=== PATIENT | female | born 1990 | race Caucasian/White ===

== ENCOUNTER 2018-01-27 11:14 | Outpatient (REF) | payer MEDICAID, SELFPAY ==
--- NOTE | 2018-01-27 09:00 | PAPFT_PTH ---
PATIENT: Shannan Castillo LOC: [facility] U#:[id number] AGE/SX: 27/F ROOM: RE01/27/[address]: JUDITH Loera : 1990 BED: DIS: 01/27/2018 SPEC #: [id number] RECD: 01/27/18 12:50 STATUS: TERENCE REQ #: [id number] MYNOR: 01/27/18 09:[address]: Suad Horvath DEPT: [facility] Cytology RECD BY: Aide Ellison ENTERED: 01/27/18 12:51 SP TYPE: PAPFT OTHR DR: Roxanne Childs Tissues: 1 - CX/ENDOCX FOR PAP SMEARS Procedures: PAP THIN PREP/UVM Screening Comments:
[2018-01-28 13:51] LABS: Chlamydia Result Negative; GC Result Negative; Specimen Description CERVIX
== END 2018-01-27 11:34 ==
LOC: LBN 11:14
PROVIDERS: PCP Nurse Practitioner Family; Visit Provider Nurse Practitioner Family
DX: Z12.4 Encounter for screening for malignant neoplasm of cervix (principal); Z11.3 Encounter for screening for infections with a predominantly sexual mode of transmission
CPT/HCPCS: 87491; 87591; 88142

== ENCOUNTER 2018-06-21 01:47 | Emergency (ER) | payer MEDICAID, SELFPAY ==
[2018-06-21 01:51] VITALS: BP 126/84; PULSE 96; RESP 16; TEMP 36.4; O2SAT 100
--- NOTE | 2018-06-21 02:09 | W.ED.GENAD ---
Discharge Plan Disposition Patient Disposition: HOME Condition: Good Discharge Details Chief Complaint: Abd Prob Clinical Impression: Abdominal pain Primary Care Provider: Roxanne Childs ED Provider: Chemo Roldan Meds and New Rx's Prescriptions: New famotidine [Heartburn Relief (famotidine)] 20 mg tablet 20 mg PO BID 0 Days Qty: 30 RF: 0 Continued medroxyprogesterone [Depo-Provera] 150 MG/1 ML suspension 150 mg IM Q 12 WEEKS Qty: 1 RF: 3 Discharge Instructions Instructions: Abdominal Pain (ED) Additional Instructions: Pain may be related to acid type disease. Will try you on famotidine for the next couple weeks. Follow-up with primary care for reevaluation. Return to ED for persistent/worsening abdominal pain, fever, vomiting. Referrals: Roxanne Childs [Primary Care Provider] - Medical Decision Making Patient presenting with intermittent sharp upper abdominal pain that comes and goes. She has no associated symptoms or radiation of pain. She is not febrile. She looks well and is texting on her phone when I come into the room. Her abdomen is completely benign to palpation. She does complain of some discomfort currently. Will try GI cocktail. Discussed possibility of gallstones but at this point has no significant tenderness or associated symptoms and would not pursue imaging or workup currently. Patient feels that the GI cocktail helped. We will start her on Zantac and have her follow-up with primary care in 1-2 weeks. Return to ED for persistent/worsening abdominal pain, fever, vomiting. HPI General Mode of arrival: ambulatory. Date/Time Provider Initiated Documentation: 06/21/18 02:07. Limitations to Documentation: no limitations. Information obtained by: patient. HPI Narrative: Patient here with intermittent upper abdominal sharp pain that comes and goes. She has some discomfort currently. There is no radiation of the pain. It is not localized to one particular area but the general upper abdomen. There is no associated fever, chills, nausea, vomiting, diarrhea. There are no urinary symptoms. She is able to eat and drink normally without difficulty. She notes that bending over seems to make it worse. She decided to come here after work to be evaluated. Related Data Home Medications Medication Instructions Recorded Confirmed medroxyprogesterone [Depo-Provera] 150 mg IM Q 12 WEEKS #1 vial 08/03/18 01/22/19 famotidine [Heartburn Relief 20 mg PO BID 0 Days #30 tab 06/21/18 (famotidine)] Previous Rx's Medication Instructions Recorded medroxyprogesterone [Depo-Provera] 150 mg IM Q 12 WEEKS #1 vial 10/17/17 famotidine [Heartburn Relief 20 mg PO BID 0 Days #30 tab 06/21/18 (famotidine)] Allergies Allergy/AdvReac Type Severity Reaction Status Date / Time latex Allergy Intermediate Skin Rash Verified 06/21/18 01:55 vitamin E Allergy Mild Itching Verified 06/21/18 01:55 [From Enviro Stress] coconut oil Allergy Anaphylaxsi Verified 06/21/18 01:55 s General Stated Complaint: Abd Prob DRISS: 3 Review of Systems Review of Systems As documented in HPI otherwise negative as below. Const: no fever, chills, weakness Resp: no cough, SOB, pleuritic pain CV: no CP, diaphoresis, edema, syncope GI: positive abdominal pain: no nausea, vomiting, diarrhea Neuro: no headache, numbness, focal weakness, confusion : no pelvic cramping, dysuria, discharge PFSH Medical History Bipolar disorder (Chronic) Hidradenitis suppurativa (Chronic) Surgical History Biopsy, Soft Tissue (Inactive 01/15/17) Incision & Drainage, Abscess or Hematoma (Inactive) wisdome teeth extraction (Inactive) Social History Smoking/Tobacco Use Status: Never Alcohol Intake: current Alcohol Intake frequency: holidays/special occasions only Drug use: Never Substance use type: does not use Seatbelt use: always Do you feel safe in your relationship?: Yes Female Reproductive History Menstrual control method: progesterone injection History History 0 Para Hx # Term Pregnancies Multiple births Hx # Pregnancies Ectopic pregnancies AB induced Hx Number of Living Children AB spontaneous Exam Narrative Exam Narrative: 1. Const: Obese female in NAD. 2. Eyes: No conjunctival injection or scleral icterus. 3. ENT: NC/AT. No facial swelling or tenderness. Mucous membranes moist. 4. Neck: Supple. Trachea midline. 5. CVS: RRR without murmurs or gallops. 6. RESP: Unlabored respiratory effort. Clear to auscultation bilaterally. No wheezes, rales or rhonchi. 7. GI: Soft, NT/ND, no hepatosplenomegaly. No guarding or rebound. 8. Neuro: A&O x3. 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 Sensation grossly intact, no focal neurologic deficits. Course Vital Signs Temperature 97.5 F L 06/21/18 01:51 Pulse 96 H 06/21/18 01:51 Respiratory Rate 16 06/21/18 01:51 Blood Pressure 126/84 06/21/18 01:51 Pulse Oximetry 100 06/21/18 01:51 Temperature 97.5 F L 06/21/18 01:51 Temperature Source Skin 06/21/18 01:51 Pulse 96 H 06/21/18 01:51 Respiratory Rate 16 06/21/18 01:51 Respiratory Effort Non-Labored 06/21/18 01:54 Blood Pressure 126/84 06/21/18 01:51 Pulse Oximetry 100 06/21/18 01:51 Oxygen Delivery Method Room Air 06/21/18 01:51 Oxygen Flow Rate 0 06/21/18 01:51 Pain Level 9 06/21/18 01:56
== END 2018-06-21 02:38 | disposition home or self-care (01) ==
PROVIDERS: Emergency Provider Emergency Medicine; PCP Nurse Practitioner Family
DX: R10.9 Unspecified abdominal pain (principal)
CPT/HCPCS: 99283

== ENCOUNTER 2018-09-25 13:00 | Outpatient (REF) | payer MEDICAID, SELFPAY | END 2018-09-25 13:20 | LOC: LBN 13:00 | PROVIDERS: Visit Provider Nurse Practitioner Family | DX: R30.0 Dysuria (principal) | CPT/HCPCS: 87086 ==

== ENCOUNTER 2018-12-18 20:09 | Emergency (ER) | payer SELFPAY ==
[2018-12-18 20:12] VITALS: BP 130/75; PULSE 88; RESP 18; TEMP 36.4; O2SAT 100
--- NOTE | 2018-12-18 20:50 | W.ED.GENAD ---
Discharge Plan Disposition Patient Disposition: HOME Condition: Good Discharge Details Chief Complaint: RespSymp Clinical Impression: Pharyngitis Primary Care Provider: Eligio Leon ED Provider: Ana Hughes Home Meds and New Rx's Prescriptions: No Action medroxyprogesterone [Depo-Provera] 150 mg/mL suspension 150 mg IM Q 12 WEEKS Qty: 1 RF: 3 ibuprofen 200 mg Tablet 400 mg PO DIRECTED RF: 0 Discharge Instructions Instructions: Pharyngitis (ED) Additional Instructions: Drink plenty of fluids. Use Motrin or Tylenol for soreness if needed. Rest activities as tolerated. Your strep testing is negative today. Warm salt water gargles. Consider Cepacol lozenge [id number] for comfort. Follow-up with primary care doctor if not improving the next 3 to 5 days. Return for any difficulty with no shortness of breath or wheezing. Return for any increase in fevers or ill feeling, difficulty swallowing or alarming symptoms if needed. Stand Alone Forms: Work Release Medical Decision Making 28-year-old patient presents for complaints of headache and sore throat. Patient reports onset of symptoms 3 days ago, persistent since. No associated voice change, trismus. No fevers or chills however general malaise is present. Denies significant fatigue. Patient concerned with complaints of sore throat primarily. Strep testing is negative. Patient likely experiencing viral pharyngitis. Discussed precautions. The patient was stable and requested discharge. Prior to discharge, my usual and customary return precautions were reviewed with the patient - this included follow-up instructions and reasons to return to the Emergency Department if conditions worsens, does not improve as expected, or other new concerns arise. HPI General Date/Time Provider Initiated Documentation: 12/18/18 20:10. HPI Narrative: 28-year-old patient presents for complaints of headache and sore throat. Patient denies nasal congestion or ear pain. Patient reports throat discomfort for the last 3 days. No complaints of foreign body sensation, trismus or voice change. Patient reports generalized malaise. No associated fever, chills, nausea, vomiting. Eating and drinking without difficulty. Patient reports cough which is chronic and unchanged. History of reflux. No difficulty breathing shortness of breath or wheezing. Tried ibuprofen prior to arrival without relief. Related Data Home Medications Medication Instructions Recorded Confirmed medroxyprogesterone 150 mg/mL 150 mg IM Q 12 WEEKS #1 vial 09/25/18 12/18/18 intramuscular suspension ibuprofen 400 mg PO DIRECTED 12/18/18 12/18/18 Previous Rx's Medication Instructions Recorded medroxyprogesterone 150 mg/mL 150 mg IM Q 12 WEEKS #1 vial 09/25/18 intramuscular suspension Allergies Allergy/AdvReac Type Severity Reaction Status Date / Time latex Allergy Intermediate Skin Rash Verified 12/18/18 20:15 vitamin E Allergy Mild Itching Verified 12/18/18 20:15 [From Enviro Stress] coconut oil Allergy Anaphylaxsi Verified 12/18/18 20:15 s General Stated Complaint: RespSymp DRISS: 4 Review of Systems Review of Systems ROS Unobtainable: All systems reviewed & are unremarkable except as noted in HPI and below Constitutional Constitutional: Denies chills, Denies excessive sweating, Denies fatigue, Denies fever(s), Reports headache(s), Denies lethargy and Reports malaise ENT Ears, Nose, Mouth, and Throat: Denies ear discharge, Denies otalgia, Reports headache(s), Denies mouth pain, Denies nasal congestion, Denies sinus pain, Denies sinus pressure, Reports sore throat, Denies throat swelling and Denies tongue swelling Cardiovascular Cardiovascular: Denies dyspnea Respiratory Respiratory: Denies cough, Denies pain with cough and Denies dyspnea Gastrointestinal Gastrointestinal: Denies nausea and Denies vomiting Neurologic Neurologic: Reports headache(s) Endocrine Endocrine: Denies excessive sweating and Denies fatigue Allergic/Immunologic Allergic/Immunologic: Denies throat swelling and Denies tongue swelling [facility] Medical History Bipolar disorder (Chronic) Contraception (Acute 03/24/15) Hidradenitis suppurativa (Chronic) Moderate episode of recurrent major depressive disorder (Acute 04/03/17) Surgical History Biopsy, Soft Tissue (Inactive 01/15/17) left and right axillae Incision & Drainage, Abscess or Hematoma (Inactive) 07/14/16-ED [facility] wisdome teeth extraction (Inactive) Social History Smoking/Tobacco Use Status: Never Alcohol Intake: current Alcohol Intake frequency: holidays/special occasions only Drug use: Never Substance use type: does not use Seatbelt use: always Do you feel safe at home: Yes Do you feel safe in your relationship?: Yes Female Reproductive History Menstrual control method: progesterone injection History History 0 Para Hx # Term Pregnancies Multiple births Hx # Pregnancies Ectopic pregnancies AB induced Hx Number of Living Children AB spontaneous Exam Narrative Exam Narrative: CONST: Healthy appearing patient, in no acute distress. Well hydrated. Alert and alert. HENMT: Head nomocephalic, normal to inspection. Atraumatic. Hearing grossly normal. Pharyngeal erythema without exudate. No uvula involvement. Peritonsillar abscess or soft palate swelling EYES: General normal appearance. Alignment normal. Eyelids normal. Conjunctiva normal. NECK: Normal visual inspection. FROM. Trachea midline. No Midline tenderness. CHEST: Normal insepection of the chest. RESP: Normal respiratory effort. Speaking full sentences. No cough. No audible wheezing. No retractions. CARDIO: No JVD. No murmurs rubs. Regular rate MUSCULOSKELETAL: Normal Gait. FROM of all extremities. SKIN: Normal. Dry. No rashes. NEURO: Alert and awake. Speech clear. PSYCH: Normal affect. Cooperative. Course Vital Signs Vital signs: Vital Signs Temperature 36.4 C L 12/18/18 20:12 Pulse 88 12/18/18 20:12 Respiratory Rate 18 12/18/18 20:12 Blood Pressure 130/75 12/18/18 20:12 Pulse Oximetry 100 12/18/18 20:12 Temperature 36.4 C L 12/18/18 20:12 Temperature Source Skin 12/18/18 20:12 Pulse 88 12/18/18 20:12 Respiratory Rate 18 12/18/18 20:12 Respiratory Effort 12/18/18 20:19 Respiratory Depth Normal 12/18/18 20:19 Blood Pressure 130/75 12/18/18 20:12 Pulse Oximetry 100 12/18/18 20:12 Oxygen Delivery Method Room Air 12/18/18 20:12 Oxygen Flow Rate 0 12/18/18 20:12 Pain Level 7 12/18/18 20:12 Comment 12/18/18 20:12
== END 2018-12-18 21:30 | disposition home or self-care (01) ==
PROVIDERS: Emergency Provider Physician Assistant; PCP Family Medicine
DX: J02.9 Acute pharyngitis, unspecified (principal)
CPT/HCPCS: 87880; 99282

== ENCOUNTER 2019-01-11 08:01 | Emergency (ER) | payer SELFPAY ==
[2019-01-11 08:08] VITALS: BP 122/75; PULSE 86; RESP 16; TEMP 36.6; O2SAT 100
--- NOTE | 2019-01-11 08:26 | DI.RAD_ITS ---
EXAM: XR CHEST 2V PA LATERAL INDICATION: cough, congestion, fever, chills. COMPARISON: CHEST 2 VIEWS PA,LAT from 06/19/2017 TECHNIQUE: 2D digital imaging was performed. FINDINGS: Heart size and pulmonary vasculature are within normal limits. The lungs are clear. No effusion or pneumothorax is identified. The bones are unremarkable. IMPRESSION: No acute pulmonary process.
--- NOTE | 2019-01-11 08:34 | ED.GENADUL_ITS ---
Discharge Plan Disposition Patient Disposition: HOME Discharge Details Chief Complaint: RespSymp Clinical Impression: Bronchitis Primary Care Provider: Eligio Leon ED Provider: Brian Escobar Home Meds and New Rx's Prescriptions: New azithromycin 250 mg tablet See Rx Instructions .ROUTE .COMPLEX Qty: 6 RF: 0 No Action ibuprofen 200 mg Tablet 400 mg PO DIRECTED RF: 0 Discharge Instructions Instructions: Acute Bronchitis (ED) Additional Instructions: Your flu's test was negative and your chest x-ray does not show any obvious evidence of pneumonia. Based on duration of your symptoms it was decided to trial a 5-day course of antibiotics. Continue with supportive care at home which would include frequent hydration, Tylenol and ibuprofen as needed for pain and/or fevers. Contact your primary care provider should your symptoms persist. Referrals: Eligio Leon [Primary Care Provider] - 1 week Medical Decision Making This is a nontoxic-appearing 28-year-old female with URI and cough symptoms for the last 3 weeks. Her vitals are stable here. Physical exam is remarkable for posterior pharyngeal erythema. Visit several days ago was negative for strep. Her influenza is negative and I do not see any obvious pneumonia on chest x-ray. Based on the duration of her symptoms we decided to pursue her course of antibiotics. Doc-Chepe written. Discussed return precautions. Along with follow- up with her PCP. HPI General Date/Time Provider Initiated Documentation: 01/11/19 08:13 . HPI Narrative: Patient is a 28-year-old female with a significant past medical history for major depressive disorder and bipolar disorder who presents to the emergency department with 2 to 3 weeks of URI symptoms. She reports nasal congestion and sore throat. She has developed a worsening cough over the last week. She reports posttussive vomiting. No fevers recorded however she admits to chills and muscle aches. She has not taken her temperature. She has been taking the occasional DayQuil/NyQuil. She is a non-smoker. Related Data Home Medications Medication Instructions Recorded Confirmed ibuprofen 400 mg PO DIRECTED 12/18/18 01/11/19 azithromycin See Rx Instructions .ROUTE 01/11/19 .COMPLEX #6 tab Previous Rx's Medication Instructions Recorded azithromycin See Rx Instructions .ROUTE 01/11/19 .COMPLEX #6 tab Allergies Allergy/AdvReac Type Severity Reaction Status Date / Time latex Allergy Intermediate Skin Rash Verified 01/11/19 08:13 vitamin E Allergy Mild Itching Verified 01/11/19 08:13 [From Enviro Stress] coconut oil Allergy Anaphylaxsi Verified 01/11/19 08:13 s General Stated Complaint: RespSymp DRISS: 3 Review of Systems Constitutional Constitutional: Reports body ache(s), Reports chills, Reports fatigue, Reports fever(s), Denies headache(s), Reports lethargy and Reports malaise Eyes Eyes: Denies eye discharge and Denies eye pain ENT Ears, Nose, Mouth, and Throat: Denies headache(s), Denies neck pain, Reports sinus pressure and Reports sore throat Cardiovascular Cardiovascular: Denies dyspnea Respiratory Respiratory: Reports cough, Reports pain with cough, Denies dyspnea, Denies stridor and Denies wheezing Gastrointestinal Gastrointestinal: Denies nausea, Reports vomiting and Denies hematemesis Genitourinary Genitourinary: Denies flank pain Musculoskeletal Musculoskeletal: Reports myalgias, Denies muscle cramps and Denies neck pain Integumentary/Breasts Skin/Breast: Denies rash Neurologic Neurologic: Denies headache(s) Endocrine Endocrine: Reports fatigue Allergic/Immunologic Allergic/Immunologic: Denies wheezing [facility] Medical History Bipolar disorder (Chronic) Contraception (Acute 03/24/15) Hidradenitis suppurativa (Chronic) Moderate episode of recurrent major depressive disorder (Acute 04/03/17) Surgical History Biopsy, Soft Tissue (Inactive 01/15/17) left and right axillae Incision & Drainage, Abscess or Hematoma (Inactive) 07/14/16-ED [facility] wisdome teeth extraction (Inactive) Social History Smoking/Tobacco Use Status: Never Alcohol Intake: current Alcohol Intake frequency: holidays/special occasions only Drug use: Never Substance use type: does not use Seatbelt use: always Do you feel safe at home: Yes Do you feel safe in your relationship?: Yes Female Reproductive History Menstrual control method: progesterone injection History History 0 Para Hx # Term Pregnancies Multiple births Hx # Pregnancies Ectopic pregnancies AB induced Hx Number of Living Children AB spontaneous Exam Const General: cooperative, healthy appearing and comfortable Orientation: alert, awake and oriented x3 HENMT Head: normal to inspection Ears: TM's normal bilaterally General nose exam: external nose normal Face and sinus: normal facial exam Mouth: oral mucosae normal Teeth and gingiva: dentition normal Throat: posterior oropharynx abnormal erythema Eyes General: appearance normal, both eyes and all related structures Neck Neck: normal visual inspection Lymphatic: lymphadenopathy Chest Chest: normal inspection of the chest Resp Effort & Inspection: normal respiratory effort and able to speak in complete sentences Auscultation: clear to auscultation bilaterally Cardio Heart Sounds: S1 normal and S2 normal Pulses: normal peripheral pulses Skin General skin exam: no rashes or lesions noted Course Vital Signs Vital signs: Vital Signs Temperature 36.6 C 01/11/19 08:08 Pulse 86 01/11/19 08:08 Respiratory Rate 16 01/11/19 08:08 Blood Pressure 122/75 01/11/19 08:08 Pulse Oximetry 100 01/11/19 08:08 Temperature 36.6 C 01/11/19 08:08 Temperature Source Skin 01/11/19 08:08 Pulse 86 01/11/19 08:08 Respiratory Rate 16 01/11/19 08:08 Respiratory Effort Non-Labored 01/11/19 08:08 Blood Pressure 122/75 01/11/19 08:08 Blood Pressure Position Sitting 01/11/19 08:08 Pulse Oximetry 100 01/11/19 08:08 Oxygen Delivery Method Room Air 01/11/19 08:08 Oxygen Flow Rate 0 01/11/19 08:08 Pain Level 8 01/11/19 08:08 Lab/Test Results Lab/Test Results: 01/11/19 08:32 Nasopharynx Influenza Types A,B Antigen - Pending
== END 2019-01-11 09:58 | disposition home or self-care (01) ==
PROVIDERS: Emergency Provider Physician Assistant; PCP Family Medicine
DX: J20.9 Acute bronchitis, unspecified (principal)
CPT/HCPCS: 87449; 99283; 71046

== ENCOUNTER 2020-03-06 20:30 | Emergency (ER) | payer MEDICAID, SELFPAY ==
[2020-03-06 20:40] VITALS: BP 124/75; PULSE 92; RESP 18; TEMP 36.7; O2SAT 100
[2020-03-06 20:47] LABS: Bilirubin Negative (Negative); Blood Moderate (Negative); Clarity Sl Cloudy (Clear); Glucose Negative (Negative); Ketones Negative (Negative); Leukocyte Esterase Trace (Negative); Nitrite Negative (Negative); Specific Gravity >= 1.030 (1.005-1.025); Urobilinogen 0.2 EU/dL (Up TO 0.2); pH 5.5 (5-8)
[2020-03-06] MEDS: Phenazopyridine 100 MG TAB PO (20:56)
--- NOTE | 2020-03-06 20:58 | ED.GENADUL_ITS ---
Discharge Plan Disposition Patient Disposition: HOME Condition: Stable Discharge Details Clinical Impression: UTI (urinary tract infection) Primary Care Provider: Eligio Leon ED Provider: Renuka Pearson Home Meds and New Rx's Prescriptions: New cephalexin [Keflex] 500 mg capsule 500 mg PO BID Qty: 8 RF: 0 No Action ibuprofen 200 mg Tablet 400 mg PO DIRECTED PRNRF: 0 acetaminophen 500 mg Tablet 500 mg PO PRN PRNRF: 0 Discharge Instructions Instructions: Urinary Tract Infection in Women (ED) Additional Instructions: Take antibiotics as directed even if you feel better Can use the Pyridium 100 mg every 8 hours as needed for painful urination Drink at least 6 to 8 glasses of water daily to stay well-hydrated Return or see your primary care provider if you start running fevers back pain nausea vomiting or any concerns new or worsening symptoms Referrals: Eligio Leon [Primary Care Provider] - Medical Decision Making Presents with symptoms consistent with urinary tract infection for which she has a history of no suspicion for pyelonephritis. Urine has been sent and is positive for blood and leukocyte Estrace. Given Pyridium 100 mg for her symptoms. Will treat with Keflex 500 mg twice daily for 5 days and administer 2 additional Pyridium to use for home use if needed she was advised to return for new or worsening symptoms Medical Records Medical records reviewed: Yes I reviewed the patient's medical records. Lab Data Lab results reviewed: Yes I reviewed the patient's lab results. Lab results narrative: Laboratory Results - last 24 hr 03/06/20 20:35 Urine Color Yellow Urine Clarity Sl cloudy Urine pH 5.5 Ur Specific [place] >= 1.030 H Urine Protein Negative Urine Ketones Negative Urine Blood Moderate H Urine Nitrite Negative Urine Bilirubin Negative Urine Urobilinogen 0.2 Ur Leukocyte Esterase Trace H Urine RBC 10-20 H Urine WBC 20-50 H Ur Epithelial Cells Moderate Urine Crystals Negative Urine Bacteria Moderate Urine Casts Negative Urine Mucus Negative Ur Culture Indicated? No/sq. contamination Urine Glucose Negative HPI General Date/Time Provider Initiated Documentation: 03/06/20 20:30 . Limitations to Documentation: no limitations . Information obtained by: patient . HPI Narrative: Since after Thanksgiving reports dysuria frequency urgency. Denies flank pain hematuria fevers nausea or vomiting. Has a history of UTIs and states this is similar to her history. No other complaints Related Data Home Medications Medication Instructions Recorded Confirmed ibuprofen 400 mg PO DIRECTED PRN 12/18/18 03/06/20 acetaminophen 500 mg PO PRN PRN 03/06/20 03/06/20 cephalexin [Keflex] 500 mg PO BID #8 cap 03/06/20 Previous Rx's Medication Instructions Recorded cephalexin [Keflex] 500 mg PO BID #8 cap 03/06/20 Allergies Allergy/AdvReac Type Severity Reaction Status Date / Time latex Allergy Intermediate Skin Rash Verified 03/06/20 20:42 vitamin E Allergy Mild Itching Verified 03/06/20 20:42 [From Enviro Stress] coconut oil Allergy Anaphylaxsi Verified 03/06/20 20:42 s General Stated Complaint: Urinary DRISS: 4 Review of Systems All systems reviewed & are unremarkable except as noted in HPI and below Constitutional Constitutional: Denies fever(s) Genitourinary Genitourinary: Denies genital lesions, Reports dysuria, Denies flank pain, Reports urinary urgency, Denies vaginal discharge and Denies vaginal odor PFSH Medical History (Updated 03/06/20 @ 21:02 by Renuka Pearson NP) Bipolar disorder Contraception (03/24/15) Hidradenitis suppurativa Moderate episode of recurrent major depressive disorder (04/03/17) Surgical History Biopsy, Soft Tissue (01/15/17) left and right axillae Incision & Drainage, Abscess or Hematoma 07/14/16-ED [facility] teeth extraction Social History Smoking/Tobacco Use Status: Former Tobacco Use Smoking risk assessment performed?: Yes Alcohol Intake: current Alcohol Intake frequency: holidays/special occasions only Drug use: Occasionally Substance use type: marijuana Seatbelt use: always Do you feel safe at home: Yes Do you feel safe in your relationship?: Yes Female Reproductive History Menstrual control method: progesterone injection History History 0 Para Hx # Term Pregnancies Multiple births Hx # Pregnancies Ectopic pregnancies AB induced Hx Number of Living Children AB spontaneous Exam Const General: cooperative, healthy appearing, comfortable and no acute distress Nutritional Appearance: overweight HENMT Head: normal to inspection, normocephalic and atraumatic Mouth: oral mucosae normal Chest Chest: normal inspection of the chest Resp Effort & Inspection: normal respiratory effort and able to speak in complete sentences Cardio Rate: regular rate Rhythm: regular rhythm GI Inspection: normal to inspection Palpation: soft Back/Spine/Pelvis Back: no CVA tenderness Neuro General: patient alert, patient awake, patient oriented x3 and no focal motor deficits Extrem General: normal to inspection and full ROM Course Vital Signs Vital signs: Vital Signs Temperature 36.7 C 03/06/20 20:40 Pulse 92 H 03/06/20 20:40 Respiratory Rate 18 03/06/20 20:40 Blood Pressure 124/75 03/06/20 20:40 Pulse Oximetry 100 03/06/20 20:40 Temperature 36.7 C 03/06/20 20:40 Temperature Source Skin 03/06/20 20:40 Pulse 92 H 03/06/20 20:40 Respiratory Rate 18 03/06/20 20:40 Respiratory Effort Non-Labored 03/06/20 20:46 Blood Pressure 124/75 03/06/20 20:40 Blood Pressure Position Sitting 03/06/20 20:40 Pulse Oximetry 100 03/06/20 20:40 Oxygen Delivery Method Room Air 03/06/20 20:40 Oxygen Flow Rate 0 03/06/20 20:40 Pain Level 10 03/06/20 20:46 Lab/Test Results Lab/Test Results: Laboratory Tests Range/Units 03/06/20 20:35 Urine Color (Yellow) Yellow Urine Clarity (Clear) Sl cloudy Urine pH (5-8) 5.5 Ur Specific [place] (1.005-1.025) >= 1.030 H Urine Protein (Negative) mg/dL Negative Urine Ketones (Negative) mg/dL Negative Urine Blood (Negative) Moderate H Urine Nitrite (Negative) Negative Urine Bilirubin (Negative) Negative Urine Urobilinogen (Up TO 0.2) EU/dL 0.2 Ur Leukocyte Esterase (Negative) Trace H Urine Glucose (Negative) mg/dL Negative POC- Test(urine) Negative
[2020-03-06 21:01] LABS: Bacteria Moderate HPF (Negative); C & S Indicated? No/Sq. Contamination; Casts Negative LPF (Negative); Crystals Negative HPF (Negative); Epithelial Cells Moderate HPF (Negative); Mucus Negative (Negative); WBC 20-50 HPF (0-5)
[2020-03-06] MEDS: Phenazopyridine 100 MG TAB, 2 TABS/BTL PO (21:09)
[2020-03-06] MEDS: Cephalexin 500 MG CAP, 2 CAPS/BTL PO (21:10)
== END 2020-03-06 21:09 | disposition home or self-care (01) ==
PROVIDERS: Emergency Provider Nurse Practitioner Acute Care; PCP Family Medicine
DX: R39.0 Extravasation of urine (principal); Z87.440 Personal history of urinary (tract) infections
CPT/HCPCS: 81025; 99283; 81003; 81015

== ENCOUNTER 2020-04-30 23:12 | Emergency (ER) | payer MEDICAID, SELFPAY ==
[2020-04-30 23:20] VITALS: BP 124/73; PULSE 96; RESP 18; TEMP 36.7; O2SAT 99
--- NOTE | 2020-04-30 23:34 | W.ED.GENAD ---
Discharge Plan Disposition Patient Disposition: HOME Condition: Stable Discharge Details Clinical Impression: Abdominal pain, Colitis Primary Care Provider: Eligio Leon ED Provider: Gurwinder Mcintosh Home Meds and New Rx's Prescriptions: New ciprofloxacin HCl 500 mg tablet 500 mg PO BID Qty: 14 RF: 0 metronidazole [Flagyl] 500 mg tablet 500 mg PO Q8H Qty: 21 RF: 0 prednisone 20 mg tablet 60 mg PO DAILY 4 Days Qty: 12 RF: 0 Discharge Instructions Instructions: Colitis (ED) Additional Instructions: your cat scan showed inflammation of the bowel which can be due to infections but also due to inflammatory bowel disease follow up with your primary care provider within a week if you have severe worsening pain, persistent vomit or feel more ill return to the emergency department Medical Decision Making 29 yo female who denies chronic medical problems comes in with 2-3 days of loose stools and mid sharp abdominal pain. She states she has never had this pain in the past and denies prior surgeries. She denies vaginal discharge or bleeding. She arrives speaking in full sentences in no distress. She localizes the pain 1-2 inches superior to the umbilicus and is tender in this area even with light touch, no upper abdominal tenderness, and with deep palpation very mild pain in the lower quadrants. I do not feel a hernia on exam. Given location of pain and worsening over several days feel ct to evaluate for possible incarcerated hernia indicated, less likely to be appendicitis, sbo, cholecystitis or ovarian torsion/cyst given location of the pain. lab work unremarkable other than mild leukocytosis of 13, ua does show some bacteria and leukocytes but has no urinary symptoms. CT shows pancolitis and ileitis. She remains stable and is going to attempt to provide stool sample. Discussed findings with her and could be infectious vs inflammatory bowel disease such as crohn's vs ulcerative colitis. She has no significant tenderness on exam and feels well enough for outpatient management. Will start prednisone, cipro and flagyl and have her f/u with pcp within a week. Return precautions given Differential Diagnosis Differential Diagnosis: hernia, gastritis, colitis Imaging Data Radiologic Study: Attestation: I personally reviewed and interpreted this imaging study as follows: Imaging: CT Scan Radiologist's impression: IMPRESSION: 1. Findings of mild pancolitis and distal ileitis, as described above. 2. Mildly enlarged right lower quadrant small bowel mesenteric lymph nodes, likely reactive. 3. Mild splenomegaly. 4. Findings suggest mild circumferential wall thickening of the lower esophagus, could reflect reflux esophagitis. Recommend clinical correlation. Lab Data Lab results reviewed: Yes I reviewed the patient's lab results. HPI General Mode of arrival: ambulatory. Date/Time Provider Initiated Documentation: 04/30/20 23:12. Limitations to Documentation: no limitations. Information obtained by: patient. History of Present Illness 29 year old F presents to the emergency department with the chief complaint of abdominal pain, described as moderate, Patient reports no radiation. Patient started experiencing this day(s) (3) and it has been constant. No relieving factors improve symptom(s), No exacerbating factors reported . Patient did receive the following treatments prior to arrival, none Related Data Home Medications Medication Instructions Recorded Confirmed ciprofloxacin HCl 500 mg PO BID #14 tab 05/01/20 metronidazole [Flagyl] 500 mg PO Q8H #21 tab 05/01/20 prednisone 60 mg PO DAILY 4 Days #12 tab 05/01/20 Previous Rx's Medication Instructions Recorded ciprofloxacin HCl 500 mg PO BID #14 tab 05/01/20 metronidazole [Flagyl] 500 mg PO Q8H #21 tab 05/01/20 prednisone 60 mg PO DAILY 4 Days #12 tab 05/01/20 Allergies Allergy/AdvReac Type Severity Reaction Status Date / Time latex Allergy Intermediate Skin Rash Verified 04/30/20 23:31 vitamin E Allergy Mild Itching Verified 04/30/20 23:31 [From Enviro Stress] coconut oil Allergy Anaphylaxsi Verified 04/30/20 23:31 s General Stated Complaint: Abd Prob DRISS: 3 Review of Systems All systems reviewed & are unremarkable except as noted in HPI and below Constitutional Constitutional: Denies chills, Denies fever(s) and Denies weakness Cardiovascular Cardiovascular: Denies chest pain and Denies dyspnea Respiratory Respiratory: Denies cough and Denies dyspnea Gastrointestinal Gastrointestinal: Denies nausea and Denies vomiting Neurologic Neurologic: Denies weakness Endocrine Endocrine: Denies heat intolerance [facility] Medical History (Updated 05/01/20 @ 00:39 by Gurwinder Mcintosh MD) Bipolar disorder Contraception (03/24/15) Hidradenitis suppurativa Moderate episode of recurrent major depressive disorder (04/03/17) Surgical History Biopsy, Soft Tissue (01/15/17) left and right axillae Incision & Drainage, Abscess or Hematoma 07/14/16-ED [facility] teeth extraction Social History Smoking/Tobacco Use Status: Current every day Tobacco Type: cigarettes Smoking risk assessment performed?: Yes Alcohol Intake: current Alcohol Intake frequency: a few times a month Drug use: Never Substance use type: does not use Seatbelt use: always Do you feel safe at home: Yes Do you feel safe in your relationship?: Yes Female Reproductive History Menstrual control method: progesterone injection History History 0 Para Hx # Term Pregnancies Multiple births Hx # Pregnancies Ectopic pregnancies AB induced Hx Number of Living Children AB spontaneous Exam Const General: no acute distress Orientation: alert HENMT Head: normal to inspection Ears: external ears normal General nose exam: external nose normal Mouth: moist mucous membranes Eyes General: appearance normal, both eyes and all related structures Neck Neck: normal visual inspection Resp Effort & Inspection: normal respiratory effort and able to speak in complete sentences Cardio Rate: regular rate GI Palpation: soft, not firm and no guarding Skin General skin exam: no rashes or lesions noted Neuro General: patient alert and patient oriented x3 Extrem General: normal to inspection Psych Mental Status: mental status grossly normal Course Vital Signs Vital signs: Vital Signs Temperature 36.7 C 04/30/20 23:20 Pulse 96 H 04/30/20 23:20 Respiratory Rate 18 04/30/20 23:20 Blood Pressure 124/73 04/30/20 23:20 Pulse Oximetry 99 04/30/20 23:20 Temperature 36.7 C 04/30/20 23:20 Temperature Source Skin 04/30/20 23:20 Pulse 96 H 04/30/20 23:20 Respiratory Rate 18 04/30/20 23:20 Respiratory Effort Non-Labored 04/30/20 23:29 Blood Pressure 124/73 04/30/20 23:20 Blood Pressure Position Supine 04/30/20 23:20 Pulse Oximetry 99 04/30/20 23:20 Oxygen Delivery Method Room Air 04/30/20 23:20 Oxygen Flow Rate 0 04/30/20 23:20 Pain Level 9 04/30/20 23:20 Lab/Test Results Lab/Test Results: POC Urine Test Start: 04/30/20 23:33 Freq: Status: Complete Protocol: Document 04/30/20 23:33 CP (Rec: 04/30/20 23:34 CP [id number]) Test(Urine)-POC POC- Test(urine) Negative POC- Test(urine) Negative
[2020-04-30 23:44] LABS: Lactate 1.2 mmol/L (0.6-1.4)
[2020-04-30 23:45] LABS: Abs Immature Grans 0.08 10^3/uL (0.0-0.06); Absolute Lymphocyte Count 2.14 10^3/uL (1.2-3.4); Basophils % 0.4; Eosinophils % 5.1; HCT 38.4 % (36.0-46.0); HGB 12.3 g/dL (11.2-15.7); Immature Grans % 0.6; Lymphocytes % 15.5; MCH 26.5 pg (27.0-33.0); MCV 82.6 fL (80-95); MPV 9.6 fL (8.0-11.0); Neutrophils % 72.4; Nucleated RBC 0 %; Platelet Count 342 10^3/uL (130-400); RBC 4.65 10^6/uL (3.93-5.22); RDW 13.7 % (11.7-14.6); RDW-SD 40.8 fL; WBC 13.78 10^3/uL (4.4-10.8)
[2020-04-30 23:47] LABS: Absolute Basophil Count 0.06 10^3/uL (0.0-0.2); Absolute Monocyte Count 0.83 10^3/uL (0.1-0.8); Absolute Neutrophil Count 9.98 10^3/uL (1.2-6.7)
[2020-04-30 23:48] LABS: Bilirubin Negative (Negative); Blood Small (Negative); Clarity Clear (Clear); Glucose Negative (Negative); Ketones Negative (Negative); Leukocyte Esterase Small (Negative); Nitrite Negative (Negative); Specific Gravity >= 1.030 (1.005-1.025); Urobilinogen 0.2 EU/dL (Up TO 0.2); pH 5.5 (5-8)
[2020-04-30 23:51] LABS: Bacteria Few HPF (Negative); C & S Indicated? Yes; Casts Negative LPF (Negative); Crystals Negative HPF (Negative); Epithelial Cells Few HPF (Negative); Mucus Trace (Negative)
--- NOTE | 2020-04-30 23:55 | DI.CT_ITS ---
EXAM: CT ABDOMEN PELVIS W CLINICAL HISTORY: sharp mid abdominal pain. TECHNIQUE: Imaging Protocol: Axial computed tomography images with coronal and sagittal reformatted images were created and reviewed CONTRAST MATERIAL: Intravenous: Omnipaque 100cc Oral: None COMPARISON: No exams were available for comparison FINDINGS: VISUALIZED LUNG BASES: No nodules nor pleural effusions evident. ABDOMEN: There is no ascites. LIVER: There are no obvious focal hepatic lesions evident . GALLBLADDER/BILIARY: Is collapsed making evaluation of luminal contents difficult CBD is not dilated. PANCREAS: No evidence of pancreatic mass nor dilatation of the pancreatic duct. SPLEEN: Spleen size upper normal. Splenic and portal veins are patent. ADRENALS: There are no significant adrenal masses. KIDNEYS:Tiny cyst in the inferior pole the right kidney. No solid renal masses. No calculi nor hydr onephrosis. No perinephric fluid.. ABDOMINAL AORTA: Abdominal aorta is not enlarged and there is no [id number] adenopat hy. ABDOMINAL WALL/GI: No evidence of significant anterior abdominal wall hernia. There is a curiel colitis pattern evident. No perforation. No significant dilatation. Also some abnormal appearance of dist al small bowel loops. No bowel obstruction. No free air. No abscess. PELVIS: GI: No evidence of appendicitis.No evidence of sigmoid diverticulitis. LYMPH NODES: There are few sub slightly prominent lymph nodes right lower quadrant mesentery. The la rgest of these measures 8 millimeters. REPRODUCTIVE: Uterus size is age-appropriate. There is a cyst in the right adnexa measuring 2.1 by 2 .0 cm, most probably follicular. URINARY BLADDER: Urinary bladder is collapsed. OSSEOUS: No significant osseous lesions. Sacroiliac joints appear unremarkable IMPRESSION: 1. Curiel colitis and distal ileitis. There also appears to be slight thickening of the wall of the dis anisha esophagus. No evidence of bowel obstruction, perforation, free air, nor abscess. There is no as cites. 2. There are few slightly prominent right lower quadrant mesenteric lymph nodes, most probably reacti ve. 3. Spleen size is upper normal. 4. Gallbladder is collapsed making evaluation of intraluminal contents difficult. RADIATION DOSE DELIVERED: 1,363.63mGy.cm Total DLP DATA REPOSITORY: All CT scans at this facility are submitted to the National Radiology Data Registry (NRDR) Dose Index Registry (DIR) with the [employer] (A[employer]). RADIATION OPTIMIZATION: All CT scans at this facility use at least one of these dose optimization te chniques: automated exposure control; mA and/or kV adjustment per patient size (includes targeted exa ms where dose is matched to clinical indication); or iterative reconstruction.
[2020-05-01] LABS: Lipase 102 U/L (73-393)
[2020-05-01] MEDS: Normal Saline - Diluent 50 ML VIAL IV (00:02)
[2020-05-01] MEDS: Omnipaque 350 MG/ML 100 ML BTL IJ (00:02)
[2020-05-01] MEDS: Normal Saline Flush 10 ML SYR IVP (00:03)
[2020-05-01 00:05] LABS: ALT 17 U/L (14-59); AST 9 U/L (15-37); Albumin 3.2 g/dL (3.4-5.0); Alkaline Phosphatase 78 U/L (46-116); Anion Gap 10.2 mmol/L (3-11); BUN 10 mg/dL (7-18); Bilirubin, Direct 0.08 mg/dL (0.00-0.20); Bilirubin, Total 0.2 mg/dL (0.2-1.0); CO2 25.8 mmol/L (21.0-32.0); CREATININE 0.7 mg/dL (0.55-1.02); Calcium 8.8 mg/dL (8.5-10.1); Chloride 102 mmol/L (98-107); Glucose 104 mg/dL (74-106); Potassium 3.3 mmol/L (3.5-5.1); Sodium 138 mmol/L (136-145); Total Protein 7.7 g/dL (6.4-8.2)
[2020-05-01] MEDS: Normal Saline 500 ML IV (00:06)
[2020-05-01] MEDS: Ketorolac 15 MG/ML VIAL IVP (00:07)
--- NOTE | 2020-05-01 00:32 | DI.VRAD_ITS ---
PROCEDURE INFORMATION: Exam: CT Abdomen And Pelvis With Contrast Exam date and time: 04/30/2020 11:34 PM Age: 29 years old Clinical indication: Other: Diarhhea; Localized; Patient HX: Sharp mid abdominal pain , diarrhea TECHNIQUE: Imaging protocol: Computed tomography of the abdomen and pelvis with contrast. Radiation optimization: All CT scans at this facility use at least one of these dose optimization techniques: automated exposure control; mA and/or kV adjustment per patient size (includes targeted exams where dose is matched to clinical indication); or iterative reconstruction. Contrast material: OMNIPAQUE 350; Contrast volume: 100 ml; Contrast route: INTRAVENOUS (IV); COMPARISON: No relevant prior studies available. FINDINGS: Mediastinal space: Findings suggest mild circumferential wall thickening of the lower esophagus above the GE junction, which could reflect reflux esophagitis. No hiatal hernia is identified. Liver: Normal. No mass. Gallbladder and bile ducts: The gallbladder is contracted and is not well evaluated, but there is no evidence for acute gallbladder inflammation. No gallstones are identified. There is no biliary ductal dilatation. Pancreas: Normal. No ductal dilation. Spleen: The spleen has a length of 13.6 cm consistent with mild splenomegaly. Adrenal glands: Normal. No mass. Kidneys and ureters: There is a tiny sub cm low-dense right renal lesion which is too small to characterize but likely represents a benign cyst. No renal or ureteral stones are identified. There is no hydronephrosis or hydroureter. Stomach and bowel: The colon is mostly collapsed, limiting evaluation. Findings suggest diffuse mild inflammatory wall thickening of the colon. There is mild inflammatory fat stranding as well around the transverse colon. Findings are consistent with mild pancolitis. There is fluid within the rectum and distal sigmoid colon suggesting diarrheal illness. The colon is otherwise completely collapsed. There is mild wall thickening of the terminal ileum as well as multiple loops of more proximal ileum consistent with mild ileitis. Appendix: The appendix is well visualized and appears normal. Intraperitoneal space: Unremarkable. No free air. No significant fluid collection. Vasculature: Unremarkable. No abdominal aortic aneurysm. Lymph nodes: There are multiple prominent subcentimeter right lower quadrant small bowel mesenteric lymph nodes measuring up to 7 mm, as seen around image 51, series 4. Urinary bladder: Unremarkable as visualized. Reproductive: There is a 1.0 x 1.6 cm rim enhancing low-dense right adnexal lesion, as seen on image 70, series 4, consistent with a corpus luteal cyst. There is also a 2.2 x 1.8 cm fluid attenuation right adnexal lesion on image 72, series 4, likely a follicle. Bones/joints: There is a transitional vertebra at the lumbosacral junction with partial sacralization of L5. Soft tissues: Unremarkable. IMPRESSION: 1. Findings of mild pancolitis and distal ileitis, as described above. 2. Mildly enlarged right lower quadrant small bowel mesenteric lymph nodes, likely reactive. 3. Mild splenomegaly. 4. Findings suggest mild circumferential wall thickening of the lower esophagus, could reflect reflux esophagitis. Recommend clinical correlation. Findings were discussed with Gurwinder Mcintosh at 05/01/2020 12:31 AM EST. Dictated and Authenticated by: Eligio Dupree MD. Ordering:EMILY Purdy MD
--- NOTE | 2020-05-01 00:37 | NUR.NOTE ---
Nursing Note: REFERAL FAXED TO PRIMARY TO FOLLOW UP WITHIN A WEEK FOR CHOLITIS 05/01/20
[2020-05-01 00:41] VITALS: BP 102/86; PULSE 71; RESP 16; O2SAT 100
[2020-05-01] MEDS: predniSONE 20 MG TAB 60 MG PO (00:48)
[2020-05-01] MEDS: Ciprofloxacin 500 MG TAB PO (00:48)
[2020-05-01] MEDS: metroNIDAZOLE 500 MG TAB PO (00:48)
[2020-05-01 01:33] LABS: C Diff PCR Negative (Negative)
[2020-05-02 11:02] LABS: Campylobacter PCR Positive (Negative); Salmonella PCR Negative (Negative); Shiga Toxin PCR Negative (Negative); Shigella/Enteroinvasive Ecoli Negative (Negative)
--- NOTE | 2020-05-02 11:04 | NUR.NOTE ---
Nursing Note: Lab ([facility]) called stating that the patient's Fecal PCR was positive for camplyobacter. Dr. Mclean is notified of this. Aicha Cheng
--- NOTE | 2020-05-02 19:58 | W.ED.FU ---
Lab called to state that her stool culture was positive for Campylobacter. Patient was treated with Cipro, Flagyl and prednisone. Patient was called at home and initially she was unavailable. She returned a call to the ED and she was informed of her results. She states she has a follow-up appointment with her primary care doctor. She had no acute complaints at this time and was advised to return with any concerns.
== END 2020-05-01 00:55 | disposition home or self-care (01) ==
LOC: ER 05-01 00:55
PROVIDERS: Emergency Provider Emergency Medicine; PCP Family Medicine
DX: K52.9 Noninfective gastroenteritis and colitis, unspecified (principal); R10.30 Lower abdominal pain, unspecified
CPT/HCPCS: 80053; 81025; 83690; 87493; 87505; 96361; 96374; 99285; 74177; 81003; 81015; 82248; 83605; 85025; 87086; 99284; J1885; J3490; J7512

== ENCOUNTER 2020-08-13 21:37 | Emergency (ER) | payer MEDICAID, SELFPAY ==
[2020-08-13 21:41] VITALS: BP 139/87; PULSE 99; RESP 18; TEMP 36.5
[2020-08-13 22:31] LABS: Bilirubin Negative (Negative); Blood Trace-intact (Negative); Clarity Sl Cloudy (Clear); Glucose Negative (Negative); Ketones Negative (Negative); Leukocyte Esterase Small (Negative); Nitrite Negative (Negative); Specific Gravity >= 1.030 (1.005-1.025); Urobilinogen 0.2 EU/dL (Up TO 0.2); pH 5.5 (5-8)
[2020-08-13 22:40] LABS: Bacteria Moderate HPF (Negative); C & S Indicated? No/Sq. Contamination; Casts Negative LPF (Negative); Crystals Negative HPF (Negative); Epithelial Cells Moderate HPF (Negative); Mucus Trace (Negative); WBC >50 HPF (0-5)
--- NOTE | 2020-08-13 22:47 | ED.GENADUL_ITS ---
Discharge Plan Disposition Patient Disposition: HOME Condition: Good Discharge Details Clinical Impression: UTI (urinary tract infection) Primary Care Provider: Eligio Leon ED Provider: Aide Elizabeth Home Meds and New Rx's Prescriptions: New cephalexin 500 mg tablet 500 mg PO BID Qty: 10 RF: 0 Discharge Instructions Instructions: Sexually Transmitted Diseases (ED), Trichomoniasis (ED), Urinary Tract Infection in Women (ED) Additional Instructions: Yogurt daily while on antibiotic Practice safe sexual practices You have STD cultures pending, they will likely be back within 72 hours Please return earlier should you have fever, chills, or with any new or worsening complaints test of cure in 2 weeks Discharge Data Discharge Date/Time-TO BE ENTERED AT DEPARTURE: 08/13/20 23:55 Medical Decision Making Patient appears well, she has STD testing that is pending Initial microanalysis is contaminated, second pending No cervical motion tenderness or evidence of PID on exam Patient positive for trichomonas, treated empirically for gonorrhea and chlamydia, and given 2 g of Flagyl, 1 g of azithromycin, 500 mg of ceftriaxone IM Will need test of cure in 2 weeks Negative test Patient will contact partners Patient otherwise appears well given the threshold to return for new or worseni ng complaints We will follow up with [facility] next week Differential Diagnosis Differential Diagnosis: Urinary tract infection, STD, interstitial cystitis, pyelonephritis Medical Records Medical records reviewed: Yes I reviewed the patient's medical records. HPI General Mode of arrival: ambulatory . Date/Time Provider Initiated Documentation: 08/13/20 21:52 . Limitations to Documentation: no limitations . Information obtained by: patient . HPI Narrative: This 29-year-old female presents with report of dysuria for the past 3 days. She states that she has a new sexual partner. She denies any new vaginal discharge. She denies any flank pain, fever, chills, or known chance of although she has not used any sort of contraception and has had 3 partners within the past week. She denies any history of sexually transmitted disease. Her pain is increased with urination. She denies any blood in her urine. Last menstrual period was 3 weeks ago. Denies any rashes or lesions. Related Data Home Medications Medication Instructions Recorded Confirmed cephalexin 500 mg PO BID #10 tab 08/13/20 Previous Rx's Medication Instructions Recorded cephalexin 500 mg PO BID #10 tab 08/13/20 Allergies Allergy/AdvReac Type Severity Reaction Status Date / Time latex Allergy Intermediate Skin Rash Verified 08/13/20 21:48 vitamin E Allergy Mild Itching Verified 08/13/20 21:48 [From Enviro Stress] coconut oil Allergy Anaphylaxsi Verified 08/13/20 21:48 s General Stated Complaint: Urinary DRISS: 4 Review of Systems Narrative: Review of systems obtained x7 aside from where indicated in the HPI [facility] Medical History (Updated 08/13/20 @ 23:33 by JOSE Edwards) Bipolar disorder Contraception (03/24/15) Hidradenitis suppurativa Moderate episode of recurrent major depressive disorder (04/03/17) Surgical History Biopsy, Soft Tissue (01/15/17) left and right axillae Incision & Drainage, Abscess or Hematoma 07/14/16-ED [facility] wisdome teeth extraction Social History Smoking/Tobacco Use Status: Current every day Tobacco Type: cigarettes Smoking risk assessment performed?: Yes Alcohol Intake: current Alcohol Intake frequency: a few times a month Drug use: Never Substance use type: does not use Seatbelt use: always Do you feel safe at home: Yes Do you feel safe in your relationship?: Yes Female Reproductive History Menstrual control method: progesterone injection History History 0 Para Hx # Term Pregnancies Multiple births Hx # Pregnancies Ectopic pregnancies AB induced Hx Number of Living Children AB spontaneous Exam Const General: cooperative, comfortable and no acute distress GI Inspection: normal to inspection Other: No CVA tenderness, no abdominal tenderness Other: mild white discharge noted, no cervical motion tenderness, no adnexal tenderness, no additional rashes or lesions, cervix is notably friable, there is scant bleeding with pelvic exam: Course Vital Signs Vital signs: Vital Signs Temperature 36.5 C 08/13/20 21:41 Pulse 99 H 08/13/20 21:41 Respiratory Rate 18 08/13/20 21:41 Blood Pressure 139/87 08/13/20 21:41 Temperature 36.5 C 08/13/20 21:41 Pulse 99 H 08/13/20 21:41 Respiratory Rate 18 08/13/20 21:41 Respiratory Effort Non-Labored 08/13/20 21:49 Blood Pressure 139/87 08/13/20 21:41 Oxygen Delivery Method Room Air 08/13/20 21:41 Oxygen Flow Rate 0 08/13/20 21:41 Pain Level 0 08/13/20 22:20 Lab/Test Results Lab/Test Results: 08/13/20 22:20 Vaginal Vaginitis Screen - Pending Laboratory Tests Range/Units 08/13/20 21:44 Urine Color (Yellow) Yellow Urine Clarity (Clear) Sl cloudy Urine pH (5-8) 5.5 Ur Specific [place] (1.005-1.025) >= 1.030 H Urine Protein (Negative) mg/dL Negative Urine Ketones (Negative) mg/dL Negative Urine Blood (Negative) Trace-intact H Urine Nitrite (Negative) Negative Urine Bilirubin (Negative) Negative Urine Urobilinogen (Up TO 0.2) EU/dL 0.2 Ur Leukocyte Esterase (Negative) Small H Urine RBC (0-2) HPF 5-10 H Urine WBC (0-5) HPF >50 H Ur Epithelial Cells (Negative) HPF Moderate Urine Crystals (Negative) HPF Negative Urine Bacteria (Negative) HPF Moderate Urine Casts (Negative) LPF Negative Urine Mucus (Negative) Trace Ur Culture Indicated? No/sq. contamination Urine Glucose (Negative) mg/dL Negative POC Urine Test Start: 08/13/20 21:44 Freq: Status: Complete Protocol: Document 08/13/20 22:05 CP (Rec: 08/13/20 22:05 CP [id number]) Test(Urine)-POC POC- Test(urine) Negative POC- Test(urine) Negative
[2020-08-13 23:22] LABS: Bacteria Few HPF (Negative); C & S Indicated? Yes; Crystals Negative HPF (Negative); Epithelial Cells Moderate HPF (Negative); Mucus Negative (Negative); RBC 20-50 HPF (0-2)
[2020-08-13] MEDS: Cephalexin 500 MG CAP PO (23:38)
[2020-08-13] MEDS: cefTRIAXone 500 MG VIAL IM (23:58)
[2020-08-13] MEDS: metroNIDAZOLE 500 MG TAB 2000 MG PO (23:58)
[2020-08-13] MEDS: Azithromycin 250 MG TAB 1000 MG PO (23:58)
[2020-08-16 15:15] LABS: Chlamydia Result Negative (Negative)
[2020-08-16 16:17] LABS: GC Result Positive (Negative)
== END 2020-08-13 23:55 | disposition home or self-care (01) ==
PROVIDERS: Emergency Provider Physician Assistant; PCP Family Medicine
DX: A54.02 Gonococcal vulvovaginitis, unspecified (principal); A59.01 Trichomonal vulvovaginitis; N39.0 Urinary tract infection, site not specified
CPT/HCPCS: 81025; 87491; 87591; 96372; 99284; 81003; 81015; 87086; 87480; 87510; 87660; 99283; J0696

== ENCOUNTER 2020-08-28 15:00 | Outpatient (CLI) | payer MEDICAID, SELFPAY ==
[2020-08-29 09:28] LABS: Hepatitis B Surface Ag Negative (Negative)
[2020-08-29 10:04] LABS: HIV-1/2 Ag & Ab Screen Negative (Negative)
[2020-08-29 10:23] LABS: Hepatitis C Ab w Rflx HCV PCR Negative (Negative)
[2020-08-30 11:09] LABS: Syphilis Total Ab w/Reflex Nonreactive (Nonreactive)
== END 2020-08-28 15:01 | disposition home or self-care (01) ==
LOC: LBO 15:01
PROVIDERS: PCP Family Medicine; Visit Provider Nurse Practitioner Family
DX: Z11.4 Encounter for screening for human immunodeficiency virus [HIV] (principal); Z11.59 Encounter for screening for other viral diseases; Z11.3 Encounter for screening for infections with a predominantly sexual mode of transmission
CPT/HCPCS: 36415; 86803; 87340; 87389; 86780

== ENCOUNTER 2020-08-28 15:38 | Outpatient (REF) | payer MEDICAID, SELFPAY ==
--- NOTE | 2020-08-28 15:00 | PAPFT_PTH ---
PATIENT: Shannan Castillo LOC: [facility] U#:[id number] AGE/SX: 30/F ROOM: RE08/28/[address]: JUDITH Loera : 1990 BED: DIS: 08/28/2020 SPEC #: [id number] RECD: 08/28/20 17:55 STATUS: TERENCE REQ #: [id number] MYNOR: 08/28/20 15:[address]: Suad Horvath DEPT: [facility] Cytology RECD BY: Aide Ellison ENTERED: 08/28/20 17:56 SP TYPE: PAPFT OTHR DR: Eligio Leon Tissues: 1 - CX/ENDOCX FOR PAP SMEARS Procedures: PAP THIN PREP/UVM Screening HPV DNA PROBE Comments: [id number]
[2020-08-30 14:10] LABS: Chlamydia Result Negative (Negative); GC Result Negative (Negative)
== END 2020-08-28 15:39 | disposition home or self-care (01) ==
LOC: LBN 15:38
PROVIDERS: PCP Family Medicine; Visit Provider Nurse Practitioner Family
DX: Z11.3 Encounter for screening for infections with a predominantly sexual mode of transmission (principal); Z12.4 Encounter for screening for malignant neoplasm of cervix; Z11.51 Encounter for screening for human papillomavirus (HPV)
CPT/HCPCS: 87491; 87591; 88142; 87624

== ENCOUNTER 2020-11-02 02:48 | Outpatient (CLI) | payer MEDICAID, SELFPAY ==
[2020-11-02 10:50] LABS: Kit/Specimen SENT
[2020-11-02 11:00] LABS: Abs Immature Grans 0.04 10^3/uL (0.0-0.06); Absolute Basophil Count 0.04 10^3/uL (0.0-0.2); Absolute Lymphocyte Count 1.69 10^3/uL (1.2-3.4); Absolute Monocyte Count 0.51 10^3/uL (0.1-0.8); Absolute Neutrophil Count 6.49 10^3/uL (1.2-6.7); Basophils % 0.5; Eosinophils % 1.1; HCT 34.5 % (36.0-46.0); HGB 11.1 g/dL (11.2-15.7); Immature Grans % 0.5; Lymphocytes % 19.1; MCH 27.1 pg (27.0-33.0); MCHC 32.2 % (32.0-36.0); MCV 84.4 fL (80-95); MPV 9.9 fL (8.0-11.0); Monocytes % 5.7; Neutrophils % 73.1; Nucleated RBC 0 %; Platelet Count 313 10^3/uL (130-400); RBC 4.09 10^6/uL (3.93-5.22); RDW 13.2 % (11.7-14.6); RDW-SD 40.6 fL; WBC 8.87 10^3/uL (4.4-10.8)
[2020-11-02 11:53] LABS: TSH (W/Ref FT4) 1.04 uIU/mL (0.36-3.74)
[2020-11-02 13:38] LABS: Glucose,1 Hr (Glucola) 79 mg/dL (80-140)
[2020-11-02 14:59] LABS: *AMPHETAMINES SCREEN URINE Negative (Negative); *BARBITURATES SCREEN URINE Negative (Negative); *BENZODIAZEPINES SCREEN URINE Negative (Negative); Cannabinoids THC Negative (Negative); Cocaine Screen,Urine Negative (Negative); METHADONE URINE SCREEN Negative (Negative); OPIATES URINE SCREEN Negative (Negative); Tricyclic Antidepressants Negative (Negative)
[2020-11-03 09:47] LABS: Hepatitis B Surface Ag Negative (Negative)
[2020-11-03 10:06] LABS: HIV-1/2 Ag & Ab Screen Negative (Negative)
[2020-11-03 10:20] LABS: Hepatitis C Ab w Rflx HCV PCR Negative (Negative)
[2020-11-03 10:54] LABS: Varicella IgG Antibody Positive (See Note)
[2020-11-03 11:02] LABS: Rubella IgG Ab (UVM) Positive (See Note)
[2020-11-03 15:20] LABS: Chlamydia Result Negative (Negative); GC Result Negative (Negative)
[2020-11-04 14:38] LABS: Syphilis Total Ab w/Reflex Nonreactive (Nonreactive)
[2020-11-09 09:55] LABS: Buprenorphine Negative ng/mL (Cutoff: 5.0)
[2020-11-13 12:23] LABS: Result Summary NEGATIVE; Specimen WB Whole Blood
== END 2020-11-02 02:49 | disposition home or self-care (01) ==
LOC: LBO 02:48
PROVIDERS: PCP Family Medicine; Visit Provider Advanced Practice Midwife
DX: Z34.91 Encounter for supervision of normal pregnancy, unspecified, first trimester (principal); Z11.4 Encounter for screening for human immunodeficiency virus [HIV]; Z11.59 Encounter for screening for other viral diseases; Z11.3 Encounter for screening for infections with a predominantly sexual mode of transmission; Z36.89 Encounter for other specified antenatal screening; Z3A.11 11 weeks gestation of pregnancy
CPT/HCPCS: 36415; 80307; 82950; 86787; 86803; 86850; 86900; 86901; 87340; 87389; 87491; 87591; 81220; 84443; 85025; 86762; 86780; 87086; 87480; 87510; 87660

== ENCOUNTER 2021-02-14 00:36 | Outpatient (CLI) | payer MEDICAID, SELFPAY ==
--- NOTE | 2021-02-14 08:00 | DI.US_ITS ---
Exam(s) US OB INGE WEIGHT EXAM: US OB INGE WEIGHT CLINICAL HISTORY: Limited views of spine and genitalia at [facility],growth,inge. TECHNIQUE: Transabdominal obstetrical ultrasound performed. COMPARISON: US US OB DETAILED MORPHOLOGY from 01/02/2021 FINDINGS: Transabdominal obstetrical ultrasound performed. FINDINGS: Number of fetuses: One. position: Cephalic. Placental location: Grade 1 anterior placenta. No evidence of previa. BIOMETRIC DATA: BPD: 65 mm = 26 weeks 3 days HC: 246 mm = 26 weeks 5 days AC: 220 mm = 26 weeks 3 days FL: 40 mm = 26 weeks 2 days EFW: 928 grms 42% Composite Age: 26 weeks 3 days EDC: 05/20/2021 Heart Rate: 155BPM Amniotic fluid index: 15.7 cm. Visually, amount of fluid is within normal limits. anatomy: No gross abnormality is seen in the visualized spine. IMPRESSION: 1. Single live intrauterine gestation as above. 2. Estimated weight is 928gms. 3. Amniotic fluid index is 15.7 cm. Visually within normal limits. DATA REPOSITORY:
== END 2021-02-14 00:56 ==
PROVIDERS: PCP Family Medicine; Visit Provider Advanced Practice Midwife
DX: Z34.92 Encounter for supervision of normal pregnancy, unspecified, second trimester (principal)
CPT/HCPCS: 76816

== ENCOUNTER 2021-02-27 02:54 | Outpatient (CLI) | payer MEDICAID, SELFPAY ==
[2021-02-27 11:16] LABS: HCT 32.9 % (36.0-46.0); HGB 10.8 g/dL (11.2-15.7); MCH 27.1 pg (27.0-33.0); MCHC 32.8 % (32.0-36.0); MCV 82.5 fL (80-95); Platelet Count 287 10^3/uL (130-400); RBC 3.99 10^6/uL (3.93-5.22); RDW 13.1 % (11.7-14.6); RDW-SD 39.6 fL; WBC 11.34 10^3/uL (4.4-10.8)
[2021-02-27 11:22] LABS: Glucose,1 Hr (Glucola) 86 mg/dL (80-140)
== END 2021-02-27 02:55 | disposition home or self-care (01) ==
LOC: LBO 02:54
PROVIDERS: PCP Family Medicine; Visit Provider Advanced Practice Midwife
DX: Z34.93 Encounter for supervision of normal pregnancy, unspecified, third trimester (principal); Z3A.28 28 weeks gestation of pregnancy
CPT/HCPCS: 36415; 82950; 85027

== ENCOUNTER 2021-08-06 17:54 | Emergency (ER) | payer MEDICAID, SELFPAY ==
[2021-08-06 18:08] VITALS: BP 133/81; PULSE 99; RESP 16; TEMP 36.2; O2SAT 98
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
[2021-08-06] MEDS: Bacitracin 30 GM TUBE TP (18:30)
== END 2021-08-06 18:34 | disposition home or self-care (01) ==
PROVIDERS: Emergency Provider Registered Nurse Emergency; PCP Family Medicine
DX: T22.111A Burn of first degree of right forearm, initial encounter (principal); T31.0 Burns involving less than 10% of body surface; Y99.0 Civilian activity done for income or pay
CPT/HCPCS: 99282

== ENCOUNTER 2022-08-09 20:50 | Emergency (ER) | payer MEDICAID, SELFPAY ==
[2022-08-09 20:58] VITALS: BP 127/81; PULSE 119; RESP 20; TEMP 36.7; O2SAT 98
--- NOTE | 2022-08-09 22:37 | W.ED.GENAD ---
Discharge Plan Disposition Patient Disposition: Home Condition: Stable Discharge Details Clinical Impression: Urinary tract infection Primary Care Provider: Eligio Leon ED Provider: Renuka Pearson Home Meds and New Rx's Prescriptions: No Action Plus (calcium carb) 27 mg iron- 1 mg tablet 1 tab PO DAILY Qty: 90 4RF aspirin 81 mg tablet,delayed release (DR/EC) 81 mg PO DAILY Qty: 60 5RF Rx Instructions: 1 tab daily alternating 2 tabs every other day ferrous sulfate 325 mg (65 mg iron) tablet 325 mg PO DAILY Qty: 90 2RF Discharge Instructions Instructions: Urinary Tract Infection in Women (ED) Additional Instructions: Take antibiotics as prescribed even if you feel better. You have also been given Pyridium for symptoms if needed please note that this will make your urine bright orange. Referrals: Eligio Leon [Primary Care Provider] - Discharge Data Discharge Date/Time-TO BE ENTERED AT DEPARTURE: 08/09/22 23:24 HPI <Renuka Pearson NP - Last Filed: 08/09/22 22:47> General Mode of arrival: ambulatory. Date/Time Provider Initiated Documentation: 08/09/22 21:20. Limitations to Documentation: no limitations. Information obtained by: patient. HPI Narrative: 3 days of dysuria frequency urgency consistent with UTI she has had a history of this. She denies any vaginal discharge fever flank pain nausea vomiting or diarrhea. Related Data Home Medications Medication Instructions Recorded Confirmed vitamin with calcium 1 tab PO DAILY #90 tabs 01/08/23 06/11/23 no.72-iron 27 mg-folic acid 1 mg tablet ( Plus (calcium carbonate)) aspirin 81 mg tablet,delayed 81 mg PO DAILY #60 tabs 02/14/23 06/11/23 release ferrous sulfate 325 mg (65 mg 325 mg PO DAILY #90 tabs 06/09/23 iron) tablet Previous Rx's Medication Instructions Recorded vitamin with calcium 1 tab PO DAILY #90 tabs 01/08/23 no.72-iron 27 mg-folic acid 1 mg tablet ( Plus (calcium carbonate)) aspirin 81 mg tablet,delayed 81 mg PO DAILY #60 tabs 02/14/23 release ferrous sulfate 325 mg (65 mg 325 mg PO DAILY #90 tabs 06/09/23 iron) tablet Allergies Allergy/AdvReac Type Severity Reaction Status Date / Time coconut Allergy Severe Anaphylaxis Verified 06/09/23 09:12 latex Allergy Intermediate Skin Rash Verified 06/09/23 09:12 vitamin E Allergy Mild Itching Verified 06/09/23 09:12 [From Enviro Stress] coconut oil Allergy Anaphylaxsi Verified 06/09/23 09:12 s General Stated Complaint: Urinary DRISS: 3 Review of Systems <MANUELA Peng Last Filed: 08/09/22 22:47> All systems reviewed & are unremarkable except as noted in HPI and below Exam <MANUELA Peng Last Filed: 08/09/22 22:47> Const General: cooperative, comfortable and no acute distress Orientation: alert, awake and oriented x3 Resp Effort & Inspection: normal respiratory effort Cardio Rate: regular rate Rhythm: regular rhythm GI Inspection: normal to inspection Palpation: soft Auscultation: normal bowel sounds Back/Spine/Pelvis Back: no CVA tenderness Skin General skin exam: no rashes or lesions noted Neuro General: patient alert, patient awake and patient oriented x3 Cognition: normal cognition Speech: speech normal Extrem General: normal to inspection and full ROM Course <MANUELA Peng Last Filed: 08/09/22 22:47> Vital Signs Vital signs: Vital Signs Temperature 36.7 C 08/09/22 20:58 Pulse 119 H 08/09/22 20:58 Respiratory Rate 20 08/09/22 20:58 Blood Pressure 127/81 08/09/22 20:58 Pulse Oximetry 98 08/09/22 20:58 Temperature 36.7 C 08/09/22 20:58 Temperature Source Oral 08/09/22 20:58 Pulse 119 H 08/09/22 20:58 Respiratory Rate 20 08/09/22 20:58 Blood Pressure 127/81 08/09/22 20:58 Pulse Oximetry 98 08/09/22 20:58 Oxygen Delivery Method Room Air 08/09/22 20:58 Oxygen Flow Rate 0 08/09/22 20:58 Pain Level 9 08/09/22 20:58 Comment when urinates 08/09/22 20:58 Medical Decision Making <MANUELA Peng Last Filed: 08/09/22 22:47> Patient with symptoms consistent with urinary tract infection for which she has a history. No sign of systemic infection no nausea vomiting flank pain she is able to take good p.o. vital signs are stable think it is reasonable to treat her with Keflex and Pyridium while culture is pending she will return sooner for new or worsening symptoms <Eligio Corbin MD - Last Filed: 06/17/23 01:26> Medical Records Medical records narrative: I did not see this patient nor participate in her care. Eligio Corbin MD [facility] <Renuka Pearson NP - Last Filed: 08/09/22 22:47> All Active Problems (Updated 05/27/23 @ 15:54 by Lisy Castillo) GERD (gastroesophageal reflux disease) (Chronic) Anxiety (Chronic) Bipolar disorder (Chronic) Elderly multigravida, currently (Acute) Adult BMI 39.0-39.9 kg/sq m (Acute) Anemia (Chronic) History of delivery, currently (Acute) (Acute) Family history of transposition of great arteries (Acute) Maternal cousin's child Hidradenitis suppurativa (Chronic) Moderate episode of recurrent major depressive disorder (Acute 04/03/17) Medical History (Updated 05/27/23 @ 15:54 by Lisy Castillo) History of obstructive sleep apnea Exposure to hepatitis C Missed menses Encounter for immunization History of trichomonal vaginitis Positive test UTI (urinary tract infection) Contraception (03/24/15) Surgical History (Updated 01/29/23 @ 15:27 by Lisy Castillo) wisdome teeth extraction Incision & Drainage, Abscess or Hematoma 07/14/16-ED [facility] Biopsy, Soft Tissue (01/15/17) left and right axillae Social History Smoking/Tobacco Use Status: Former Tobacco Use Smoking risk assessment performed?: Yes Alcohol Intake: current Alcohol Intake frequency: a few times a month Drug use: Never Substance use type: does not use Seatbelt use: always Do you feel safe at home: Yes Do you feel safe in your relationship?: Yes Female Reproductive History Menstrual control method: progesterone injection History History 2 Para 1 Hx # Term Pregnancies 1 Multiple births 0 Hx # Pregnancies 0 Ectopic pregnancies 0 AB induced 0 Hx Number of Living Children 1 AB spontaneous 0 Past Pregnancies Del. Date GA/Weeks # Preg Succ Route Wgt Sex Labor Lgth Anesthesia Location Prov [facility] 05/17/21 39 No Yes 3316.894 g Female [facility] Delivery Date: 05/17/21 Last Updated by: Marie Siddiqui CNM Arrived with bleeding at 5 cms. AROM and meconium noted. Epidural placed and heart rate decelerations occurred after epidural. Had an emergency C/S at 7 cms under general anesthesia. Philippe
[2022-08-09 22:39] LABS: Bilirubin Negative (Negative); Blood Negative (Negative); Clarity Clear (Clear); Glucose Negative (Negative); Ketones Negative (Negative); Leukocyte Esterase Trace (Negative); Nitrite Negative (Negative); Specific Gravity >= 1.030 (1.005-1.025); Urobilinogen 0.2 mg/dL (Up to 0.2); pH 5.5 (5-8)
[2022-08-09 22:46] LABS: Bacteria Rare HPF (Negative); C & S Indicated? Yes; Casts Negative LPF (Negative); Crystals Negative HPF (Negative); Epithelial Cells Few HPF (Negative); Mucus Negative (Negative); RBC Negative HPF (0-2)
[2022-08-09] MEDS: Phenazopyridine 100 MG TAB, 2 TABS/BTL PO (23:19)
[2022-08-09] MEDS: Cephalexin 500 MG CAP, 2 CAPS/BTL PO (23:19)
== END 2022-08-09 23:24 | disposition home or self-care (01) ==
PROVIDERS: Emergency Provider Nurse Practitioner Acute Care; PCP Family Medicine
DX: N39.0 Urinary tract infection, site not specified (principal)
CPT/HCPCS: 87077; 99283; 81003; 81015; 87086; 99284

== ENCOUNTER 2023-02-14 01:57 | Outpatient (CLI) | payer MEDICAID, SELFPAY ==
[2023-02-14 15:30] LABS: Panorama Kit Sent via Fed Ex
[2023-02-14 15:48] LABS: Abs Immature Grans 0.06 10^3/uL (0.0-0.06); Absolute Basophil Count 0.05 10^3/uL (0.0-0.2); Absolute Eosinophil Count 0.27 10^3/uL (0.0-0.7); Absolute Lymphocyte Count 2.29 10^3/uL (1.2-3.4); Absolute Neutrophil Count 8.87 10^3/uL (1.2-6.7); Basophils % 0.4; Eosinophils % 2.2; HCT 32.6 % (36.0-46.0); HGB 10.5 g/dL (11.2-15.7); Immature Grans % 0.5; Lymphocytes % 18.9; MCH 25.5 pg (27.0-33.0); MCHC 32.2 % (32.0-36.0); MCV 79 fL (80-95); MPV 9.7 fL (8.0-11.0); Monocytes % 4.9; Neutrophils % 73.1; Platelet Count 360 10^3/uL (130-400); RBC 4.11 10^6/uL (3.93-5.22); RDW 14.7 % (11.7-14.6); RDW-SD 42.7 fL; WBC 12.14 10^3/uL (4.4-10.8)
[2023-02-14 15:51] LABS: Absolute Monocyte Count 0.59 10^3/uL (0.1-0.8)
[2023-02-14 16:03] LABS: Glucose,1 Hr (Glucola) 111 mg/dL (80-140)
[2023-02-14 16:17] LABS: TSH (W/Ref FT4) 1.05 uIU/mL (0.36-3.74)
[2023-02-16 12:15] LABS: HIV-1/2 Ag & Ab Screen Negative (Negative)
[2023-02-17 09:12] LABS: Varicella IgG Antibody Positive (See Note)
[2023-02-17 09:17] LABS: Rubella IgG Ab (UVM) Positive (See Note)
[2023-02-17 17:03] LABS: Hepatitis B Surface Ag Negative (Negative)
[2023-02-18 14:31] LABS: Hepatitis C Ab w Rflx HCV PCR Negative (Negative)
[2023-02-19 15:24] LABS: Syphilis IgG w/Reflex Nonreactive (Nonreactive)
== END 2023-02-14 01:58 | disposition home or self-care (01) ==
LOC: LBO 01:57
PROVIDERS: PCP Family Medicine; Visit Provider Advanced Practice Midwife
DX: Z34.91 Encounter for supervision of normal pregnancy, unspecified, first trimester
CPT/HCPCS: 36415; 82950; 86787; 86803; 86850; 86900; 86901; 87340; 87389; 84443; 85025; 86762; 86780

== ENCOUNTER 2023-02-14 15:05 | Outpatient (REF) | payer MEDICAID, SELFPAY ==
[2023-02-14 16:56] LABS: *AMPHETAMINES SCREEN URINE Negative (Negative); *BARBITURATES SCREEN URINE Negative (Negative); *BENZODIAZEPINES SCREEN URINE Negative (Negative); Cannabinoids THC Negative (Negative); Cocaine Screen,Urine Negative (Negative); METHADONE URINE SCREEN Negative (Negative); OPIATES URINE SCREEN Negative (Negative)
[2023-02-14 16:58] LABS: Tricyclic Antidepressants Negative (Negative)
[2023-02-17 15:01] LABS: Chlamydia Result Negative (Negative); GC Result Negative (Negative)
[2023-02-20 07:38] LABS: Buprenorphine Negative ng/mL (Cutoff: 5.0); Norbuprenorphine Negative ng/mL (Cutoff: 2.5)
== END 2023-02-14 15:06 | disposition home or self-care (01) ==
LOC: LBN 15:05
PROVIDERS: Advanced Practice Midwife; PCP Family Medicine; Visit Provider Advanced Practice Midwife
DX: Z34.91 Encounter for supervision of normal pregnancy, unspecified, first trimester
CPT/HCPCS: 80307; 80348; 87491; 87591; 87086

== ENCOUNTER 2023-02-24 17:08 | Emergency (ER) | payer MEDICAID, SELFPAY ==
[2023-02-24 17:12] VITALS: BP 122/61; PULSE 83; RESP 16; TEMP 36.6; O2SAT 98
[2023-02-24 18:20] VITALS: BP 123/78; PULSE 78; RESP 15; O2SAT 100
[2023-02-24 18:57] VITALS: BP 104/38; PULSE 73; RESP 18; O2SAT 100
[2023-02-24] MEDS: Clindamycin 150 MG CAP 450 MG PO (18:59)
[2023-02-24] MEDS: Clindamycin 150 MG CAP, 12 CAPS/BTL 450 MG PO (18:59)
[2023-02-24] MEDS: Ondansetron O.D.T. 4 MG TABEF, 3 TABS/BTL PO (19:06)
[2023-02-24 19:14] VITALS: BP 109/72; PULSE 69; O2SAT 100
--- NOTE | 2023-02-24 22:17 | ED.GENADUL_ITS ---
Discharge Plan Disposition Patient Disposition: Home Discharge Details Clinical Impression: , Bartholin cyst Primary Care Provider: Eligio Leon ED Provider: Aide Elizabeth Home Meds and New Rx's Prescriptions: New clindamycin HCl 150 mg capsule 450 mg PO TID Qty: 63 0RF ondansetron HCl 4 mg tablet 4 mg PO Q8H PRN5 Days Qty: 15 0RF Continued Plus (calcium carb) 27 mg iron- 1 mg tablet 1 tab PO DAILY Qty: 90 4RF aspirin 81 mg tablet,delayed release (DR/EC) 81 mg PO DAILY Qty: 60 5RF Rx Instructions: 1 tab daily alternating 2 tabs every other day Discharge Instructions Instructions: (ED) Additional Instructions: Warm compresses, warm baths is much as tolerated, this will help the abscess drain Wear. Pad to allow to drain I placed a referral to be seen by OB within the next 24 to 48 hours, take Tylenol for his for pain as needed Take the antibiotic as prescribed Yogurt daily while on antibiotic Write for Zofran as needed for nausea and vomiting please return with spreading redness, fever, worsening pain Referrals: Eligio Leon [Primary Care Provider] - Medical Decision Making Patient 32-year-old female presenting 12 weeks with abscess on her labia heart rate 145 Incision and drainage performed Bartholin cyst without incident, approximately 30 cc of purulent drainage suctioned from Bartholin cyst, attempt made to place Sanchez catheter, but unsuccessful, placed iodoform gauze Referred back to DIRECTOR OF ACCOUNTS RECEIVABLE, placed on clindamycin, warm compresses recommended Recheck in 48 hours recommended Afebrile without evidence of systemic illness HPI General Date/Time Provider Initiated Documentation: 02/24/23 17:25 . HPI Narrative: This 32-year-old female presents 12 weeks with report of abscess on her labia for the past several days. Denies history of similar symptoms in the past. Was tested for STDs approximately a week ago and negative per patient. Denies any drainage. Denies any vaginal bleeding. Related Data Home Medications Medication Instructions Recorded Confirmed vitamin with calcium 1 tab PO DAILY #90 tabs 01/08/23 02/24/23 no.72-iron 27 mg-folic acid 1 mg tablet ( Plus (calcium carbonate)) aspirin 81 mg tablet,delayed 81 mg PO DAILY #60 tabs 02/14/23 02/24/23 release clindamycin HCl 150 mg capsule 450 mg (3 x 150 mg) PO TID #63 caps 02/24/23 ondansetron HCl 4 mg tablet 4 mg PO Q8H PRN 5 days #15 tabs 02/24/23 Previous Rx's Medication Instructions Recorded vitamin with calcium 1 tab PO DAILY #90 tabs 01/08/23 no.72-iron 27 mg-folic acid 1 mg tablet ( Plus (calcium carbonate)) aspirin 81 mg tablet,delayed 81 mg PO DAILY #60 tabs 02/14/23 release clindamycin HCl 150 mg capsule 450 mg (3 x 150 mg) PO TID #63 caps 02/24/23 ondansetron HCl 4 mg tablet 4 mg PO Q8H PRN 5 days #15 tabs 02/24/23 Allergies Allergy/AdvReac Type Severity Reaction Status Date / Time coconut Allergy Severe Anaphylaxis Verified 02/24/23 17:17 latex Allergy Intermediate Skin Rash Verified 02/24/23 17:17 vitamin E Allergy Mild Itching Verified 02/24/23 17:17 [From Enviro Stress] coconut oil Allergy Anaphylaxsi Verified 02/24/23 17:17 s General Stated Complaint: DIRECTOR OF ACCOUNTS RECEIVABLE DRISS: 4 PFSH All Active Problems (Updated 02/24/23 @ 18:56 by JOSE Edwards) Bartholin cyst (Acute) (Acute) Elderly multigravida, currently (Acute) Adult BMI 39.0-39.9 kg/sq m (Acute) Anemia (Chronic) History of delivery, currently (Acute) (Acute) Family history of transposition of great arteries (Acute) Hidradenitis suppurativa (Chronic) Moderate episode of recurrent major depressive disorder (Acute 04/03/17) Medical History (Updated 02/24/23 @ 18:56 by JOSE Edwards) Exposure to hepatitis C Bipolar disorder Missed menses Encounter for immunization History of trichomonal vaginitis Positive test UTI (urinary tract infection) Contraception (03/24/15) Surgical History (Updated 01/29/23 @ 15:27 by Lisy Castillo) wisdome teeth extraction Incision & Drainage, Abscess or Hematoma 07/14/16-ED [facility] Biopsy, Soft Tissue (01/15/17) left and right axillae Social History Smoking/Tobacco Use Status: Former Tobacco Use Smoking risk assessment performed?: Yes Alcohol Intake: current Alcohol Intake frequency: a few times a month Drug use: Never Substance use type: does not use Seatbelt use: always Do you feel safe at home: Yes Do you feel safe in your relationship?: Yes Female Reproductive History Menstrual control method: progesterone injection History History 2 Para 1 Hx # Term Pregnancies 1 Multiple births 0 Hx # Pregnancies 0 Ectopic pregnancies 0 AB induced 0 Hx Number of Living Children 1 AB spontaneous 0 Past Pregnancies Del. Date GA/Weeks # Preg Succ Route Wgt Sex Labor Lgth Anesth esia Location Prov Complic 03/30/21 32 No Yes Female [facility] Delivery Date: 03/30/21 Last Updated by: Lisy Castillo moved to [place] @ 28 wks, emergency C/S, general anesthesia. Unsure of delivery date Course Vital Signs Vital signs: Vital Signs Temperature 36.6 C 02/24/23 17:12 Pulse 83 02/24/23 17:12 Respiratory Rate 16 02/24/23 17:12 Blood Pressure 122/61 02/24/23 17:12 Pulse Oximetry 98 02/24/23 17:12 Temperature 36.6 C 02/24/23 17:12 Temperature Source Oral 02/24/23 17:12 Pulse 69 02/24/23 19:14 Respiratory Rate 18 02/24/23 18:57 Respiratory Effort Normal, Non-Labored 02/24/23 17:27 Blood Pressure 109/72 02/24/23 19:14 Blood Pressure Position Sitting 02/24/23 17:12 Pulse Oximetry 100 02/24/23 19:14 Oxygen Delivery Method Room Air 02/24/23 18:20 Oxygen Flow Rate 0 02/24/23 18:20 Pain Level 8 02/24/23 17:28
--- NOTE | 2023-02-24 22:51 | NUR.NOTE ---
Referral to ENVIRONMENTAL DIRECTOR in 24-48 hrs per Aide Elizabeth as patient is with a Bartholims Cyst.Nursing Note:
--- NOTE | 2023-02-24 22:52 | NUR.NOTE ---
Put the referral in the primary care provider's box for follow up assistance.Nursing Note:
== END 2023-02-24 19:16 | disposition home or self-care (01) ==
PROVIDERS: Emergency Provider Physician Assistant; PCP Family Medicine
DX: N75.0 Cyst of Bartholin's gland (principal); O99.711 Diseases of the skin and subcutaneous tissue complicating pregnancy, first trimester
CPT/HCPCS: 10060

== ENCOUNTER → 2023-04-23 02:07 | Outpatient (CLI) | payer MEDICAID, SELFPAY ==
--- NOTE | 2023-04-23 06:45 | DI.US_ITS ---
Exam(s) US OB 2-3 TRIMESTER EXAM: US OB 2-3 TRIMESTER CLINICAL HISTORY: morphology,fam h/o rc malformation,elderly,O09.529. TECHNIQUE: Transabdominal obstetrical ultrasound was performed. COMPARISON: US POCUS EXAM from 02/14/2023 FINDINGS: There is a single viable intrauterine gestation with cardiac activity identified-135 bpm. Amniotic fluid: There is a normal amount of amniotic fluid. Placental location: The placenta is anterior grade 0,with no evidence of placenta previa.Distant from tip of placenta to the internal cervical os is 5 cm on today's study. Distance from the placental m argin to the cord insertion is 2.5 cm. ANATOMY: A 3 vessel umbilical cord is seen. A four-chamber cardiac view was obtained. Right and left ventricular outflow tracts were imaged. There are no obvious abnormalities of the spinal column evident. There is no obvious abnormal ity of the anterior abdominal wall. stomach and urinary bladder are identified and there is no evidence of hydronephrosis. No abnormalities of the upper lip region are identified. No evidence of choroid plexus cysts i n the brain. Dating parameters place this at approximately 21 weeks and 1 day gestational age. BPD measures 20 weeks and 6 days HC measures 21 weeks and 1 day AC measures 21 weeks and 5 days FL measures 20 weeks and 5 days Estimated weight is 409 gm-0 pounds 14 ounces Fetus is at the 81st percentile on the Hadlock scale. IMPRESSION:: Single viable intrauterine gestation which is approximately 21 weeks and 1 day gestatio nal age, implying an JOSE of 09/02/2023. There are no obvious anomalies evident on today's study. The placenta is anterior with no evidence of placenta previa. There is a normal amount of amniotic fluid. DATA REPOSITORY:
== END ==
PROVIDERS: PCP Family Medicine; Visit Provider Advanced Practice Midwife
DX: O09.522 Supervision of elderly multigravida, second trimester (principal); Z82.79 Family history of other congenital malformations, deformations and chromosomal abnormalities
CPT/HCPCS: 76805

== ENCOUNTER 2023-06-09 05:11 | Outpatient (CLI) | payer MEDICAID, SELFPAY ==
[2023-06-09 10:54] LABS: HCT 32.2 % (36.0-46.0); HGB 10.4 g/dL (11.2-15.7); MCHC 32.3 % (32.0-36.0); MCV 81 fL (80-95); MPV 9.7 fL (8.0-11.0); Platelet Count 294 10^3/uL (130-400); RDW 14.5 % (11.7-14.6); RDW-SD 42.4 fL; WBC 13.93 10^3/uL (4.4-10.8)
[2023-06-09 11:25] LABS: Glucose,1 Hr (Glucola) 95 mg/dL (80-140)
== END 2023-06-09 05:12 | disposition home or self-care (01) ==
LOC: LBO 05:11
PROVIDERS: PCP Family Medicine; Visit Provider Advanced Practice Midwife
DX: Z34.93 Encounter for supervision of normal pregnancy, unspecified, third trimester (principal)
CPT/HCPCS: 36415; 82950; 85027

== ENCOUNTER 2023-07-08 11:01 | Outpatient (CLI) | payer MEDICAID, SELFPAY ==
[2023-07-08 11:06] VITALS: BP 120/76; PULSE 85; TEMP 36.6
[2023-07-08 11:36] VITALS: BP 120/76; PULSE 85
--- NOTE | 2023-07-08 12:23 | PDOC.NST_ITS ---
Date of service: 07/08/23 Time of Service: 12:24 NST Evaluation Reason for NST Reasons for Nonstress Test: DECREASED MOVEMENT Gestational Age Gestational Age in Weeks and Days: 31 Weeks and 3Days Test and Monitor Explained Test/Monitor Explained: Test Explained, Monitor Explained and Patient Verbalized Understanding Vital Signs Blood Pressure: 120/76 Pulse: 85 Temperature: 97.9 F NST Information Time on Monitor: 10:58 Date off Monitor: 07/08/23 Time off Monitor: 11:38 NST Interventions: PO Hydration NST Evaluation Patient States Movement: Present FHR Baseline: 130 Variability: Moderate 6-25 bpm Accelerations: 15x15 Decelerations: None NST Results: Reactive Note Ultrasound Done: N/A. NST Note Note: Aaliyah reports decreased movement. She felt the baby move at her visit today and once during NST. movement audile on the monitor and reac tive NST. movement discussed and Karin will continue to monitor and report concerns. RTO 2 weeks. NST Reviewed and Verified by: Marie Siddiqui
[2023-07-08 12:26] VITALS: BP 120/76; PULSE 85; TEMP 36.6
== END 2023-07-08 11:40 | disposition home or self-care (01) ==
LOC: BCD 11:02 → OBS 11:05
PROVIDERS: PCP Family Medicine; Visit Provider Advanced Practice Midwife
DX: O36.8130 Decreased fetal movements, third trimester, not applicable or unspecified (principal); Z3A.31 31 weeks gestation of pregnancy
CPT/HCPCS: 59025

== ENCOUNTER 2023-07-28 15:23 | Outpatient (CLI) | payer MEDICAID, SELFPAY ==
[2023-07-28 15:53] VITALS: BP 107/61; PULSE 82; TEMP 36.5
[2023-07-28 16:03] VITALS: BP 107/61; PULSE 82
[2023-07-28 16:42] LABS: Abs Immature Grans 0.28 10^3/uL (0.0-0.06); Absolute Basophil Count 0.08 10^3/uL (0.0-0.2); Absolute Eosinophil Count 1.05 10^3/uL (0.0-0.7); Absolute Lymphocyte Count 2.39 10^3/uL (1.2-3.4); Absolute Monocyte Count 0.69 10^3/uL (0.1-0.8); Absolute Neutrophil Count 11.88 10^3/uL (1.2-6.7); Basophils % 0.5 %; Eosinophils % 6.4 %; HCT 31.4 % (36.0-46.0); HGB 10.1 g/dL (11.2-15.7); Immature Grans % 1.7 %; Lymphocytes % 14.6 %; MCH 25.1 pg (27.0-33.0); MCHC 32.2 % (32.0-36.0); MCV 78 fL (80-95); MPV 9.4 fL (8.0-11.0); Monocytes % 4.2 %; Neutrophils % 72.6 %; Platelet Count 292 10^3/uL (130-400); RBC 4.02 10^6/uL (3.93-5.22); RDW 14.1 % (11.7-14.6); RDW-SD 40.2 fL; WBC 16.36 10^3/uL (4.4-10.8)
--- NOTE | 2023-07-28 17:06 | PDOC.NST_ITS ---
Date of service: 07/28/23 Time of Service: 17:06 NST Evaluation Reason for NST Reasons for Nonstress Test: OTHER, SEE COMMENT Reason for NST Other: pt feeling dizzy and seeing spots Gestational Age Gestational Age in Weeks and Days: 34 Weeks and 2Days Test and Monitor Explained Test/Monitor Explained: Test Explained and Monitor Explained Vital Signs Blood Pressure: 107/61 Pulse: 82 Temperature: 97.7 F NST Information Time on Monitor: 15:54 Date off Monitor: 07/28/23 Time off Monitor: 16:43 NST Interventions: PO Hydration NST Evaluation Patient States Movement: Present FHR Baseline: 125 Variability: Moderate 6-25 bpm Accelerations: 15x15 Decelerations: None NST Results: Reactive Note Ultrasound Done: N/A. NST Note Note: Shannan sent a portal message that she has been feeling dizzy lately. Most recent hgb 10.5. She xperienced dizziness at work today and then noticed spots in front of her eyes. The spots subsided. Hgb is 10.1 today despite taking iron daily in the form of Flintstones with iron. I recommended an iron infusion and Karin would like to proceed with that today. Will plan to continue weekly until hgb is 10.1. venofer unavailable at [facility]. Will reschedule at infusion center. NST Reviewed and Verified by: Marie Siddiqui
[2023-07-28 17:09] VITALS: BP 107/61; PULSE 82; TEMP 36.5
== END 2023-07-28 17:45 | disposition home or self-care (01) ==
LOC: BCD 15:23 → OBS 15:27
PROVIDERS: PCP Nurse Practitioner Family; Visit Provider Advanced Practice Midwife
DX: O99.013 Anemia complicating pregnancy, third trimester (principal); Z3A.34 34 weeks gestation of pregnancy
CPT/HCPCS: 59025; 85025

== ENCOUNTER 2023-08-04 15:22 | Outpatient (CLI) | payer MEDICAID, SELFPAY ==
[2023-08-04] MEDS: IRON SUCROSE COMPLEX 300 MG in Normal Saline 250 ML 167 MG IVPB (15:51)
[2023-08-04 17:43] VITALS: BP 101/55; PULSE 90
[2023-08-04 18:02] VITALS: BP 101/55; PULSE 90
--- NOTE | 2023-08-04 18:07 | W.OBNST ---
Date of service: 08/04/23 Time of Service: 18:07 NST Evaluation Reason for NST Reasons for Nonstress Test: OTHER, SEE COMMENT Reason for NST Other: Anemia Gestational Age Gestational Age in Weeks and Days: 35 Weeks and 2Days Test and Monitor Explained Test/Monitor Explained: Test Explained and Monitor Explained Vital Signs Blood Pressure: 101/55 Pulse: 90 NST Information Date on Monitor: 08/04/23 Time on Monitor: 17:10 Date off Monitor: 08/04/23 Time off Monitor: 17:46 Total Time on Monitor: 36 NST Interventions: PO Hydration NST Evaluation Patient States Movement: Present FHR Baseline: 135 Variability: Moderate 6-25 bpm Accelerations: 15x15 Decelerations: None NST Results: Reactive Note Ultrasound Done: N/A. NST Note Note: Shannan was sent over from the office today for NST and iron infusion due to anemia. She received infusion and tolerated well. NST reactive. NST Reviewed and Verified by: Marie Siddiqui
[2023-08-04 18:08] VITALS: BP 101/55; PULSE 90
== END 2023-08-04 17:59 | disposition home or self-care (01) ==
LOC: BCD 15:23 → OBS 15:37
PROVIDERS: PCP Nurse Practitioner Family; Visit Provider Advanced Practice Midwife
DX: O99.013 Anemia complicating pregnancy, third trimester (principal); O34.219 Maternal care for unspecified type scar from previous cesarean delivery; Z3A.35 35 weeks gestation of pregnancy
CPT/HCPCS: 96365; 96366; 59025; J1756

== ENCOUNTER → 2023-08-12 00:17 | Outpatient (CLI) | payer MEDICAID, SELFPAY ==
--- NOTE | 2023-08-12 07:00 | DI.US_ITS ---
Exam(s) US OB INGE WEIGHT EXAM: US OB INGE WEIGHT CLINICAL HISTORY: S>D,uterine size discrepancy,h/o c section,mO26.849. TECHNIQUE: Transabdominal obstetrical ultrasound performed. COMPARISON: US US OB 2-3 TRIMESTER from 04/23/2023 FINDINGS: Number of fetuses: 1 position: Cephalic. Placental location: There is a grade 2 anterior placenta. No evidence of previa. BIOMETRIC DATA: BPD: 8.75cm, 35weeks 2days HC: 32.34cm, 36weeks 4days AC: 31.27cm, 35weeks 1day FL: 6.99cm, 35weeks 6days EFW: 2,703.21g, 6lb, 29.1% Composite Age: 35weeks 5days JOSE: 09/11/2023 Heart Rate: 136bpm Amniotic fluid index: 14.51cm. The largest pocket is 5.8 cm. IMPRESSION: 1. Single live intrauterine gestation as above. 2. Estimated weight is 2703gms. This is the 29th percentile. 3. Amniotic fluid index is 14.5 cm. The deepest pocket is 5.8 cm. DATA REPOSITORY:
== END ==
PROVIDERS: PCP Nurse Practitioner Family; Visit Provider Advanced Practice Midwife
DX: O26.843 Uterine size-date discrepancy, third trimester (principal); Z34.93 Encounter for supervision of normal pregnancy, unspecified, third trimester; Z3A.35 35 weeks gestation of pregnancy
CPT/HCPCS: 76816

== ENCOUNTER 2023-08-12 09:58 | Outpatient (REF) | payer MEDICAID, SELFPAY | END 2023-08-12 09:59 | disposition home or self-care (01) | LOC: LBN 09:58 | PROVIDERS: PCP Nurse Practitioner Family; Visit Provider Advanced Practice Midwife | DX: Z34.93 Encounter for supervision of normal pregnancy, unspecified, third trimester (principal); Z3A.36 36 weeks gestation of pregnancy; Z36.85 Encounter for antenatal screening for Streptococcus B | CPT/HCPCS: 87081 ==

== ENCOUNTER 2023-08-16 08:43 | Outpatient (CLI) | payer MEDICAID, SELFPAY ==
[2023-08-16 13:13] VITALS: BP 119/75; PULSE 106; TEMP 36.5
[2023-08-16 13:46] VITALS: BP 119/75; PULSE 106
[2023-08-16] MEDS: IRON SUCROSE COMPLEX 200 MG in Normal Saline 100 ML 400 MG IVPB (13:55)
--- NOTE | 2023-08-16 16:37 | W.OBNST ---
Date of service: 08/16/23 Time of Service: 16:38 NST Evaluation Reason for NST Reasons for Nonstress Test: OTHER, SEE COMMENT (anemia) Gestational Age Gestational Age in Weeks and Days: 37 Weeks and 0Days Test and Monitor Explained Test/Monitor Explained: Test Explained and Monitor Explained Vital Signs Blood Pressure: 119/75 Pulse: 106 Temperature: 97.7 F Urine Results Urine Protein: Negative Urine Ketones: Negative Urine Glucose: Negative Urine Blood: Negative NST Information Date on Monitor: 08/16/23 Time on Monitor: 13:16 Date off Monitor: 08/16/23 Time off Monitor: 14:15 Total Time on Monitor: 59 NST Interventions: PO Hydration NST Evaluation Patient States Movement: Present FHR Baseline: 155 Variability: Moderate 6-25 bpm Accelerations: 15x15 Note Ultrasound Done: N/A. NST Note Note: Karin is here for NST and iron infusion. Venofer 200 mg IV infused. Return for visit at [facility]. Reactive NST NST Reviewed and Verified by: Marie Siddiqui
[2023-08-16 16:39] VITALS: BP 119/75; PULSE 106; TEMP 36.5
--- NOTE | 2023-08-19 13:32 | W.OBNST ---
Date of service: 08/16/23 Time of Service: 13:32 NST Evaluation Reason for NST Reasons for Nonstress Test: OTHER, SEE COMMENT (anemia) Gestational Age Gestational Age in Weeks and Days: 37 Weeks and 0Days Test and Monitor Explained Test/Monitor Explained: Test Explained and Monitor Explained Vital Signs Blood Pressure: 119/75 Pulse: 106 Temperature: 97.7 F Urine Results Urine Protein: Negative Urine Ketones: Negative Urine Glucose: Negative Urine Blood: Negative NST Information Date on Monitor: 08/16/23 Time on Monitor: 13:16 Date off Monitor: 08/16/23 Time off Monitor: 14:15 Total Time on Monitor: 59 NST Interventions: PO Hydration NST Evaluation Patient States Movement: Present FHR Baseline: 155 Variability: Moderate 6-25 bpm Accelerations: 15x15 Note Ultrasound Done: N/A. NST Note NST Reviewed and Verified by: Lisy Castillo
[2023-08-19 13:34] VITALS: BP 119/75; PULSE 106; TEMP 36.5
== END 2023-08-16 14:30 | disposition home or self-care (01) ==
LOC: BCD 08:44 → OBS 13:12
PROVIDERS: PCP Nurse Practitioner Family; Visit Provider Advanced Practice Midwife
DX: O99.013 Anemia complicating pregnancy, third trimester (principal); Z3A.37 37 weeks gestation of pregnancy
CPT/HCPCS: 59025; J1756

== ENCOUNTER 2023-08-30 17:07 | Outpatient (CLI) | payer MEDICAID, SELFPAY ==
[2023-08-30 17:48] VITALS: BP 114/63; PULSE 88; TEMP 36.4
--- NOTE | 2023-08-31 08:28 | PDOC.NST_ITS ---
Date of service: 08/30/23 Time of Service: 18:00 NST Evaluation Reason for NST Reasons for Nonstress Test: DECREASED MOVEMENT Gestational Age Gestational Age in Weeks and Days: 39 Weeks and 0Days Test and Monitor Explained Test/Monitor Explained: Test Explained, Monitor Explained and Patient Verbalized Understanding Vital Signs Blood Pressure: 114/63 Pulse: 88 Temperature: 97.5 F NST Information Date on Monitor: 08/30/23 Time on Monitor: 17:24 Date off Monitor: 08/30/23 Time off Monitor: 18:24 Total Time on Monitor: 60 NST Interventions: PO Hydration Contraction Frequency: Occasional NST Evaluation Patient States Movement: Present FHR Baseline: 130 Variability: Moderate 6-25 bpm Accelerations: 15x15 Decelerations: Variable NST Results: Reactive Note Ultrasound Done: N/A. NST Note Note: Subjectively nml level amniotic fluid on cursory scan Unable to complete formal ultrasound due to pt's child throwing a temper tantrum movement observed by RN and CNM, pt able to report appreciation of movement Pt discharged to home, f/up this week as scheduled, pt requests rC/S sooner than already scheduled (will send message with request to visual merchandising coordinator) NST Reviewed and Verified by: Lisy Castillo
[2023-08-31 08:32] VITALS: BP 114/63; PULSE 88; TEMP 36.4
== END 2023-08-30 18:41 ==
LOC: BCD 17:09 → OBS 18:22
PROVIDERS: PCP Nurse Practitioner Family; Visit Provider Advanced Practice Midwife
DX: O36.8130 Decreased fetal movements, third trimester, not applicable or unspecified (principal); Z3A.39 39 weeks gestation of pregnancy
CPT/HCPCS: 59025

== ENCOUNTER 2023-09-01 09:12 | Outpatient (CLI) | payer MEDICAID, SELFPAY ==
[2023-09-01 09:27] VITALS: BP 121/69; PULSE 89; TEMP 36.4
[2023-09-01 09:28] VITALS: BP 121/69; PULSE 89
--- NOTE | 2023-09-01 10:28 | W.PM.OBHPL1 ---
Date of service: 09/01/23 Time of Service: 10:28 Assessment and Plan Assessment and plan (1) : Status: Acute Assessment and plan: at 39 weeks and 2 days. Previous section. Patient is a candidate for trial of labor, however wishes to proceed with repeat section and bilateral salpingectomy if no labor by scheduled date which is now 09/03/2023. The risk, benefits, and alternatives including risk of infection, bleeding, injury or starting organs, risk of anesthesia, risk of DVT and other complications were all explained in full informed consent was obtained. If she does not have spontaneous labor in the next 48 hours, she will undergo her repeat section as scheduled. All questions were answered. (2) History of delivery, currently : Status: Acute (3) Elderly multigravida, currently : Status: Acute OB-HPI Labor/Delivery History of Present Illness Reason for Visit: NST Chief Complaint: Scheduled Section (If no labor before 09/03/2023) , Inidcation for Scheduled : Previous .. JOSE Calculator Estimated Delivery Date Method Current WG Current Estimate 09/06/23 LMP (Certain) 39w 2d Other Estimates 09/06/23 Ultrasound #1 39w 2d Comments: Patient seen on the center today with bloody show, loss of mucous plug and labor evaluation. If she does not proceed into normal spontaneous labor and have a vaginal , she is desirous of a repeat . This was previously scheduled next week, however she wishes to have this moved to 09/03/2023. Risk benefits and alternatives were discussed. Full informed consent was obtained. Surgical consent for repeat section, bilateral salpingectomy, possible hysterectomy all discussed today. History of Present Expected Delivery Route/Plan prev C/S, ?TOLAC - CNM FOB - not involved, uncertain paternity BG-Nayana Plans to formula feed Labor support - Sister Elodia and godson/nephew Chris GBS positive, prophylaxis in labor Specific Issues/Plan 1. Hx primary C/S @ [facility]. double layer closure confirmed. 1a. 06/24/23: NAIDA consent signed. If not spontaneous labor then scheduled rTLCS with [facility], federal consent is signed. 1b. repeat c/s booked for 09/03/23 2. BMI 40, early [id number], 28 weeks- 95 3. cfDNA screen - WNL, declines AFP 4. AMA - Low dose ASA indicated due to AMA and BMI, did not take until 15 weeks 5. Family hx transposition, accepts level 2 scan and MFM consult @ [facility] 04/15 NS 5a. Pt changed her mind, declines [facility] MFM referral/consult, wants basic scan @ [facility] 6. Known hx bipolar and depression, pt denies any sx or concerns, PHQ9 score is 0 7. Anemia Hgb 10.5 and HCT 32.6 - taking gummies, flinstones with iron adult dose recommended. 7a. symptomatic, Hgb 10.1 - iron infusions weekly until 11.0 8. Bartholin's cyst, seen 02/24- treatment with antibiotics. Review of Systems All systems reviewed & are unremarkable except as noted in HPI and below Eyes Eyes: Reports as per HPI and Reports system reviewed and no additional complaints, except as documented ENT Ears, Nose, Mouth, and Throat: Reports system reviewed and no additional complaints, except as documented and Reports as per HPI Cardiovascular Cardiovascular: Reports system reviewed and no additional complaints, except as documented, Denies chest pain and Denies irregular heart rhythm Respiratory Respiratory: Reports system reviewed and no additional complaints, except as documented, Denies chest congestion and Denies cough Gastrointestinal Gastrointestinal: Reports system reviewed and no additional complaints, except as documented Genitourinary Genitourinary: Reports system reviewed and no additional complaints, except as documented Neurologic Neurologic: Reports system reviewed and no additional complaints, except as documented PFSH All Active Problems (Updated 08/04/23 @ 15:23 by Lisy Castillo) Uterine size date discrepancy (Acute) GERD (gastroesophageal reflux disease) (Chronic) Anxiety (Chronic) Bipolar disorder (Chronic) Elderly multigravida, currently (Acute) Adult BMI 39.0-39.9 kg/sq m (Acute) Anemia (Chronic) History of delivery, currently (Acute) (Acute) Family history of transposition of great arteries (Acute) Maternal cousin's child Hidradenitis suppurativa (Chronic) Moderate episode of recurrent major depressive disorder (Acute 04/03/17) Medical History (Updated 08/04/23 @ 15:23 by Lisy Castillo) History of obstructive sleep apnea Exposure to hepatitis C Missed menses Encounter for immunization History of trichomonal vaginitis Positive test UTI (urinary tract infection) Contraception (03/24/15) Surgical History (Updated 01/29/23 @ 15:27 by Lisy Castillo) wisdome teeth extraction Incision & Drainage, Abscess or Hematoma 07/14/16-ED [facility] Biopsy, Soft Tissue (01/15/17) left and right axillae Social History Smoking/Tobacco Use Status: Former Tobacco Use Smoking risk assessment performed?: Yes Alcohol Intake: current Alcohol Intake frequency: a few times a month Drug use: Never Substance use type: does not use Seatbelt use: always Do you feel safe at home: Yes Do you feel safe in your relationship?: Yes Female Reproductive History Menstrual control method: progesterone injection History History 2 Para 1 Hx # Term Pregnancies 1 Multiple births 0 Hx # Pregnancies 0 Ectopic pregnancies 0 AB induced 0 Hx Number of Living Children 1 AB spontaneous 0 Past Pregnancies Del. Date GA/Weeks # Preg Succ Route Wgt Sex Labor Lgth Anesthesia Location Prov Complic 05/17/21 39 No Yes 7 lb 5 oz Female [facility] Delivery Date: 05/17/21 Last Updated by: Marie Siddiqui CNM Arrived with bleeding at 5 cms. AROM and meconium noted. Epidural placed and heart rate decelerations occurred after epidural. Had an emergency C/S at 7 cms under general anesthesia. [employer] Allergies and Home Medications Allergies Allergy/AdvReac Type Severity Reaction Status Date / Time coconut Allergy Severe Anaphylaxis Verified 08/26/23 13:34 latex Allergy Intermediate Skin Rash Verified 08/26/23 13:34 vitamin E Allergy Mild Itching Verified 08/26/23 13:34 [From Enviro Stress] coconut oil Allergy Anaphylaxsi Verified 08/26/23 13:34 s Home Medications Medication Instructions Recorded Confirmed Type vitamin with calcium 1 tab PO DAILY #90 tabs 01/08/23 08/26/23 Rx no.72-iron 27 mg-folic acid 1 mg tablet ( Plus (calcium carbonate)) aspirin 81 mg tablet,delayed 81 mg PO DAILY #60 tabs 02/14/23 08/26/23 Rx release ferrous sulfate 325 mg (65 mg 325 mg PO DAILY #90 tabs 06/09/23 08/26/23 Rx iron) tablet Exam Physical Exam Vital signs: Pulse BP 89 121/69 09/01/23 09:28 09/01/23 09:28 Vital Signs Reviewed: Yes Constitutional Comments: Alert oriented, no acute distress Detailed Labor and Delivery Exam Escoto Score: Cervical Points Exam 0 1 2 3 Dilation Closed 1-2cm 3-4 cm 5-6cm Effacement 0-30% 40-50% 60-70% 80% Consistency Firm Medium Soft Station -3 -2 -1,0 +1,+2 Position Posterior Mid Anterior HEENT Exam HEENT Exam: Normal Neck Exam Neck Exam: Normal Chest/Brest/Axilla Exam Chest Exam: Normal Detailed Respiratory Exam Respiratory: Present CTA bilaterally; Absent rales, rhonchi or wheezes Detail Cardiovascular Exam Cardiovascular: Present RRR, S1 and S2; Absent murmur Abdominal Exam Abdominal Exam: Normal (Gravid, term, nontender) Extremities Exam Extremities Exam: Normal Neurological Exam Neurological Exam: Normal Psychiatric Exam Psychiatric Exam: Normal Risk Assessment Risk for Shoulder Dystocia Historical/Initial OB: POSITIVE FOR: Pre- BMI>30; NEGATIVE FOR: Pelvic Abnormality, Previous Shoulder Dystocia or Previous Macrosomia 36 Weeks: NEGATIVE FOR: Current Gestational DM, EFW>4500gms or Maternal Weight Gain>40lbs Delivery Plan @ 36wks: TOLAC is planned, rC/S @ 40 wks Risk for Pre-Eclampsia Date Initiated/Initials: to start @ 12 wks JK Yes, if one or more: NEGATIVE FOR: Hx Pre-E/Gest HTN, Chronic HTN, Multiple Gestation, Pre-gestational DM, Renal Disease, Systemic Lupus or APA Syndrome Yes, if 2 or more: POSITIVE FOR: Age>= 35 yrs and BMI>30; NEGATIVE FOR: Nulliparity, >10yr btwn pregnancies, ethinicty, Mother/Sister w/ Pre-E or Previous IUGR Risk for Post- Hemorrhage Initial: NEGATIVE FOR: Multiple Gestation, Previous PPH, Known Clotting Deficiency, Grand Multiparity or Anticoagulation 36 Weeks: NEGATIVE FOR: Anemia, hgb<10, Low platelets(thrombocytopenia), Gestational HTN or Pre-E, Polyhydraminios or EFW>4500gms Risks Reviewed Risks Reviewed Upon Admission: Yes
[2023-09-01] MEDS: Fluconazole 150 MG TAB PO (13:24)
[2023-09-01] MEDS: metroNIDAZOLE 500 MG TAB PO (13:25)
--- NOTE | 2023-09-01 15:57 | PDOC.NST_ITS ---
Date of service: 09/01/23 Time of Service: 13:00 NST Evaluation Reason for NST Reasons for Nonstress Test: OTHER, SEE COMMENT Reason for NST Other: spotting and contractions Gestational Age Gestational Age in Weeks and Days: 39 Weeks and 2Days Test and Monitor Explained Test/Monitor Explained: Test Explained, Monitor Explained and Patient Verbalized Understanding Vital Signs Blood Pressure: 121/69 Pulse: 89 Temperature: 97.5 F Urine Results Urine Protein: Negative Urine Ketones: Positive Urine Glucose: Negative Urine Blood: Negative NST Information Date on Monitor: 09/01/23 Time on Monitor: 09:21 Date off Monitor: 09/01/23 Time off Monitor: 10:07 Total Time on Monitor: 46 NST Interventions: PO Hydration Contraction Frequency: 4-6 NST Evaluation Patient States Movement: Present FHR Baseline: 135 Variability: Moderate 6-25 bpm Accelerations: 15x15 Decelerations: None NST Results: Reactive Note Ultrasound Done: N/A. NST Note Note: Shannan is here for rule out labor. She experienced a small amount of blood tinged mucus at home. irregular mild strength contractions. Attempted cervical exam and I was unable to reach the cervix because Shannan did not tolerate exam. Thick white curdlike discharge and vaginal swelling noted. vaginal path ogen screen taken and shannan was encouraged to walk around. She was reassessed after two hours. I informed Karin of pos vaginal pathogen screen for BV and yeast. Diflucan and metronidazole tablet administered. Cervix soft /long/ and closed. Signs of labor reviewed. section is scheduled for 09/03/23 NST Reviewed and Verified by: Marie Siddiqui
[2023-09-01 16:02] VITALS: BP 121/69; PULSE 89; TEMP 36.4
== END 2023-09-01 13:27 ==
LOC: BCD 09:13 → OBS 09:17
PROVIDERS: PCP Nurse Practitioner Family; Visit Provider Advanced Practice Midwife
DX: O47.1 False labor at or after 37 completed weeks of gestation; O09.523 Supervision of elderly multigravida, third trimester; Z3A.39 39 weeks gestation of pregnancy
CPT/HCPCS: 59025; 87480; 87510; 87660

== ENCOUNTER 2023-09-03 05:47 | Inpatient (IN) | payer MEDICAID, SELFPAY ==
[2023-09-03] VITALS (71 sets, daily range): BP systolic 103–127; BP diastolic 55–78; PULSE 68–106; RESP 15–18; TEMP 35.8–36.7; O2SAT 97–100; BMI 42.5
[2023-09-03] MEDS: Normal Saline Flush 10 ML SYR IVP ×3 (06:05→22:14)
[2023-09-03] MEDS: Lactated Ringers 1,000 ML 200 ML IV (06:42)
[2023-09-03] MEDS: AZITHROMYCIN 500 MG in Normal Saline 250 ML 250 MG IVPB (06:51)
[2023-09-03 06:54] LABS: Abs Immature Grans 0.14 10^3/uL (0.0-0.06); Absolute Basophil Count 0.06 10^3/uL (0.0-0.2); Absolute Eosinophil Count 0.24 10^3/uL (0.0-0.7); Absolute Lymphocyte Count 2.56 10^3/uL (1.2-3.4); Basophils % 0.5 %; Eosinophils % 1.9 %; HCT 34.1 % (36.0-46.0); HGB 10.9 g/dL (11.2-15.7); Immature Grans % 1.1 %; Lymphocytes % 20.4 %; MCH 25.7 pg (27.0-33.0); MCV 80 fL (80-95); MPV 10.5 fL (8.0-11.0); Monocytes % 4.9 %; Neutrophils % 71.2 %; Platelet Count 285 10^3/uL (130-400); RBC 4.24 10^6/uL (3.93-5.22); RDW 17.6 % (11.7-14.6); RDW-SD 50.8 fL; WBC 12.57 10^3/uL (4.4-10.8)
[2023-09-03 06:56] LABS: Absolute Monocyte Count 0.62 10^3/uL (0.1-0.8); Absolute Neutrophil Count 8.95 10^3/uL (1.2-6.7)
--- NOTE | 2023-09-03 07:11 | W.ANESPRE ---
General Info Date of Service Date Performed: 09/03/23 Height: 5 ft 5 in Weight: 116.12 kg Body Mass Index (BMI): 42.5 Surgical Procedure: Operation Date: 09/03/23 07:40 Proposed Procedure Side Surgeon p Section, B/L Salpingectomy, possible hysterectomy Maddison Joseph DO Actual Procedure Side Surgeon p Section, B/L Salpingectomy, possible hysterectomy Not Applicable Maddison Joseph DO Pre-Op Diagnosis Post-Op Diagnosis History of delivery, currently History of delivery, currently Meds Allergies and Home Medications Allergies Allergy/AdvReac Type Severity Reaction Status Date / Time coconut Allergy Severe Anaphylaxis Verified 09/01/23 14:02 latex Allergy Intermediate Skin Rash Verified 09/01/23 14:02 vitamin E Allergy Mild Itching Verified 09/01/23 14:02 [From Enviro Stress] coconut oil Allergy Anaphylaxsi Verified 09/01/23 14:02 s Home Medication Medication Instructions Recorded vitamin with calcium 1 tab PO DAILY #90 tabs 01/08/23 no.72-iron 27 mg-folic acid 1 mg tablet ( Plus (calcium carbonate)) aspirin 81 mg tablet,delayed 81 mg PO DAILY #60 tabs 02/14/23 release ferrous sulfate 325 mg (65 mg 325 mg PO DAILY #90 tabs 06/09/23 iron) tablet metronidazole 500 mg tablet 500 mg PO BID #14 tabs 09/01/23 Current Visit Medications: Current Medications Generic Name Dose Route Start Last Admin Trade Name Freq PRN Reason Stop Dose Admin Citric Acid/Sodium Citrate 30 ml 09/03/23 06:00 Sodium Citrate 30 Ml Cup PO PREOP RUBA Cefazolin Sodium/Dextrose 2 gm in 50 mls @ 100 mls/hr 09/03/23 06:00 Ancef Duplex IVPB PREOP RUBA Azithromycin 500 mg/ Sodium 250 mls @ 250 mls/hr 09/03/23 06:00 09/03/23 06:51 Chloride IVPB 250 mls/hr PREOP RUBA Administration Ringer's Solution 1,000 mls @ 200 mls/hr 09/03/23 06:00 09/03/23 06:42 IV 200 mls/hr INFUSION RUBA Administration IV Miscellaneous Supplies 1 each 09/03/23 06:00 Iv Access IV DIRECTED RUBA Sodium Chloride 0 ml 09/03/23 08:30 Normal Saline Flush 10 Ml Syr IVP BID RUBA Sodium Chloride 0 ml 09/03/23 05:47 Normal Saline 10 Ml Vial IJ DIRECTED PRN [facility] Active Problems Active Problems: Problem Status Onset Code Uterine size date discrepancy O26.849 GERD (gastroesophageal reflux disease) K21.9 Anxiety F41.9 Bipolar disorder Elderly multigravida, currently O09.529 Adult BMI 39.0-39.9 kg/sq m Z68.39 Anemia D64.9 History of delivery, currently O34.219 Z34.90 Family history of transposition of great arteries Z82.79 Hidradenitis suppurativa L73.2 Moderate episode of recurrent major depressive disorder 04/03/17 F33.1 Medical History Medical History (Updated 08/04/23 @ 15:23 by Lisy Castillo) History of obstructive sleep apnea Exposure to hepatitis C Missed menses Encounter for immunization History of trichomonal vaginitis Positive test UTI (urinary tract infection) Contraception (03/24/15) Surgical History Surgical History (Updated 01/29/23 @ 15:27 by Lisy Castillo) wisdome teeth extraction Incision & Drainage, Abscess or Hematoma 07/14/16-ED [facility] Biopsy, Soft Tissue (01/15/17) left and right axillae Tobacco Smoking/Tobacco Use Status: Former Tobacco Use Alcohol Alcohol Intake: former Substance Use Substance use: Never Substance use type: does not use Prental History History 2 Para 1 Hx # Term Pregnancies 1 Multiple births 0 Hx # Pregnancies 0 Ectopic pregnancies 0 AB induced 0 Hx Number of Living Children 1 AB spontaneous 0 Past Pregnancies Del. Date GA/Weeks # Preg Succ Route Wgt Sex Labor Lgth Anesthesia Location Prov Complic 05/17/21 39 No Yes 3316.894 g Female [facility] Delivery Date: 05/17/21 Last Updated by: Marie Siddiqui CNM Arrived with bleeding at 5 cms. AROM and meconium noted. Epidural placed and heart rate decelerations occurred after epidural. Had an emergency C/S at 7 cms under general anesthesia. Philippe Vital Signs and Lab Results Vital Signs Most Recent Vital Signs in EMR: Most Recent Vital Signs Temp Pulse Resp BP Pulse Ox 35.8 C L 90 15 116/55 L 98 09/03/23 07:08 09/03/23 07:08 09/03/23 07:08 09/03/23 07:08 09/03/23 07:08 Lab Results 09/03/23 05:32 Blood Type / Crossmatch: No Data to Display Complete Blood Count: White Blood Count 12.57 10^3/uL (4.4-10.8) H 09/03/23 05:32 Red Blood Count 4.24 10^6/uL (3.93-5.22) 09/03/23 05:32 Hemoglobin 10.9 g/dL (11.2-15.7) L 09/03/23 05:32 Hematocrit 34.1 % (36.0-46.0) L 09/03/23 05:32 Platelet Count 285 10^3/uL (130-400) 09/03/23 05:32 Complete Metabolic Panel: No Data to Display Liver Function Panel: No Data to Display Coagulation Panel: No Data to Display Cardiac Panel: No Data to Display Arterial Blood Gas: No Data to Display Venous Blood Gas: No Data to Display Pancreas Panel: No Data to Display Thyroid Panel: No Data to Display Infectious Disease: No Data to Display Blood Cultures: No Data to Display Toxicology Panel: No Data to Display Panel: No Data to Display Anesthesia Assessment and Plan Anesthesia History Personal History: No History of Anesthesia Complications Family History: No Family History of Anesthesia Complications Exercise Tolerance Exercise Tolerance: Metabolic Equivalents>4 Pertinent Negatives Pertinent Negatives: No Symptoms of GERD, No Major Cardiovascular Symptoms or Complaints, No Major Pulmonary Symptoms or Complaints and No History of CVA/TIA Cardiac & Pulmonary Exam Cardiac Exam: Normal S1/S2 Heart Sounds Pulmonary Exam: Clear Bilateral Breath Sounds Implantable Cardiac Device Does patient have a Pacemaker or an ICD?: No Airway Exam Known Difficult Airway: No Mallampati Class: 1 Mouth Opening: Normal (> 3cm) Thyromental Distance: Greater than 3 cm Neck Range of Motion: Full ROM Neck Circumference: Normal Teeth Condition: Normal Dentition ASA Classification ASA Score: ASA 3 Emergency Case?: No NPO Status NPO Status: NPO Clears >2 hours, Solids >8 hours Status Status: Confirmed Anesthesia Plan Resuscitation Status: Full Code Anesthesia Technique: Spinal Anesthesia Airway Planned: Natural Airway Pain Management: Intrathecal Analgesia Monitors Used: Standard Monitors
[2023-09-03] MEDS: ceFAZolin 2 GM/50 ML BAG IVPB (07:51)
[2023-09-03] MEDS: Bupivacaine 0.25% Pres-Free 30 ML VIAL (08:11)
[2023-09-03] MEDS: Oxytocin/Normal Saline 30 UNIT/500 ML BAG 95 UNITS IV (08:27)
--- NOTE | 2023-09-03 08:36 | FALL_PTH ---
PATIENT: Shannan Castillo LOC: OBS U#:[id number] AGE/SX: 33/F ROOM: OBS.301 RE09/03/[address]: Maddison Joseph DO : 1990 BED: A DIS: 09/05/2023 SPEC #: [id number] RECD: 09/03/23 12:59 STATUS: TERENCE REQ #: [id number] MYNOR: 09/03/23 08:[address]: Maddison Joseph DEPT: Surgical Specimen RECD BY: Aide Ellison ENTERED: 09/03/23 12:59 SP TYPE: Fall OTHR DR: JAMAR SANCHEZ, MANUELA Tissues: 1 - FALLOPIAN TUBE (STERILIZATION) 2 - FALLOPIAN TUBE (STERILIZATION) Procedures: GROSS AND MICRO LEVEL 2 Comments: [id number]
--- NOTE | 2023-09-03 09:17 | PDOC.OPNB_ITS ---
Date of service: 09/03/23 Time of Service: 09:17 Operative Note Operative Note Delivery Method: Scheduled and Repeat Previous LT Incision: Yes DATE OF PROCEDURE: 09/03/23 PRE-OP DIAGNOSES: Term intrauterine gestation. Prior C/S. Undesired fertility POST-OP DIAGNOSES: same Declines trial of labor PROCEDURE: Repeat low-transverse section with bilateral salpingectomy SURGEON: Maddison Joseph Assisting Surgeon: Merissa Nowak Anesthesia: local and spinal Estimated blood loss (mL): 500 Pathology: other (1. Left fallopian tube 2. Right fallopian tube) Complications: None Patient was transported to: floor Indications: Term intrauterine gestation. Prior section. Declines trial of labor. Undesired fertility. Findings: Normal-appearing uterus, fallopian tubes, ovaries. Small adhesion of the omentum to the anterior abdominal wall. 2 cm right paratubal cyst Procedure Description: After full informed consent was obtained, patient was taken the operating suite with an IV running. She was placed in the seated position and spinal anesthesia administered. She was then placed in the dorsal supine position with leftward tilt. She received preoperative antibiotics including ampicillin and Zithromax for surgical site infection prophylaxis. She had DVT prophylaxis with pneumatic compression stockings. She was then prepped and draped in the usual sterile fashion including a vaginal preparation and Ackerman catheter inserted for continuous bladder drainage. At this point, anesthesia was tested and found to be adequate. Quarter percent Marcaine was used to infiltrate the surgical site and a Pfannenstiel skin incision was made. This was carried down to the underlying fascia which was incised in the midline and extended laterally. The rectus muscles were identified in the midline and . The peritoneum was identified tented up and entered sharply. Upon entry into the abdominal cavity there is noted to be a small adhesion of the omentum to the anterior abdominal wall which was cautery transected. There was no other adhesive disease noted. At this point a bladder blade was inserted and the vesicouterine peritoneum identified tented up and entered sharply. The bladder flap was created and the bladder blade was reinserted. A low transverse uterine incision was made with a scalpel and extended bluntly laterally. There was artificial rupture of membranes for moderately meconium stained fluid for which the sheet metal assembler was notified. The vertex over through the incision. There was no evidence of nuchal cord. Shoulders followed with ease. Three-vessel cord was noted, clamped x 2 and cut after the appropriate delayed cord clamping. Baby was handed off to the sheet metal assembler. At this point cord blood sample was obtained. The placenta was manually expressed from the uterus and the uterus exteriorized and cleared of all clot and debris. The uterine incision was closed in a single layer of running locked stitch with 0 Monocryl suture. Uterine incision was hemostatic. At this point attention was turned to the left fallopian tube which was elevated and cautery transected and labeled for pathologic examination. Similar procedure was carried out on the right fallopian tube. As of note, there was a 2 cm right paratubal cyst which was removed with the fallopian tube. The pedicles from the fallopian tube were inspected and noted to be hemostatic and the uterus was returned to the abdomen. The abdomen was irrigated with copious amounts of normal saline and the uterine incision reinspected and noted to be hemostatic. At this point the fascial incision was closed using 0 Vicryl suture in a running fashion. Subcutaneous tissue irrigated with copious amounts of normal saline. Subcu space reapproximated with simple interrupted suture of 3-0 Vicryl and the skin edge was reapproximated with 4-0 undyed Monocryl. Steri-Strips and sterile dressing with Mepilex were placed. Uterus was firm and 1 cm below the umbilicus post delivery. She was returned to the center in stable condition with a Ackerman catheter draining clear yellow urine. Complications: None apparent Findings: Normal fallopian tubes, ovaries, uterus. 2 cm right paratubal cyst. Adhesions of the omentum to the anterior abdominal wall. Delivery of a viable female infant, weight will be determined when she returns to the floor Fluids: Crystalloid per anesthesia Pathology: 1. Left fallopian tube 2. Right fallopian tube.
[2023-09-03] MEDS: Ketorolac 30 MG/ML VIAL 15 MG IVP ×2 (14:26→22:14)
[2023-09-03] MEDS: Acetaminophen 325 MG TAB 650 MG PO (14:27)
[2023-09-03] MEDS: Docusate Sodium 100 MG CAP PO (14:28)
[2023-09-04] MEDS: Normal Saline Flush 10 ML SYR IVP (03:17)
[2023-09-04] MEDS: Ketorolac 30 MG/ML VIAL 15 MG IVP (03:17)
[2023-09-04 03:30] VITALS: BP 118/78; PULSE 92; RESP 17; TEMP 36.8; O2SAT 99
[2023-09-04 06:56] LABS: Absolute Basophil Count 0.04 10^3/uL (0.0-0.2); Absolute Eosinophil Count 0.45 10^3/uL (0.0-0.7); Absolute Monocyte Count 0.57 10^3/uL (0.1-0.8); Basophils % 0.3 %; Eosinophils % 3.5 %; HCT 29.5 % (36.0-46.0); HGB 9.4 g/dL (11.2-15.7); Immature Grans % 1.5 %; Lymphocytes % 14.9 %; MCH 25.7 pg (27.0-33.0); MCHC 31.9 % (32.0-36.0); MCV 81 fL (80-95); MPV 9.7 fL (8.0-11.0); Monocytes % 4.4 %; Neutrophils % 75.4 %; Platelet Count 231 10^3/uL (130-400); RBC 3.66 10^6/uL (3.93-5.22); RDW 17.5 % (11.7-14.6); RDW-SD 50.9 fL; WBC 12.98 10^3/uL (4.4-10.8)
[2023-09-04 06:57] LABS: Absolute Lymphocyte Count 1.93 10^3/uL (1.2-3.4); Absolute Neutrophil Count 9.79 10^3/uL (1.2-6.7)
[2023-09-04 07:15] VITALS: BP 116/83; PULSE 90; RESP 16; TEMP 36.6; O2SAT 99
[2023-09-04] MEDS: oxyCODONE 5 mg/Acetaminophen 325 mg TAB PO ×3 (07:20→17:34)
--- NOTE | 2023-09-04 09:23 | W.PM.OBPNV1 ---
Date of service: 09/04/23 Time of Service: 09:23 Assessment and Plan Assessment and plan (1) Status post repeat low transverse section: Status: Acute Assessment and plan: Postop day 1 status post repeat low-transverse section with bilateral salpingectomy. Doing well. Bottlefeeding without difficulty. Would anticipate discharge home tomorrow if she remains stable. Continue regular diet, oral pain medication. Ambulation as patient able. All questions answered. (2) Sterilization: Status: Acute Subjective Subjective Interval history: Patient seen and examined postoperative day #1 status post repeat low-transverse section with bilateral salpingectomy. Her vital signs are stable. Emotionally she is doing well. She did have an increase in pain yesterday which is better today. She is ambulating, tolerating a regular diet and oral pain medication with stable vital signs. Her morning hemoglobin is normal at 9.4. We would anticipate discharge for her home tomorrow if she remains stable. She is currently bottlefeeding. All questions were answered [place] baby status: Doing well and Bottle feeding well Exam Physical Exam Vital signs: Temp Pulse Resp BP Pulse Ox 97.9 F 90 16 116/83 99 09/04/23 07:15 09/04/23 07:15 09/04/23 07:15 09/04/23 07:15 09/04/23 07:15 Vital Signs Reviewed: Yes Constitutional Constitutional: no acute distress HEENT Exam HEENT Exam: Normal Respiratory Exam Respiratory Exam: Normal Cardiovascular Exam Cardiovascular Exam: Normal Abdominal Exam Abdomen: Tender Comments: Dressing in place Fundal Exam Fundus: Below Umbilicus and Firm Extremities Exam Extremity Exam: Normal; negative Calf Tenderness Neurological Exam Neurological Exam: Normal Psychiatric Exam Psychiatric Exam: Normal Results Hemoglobin/Hematocrit: Hgb 9.4 g/dL (11.2-15.7) L 09/04/23 06:45 Hct 29.5 % (36.0-46.0) L 09/04/23 06:45 Abnormal Lab Findings: Abnormal Labs 09/03/23 09/04/23 05:32 06:45 WBC 12.57 H 12.98 H RBC 3.66 L Hgb 10.9 L 9.4 L Hct 34.1 L 29.5 L MCH 25.7 L 25.7 L MCHC 31.9 L RDW 17.6 H 17.5 H Absolute Neutrophils 8.95 H 9.79 H
[2023-09-04 12:30] VITALS: BP 116/69; PULSE 86; RESP 16; TEMP 36.8; O2SAT 99
[2023-09-04] MEDS: Docusate Sodium 100 MG CAP PO (12:35)
[2023-09-04] MEDS: Ibuprofen 600 MG TAB PO ×2 (12:35→18:37)
--- NOTE | 2023-09-04 13:48 | W.ANESPOSTOP ---
Postoperative Evaluation Date, Time and Location Date Performed: 09/04/23 Time Performed: 13:48 Patient Location: Obstetrics Vital Signs Most Recent Imported Vital Signs: Most Recent Vital Signs Temp Pulse Resp BP Pulse Ox 36.6 C 90 16 116/83 99 09/04/23 07:15 09/04/23 07:15 09/04/23 07:15 09/04/23 07:15 09/04/23 07:15 Pain Score Most Recent Pain Score: Most Recent Pain Score Pain Level [Abdomen] 8 09/04/23 07:15 Pain Level 1 09/04/23 1355 Assessment Mental Status: Awake (Alert & Oriented to Patient Baseline) Airway and Respiratory Function: Patent airway with normal (patient baseline) respiratory exam Cardiovascular Function: Hemodynamically Stable Hydration Status: Adequately Hydrated Nausea & Vomiting: No Nausea or Vomiting Pain: Pain is tolerable per patient Peripheral Nerve Block: Patient did not receive a nerve block
[2023-09-04 16:15] VITALS: BP 122/74; PULSE 78; RESP 16; TEMP 36.9; O2SAT 100
[2023-09-04] MEDS: Polyethylene Glycol 3350 17 GM PACKET PO (20:22)
[2023-09-04 21:30] VITALS: BP 122/69; PULSE 89; RESP 17; TEMP 36.8; O2SAT 99
[2023-09-05] MEDS: Acetaminophen 325 MG TAB 650 MG PO ×2 (03:00→08:32)
[2023-09-05] MEDS: Ibuprofen 600 MG TAB PO ×2 (03:00→08:32)
[2023-09-05 03:20] VITALS: BP 126/78; PULSE 91; RESP 17; TEMP 36.8; O2SAT 99
[2023-09-05 07:50] VITALS: BP 128/75; PULSE 84; RESP 20; TEMP 36.4; O2SAT 100
--- NOTE | 2023-09-05 08:26 | OBPPV_ITS ---
Date of service: 09/05/23 Time of Service: 08:26 Assessment and Plan Assessment and plan (1) Status post repeat low transverse section: Assessment and plan: POD#2 s/p RCS and sterilization. Pt doing well and will be discharged home t rojelio. Discharge instructions reviewed as well as reasons to call. She will return for a 1wk f/u visit next week. Exam Physical Exam Vital signs: Temp Pulse Resp BP Pulse Ox 97.5 F L 84 20 128/75 100 09/05/23 07:50 09/05/23 07:50 09/05/23 07:50 09/05/23 07:50 09/05/23 07:50 Vital Signs Reviewed: Yes Constitutional Constitutional: no acute distress and cooperative Detailed HEENT Exam Head: Present normocephalic and atraumatic Respiratory Exam Respiratory Exam: Normal Abdominal Exam Abdomen: Tender (mildly) Comments: Dressing with one small area of blood in the center that did not spread past the line drawn yesterday. Fundal Exam Fundus: Below Umbilicus and Firm Extremities Exam Extremity Exam: Edema (trace) Detailed Neurological Exam Neurological: Present alert, oriented X3 and CN II-XII intact Results Hemoglobin/Hematocrit: Hgb 9.4 g/dL (11.2-15.7) L 09/04/23 06:45 Hct 29.5 % (36.0-46.0) L 09/04/23 06:45 Abnormal Lab Findings: Abnormal Labs 09/03/23 09/04/23 05:32 06:45 WBC 12.57 H 12.98 H RBC 3.66 L Hgb 10.9 L 9.4 L Hct 34.1 L 29.5 L MCH 25.7 L 25.7 L MCHC 31.9 L RDW 17.6 H 17.5 H Absolute Neutrophils 8.95 H 9.79 H
[2023-09-05] MEDS: Docusate Sodium 100 MG CAP PO (08:32)
== END 2023-09-05 10:50 | disposition home or self-care (01) | DRG 785 ==
PROVIDERS: Admitting Provider Obstetrics & Gynecology; PCP Nurse Practitioner Family; Visit Provider Obstetrics & Gynecology
PROC: 10D00Z1 Extraction of Products of Conception, Low, Open Approach (ICD-10-PCS; CPT 59514; principal; 2023-09-03 07:30)
DX: O34.211 Maternal care for low transverse scar from previous cesarean delivery (principal); Z37.0 Single live birth; Z3A.39 39 weeks gestation of pregnancy; Z30.2 Encounter for sterilization; N85.8 Other specified noninflammatory disorders of uterus; O99.344 Other mental disorders complicating childbirth; O99.02 Anemia complicating childbirth; D64.9 Anemia, unspecified; O99.62 Diseases of the digestive system complicating childbirth; F41.8 Other specified anxiety disorders; K21.9 Gastro-esophageal reflux disease without esophagitis; L73.2 Hidradenitis suppurativa; O99.72 Diseases of the skin and subcutaneous tissue complicating childbirth; Z82.79 Family history of other congenital malformations, deformations and chromosomal abnormalities; O77.0 Labor and delivery complicated by meconium in amniotic fluid; N83.8 Other noninflammatory disorders of ovary, fallopian tube and broad ligament; O75.89 Other specified complications of labor and delivery
CPT/HCPCS: 59514; 58700; 36415; 86850; 86900; 86901; 85025; 88302; J0456; J0665; J0690; J1885; J2274; J2371; J2405; J3010

== ENCOUNTER → 2023-09-27 16:58 | Emergency (ER) | payer MEDICAID, SELFPAY ==
--- OUTSIDE RECORDS SUMMARY | 2023-09-27 17:07 | XMS_ITS | Encounter Summary ---
Author Organization [facility] Address [address] [place] [address] Care Team Providers Care Insurance Sales Representative Name Role Phone Lydia Cuellar MEASURING CLERK Primary Care Provider [phone] Encounter Details Date Type Department Care Team ([facility] st Contact Info) Description 02/15/2023 Lab Requisition [facility] Pathology & Laboratory Medicine - [facility] [address], [place] [id number] Outr Resulting Lab, Provider Social History Tobacco Use Types Packs/Day Years Used Date Smoking Tobacco: Never Assessed Interpersonal Safety Answer Date Record ed Physically Hurt Never 10/17/2019 Verbally Threaten Not on file 10/17/2019 Sex and Gender Information Value Date Recorded Sex Assigned at Not on file Gender Identity Not on file Sexual Orientation Not on file documented as of this encounter Plan of Treatment Not on file documented as of this encounter Procedures Procedure Name Priority Date/Time Associated Diagnosis Comments HIV 1/2 ANTIGEN AND ANTIBODY, 4TH GENERATION Routine 02/14/2023 15:20 EST documented in this encounter Results * HIV 1/2 ANTIGEN AND ANTIBODY, 4TH GENERATION (02/14/2023 15:20 EST) HIV 1 and 2 Antibody/p24 Antigen, 4th Generation Negative Negative 02/16/2023 12:11 EST [facility] Comment:If acute HIV-1 infec tion is suspected in a high risk patient, submit plasma specimen for HIV-1 RNA quantitation test. Blood VENOUS BLOOD / Unknown 02/14/2023 15:20 EST 02/15/2023 21:18 EST Narrative [facility] - 02/16/2023 12:11 EST Fourth Generation assay performed on the Siemens Centaur XPT. Provider Outr Resulting Lab IMMUNOLOGY A ND SEROLOGY ORDERABLES [facility] [address] [place] [address] documented in this encounter Visit Diagnoses Not on filedocumented in this encounter Care Teams Insurance Sales Representative Relationship Specialty Start Date End Date Lydia Cuellar NP [address] [place] [phone] PCP - General 01/29/13 documented as of this encounter
--- OUTSIDE RECORDS SUMMARY | 2023-09-27 17:07 | XMS_ITS | Encounter Summary ---
Author Organization [facility] Address [address] [place] [address] Care Team Providers Care Scroll Machine Operator Name Role Phone Lydia Cuellar FRONT MAN Primary Care Provider [phone] Encounter Details Date Type Department Care Team ([facility] Contact Info) Description 08/29/2020 Lab Requisition [facility] Pathology & Laboratory Medicine - [address] [id number] Outr Resulting Lab, Provider Social History Tobacco [...] Procedure Name Priority Date/Time Associated Diagnosis Comments CHLAMYDIA/N. GONORRHOEAE AMPLIFIED NUCLEIC ACID Routine 08/28/2020 15:00 EDT documented in this encounter Results * CHLAMYDIA/N. GONORRHOEAE AMPLIFIED RNA (08/28/2020 15:00 EDT) Neisseria gonorrhoeae Result Negative Negative 08/30/2020 14:06 EDT [facility] Chlamydia trachomatis Result Negative Negative 08/30/2020 14:06 EDT [facility] Swab ENTIRE ENDOCERVIX / Unknown 08/28/2020 15:00 EDT 08/29/2020 17:00 EDT Provider Outr Resulting Lab MICROBIOLOGY - GENERAL ORDERABLES [facility] [address] [place] [address] documented in this encounter Visit Diagnoses Not on filedocumented in this encounter Care Teams Scroll Machine Operator Relationship Specialty Start Date End Date Lydia Cuellar, MANUELA [address] [place] [phone] PCP - General 01/29/13 documented as of this encounter
--- OUTSIDE RECORDS SUMMARY | 2023-09-27 17:07 | XMS_ITS | Encounter Summary ---
Author Organization [facility] Address [address] [place] [address] Care Team Providers Care Changeover Operator Name Role Phone Lydia Cuellar LEAD INSTALLER Primary Care Provider [phone] Encounter Details Date Type Department Care Team (Late st Contact Info) Description 09/04/2023 Lab Requisition [facility] Pathology & Laboratory Medicine - [facility] [address] [place] [address] Maddison Joseph [address] [place] [phone] Encounter for other general examination Social History Tobacco Use Types Packs/Day Years [...] Procedure Name Priority Date/Time Associated Diagnosis Comments SURGICAL PATHOLOGY Today 09/03/2023 8: 36 EDT Encounter for other general examination documented in this encounter Results * SURGICAL PATHOLOGY (09/03/2023 8:36 EDT) Note to Patient The following pathology results have been interpreted by your pathologist and may be available to you before your health provider has had the opportunity to review them. Please allow time for your provider to receive these results and explore management options, if applicable. 09/08/2023 10:18 EDT [facility] Final Diagnosis A. FALLOPIAN TUBE, RIGHT, PARTIAL SALPINGECTOMY: - Benign fallopian tube including fimbriated end and complete cross section. B. FALLOPIAN TUBE, LEFT, PARTIAL SALPINGECTOMY: - Benign fallopian tube including fimbriated end and complete cross sections. 09/08/2023 10:18 [facility] Attestation There was significant resident/fellow involvement in the diagnostic evaluation of this case. By the signature below, the attending physician certifies that they have personally conducted a gross and/or microscopic examination of the described specimens and rendered or confirmed the above diagnosis. 09/08/2023 10:18 [facility] at 1018 Clinical History Desired sterilization 09/08/2023 10:18 [facility] Gross Description A. Received in formalin labelled with proper patient identification (initials S, C) and 1. Right fallopian tube is a fimbriated fallopian tube (9.5 cm in length, 0.8 cm to 1.5 cm in diameter). The serosal surface is purple-brown. There is a smooth walled clear fluid-filled paratubal cyst (2.0 cm in greatest dimension). The tube is serially sectioned to reveal coppola-brown cut surfaces with a central pinpoint to stellate lumen. No lesions are identified. The entire fimbria and 2 cross-sections including the paratubal cyst are submitted in A1-A5. B. Received in formalin labelled with proper patient identification (initials S, C) and 2. Left fallopian tube is a fimbriated fallopian tube (8.4 cm in length, 0.7 cm to 1.4 cm in diameter). The serosal surface is purple-brown. The tube is serially sectioned to reveal coppola-brown cut surfaces with a central pinpoint to stellate lumen. The entire fimbria and a digital sales representative cross-section are submitted in B1-B4. JOSE NYE(ASCP) 09/04/2023 9:56 09/08/2023 10:18 [facility] Resident/Kranthi w: Rich Hayes MD Wysong, Kenrick, MD 09/08/2023 10:18 [facility] Performing Lab [facility] 09/08/2023 10:18 EDT [facility] Scanned Images 09/08/2023 10:18 EDT [facility] Tissue FALLOPIAN TUBE STRUCTURE / Unknown 09/03/2023 8:36 EDT 09/04/2023 6:46 EDT Tissue specimen (specimen) FALLOPIAN TUBE STRUCTURE / Unknown 09/03/2023 8:36 EDT 09/04/2023 6:46 EDT Maddison Joseph PATHOLOGY ORDERABLES [facility] [address] [place], [place] [id number] documented in this encounter Visit Diagnoses Diagnosis Encounter for other general examination documented in this encounter Care Teams Changeover Operator Relationship Specialty Start Date End Date Lydia Cuellar NP [address] [phone] PCP - General 01/29/13 documented as of this encounter
--- OUTSIDE RECORDS SUMMARY | 2023-09-27 17:07 | XMS_ITS | Clinical Summary ---
Author Organization [facility] Address [address] [place] [address] Care Team Providers Care Insurance Claims Clerk Name Role Phone Lydia Cuellar PEST CONTROL WORKER Primary Care Provider Encounters Date Type Department Care Team Description 09/04/2023 Lab Requisition [facility] Pathology & Laboratory Medicine - [facility] [address] [place] [address] Maddison Joseph Encounter for other general examination from Last 3 Months Social History Tobacco Use Types Packs/Day Years Used Date Smoking Tobacco: Never Assessed Interpersonal Safety Answer Date Record ed Physically Hurt Never 10/17/2019 Verbally Threaten Not on file 10/17/2019 Sex and Gender Information Value Date Recorded Sex Assigned at Not on file Gender Identity Not on file Sexual Orientation Not on file Plan of Treatment Health Maintenance Due Date Last Done Comments Hepatitis B Vaccine (1 of 3 - 19+ 3-dose series) 08/26/2007 COVID-19 Vaccine (2022-2 4 season) 2022 Hepatitis C Screen Completed 02/14/2023, 0 11/02/2020, 08/28/2020 Procedures Procedure Name Priority Date/Time Associated Diagnosis Comments SURGICAL PATHOLOGY Today 09/03/2023 8: 36 EDT Encounter for other general examination HEPATITIS C AB W REFLEX TO HCV RNA BY PCR Routine 02/14/2023 15:20 EST from Last 3 Months or Most Recently Relevant to Health Maintenance Results * SURGICAL PATHOLOGY (09/03/2023 8:36 EDT) Note to Patient The following pathology results have been interpreted by your pathologist and may be available to you before your health provider has had the opportunity to review them. Please allow time for your provider to receive these results and explore management options, if applicable. 09/08/2023 10:18 [facility] Final Diagnosis A. FALLOPIAN TUBE, RIGHT, PARTIAL SALPINGECTOMY: - Benign fallopian tube including fimbriated end and complete cross section. B. FALLOPIAN TUBE, LEFT, PARTIAL SALPINGECTOMY: - Benign fallopian tube including fimbriated end and complete cross sections. 09/08/2023 10:18 [facility] Attestation There was significant resident/fellow involvement in the diagnostic evaluation of this case. By the signature below, the attending physician certifies that they have personally conducted a gross and/or microscopic examination of the described specimens and rendered or confirmed the above diagnosis. 09/08/2023 10:18 [facility] at 1018 Clinical History Desired sterilization 09/08/2023 10:18 [facility] Gross Description A. [...] stellate lumen. The entire fimbria and a benefits representative cross-section are submitted in B1-B4. JOSE NYE(ASCP) 09/04/2023 9:56 09/08/2023 10:18 EDT [facility] Resident/Kranthi w: Rich Hayes MD Wysong, Kenrick, MD 09/08/2023 10:18 EDT [facility] Performing Lab [facility] 09/08/2023 10:18 EDT [facility] Scanned Images 09/08/2023 10:18 EDT [facility] Tissue FALLOPIAN TUBE STRUCTURE / Unknown 09/03/2023 8:36 EDT 09/04/2023 6:46 EDT Tissue specimen (specimen) FALLOPIAN TUBE STRUCTURE / Unknown 09/03/2023 8:36 EDT 09/04/2023 6:46 EDT Maddison Joseph PATHOLOGY ORDERABLES [facility] [address] [place] [address] * HEPATITIS C AB W REFLEX TO HCV RNA BY PCR (02/14/2023 15:20 EST) Hep C Antibody Negative Negative 02/18/2023 14:26 EST [facility] Blood VENOUS BLOOD / Unknown 02/14/2023 15:20 EST 02/15/2023 21:18 EST Provider Outr Resulting Lab CHEMISTRY & BLOOD GAS ORDERABLES [facility] [address] [place] [address] from Last 3 Months or Most Recently Relevant to Health Maintenance Care Teams Insurance Claims Clerk Relationship Specialty Start Date End Date Lydia Cuellar NP [address] [place] [phone] PCP - General 01/29/13
--- OUTSIDE RECORDS SUMMARY | 2023-09-27 17:07 | XMS_ITS | Encounter Summary ---
Author Organization [facility] Address [address] [place] [address] Care Team Providers Care Head Correction Officer Name Role Phone Lydia Cuellar WILDLIFE CONSERVATION PROFESSOR Primary Care Provider [phone] Encounter Details Date Type Department Care Team ([facility] Contact Info) Description 08/28/2020 Lab Requisition [facility] Pathology & Laboratory Medicine - [address] [address] Outr Resulting Lab, Provider Social History Tobacco [...] Procedure Name Priority Date/Time Associated Diagnosis Comments HEPATITIS C AB W REFLEX TO HCV RNA BY PCR Routine 08/28/2020 15:14 EDT HEPATITIS B SURFACE ANTIGEN Routine 08/28/2020 15:14 EDT documented in this encounter Results * HEPATITIS B SURFACE ANTIGEN (08/28/2020 15:14 EDT) Hep B Surface Ag Negative Negative 08/29/2020 9:23 EDT [facility] Blood VENOUS BLOOD / Unknown 08/28/2020 15:14 EDT 08/28/2020 20:43 EDT Provider Outr Resulting Lab CHEMISTRY & BLOOD GAS ORDERABLES Performing Organization Address City/[facility]/ZIP Co de Phone Number [facility] [address] [place] [address] * HEPATITIS C AB W REFLEX TO HCV RNA BY PCR (08/28/2020 15:14 EDT) Hep C Antibody Negative Negative 08/29/2020 10:19 EDT [facility] Blood VENOUS BLOOD / Unknown 08/28/2020 15:14 EDT 08/28/2020 20:43 EDT Provider Outr Resulting Lab CHEMISTRY & BLOOD GAS ORDERABLES Performing Organization Address [facility] Co de Phone Number [facility] [address] [place] [address] documented in this encounter Visit Diagnoses Not on filedocumented in this encounter Care Teams Head Correction Officer Relationship Specialty Start Date End Date Lydia Cuellar, WILDLIFE CONSERVATION PROFESSOR [address] [place] [phone] PCP - General 01/29/13 documented as of this encounter
--- OUTSIDE RECORDS SUMMARY | 2023-09-27 17:07 | XMS_ITS | Encounter Summary ---
Author Organization [facility] Address [address] [place] [address] Care Team Providers Care Assistant Spa Manager Name Role Phone Lydia Cuellar DIRECTOR ADVERTISING Primary Care Provider [phone] Encounter Details Date Type Department Care Team (Late st Contact Info) Description 08/29/2020 Lab Requisition [facility] Pathology & Laboratory Medicine - [facility] [address] [place] [address] Suad Horvath, [facility] [address] [place] [phone] Encounter for other general examination Social [...] Procedure Name Priority Date/Time Associated Diagnosis Comments PAP TEST Today 08/28/2020 15:00 EDT Encounter for other general examination HPV DNA DETECTION WITH GENOTYPING, PCR Today 08/28/2020 15:00 EDT Encounter for other general examination documented in this encounter Results * HUMAN PAPILLOMAVIRUS (HPV) DETECTION-HIGH RISK TYPES (08/28/2020 15:00 EDT) HPV other High Risk types, PCR Negative Negative 09/07/2020 15:16 EDT [facility] Comment:No E6 or E7 mRNA is detected from HPV types 16,18,31,33,35,39,45,51,52,56,58,59,66, and 68 by casing inspector mediated amplification. Papanicolaou smear specimen (specimen) CERVIX UTERI STRUCTURE / Unknown 08/28/2020 15:00 EDT 09/06/2020 10:43 EDT Suad Martina Yuliet SLUMBER ROOM ATTENDANT MICROBIOLOGY - GENER AL ORDERABLES [facility] [address] [place] [address] * PAP TEST (08/28/2020 15:00 EDT) Specimens A. Cervix and/or Endocervix , ThinPrep Imaging System with Manual Evaluation 09/07/2020 15:16 [facility] Specimen Adequacy Satisfactory for Evaluation - transformation zone component present 09/07/2020 15:16 [facility] General Categorization Negative for intraepithelial lesion or malignancy 09/07/2020 15:16 [facility] Attestation . 09/07/2020 15:16 [facility] at 1516 Clinical History See below 09/08/19 15:16 [facility] HPV The result for the Human Papillomavirus (HPV) Detection-High Risk Types is Negative. No E6 or E7 mRNA is detected from HPV types 16,18,31,33,35,39 ,45,51,52,56,58,5 9,66, and 68 by casing inspector mediated amplification.Sandie ting was performed on specimen [id number] and was resulted on 09/07/2020 1454 EDT by YONAS, LAB INSTRUMENT RESULTS IN 09/07/2020 15:16 T [facility] Performing Lab [facility] 09/07/2020 15:16 T [facility] Scanned Images 09/07/2020 15:16 T [facility] Papanicolaou smear specimen (specimen) CERVIX UTERI STRUCTURE / Unknown 08/28/2020 15:00 EDT 08/29/2020 14:47 EDT Suad Horvath SLUMBER ROOM ATTENDANT PATHOLOGY ORDERABLES [facility] [address] [place] [address] documented in this encounter Visit Diagnoses Diagnosis Encounter for other general examination documented in this encounter Care Teams Assistant Spa Manager Relationship Specialty Start Date End Date Lydia Cuellar NP [address] [place] [phone] PCP - General 01/29/13 documented as of this encounter
--- OUTSIDE RECORDS SUMMARY | 2023-09-27 17:07 | XMS_ITS | Encounter Summary ---
Author Organization [facility] Address [address] [place] [address] Care Team Providers Care Landscape Architect Name Role Phone Lydia Cuellar PEDIATRIC RN Primary Care Provider [phone] Encounter Details Date Type Department Care Team ([facility] Contact Info) Description 11/02/2020 Lab Requisition [facility] Pathology & Laboratory Medicine - [address] [id number] Outr Resulting Lab, Provider Social History Tobacco [...] Comments CHLAMYDIA/N. GONORRHOEAE AMPLIFIED NUCLEIC ACID Routine 11/02/2020 10:00 EDT documented in this encounter Results * CHLAMYDIA/N. GONORRHOEAE AMPLIFIED RNA (11/02/2020 10:00 EDT) Neisseria gonorrhoeae Result Negative Negative 11/03/2020 15:15 EDT [facility] Chlamydia trachomatis Result Negative Negative 11/03/2020 15:15 EDT [facility] Swab ENTIRE ENDOCERVIX / Unknown 11/02/2020 10:00 EDT 11/02/2020 22:47 EDT Provider Outr Resulting Lab MICROBIOLOGY - GENERAL ORDERABLES [facility] [address] [place] [address] documented in this encounter Visit Diagnoses Not on filedocumented in this encounter Care Teams Landscape Architect Relationship Specialty Start Date End Date Lydia Cuellar, MNAUELA [address] [place] [phone] PCP - General 01/29/13 documented as of this encounter
--- OUTSIDE RECORDS SUMMARY | 2023-09-27 17:07 | XMS_ITS | Encounter Summary ---
Author Organization [facility] Address [address] [place] [address] Care Team Providers Care National Account Executive Name Role Phone Lydia Cuellar MISDRAW HAND Primary Care Provider [phone] Encounter Details Date Type Department Care Team ([facility] st Contact Info) Description 08/28/2020 Lab Requisition [facility] Pathology & Laboratory Medicine - [facility] [address] [place], [place] [address] Outr Resulting Lab, Provider Social History Tobacco [...] 1/2 ANTIGEN AND ANTIBODY, 4TH GENERATION Routine 08/28/2020 15:14 EDT documented in this encounter Results * HIV 1/2 ANTIGEN AND ANTIBODY, 4TH GENERATION (08/28/2020 15:14 EDT) HIV 1 and 2 Antibody/p24 Antigen, 4th Generation Negative Negative 08/29/2020 9:59 EDT [facility] Comment: If acute HIV-1 infection is suspected in a high risk ??patient, submit plasma specimen for HIV-1 RNA quantitation test. Fourth Generation assay performed on the Siemens needmadeaur. Blood VENOUS BLOOD / Unknown 08/28/2020 15:14 EDT 08/28/2020 20:43 EDT Provider Outr Resulting Lab IMMUNOLOGY A ND SEROLOGY ORDERABLES [facility] [address] [place] [address] documented in this encounter Visit Diagnoses Not on filedocumented in this encounter Care Teams National Account Executive Relationship Specialty Start Date End Date Lydia Cuellar, MANUELA [address] [place] [phone] PCP - General 01/29/13 documented as of this encounter
--- OUTSIDE RECORDS SUMMARY | 2023-09-27 17:07 | XMS_ITS | Encounter Summary ---
Author Organization [facility] Address [address] [place] [address] Care Team Providers Care Software Support Technician Name Role Phone Lydia Cuellar REINSURANCE CLAIMS ANALYST Primary Care Provider [phone] Encounter Details Date Type Department Care Team ([facility] st Contact Info) Description 11/02/2020 Lab Requisition [facility] Pathology & Laboratory Medicine - [facility] [address] [place], [place] [address] Outr Resulting Lab, Provider Social History Tobacco [...] Procedure Name Priority Date/Time Associated Diagnosis Comments HOLD SST Today 11/02/2020 10:31 EDT HEPATITIS C AB W REFLEX TO HCV RNA BY PCR Today 11/02/2020 10:31 EDT HEPATITIS B SURFACE ANTIGEN Today 11/02/2020 10:31 EDT documented in this encounter Results * HOLD SST (11/02/2020 10:31 EDT) Hold Hold 11/02/2020 17:30 EDT [facility] Blood VENOUS BLOOD / Unknown 11/02/2020 10:31 EDT 11/02/2020 16:20 EDT Provider Outr Resulting Lab LAB INFO SER VICE AND SUPPORT & PHONE RESULT Performing Organization Address City/[facility]/ZIP Co de Phone Number [facility] [address] [place] [address] * HEPATITIS B SURFACE ANTIGEN (11/02/2020 10:31 EDT) Hep B Surface Ag Negative Negative 11/03/2020 9:42 EDT [facility] Blood VENOUS BLOOD / Unknown 11/02/2020 10:31 EDT 11/02/2020 16:08 EDT Provider Outr Resulting Lab CHEMISTRY & BLOOD GAS ORDERABLES Performing Organization Address [facility] Co de Phone Number [facility] [address] [place] [address] * HEPATITIS C AB W REFLEX TO HCV RNA BY PCR (11/02/2020 10:31 EDT) Hep C Antibody Negative Negative 11/03/2020 10:15 EDT [facility] Blood VENOUS BLOOD / Unknown 11/02/2020 10:31 EDT 11/02/2020 16:20 EDT Provider Outr Resulting Lab CHEMISTRY & BLOOD GAS ORDERABLES Performing Organization Address City/[facility] Co de Phone Number [facility] [address] [place] [address] documented in this encounter Visit Diagnoses Not on filedocumented in this encounter Care Teams Software Support Technician Relationship Specialty Start Date End Date Lydia Cuellar, MANUELA [address] [place] [phone] PCP - General 01/29/13 documented as of this encounter
--- OUTSIDE RECORDS SUMMARY | 2023-09-27 17:07 | XMS_ITS | Encounter Summary ---
Author Organization [facility] Address [address] [place] [address] Care Team Providers Care Armature Bander Name Role Phone Lydia Cuellar GRAPPLE OPERATOR Primary Care Provider [phone] Encounter Details Date Type Department Care Team ([facility] st Contact Info) Description 11/02/2020 Lab Requisition [facility] Pathology & Laboratory Medicine - [facility] [address] [place], [place] [address] Outr Resulting Lab, Provider Social History Tobacco [...] 1/2 ANTIGEN AND ANTIBODY, 4TH GENERATION Routine 11/02/2020 10:31 EDT documented in this encounter Results * HIV 1/2 ANTIGEN AND ANTIBODY, 4TH GENERATION (11/02/2020 10:31 EDT) HIV 1 and 2 Antibody/p24 Antigen, 4th Generation Negative Negative 11/03/2020 10:01 EDT [facility] Comment: If acute HIV-1 infection is suspected in a high risk ??patient, submit plasma specimen for HIV-1 RNA quantitation test. Fourth Generation assay performed on the Siemens Greenscreen Animalsaur. Blood VENOUS BLOOD / Unknown 11/02/2020 10:31 EDT 11/02/2020 16:20 EDT Provider Outr Resulting Lab IMMUNOLOGY A ND SEROLOGY ORDERABLES [facility] [address] [place] [address] documented in this encounter Visit Diagnoses Not on filedocumented in this encounter Care Teams Armature Bander Relationship Specialty Start Date End Date Lydia Cuellar, MANUELA [address] [place] [phone] PCP - General 01/29/13 documented as of this encounter
--- OUTSIDE RECORDS SUMMARY | 2023-09-27 17:07 | XMS_ITS | Encounter Summary ---
Author Organization [facility] Address [address] [place] [address] Care Team Providers Care Locomotive Lubricating Systems Clerk Name Role Phone Lydia Cuellar DYE JIG OPERATOR Primary Care Provider [phone] Encounter Details Date Type Department Care Team ([facility] Contact Info) Description 02/15/2023 Lab Requisition [facility] Pathology & Laboratory Medicine - [facility] [address] [place], [place] [address] Outr Resulting Lab, Provider Social History Tobacco [...] Procedure Name Priority Date/Time Associated Diagnosis Comments RUBELLA IGG ANTIBODY Routine 02/14/2023 15:20 EST VARICELLA IGG ANTIBODY Routine 02/14/2023 15:20 EST documented in this encounter Results * VARICELLA IGG ANTIBODY (02/14/2023 15:20 EST) Varicella IgG Ab Positive See Note 02/17/2023 9:07 EST [facility] Comment:Presence of detectab le Varicella Zoster virus IgG antibodies. Blood VENOUS BLOOD / Unknown 02/14/2023 15:20 EST 02/15/2023 21:18 EST Provider Outr Resulting Lab IMMUNOLOGY A ND SEROLOGY ORDERABLES Performing Organization Address [facility] Co de Phone Number [facility] [address] [place] [address] * RUBELLA IGG ANTIBODY (02/14/2023 15:20 EST) Rubella IgG Ab Positive See Note 02/17/2023 9:13 EST [facility] Comment:Positive for IgG ant ibodies to Rubella virus. Blood VENOUS BLOOD / Unknown 02/14/2023 15:20 EST 02/15/2023 21:18 EST Provider Outr Resulting Lab CHEMISTRY & BLOOD GAS ORDERABLES Performing Organization Address [facility] Co de Phone Number [facility] [address] [place] [address] documented in this encounter Visit Diagnoses Not on filedocumented in this encounter Care Teams Locomotive Lubricating Systems Clerk Relationship Specialty Start Date End Date Lydia Cuellar, DYE JIG OPERATOR [address] [place] [phone] PCP - General 01/29/13 documented as of this encounter
--- OUTSIDE RECORDS SUMMARY | 2023-09-27 17:07 | XMS_ITS | Encounter Summary ---
Author Organization [facility] Address [address] [place] [address] Care Team Providers Care Planning Feeder Name Role Phone Lydia Cuellar CIGAR ROLLER Primary Care Provider [phone] Encounter Details Date Type Department Care Team ([facility] Contact Info) Description 02/15/2023 Lab Requisition [facility] Pathology & Laboratory Medicine - [address] [address] Outr Resulting Lab, Provider Social History Tobacco [...] RNA BY PCR Routine 02/14/2023 15:20 EST HEPATITIS B SURFACE ANTIGEN Routine 02/14/2023 15:20 EST documented in this encounter Results * HEPATITIS B SURFACE ANTIGEN (02/14/2023 15:20 EST) Hep B Surface Ag Negative Negative 02/17/2023 16:57 EST [facility] Blood VENOUS BLOOD / Unknown 02/14/2023 15:20 EST 02/15/2023 21:18 EST Provider Outr Resulting Lab CHEMISTRY & BLOOD GAS ORDERABLES Performing Organization Address City/[facility]/ZIP Co de Phone Number [facility] [address] [place] [address] * HEPATITIS C AB W REFLEX TO HCV RNA BY PCR (02/14/2023 15:20 EST) Hep C Antibody Negative Negative 02/18/2023 14:26 EST [facility] Blood VENOUS BLOOD / Unknown 02/14/2023 15:20 EST 02/15/2023 21:18 EST Provider Outr Resulting Lab CHEMISTRY & BLOOD GAS ORDERABLES Performing Organization Address [facility] Co de Phone Number [facility] [address] [place] [address] documented in this encounter Visit Diagnoses Not on filedocumented in this encounter Care Teams Planning Feeder Relationship Specialty Start Date End Date Lydia Cuellar, CIGAR ROLLER [address] [place] [phone] PCP - General 01/29/13 documented as of this encounter
--- OUTSIDE RECORDS SUMMARY | 2023-09-27 17:07 | XMS_ITS | Encounter Summary ---
Author Organization [facility] Address [address] [place] [address] Care Team Providers Care Respiratory Clinician Name Role Phone Lydia Cuellar CORRECTIONAL CORPORAL Primary Care Provider [phone] Encounter Details Date Type Department Care Team ([facility] Contact Info) Description 11/02/2020 Lab Requisition [facility] Pathology & Laboratory Medicine - [facility] [address] [place], [place] [address] Outr Resulting Lab, Provider Social History Tobacco [...] Associated Diagnosis Comments RUBELLA IGG ANTIBODY Routine 11/02/2020 10:31 EDT VARICELLA IGG ANTIBODY Routine 11/02/2020 10:31 EDT documented in this encounter Results * VARICELLA IGG ANTIBODY (11/02/2020 10:31 EDT) Varicella IgG Ab Positive See Note 11/03/2020 10:50 EDT [facility] Comment:Presence of detectab le Varicella Zoster virus IgG antibodies. Blood VENOUS BLOOD / Unknown 11/02/2020 10:31 EDT 11/02/2020 16:20 EDT Provider Outr Resulting Lab IMMUNOLOGY A ND SEROLOGY ORDERABLES Performing Organization Address [facility] Co de Phone Number [facility] [address] [place] [address] * RUBELLA IGG ANTIBODY (11/02/2020 10:31 EDT) Rubella IgG Ab Positive See Note 11/03/2020 10:58 EDT [facility] Comment:Positive for IgG ant ibodies to Rubella virus. Blood VENOUS BLOOD / Unknown 11/02/2020 10:31 EDT 11/02/2020 16:20 EDT Provider Outr Resulting Lab CHEMISTRY & BLOOD GAS ORDERABLES Performing Organization Address [facility] Co de Phone Number [facility] [address] [place] [address] documented in this encounter Visit Diagnoses Not on filedocumented in this encounter Care Teams Respiratory Clinician Relationship Specialty Start Date End Date Lydia Cuellar NP [address] [place] [phone] PCP - General 01/29/13 documented as of this encounter
--- OUTSIDE RECORDS SUMMARY | 2023-09-27 17:07 | XMS_ITS | Referral Summary ---
Author Organization [facility] Address [address] [place] [address] Care Team Providers Care Ground Equipment Mechanic Name Role Phone Lydia Cuellar SALES OPERATIONS LEAD Primary Care Provider Encounters Date Type Department Care Team Description 09/04/2023 Lab Requisition [facility] Pathology & Laboratory Medicine - [facility] [address] [place] [address] Maddison Joseph Encounter for other general examination [...] Orientation Not on file Plan of Treatment Not on file Procedures Procedure Name Priority Date/Time Associated Diagnosis [...] management options, if applicable. 09/08/2023 10:18 EDT [facility] Final Diagnosis A. FALLOPIAN TUBE, RIGHT, PARTIAL SALPINGECTOMY: - Benign fallopian tube including fimbriated end and complete cross section. B. FALLOPIAN TUBE, LEFT, PARTIAL SALPINGECTOMY: - Benign fallopian tube including fimbriated end and complete cross sections. 09/08/2023 10:18 [facility] Attestation There was significant resident/fellow involvement in the diagnostic evaluation of this case. By the signature below, the attending physician certifies that they have personally conducted a gross and/or microscopic examination of the described specimens and rendered or confirmed the above diagnosis. 09/08/2023 10:18 [facility] at 1018 Clinical History Desired sterilization 09/08/2023 10:18 [facility] Gross Description A. Received in [...] stellate lumen. The entire fimbria and a sales representative electric service cross-section are submitted in B1-B4. JOSE NYE(ASCP) 09/04/2023 9:56 09/08/2023 10:18 [facility] Resident/Kranthi w: Rich Hayes MD Wysong, Kenrick, MD 09/08/2023 10:18 [facility] Performing Lab [facility] 09/08/2023 10:18 [facility] Scanned Images 09/08/2023 10:18 EDT [facility] Tissue FALLOPIAN TUBE STRUCTURE / Unknown 09/03/2023 8:36 EDT 09/04/2023 6:46 EDT Tissue specimen (specimen) FALLOPIAN TUBE STRUCTURE / Unknown 09/03/2023 8:36 EDT 09/04/2023 6:46 EDT Maddison Joseph PATHOLOGY ORDERABLES [facility] [address] [place] [address] * HEPATITIS C AB W REFLEX TO HCV RNA BY PCR (02/14/2023 15:20 EST) Hep C Antibody Negative Negative 02/18/2023 14:26 EST [facility] Blood VENOUS BLOOD / Unknown 02/14/2023 15:20 EST 02/15/2023 21:18 EST Provider Outr Resulting Lab CHEMISTRY & BLOOD GAS ORDERABLES [facility] [address] [place] [address] from Last 3 Months or Most Recently Relevant to Health Maintenance Care Teams Ground Equipment Mechanic Relationship Specialty Start Date End Date Lydia Cuellar NP [address] [place] [phone] PCP - General 01/29/13
--- OUTSIDE RECORDS SUMMARY | 2023-09-27 17:07 | XMS_ITS | Encounter Summary ---
Author Organization [facility] Address [address] [place] [address] Care Team Providers Care Reading Intervention Teacher Name Role Phone Lydia Cuellar FASHION CONSULTANT SALES Primary Care Provider [phone] Encounter Details Date Type Department Care Team ([facility] Contact Info) Description 02/15/2023 Lab Requisition [facility] Pathology & Laboratory Medicine - [address] [id number] Outr Resulting Lab, Provider Social History Tobacco [...] Comments CHLAMYDIA/N. GONORRHOEAE AMPLIFIED NUCLEIC ACID Routine 02/14/2023 14:20 EST documented in this encounter Results * CHLAMYDIA/N. GONORRHOEAE AMPLIFIED RNA (02/14/2023 14:20 EST) Neisseria gonorrhoeae Result Negative Negative 02/17/2023 14:56 EST [facility] Chlamydia trachomatis Result Negative Negative 02/17/2023 14:56 EST [facility] Swab VAGINAL STRUCTURE / Unknown 02/14/2023 14:20 EST 02/15/2023 23:12 EST Provider Outr Resulting Lab MICROBIOLOGY - GENERAL ORDERABLES [facility] [address] [place] [address] documented in this encounter Visit Diagnoses Not on filedocumented in this encounter Care Teams Reading Intervention Teacher Relationship Specialty Start Date End Date Lydia Cuellar, MANUELA [address] [place] [phone] PCP - General 01/29/13 documented as of this encounter
--- OUTSIDE RECORDS SUMMARY | 2023-09-27 17:08 | XMS_ITS | Encounter Summary ---
Author Organization [facility] Address [address] [place] [address] Care Team Providers Care Bonded Strand Operator Name Role Phone Lydia Cuellar BROADCAST SUPERVISOR Primary Care Provider [phone] Encounter Details Date Type Department Care Team (Late st Contact Info) Description 01/15/2017 Results Only [facility] [phone] Diaz Susi Liam, DO [address] [place] [address] Social History Tobacco Use Types Packs/Day Years Used Date Smoking Tobacco: Never Assessed Sex and Gender Information Value Date Recorded Sex Assigned at Not on file Gender Identity Not on file Sexual Orientation Not on file documented as of this encounter Plan of Treatment Not on file documented as of this encounter Procedures Procedure Name Priority Date/Time Associated Diagnosis Comments SURGICAL PATHOLOGY Routine 01/15/2017 10 :26 EDT documented in this encounter Results * SURGICAL PATHOLOGY (01/15/2017 10:26 EDT) Pathology Report: SURGICAL PATHOLOGY REPORT Reports generated via electronic interface contain original data; however they are lacking the format of the original report. Caution should be taken when reading/interpret ing unformatted reports. Name: ? SHELBY CHILD ? Accession #: ? [id number] ? : ? 1990 (Age: 26) ??F ? Collect Date: ? 01/15/2017 ? Location: ? [facility] ? Receive Date: ? 01/16/2017 ? Provider: SUSI DIAZ DO Copy to: ? Final Pathologic Diagnosis: A. ??SKIN OF LEFT AXILLA, EXCISION: - ??Dermal sinus tract with associated granulation tissue and multinucleated giant cell reaction, consistent with clinical impression of hidradenitis suppurativa. B. SKIN OF RIGHT AXILLA, EXCISION: - Dermal sinus tract with associated granulation tissue and multinucleated giant cell reaction, consistent with clinical impression of hidradenitis suppurativa. Document reviewed and electronically signed by: SYED KINNEY MD Report ??Date: 01/17/2017 12:21 By the signature above, the attending physician certifies that he/she has personally conducted a gross and/or microscopic examination of the described specimens and rendered or confirmed the above diagnosis. Specimen(s) Received: A. ??Hidradenitis, left axilla (#1) B. ??Hidradenitis, right axilla (#2) Clinical History: Hidradenitis suppurativa Gross Description: A. ?Received in formalin labelled with proper patient identification (initials S, C) and left axilla hidradenitis is an elliptical skin, 7.0 x 2.6 cm and excised to a depth of 2.0 cm. The hairbearing skin surface shows focal areas of retraction with opacification. Sections through the areas of retraction show dusky coppola-white cut surfaces and areas of hemorrhage. Received in the same container is an additional irregular portion of non-indurated lobular adipose tissue, 2.5 x 1.8 x 1.0 cm. Pipeline Integrity Engineer sections from the skin and subjacent tissues are submitted in A1 and A2. B. ?Received in formalin labelled with proper patient identification (initials S, C) and right axilla hidradenitis is an elliptical skin, 5.8 x 2.5 cm and excised to a depth of 1.9 cm. The hairbearing skin surface shows focal areas of retraction with opacification. Sections through the areas of retraction show dusky coppola-white cut surfaces with focal areas of hemorrhage. Received in the same container are additional fragmented portions of non-indurated lobulated adipose tissue aggregating 1.5 x 1.2 x 0.9 cm. Pipeline Integrity Engineer sections from the skin and subjacent tissues are submitted in B1 and B2. JOSE Pedro (ASCP) 01/16/2017 12:03 PM End of Report [facility] 01/15/2017 10:2 6 EDT 01/16/2017 10:26 EDT Susi Diaz DO PATHOLOGY ORDERABLES [facility] [address] [place] [address] documented in this encounter Visit Diagnoses Not on filedocumented in this encounter Care Teams Bonded Strand Operator Relationship Specialty Start Date End Date Lydia Cuellar NP [address] [place] [phone] PCP - General 01/29/13 documented as of this encounter
--- OUTSIDE RECORDS SUMMARY | 2023-09-27 17:08 | XMS_ITS | Encounter Summary ---
Author Organization [facility] Address [address] [place] [address] Care Team Providers Care Surgeon'S Assistant Name Role Phone Lydia Cuellar GLOBAL MARKETING SPECIALIST Primary Care Provider Encounter Details Date Type Department Care Team (Latest Contact Info) Description 01/15/2017 13:15 EDT - 01/15/2017 23:59 EDT Hospital Encounter [address] [address] Unknown, Provider, Discharge Disposition: Home or Self Care Social History Tobacco Use Types Packs/Day Years Used Date Smoking Tobacco: Never Assessed Sex and Gender Information Value Date Recorded Sex Assigned at Not on file Gender Identity Not on file Sexual Orientation Not on file documented as of this encounter Discharge Disposition Disposition Code Departure Means Destination Home or Self [facility] documented in this encounter Plan of Treatment Not on file documented as of this encounter Visit Diagnoses Not on filedocumented in this encounter Care Teams Surgeon'S Assistant Relationship Specialty Start Date End Date Lydia Cuellar NP [address] [place] [phone] PCP - General 01/29/13 documented as of this encounter
--- OUTSIDE RECORDS SUMMARY | 2023-09-27 17:08 | XMS_ITS | Encounter Summary ---
Author Organization [facility] [place] [address] Care Team Providers Care Warehouse Team Member Name Role Phone None Primary Care Provider Unavailabl e Reason for Visit * Consultation (Routine) - Closed Specialty Diagnoses / Procedures Referred By Diamante t Referred To Contact Obstetrics and Gynecology Diagnoses Encounter for supervision of normal , unspecified, unspecified trimester Family history of other congenital malformations, deformations and chromosomal abnormalities FHX TRANSPOSITION OF GREAT VESSELS Lisy Castillo, [facility] [address] [place] [address] [place] [address] [facility] [address] [place] [address] Referral ID Status Reason Start Date Expiration Date V isits Requested Visits Authorized [id number] Closed Consult, Test & Treat Connection [facility] PCP Updated and/or Approved 11/03/2020 11/03/2021 1 1 Encounter Details Date Type Department Care Team ([facility] Contact Info) Description 01/02/2021 12:00 PM EDT Office Visit Obstetrics [place] [phone] [facility] [place] [address] Family history of complex congenital heart disease; 20 weeks gestation of Social History Tobacco Use Types Packs/Day Years Used Date Smoking Tobacco: Never Assessed Sex and Gender Information Value Date Recorded Sex Assigned at Not on file Gender Identity Not on file Sexual Orientation Not on file documented as of this encounter Progress Notes * Chemo Hahn MD - 01/02/2021 12:00 PM EDT Asked by Smiley castillo CNM to see this 30 yo at 20w0d with a distant cousin who has hx/o transposition of the great vessels for detailed morphology US and MFM consultation. US today is reassuring: Normal appearing, normally grown hardin with normal amniotic fluid and anormal appearing anterior placenta. Some of the spine and the genitalia were not well seen due to position. cardiac views were technically satisfactory and were reassuring. A/P: Shannan appears to have a normal fetus, although the views of the spine and genitalia were technically not adequate. The chances of an anomaly are quite small. If you and she desire, A follow up US could be arrange in 2-3 weeks to attempt to complete the anatomic survey. MD Yoli 15 minutes was spent directly counseling the patient. documented in this encounter Plan of Treatment Not on file documented as of this encounter Visit Diagnoses Diagnosis Family history of complex congenital heart disease 20 weeks gestation of state, incidental documented in this encounter Care Teams Warehouse Team Member Relationship Specialty Start Date End Date None None PCP - General 11/14/20 02/19/23 documented as of this encounter
--- OUTSIDE RECORDS SUMMARY | 2023-09-27 17:08 | XMS_ITS | Encounter Summary ---
Author Organization [facility] Address [address] [place] [address] Care Team Providers Care Senior Information Developer Name Role Phone Unknown, Provider Primary Care Provider [phone] Encounter Details Date Type Department Care Team (Late st Contact Info) Description 11/21/2011 Results Only [facility] Laboratory Services - [facility] ([facility] [address] [place], [place] [address] Suad Horvath, [facility] [address] [place] [phone] Social History Tobacco Use Types Packs/Day Years Used Date Smoking Tobacco: Never Assessed Sex and Gender Information Value Date Recorded Sex Assigned at Not on file Gender Identity Not on file Sexual Orientation Not on file documented as of this encounter Plan of Treatment Not on file documented as of this encounter Procedures Procedure Name Priority Date/Time Associated Diagnosis Comments PAP TEST- RESULT ONLY Routine 11/21/2011 0:00 EDT documented in this encounter Results * PAP TEST- RESULT ONLY (11/21/2011 0:00 EDT) Pathology Report: CYTOPATHOLOGY REPORT Reports generated via electronic interface contain original data; however they are lacking the format of the original report. Caution should be taken when reading/interpreti ng unformatted reports. Name: ? SHELBY CHILD ? Accession #: ? [id number] : ? 1990 (Age: 21) ??F ?Collect Date: ? 11/21/2011 Location: ? [facility] ? Receive Date: ? 11/25/2011 Provider: ?SUAD HORVATH MARKET EDITOR Copy to: ? Specimen/Source: ?Pap Test, Cervix/Endocervix, ThinPrep Imaging System with manual evaluation Last Menstrual Period: ? 11/13/11 Hormonal/Contracep tive Status: ? Depo-Provera ? SPECIMEN ADEQUACY ? Satisfactory for Evaluation - transformation zone component present GENERAL CATEGORIZATION ? Negative for Intraepithelial Lesion or Malignancy INTERPRETATION ? Reactive cellular changes associated with inflammation present (includes repair). ? Document reviewed and electronically signed by: ? JANAY RAMSEY MD ? Report Date: ??12/03/2011 17:00 End of Report JOHNNY JULIAN 11/21/2011 11/25/2011 Suad Horvath MARKET EDITOR PATHOLOGY ORDERABLES Performing Organization Address City/State/[place] Co de Phone Number JOHNNY JULIAN [address] [place] [address] documented in this encounter Visit Diagnoses Not on filedocumented in this encounter Care Teams Senior Information Developer Relationship Specialty Start Date End Date Unknown, Provider, PCP - General 08/29/10 01/28/13 documented as of this encounter
--- OUTSIDE RECORDS SUMMARY | 2023-09-27 17:08 | XMS_ITS | Clinical Summary ---
Author Organization [facility] [place] [address] Care Team Providers Care Electrolysist Name Role Phone Eligio Leon MD Primary Care Provider [phone] Active Problems Problem Noted Date Diagnosed Date Family history of complex congenital heart disea se 01/08/2021 Social History Tobacco Use Types Packs/Day Years Used Date Smoking Tobacco: Never Assessed Sex and Gender Information Value Date Recorded Sex Assigned at Not on file Gender Identity Not on file Sexual Orientation Not on file Plan of Treatment Health Maintenance Due Date Last Done Comments HIV screen 2006 Hepatitis C Screening 2006 Hepatitis B vaccine (0-59 yrs) (1) 08/26/2007 Tdap adult 08/26/2007 Tetanus vaccine 08/26/2007 HPV test 2018 PAP Smear 2018 Covid-19 Vaccine ( - season) 2022 Influenza (Flu) vaccine (1 o f 1 - Influenza standard series) 11/16/2023 Care Teams Electrolysist Relationship Specialty Start Date End Date Eligio Leon MD [address] [place] [address] [place] [phone] PCP - General Family Medicine 02/20/23
--- OUTSIDE RECORDS SUMMARY | 2023-09-27 17:08 | XMS_ITS | Encounter Summary ---
Author Organization [facility] Address [address] [place] [address] Care Team Providers Care Photographic Restorer Name Role Phone Unknown, Provider Primary Care Provider [phone] Encounter Details Date Type Department Care Team (Late st Contact Info) Description 01/14/2013 Results Only [facility] - [facility] [address] [place], [place] [address] Suad Horvath, [facility] [address] [place] [phone] Social History Tobacco Use Types Packs/Day [...] Diagnosis Comments PAP TEST- RESULT ONLY Routine 01/14/2013 0:00 EDT documented in this encounter Results * PAP TEST- RESULT ONLY (01/14/2013 0:00 EDT) Pathology Report: CYTOPATHOLOGY REPORT Reports generated via electronic interface contain original data; however they are lacking the format of the original report. Caution should be taken when reading/interpreti ng unformatted reports. Name: ? SHELBY CHILD ? Accession #: ? [id number] : ? 1990 (Age: 22) ??F ?Collect Date: ? 01/14/2013 Location: ? [facility] ? Receive Date: ? 01/15/2013 Provider: ?SUAD HORVATH MANAGER OF [facility] Copy to: ?NORMA HYDE MASONRY INSTRUCTOR ? Specimen/Source: ?Pap Test, Cervix/Endocervix, ThinPrep Imaging System with manual evaluation Last Menstrual Period: ? Hormonal/Contracep tive Status: ? Depo-Provera ? SPECIMEN ADEQUACY ? Satisfactory for Evaluation - transformation zone component present GENERAL CATEGORIZATION ? Epithelial Cell Abnormality INTERPRETATION ? Squamous Cell Abnormality - Low grade squamous intraepithelial lesion (LSIL). EDUCATIONAL NOTES/RECOMMENDATI ONS ? [facility] recommends following ASCCP's 2012 Updated Consensus Guidelines for the Management of Abnormal Cervical Cancer Screening Tests and Cancer Precursors (JLGTD, 2013; 17(5):S1-S27). ??Consensus guidelines are available online at www.asccp.org. ? Document reviewed and electronically signed by: ? DIMITRY CHIN MD ? Report Date: ??01/22/2013 16:35 End of Report JOHNNY JULIAN 01/14/2013 01/15/2013 Suad Horvath MANAGER OF [facility] PATHOLOGY ORDERABLES JOHNNY JULIAN [address] [place] [address] documented in this encounter Visit Diagnoses Not on filedocumented in this encounter Care Teams Photographic Restorer Relationship Specialty Start Date End Date Unknown, Provider, PCP - General 08/29/10 01/28/13 documented as of this encounter
--- OUTSIDE RECORDS SUMMARY | 2023-09-27 17:08 | XMS_ITS | Encounter Summary ---
Author Organization [facility] Address [address] [place] [address] Care Team Providers Care Hockey Scout Name Role Phone Lydia Cuellar EQUITY SALES ASSISTANT Primary Care Provider [phone] Encounter Details Date Type Department Care Team (Late st Contact Info) Description 01/17/2014 Results Only [facility] Laboratory Services - [facility] ([facility]) [address], [place] [id number] Suad Horvath, [facility] [address] [place] [address] Social History Tobacco Use Types Packs/Day [...] Diagnosis Comments PAP TEST- RESULT ONLY Routine 01/17/2014 0:00 EST documented in this encounter Results * PAP TEST- RESULT ONLY (01/17/2014 0:00 EST) Pathology Report: CYTOPATHOLOGY REPORT Reports generated via electronic interface contain original data; however they are lacking the format of the original report. Caution should be taken when reading/interpreti ng unformatted reports. Name: ? SHELBY CHILD ? Accession #: ? [id number] : ? 1990 (Age: 23) ??F ?Collect Date: ? 01/17/2014 Location: ? [facility] ? Receive Date: ? 01/18/2014 Provider: ?SUAD HORVATH PARTS CATALOGUER Copy to: ?LYDIA CUELLAR EQUITY SALES ASSISTANT ? Specimen/Source: ?Pap Test, Cervix/Endocervix, ThinPrep Imaging System with manual evaluation Last Menstrual Period: ? 12/17/13 Previous Gynecologic Pathology: ? LSIL: 12/2012 pap ? SPECIMEN ADEQUACY ? Satisfactory for Evaluation - transformation zone component present - scant squamous epithelial component secondary to excessive blood GENERAL CATEGORIZATION ? Negative for Intraepithelial Lesion or Malignancy ? Document reviewed and electronically signed by: ? eLsa Torres, SCT(ASCP) ? Report Date: ??01/24/2014 17:00 End of Report [facility] 01/17/2014 01/18/2014 Suad Horvath PARTS CATALOGUER PATHOLOGY ORDERABLES Performing Organization Address City/State/[facility] Co de Phone Number [facility] [address] [place] [address] documented in this encounter Visit Diagnoses Not on filedocumented in this encounter Care Teams Hockey Scout Relationship Specialty Start Date End Date Lydia Cuellar EQUITY SALES ASSISTANT [address] [place] [phone] PCP - General 01/29/13 documented as of this encounter
--- OUTSIDE RECORDS SUMMARY | 2023-09-27 17:08 | XMS_ITS | Encounter Summary ---
Author Organization [facility] Address [address] [place] [address] Care Team Providers Care Bellperson Name Role Phone Unknown, Provider Primary Care Provider [phone] Encounter Details Date Type Department Care Team (Latest Contact Info) Description 01/14/2013 13:42 EDT - 01/14/2013 23:59 EDT Hospital Encounter [address] [address] Unknown, Provider, Discharge Disposition: Home or Self Care Social History Tobacco Use Types Packs/Day Years Used Date Smoking Tobacco: Never Assessed Sex and Gender Information Value Date Recorded Sex Assigned at Not on file Gender Identity Not on file Sexual Orientation Not on file documented as of this encounter Discharge Disposition Disposition Code Departure Means Destination Home or Self Senior Living documented in this encounter Plan of Treatment Not on file documented as of this encounter Visit Diagnoses Not on filedocumented in this encounter Care Teams Bellperson Relationship Specialty Start Date End Date Unknown, Provider, PCP - General 08/29/10 01/28/13 documented as of this encounter
--- OUTSIDE RECORDS SUMMARY | 2023-09-27 17:08 | XMS_ITS | Encounter Summary ---
Author Organization [facility] Address [address] [place] [address] Care Team Providers Care Management Department Chair Name Role Phone Lydia Cuellar ENGINE LATHE SET UP OPERATOR Primary Care Provider [phone] Encounter Details Date Type Department Care Team (Late st Contact Info) Description 03/24/2015 Results Only [facility]- [facility] [phone] Suad Horvath, [facility] [address] [place] [address] Social History Tobacco Use Types [...] Diagnosis Comments PAP TEST- RESULT ONLY Routine 03/24/2015 0:00 EST documented in this encounter Results * PAP TEST- RESULT ONLY (03/24/2015 0:00 EST) Pathology Report: CYTOPATHOLOGY REPORT Reports generated via electronic interface contain original data; however they are lacking the format of the original report. Caution should be taken when reading/interpreti ng unformatted reports. Name: ? SHELBY CHILD ? Accession #: ? [id number] : ? 1990 (Age: 24) ??F ?Collect Date: ? 03/24/2015 Location: ? [facility] ? Receive Date: ? 03/28/2015 Provider: ?SUAD HORVATH ELECTROLYSIS OPERATOR Copy to: ? Specimen/Source: ?Pap Test, Cervix/Endocervix, ThinPrep Imaging System with manual evaluation Last Menstrual Period: ? 02/27/15 Previous Gynecologic Pathology: ? LSIL: 2013 Other: ? Additional clinical information: Normal Pap 2014 ? SPECIMEN ADEQUACY ? Satisfactory for Evaluation - transformation zone component present - scant squamous epithelial component secondary to excessive inflammation GENERAL CATEGORIZATION ? Negative for Intraepithelial Lesion or Malignancy ? Document reviewed and electronically signed by: ? ELENA Jessica(ASCP) ? Report Date: ??03/29/2015 12:02 End of Report [facility] 03/24/2015 03/28/2015 Suad Horvath ELECTROLYSIS OPERATOR PATHOLOGY ORDERABLES Performing Organization Address City/State/[facility] Co de Phone Number [facility] [address] [place] [address] documented in this encounter Visit Diagnoses Not on filedocumented in this encounter Care Teams Management Department Chair Relationship Specialty Start Date End Date Lydia Cuellar NP [address] [place] [phone] PCP - General 01/29/13 documented as of this encounter
--- OUTSIDE RECORDS SUMMARY | 2023-09-27 17:08 | XMS_ITS | Encounter Summary ---
Author Organization [facility] Address [address] [place] [address] Care Team Providers Care Spaghetti Machine Operator Name Role Phone Unknown, Provider Primary Care Provider Encounter Details Date Type Department Care Team (Late st Contact Info) Description 08/29/2010 Results Only [facility] Laboratory Services - [facility] ([facility]) [address] [place], [place] [phone] Lydia Cuellar, POWER AND RECOVERY SUPERINTENDENT [address] [facility],[address] [phone] Social History Tobacco Use Types Packs/Day Years [...] Diagnosis Comments PAP TEST- RESULT ONLY Routine 08/29/2010 0:00 EDT documented in this encounter Results * PAP TEST- RESULT ONLY (08/29/2010 0:00 EDT) Pathology Report: CYTOPATHOLOGY REPORT ? Reports generated via electronic interface contain original data; ? however they are lacking the format of the original report. ? Caution should be taken when reading/interpreti ng unformatted reports. ? Name: ? SHELBY CHILD ? Accession #: ? [id number] ? : ? 1990 (Age: 20) ??F ?Collect Date: ? 08/29/2010 ? Location: ? [facility] ? Receive Date: ? 08/30/2010 ? Provider: ?LYDIA CUELLAR POWER AND RECOVERY SUPERINTENDENT ? Copy to: ? Specimen/Source: ?Pap Test, Cervix/Endocervix, ThinPrep Imaging System ? with manual evaluation ? Last Menstrual Period: ? 06/01/11 ? Hormonal/Contracep tive Status: ? Yes: Marlena. ? SPECIMEN ADEQUACY ? Satisfactory for Evaluation ? - transformation zone component present ? GENERAL CATEGORIZATION ? Negative for Intraepithelial Lesion or Malignancy ? Document reviewed and electronically signed by: ? Chemo Barrios, [place](ASCP) ? Report Date: ??09/05/2010 16:23 ? End of Report ? JOHNNY JULIAN 08/29/2010 08/30/2010 Lydia Cuellar NP PATHOLOGY ORDERABLES Performing Organization Address City/State/[facility] Co de Phone Number JOHNNY JULIAN [address] [place] [address] documented in this encounter Visit Diagnoses Not on filedocumented in this encounter Care Teams Spaghetti Machine Operator Relationship Specialty Start Date End Date Unknown, Provider, PCP - General 08/29/10 01/28/13 documented as of this encounter
--- OUTSIDE RECORDS SUMMARY | 2023-09-27 17:08 | XMS_ITS | Encounter Summary ---
Author Organization [facility] Address [address] [place] [address] Care Team Providers Care Production Controller Name Role Phone Lydia Cuellar SACK CLEANING HAND Primary Care Provider [phone] Encounter Details Date Type Department Care Team (Late st Contact Info) Description 01/27/2018 Results Only [facility]- [facility] [phone] Suad Horvath, [facility] [address] [place] [address] Social History Tobacco Use Types [...] Diagnosis Comments PAP TEST- RESULT ONLY Routine 01/27/2018 0:00 EST documented in this encounter Results * PAP TEST- RESULT ONLY (01/27/2018 0:00 EST) Pathology Report: CYTOPATHOLOGY REPORT Reports generated via electronic interface contain original data; however they are lacking the format of the original report. Caution should be taken when reading/interpreti ng unformatted reports. Name: ? SHELBY CHILD ? Accession #: ? [id number] : ? 1990 (Age: 27) ??F ?Collect Date: ? 01/27/2018 Location: ? [facility] ? Receive Date: ? 01/29/2018 Provider: ?SUAD HORVATH FISHING FLOATS ASSEMBLER Copy to: ?OSCAR ORTEGA SACK CLEANING HAND ? Specimen/Source: ?Pap Test, Cervix, ThinPrep Imaging System with manual evaluation Last Menstrual Period: ? Hormonal/Contracep tive Status: ? Depo-Provera Other: ? Friable Cervix ? SPECIMEN ADEQUACY ? Satisfactory for Evaluation - transformation zone component present - scant squamous epithelial component secondary to excessive blood GENERAL CATEGORIZATION ? Negative for Intraepithelial Lesion or Malignancy ? Document reviewed and electronically signed by: ? ELENA Jessica(ASCP) ? Report Date: ??02/10/2018 15:14 End of Report [facility] 01/27/2018 01/29/2018 Suad Horvath FISHING FLOATS ASSEMBLER PATHOLOGY ORDERABLES Performing Organization Address City/State/[facility] Co de Phone Number [facility] [address] [place] [address] documented in this encounter Visit Diagnoses Not on filedocumented in this encounter Care Teams Production Controller Relationship Specialty Start Date End Date Lydia Cuellar NP [address] [place] [phone] PCP - General 01/29/13 documented as of this encounter
--- OUTSIDE RECORDS SUMMARY | 2023-09-27 17:08 | XMS_ITS | Encounter Summary ---
Author Organization [facility] [place] [address] Care Team Providers Care Eap Clinician Name Role Phone Eligio Leon MD Primary Care Provider [phone] Reason for Referral * Consultation (Routine) - Closed Specialty Diagnoses / Procedures Referred By Diamante forbes Referred To Contact Obstetrics and Gynecology Diagnoses Encounter for supervision of normal , antepartum, unspecified Maternal care for scar from previous delivery, unspecified scar type Family history of other congenital malformations, deformations and chromosomal abnormalities Lisy Castillo CNM [address] [place] [address] [address] [place] [address] [facility] [employer] Eng[employer] Installer [address] [place] [phone] Referral ID Status Reason Start Date Expiration Date V isits Requested Visits Authorized [id number] Closed Consult, Test & Treat PCP Updated and/or Approved 02/20/2023 02/20/2024 6 6 Encounter Details Date Type Department Care Team (Latest Contact Info) Description 02/20/2023 Transcribe Orders eDH Incoming Referrals [phone] Lisy Castillo CNM [address] [place] [address] [address] [place], [place] [phone] Encounter for supervision of normal , antepartum, unspecified ; Maternal care for scar from previous delivery, unspecified scar type; Family history of other congenital malformations, deformations and chromosomal abnormalities Social History Tobacco Use Types Packs/Day Years Used Date Smoking Tobacco: Never Assessed Sex and Gender Information Value Date Recorded Sex Assigned at Not on file Gender Identity Not on file Sexual Orientation Not on file documented as of this encounter Plan of Treatment Scheduled Referrals Name Type Priority Associated Diagnoses Orde r Schedule Referral to Maternal Medicine Outpatient Referral Routine Encounter for supervision of normal , antepartum, unspecified Maternal care for scar from previous delivery, unspecified scar type Family history of other congenital malformations, deformations and chromosomal abnormalities Ordered: 02/20/2023 documented as of this encounter Visit Diagnoses Diagnosis Encounter for supervision of normal , antepartum, unspecified Maternal care for scar from previous delivery, unspecified scar type Family history of other congenital malformations, deformations and chromosomal abnormalities documented in this encounter Care Teams Eap Clinician Relationship Specialty Start Date End Date Eligio Leon MD [address] [place] [address] PCP - General Family Medicine 02/20/23 documented as of this encounter
--- OUTSIDE RECORDS SUMMARY | 2023-09-27 17:08 | XMS_ITS | Encounter Summary ---
Author Organization [facility] [place] [place] [address] Care Team Providers Care Client Project Coordinator Name Role Phone None Primary Care Provider Unavailabl e Reason for Referral * Diagnostic Test (Routine) - Closed Specialty Diagnoses / Procedures Referred By Contac t Referred To Contact Radiology Diagnoses Family history of congenital anomalies Procedures US OB Detailed Morphology Lisy Castillo CNM [address] [place] [address] [address] [place] [address] [place] [phone] Referral ID Status Reason Start Date Expiration Date V isits Requested Visits Authorized [id number] Closed Specialty Service Requested 11/14/2020 05/14/2022 1 1 Reason for Visit * Diagnostic Test (Routine) - Closed Specialty Diagnoses / Procedures Referred By Diamante forbes Referred To Contact Radiology Diagnoses Family history of congenital anomalies Procedures US OB Detailed Morphology Lisy Castillo CNM [address] [place] [address] [address] [place] [address] [place] [address] Referral ID Status Reason Start Date Expiration Date V isits Requested Visits Authorized [id number] Closed Specialty Service Requested 11/14/2020 05/14/2022 1 1 Encounter Details Date Type Department Care Team (Latest Contact Info) Description 01/02/2021 11:14 AM EDT - 01/02/2021 11:59 PM EDT Hospital [place] [phone] Lisy Castillo, [facility] [address] [facility] [address] [place] [address] Family history of congenital anomalies Discharge Disposition: Home Social History Tobacco Use Types Packs/Day Years Used Date Smoking Tobacco: Never Assessed Sex and Gender Information Value Date Recorded Sex Assigned at Not on file Gender Identity Not on file Sexual Orientation Not on file documented as of this encounter Plan of Treatment Not on file documented as of this encounter Procedures Procedure Name Priority Date/Time Associated Diagnosis Comments US OB DETAILED MORPHOLOGY Routine 01/02/2021 12:23 PM EDT Family history of congenital anomalies documented in this encounter Results * US OB Detailed Morphology (01/02/2021 12:23 PM EDT) Anatomical Region Laterality Modality Pelvis, Abdomen Ultrasound 01/02/2021 12:0 8 PM EDT Impressions 01/02/2021 7:18 PM EDT 2nd Trimester - Detailed Morphology - Summary Single intrauterine with a gestational age of 20w 0d based on Early Ultrasound ??(10/12/20) Composite age based on the current ultrasound alone is 19w 5d. Current growth parameters are consistent with prior dating indicating normal growth. Amniotic fluid volume is Normal Detailed anatomic evaluation was performed and no structural abnormalities are noted. The spine and genitalia was not well seen, although there was no suspicion of abnormal anatomy. Thank you for letting us participate in the care of this patient. If you are a health care provider and have any questions regarding this report, please contact the number above. For patients who have questions, please contact the health care transition mgr that requested your imaging first. ?Chemo Hahn, Staff Physician Electronically Signed Final Report ?? 01/02/2021 07:18 pm Narrative 01/02/2021 7:18 PM EDT OBSTETRICS REPORT ? (Signed Final 01/02/2021 07:18 pm) PATIENT INFO: ID #: ? [id number] ?: ??[birth year] (30 yrs)(F) Name: ? SHELBY Liam ?Visit Date: 01/02/2021 12:08 pm ? SULIVERJORGE PERFORMED BY: Performed By: ? Anne Meraz RDMS Attending: ?Jovani STUBBS, Chemo Gonzalez Referred By: ?LISY CASTILLO Location: ? [place] SERVICE(S) PROVIDED: [facility] - Detailed Morphology - [id number] ? [id number] INDICATIONS: 20 weeks gestation of ? Z3A.20 Transposition of Great vessels VITAL SIGNS: Weight (lb): 227.0 Height: ?5'5 ?BMI: ?37.77 EVALUATION: Num Of Fetuses: ?1 Cardiac Activity: ?Observed, normal rhythm Presentation: ?Variable Placenta: ?Anterior P. Cord Insertion: ? Within Normal Limits Amniotic Fluid INGE FV: ?Normal --------- BIOMETRY: --------- BPD: ?43.9 ??mm ? G.Age: ?? 19w 2d OFD: ?60.2 ??mm HC: ?166.9 ??mm ? G.Age: ?? 19w 3d AC: ?155.4 ??mm ? G.Age: ?? 20w 5d FL: ? 30.4 ??mm ? G.Age: ?? 19w 3d HUM: ?32.0 ??mm ? G.Age: ?? 20w 5d CER: ?19.5 ??mm ? G.Age: ?? 18w 5d NFT: ?4.86 ??mm NB: ?5.0 ??mm LV: ?4.1 ??mm CM: ?4.1 ??mm CI: ?72.9 ??% ? 70 - 86 FL/HC: ? 18.2 ??% ? 16.8 - 19.8 HC/AC: ? 1.07 ?1.09 - 1.39 FL/BPD: ?69.2 ??% FL/AC: ? 19.6 ??% ? 20 - 24 Est. FW: ? 326 ?? gm ?0 lb 11 oz OB HISTORY: : ?1 ? Term: ?? 0 GESTATIONAL AGE: U/S Today: ? 19w 5d ?JOSE: ?05/24/21 Best: ?20w 0d ?? Det. By: ??Early ?JOSE: ?05/22/21 ? Ultrasound ? (10/12/20) TARGETED ANATOMY: Central Nervous System Calvarium/Cranial V.: ??Within Normal Limits Intracranial Koki: ? Within Normal Limits Cavum: ? Within Normal Limits Parenchyma: ?Within Normal Limits Lateral Ventricles: ?Within Normal Limits Choroid Plexus: ?Within Normal Limits Cereb./Vermis: ? Within Normal Limits Cisterna Magna: ?Within Normal Limits Midline Falx: ?Within Normal Limits Spine Cervical: ?Limited Views Thoracic: ?Limited Views Lumbar: ?Limited Views Sacral: ?Limited Views Shape/Curvature: ? Limited Views Head/Neck Face: ?Within Normal Limits Lips: ?Within Normal Limits Neck: ?Within Normal Limits Nuchal Fold: ? Within Normal Limits Nasal Bone: ?Present Profile: ? Visualized Orbits/Eyes: ? Visualized Mandible: ?Visualized Maxilla: ? Visualized Thorax Thoracic Contour: ?Within Normal Limits Lungs: ? Visualized 4 Chamber View: ?Within Normal Limits Cardiac Activity: ?Normal Rhythm Rt Outflow Tract: ?Visualized Lt Outflow Tract: ?Visualized Aortic Arch: ? Visualized Ductal Arch: ? Visualized SVC: ? Visualized Cardiac Rich[place]: ?Visualized Diaphragm: ? Visualized 3 Vessel View: ? Visualized IVC: ? Visualized Abdomen Ventral Wall: ?Visualized Cord Insertion: ?Visualized Situs: ? Normal Stomach: ? Visualized Liver: ? Visualized Lt Kidney: ? Visualized Rt Kidney: ? Visualized Bladder: ? Visualized Bowel: ? Visualized Extremities Lt Humerus: ?Within Nomal Limits Rt Humerus: ?Within Normal Limits Lt Forearm: ?Within Normal Limits Rt Forearm: ?Within Normal Limits Lt Hand: ? Within Normal Limits Rt Hand: ? Within Normal Limits Lt Femur: ?Within Normal Limits Rt Femur: ?Within Normal Limits Lt Lower Leg: ?Within Normal Limits Rt Lower Leg: ?Within Normal Limits Lt Foot: ? Visualized Rt Foot: ? Visualized Other Umbilical Cord: ?3 vessel cord Genitalia: ? not visualized CERVIX UTERUS ADNEXA: Right Ovary Size(cm) ? 2.8 ??x ?? 1.6 ?x ??1.9 ? Vol(ml): ??4.5 Visualized Left Ovary Size(cm) ? 4.1 ??x ?? 2.7 ?x ??2.7 ? Vol(ml): ??15.6 Visualized Procedure Note Chemo Hahn MD - 01/02/2021 OBSTETRICS REPORT (Signed Final 01/02/2021 07:18 pm) PATIENT INFO: ID #: [id number] : [birth year] (30 yrs)(F) Name: SHELBY Wheeler Visit Date: 01/02/2021 12:08 pm SULIVERES PERFORMED BY: Performed By: Anne Meraz RDMS Attending: Chemo Hahn MD Referred By: LISY CASTILLO Location: [place] SERVICE(S) PROVIDED: [facility] - Detailed Morphology - [id number] INDICATIONS: 20 weeks gestation of Z3A.20 Transposition of Great vessels VITAL SIGNS: Weight (lb): 227.0 Height: 5'5 BMI: 37.77 EVALUATION: Num Of Fetuses: 1 Cardiac Activity: Observed, normal rhythm Presentation: Variable Placenta: Anterior P. Cord Insertion: Within Normal Limits Amniotic Fluid INGE FV: Normal --------- BIOMETRY: --------- BPD: 43.9 mm G.Age: 19w 2d OFD: 60.2 mm HC: 166.9 mm G.Age: 19w 3d AC: 155.4 mm G.Age: 20w 5d FL: 30.4 mm G.Age: 19w 3d HUM: 32.0 mm G.Age: 20w 5d CER: 19.5 mm G.Age: 18w 5d NFT: 4.86 mm NB: 5.0 mm LV: 4.1 mm CM: 4.1 mm CI: 72.9 % 70 - 86 FL/HC: 18.2 % 16.8 - 19.8 HC/AC: 1.07 1.09 - 1.39 FL/BPD: 69.2 % FL/AC: 19.6 % 20 - 24 Est. FW: 326 gm 0 lb 11 oz OB HISTORY: : 1 Term: 0 GESTATIONAL AGE: U/S Today: 19w 5d JOSE: 05/24/21 Best: 20w 0d Det. By: Early JOSE: 05/22/21 Ultrasound (10/12/20) TARGETED ANATOMY: Central Nervous System Calvarium/Cranial V.: Within Normal Limits Intracranial Koki: Within Normal Limits Cavum: Within Normal Limits Parenchyma: Within Normal Limits Lateral Ventricles: Within Normal Limits Choroid Plexus: Within Normal Limits Cereb./Vermis: Within Normal Limits Cisterna Magna: Within Normal Limits Midline Falx: Within Normal Limits Spine Cervical: Limited Views Thoracic: Limited Views Lumbar: Limited Views Sacral: Limited Views Shape/Curvature: Limited Views Head/Neck Face: Within Normal Limits Lips: Within Normal Limits Neck: Within Normal Limits Nuchal Fold: Within Normal Limits Nasal Bone: Present Profile: Visualized Orbits/Eyes: Visualized Mandible: Visualized Maxilla: Visualized Thorax Thoracic Contour: Within Normal Limits Lungs: Visualized 4 Chamber View: Within Normal Limits Cardiac Activity: Normal Rhythm Rt Outflow Tract: Visualized Lt Outflow Tract: Visualized Aortic Arch: Visualized Ductal Arch: Visualized SVC: Visualized Cardiac [place]: Visualized Diaphragm: Visualized 3 Vessel View: Visualized IVC: Visualized Abdomen Ventral Wall: Visualized Cord Insertion: Visualized Situs: Normal Stomach: Visualized Liver: Visualized Lt Kidney: Visualized Rt Kidney: Visualized Bladder: Visualized Bowel: Visualized Extremities Lt Humerus: Within Nomal Limits Rt Humerus: Within Normal Limits Lt Forearm: Within Normal Limits Rt Forearm: Within Normal Limits Lt Hand: Within Normal Limits Rt Hand: Within Normal Limits Lt Femur: Within Normal Limits Rt Femur: Within Normal Limits Lt Lower Leg: Within Normal Limits Rt Lower Leg: Within Normal Limits Lt Foot: Visualized Rt Foot: Visualized Other Umbilical Cord: 3 vessel cord Genitalia: not visualized CERVIX UTERUS ADNEXA: Right Ovary Size(cm) 2.8 x 1.6 x 1.9 Vol(ml): 4.5 Visualized Left Ovary Size(cm) 4.1 x 2.7 x 2.7 Vol(ml): 15.6 Visualized IMPRESSION 2nd Trimester - Detailed Morphology - Summary Single intrauterine with a gestational age of 20w 0d based on Early Ultrasound (10/12/20) Composite age based on the current ultrasound alone is 19w 5d. Current growth parameters are consistent with prior dating indicating normal growth. Amniotic fluid volume is Normal Detailed anatomic evaluation was performed and no structural abnormalities are noted. The spine and genitalia was not well seen, although there was no suspicion of abnormal anatomy. Thank you for letting us participate in the care of this patient. If you are a health care provider and have any questions regarding this report, please contact the number above. For patients who have questions, please contact the health care transition mgr that requested your imaging first. Chemo Hahn, Staff Physician Electronically Signed Final Report 01/02/2021 07:18 pm Lisy ANGEL IM US OB ORDERABLES documented in this encounter Visit Diagnoses Diagnosis Family history of congenital anomalies documented in this encounter Care Teams Client Project Coordinator Relationship Specialty Start Date End Date None None PCP - General 11/14/20 02/19/23 documented as of this encounter
--- OUTSIDE RECORDS SUMMARY | 2023-09-27 17:08 | XMS_ITS | Encounter Summary ---
Author Organization [facility] Address [address] [place] [address] Care Team Providers Care Tool Builder Name Role Phone Lydia Cuellar TOOL OR DIE DRAWING CHECKER Primary Care Provider [phone] Encounter Details Date Type Department Care Team (Late st Contact Info) Description 05/24/2016 Results Only [facility] [phone] Suad Horvath, [facility] [address] [place] [address] Social History Tobacco Use Types [...] Diagnosis Comments PAP TEST- RESULT ONLY Routine 05/24/2016 0:00 EST documented in this encounter Results * PAP TEST- RESULT ONLY (05/24/2016 0:00 EST) Pathology Report: CYTOPATHOLOGY REPORT Reports generated via electronic interface contain original data; however they are lacking the format of the original report. Caution should be taken when reading/interpreti ng unformatted reports. Name: ? SHELBY CHILD ? Accession #: ? [id number] : ? 1990 (Age: 25) ??F ?Collect Date: ? 05/24/2016 Location: ? [facility] ? Receive Date: ? 05/27/2016 Provider: ?SUAD HORVATH BUSINESS RESILIENCY MANAGER Copy to: ?GLEN GARCIA MD ? Specimen/Source: ?Pap Test, Cervix, ThinPrep Imaging System with manual evaluation Last Menstrual Period: ? Hormonal/Contracep tive Status: ? Depo-Provera Previous Gynecologic Pathology: ? LSIL: 2012 ? SPECIMEN ADEQUACY ? Satisfactory for Evaluation - transformation zone component absent GENERAL CATEGORIZATION ? Negative for Intraepithelial Lesion or Malignancy INTERPRETATION ? Shift in omi present suggestive of bacterial vaginosis. ? Document reviewed and electronically signed by: ? Shanti Mckeon, ELENA(ASCP) ? Report Date: ??05/29/2016 14:30 End of Report [facility] 05/24/2016 05/27/2016 Suad Horvath BUSINESS RESILIENCY MANAGER PATHOLOGY ORDERABLES Performing Organization Address City/State/[facility] Co de Phone Number [facility] [address] [place] [address] documented in this encounter Visit Diagnoses Not on filedocumented in this encounter Care Teams Tool Builder Relationship Specialty Start Date End Date Lydia Cuellar NP [address] [phone] PCP - General 01/29/13 documented as of this encounter
--- OUTSIDE RECORDS SUMMARY | 2023-09-27 17:08 | XMS_ITS | Encounter Summary ---
Author Organization [facility] Address [address] [place] [address] Care Team Providers Care Smooth And Burr Worker Composites Name Role Phone Lydia Cuellar PRE FABRICATOR Primary Care Provider [phone] Encounter Details Date Type Department Care Team ([facility] Contact Info) Description 08/15/2020 Lab Requisition [facility] Pathology & Laboratory Medicine - [place] [address] [place], [place] [id number] Outr Resulting Lab, Provider Social History Tobacco [...] Comments CHLAMYDIA/N. GONORRHOEAE AMPLIFIED NUCLEIC ACID Routine 08/13/2020 22:20 EDT documented in this encounter Results * (ABNORMAL) CHLAMYDIA/N. GONORRHOEAE AMPLIFIED RNA (08/13/2020 22:20 EDT) Neisseria gonorrhoeae Result Positive(A) Negative 08/16/2020 15:10 EDT [facility] Chlamydia trachomatis Result Negative Negative 08/16/2020 15:10 EDT [facility] Swab ENTIRE ENDOCERVIX / Unknown 08/13/2020 22:20 EDT 08/15/2020 17:22 EDT Provider Outr Resulting Lab MICROBIOLOGY - GENERAL ORDERABLES [facility] [address] [place] [address] documented in this encounter Visit Diagnoses Not on filedocumented in this encounter Care Teams Smooth And Burr Worker Composites Relationship Specialty Start Date End Date Lydia Cuellar, MANUELA [address] [place] [phone] PCP - General 01/29/13 documented as of this encounter
--- OUTSIDE RECORDS SUMMARY | 2023-09-27 17:08 | XMS_ITS | Encounter Summary ---
Author Organization [facility] Address [address] [place] [address] Care Team Providers Care School Office Assistant Name Role Phone Lydia Cuellar SAFETY CLOTHING AND EQUIPMENT DEVELOPER Primary Care Provider [phone] Encounter Details Date Type Department Care Team ([facility] st Contact Info) Description 05/01/2020 Lab Requisition [facility] Pathology & Laboratory Medicine - [address] [id number] Outr Resulting Lab, Provider Social History Tobacco [...] Procedure Name Priority Date/Time Associated Diagnosis Comments FECAL BACTERIAL PATHOGENS BY PCR Routine 05/01/2020 0:40 EST documented in this encounter Results * (ABNORMAL) FECAL BACTERIAL PATHOGENS BY PCR (05/01/2020 0:40 EST) Salmonella PCR Negative Negative 05/02/2020 10:54 EST [facility] Shigella/Enteroin vasive E. coli Negative Negative 05/02/2020 10:54 EST [facility] HN LAB CAMPYLOBACTER PCR Positive(A) Negative 05/02/2020 10:54 EST [facility] Shiga Toxin PCR Negative Negative 10:54 EST [facility] Feces SPECIMEN FROM RECTUM / Unknown 05/01/2020 0:40 EST 05/01/2020 16:26 EST Provider Outr Resulting Lab MICROBIOLOGY - GENERAL ORDERABLES Performing Organization Address City/State/[facility] Co de Phone Number [facility] [address] [place] [address] documented in this encounter Visit Diagnoses Not on filedocumented in this encounter Care Teams School Office Assistant Relationship Specialty Start Date End Date Lydia Cuellar NP [address] [place] [phone] PCP - General 01/29/13 documented as of this encounter
[2023-09-27 17:28] VITALS: BP 108/71; PULSE 83; RESP 16; TEMP 36.1
[2023-09-27 19:08] VITALS: BP 125/68; PULSE 68; RESP 16; TEMP 36.9; O2SAT 98
[2023-09-27] MEDS: Normal Saline 1,000 ML 1000 ML IV (20:08)
[2023-09-27] MEDS: Prochlorperazine 10 MG/2 ML VIAL 5 MG IVP ×2 (20:08→22:06)
[2023-09-27] MEDS: Omnipaque 350 MG/ML 100 ML BTL IJ (20:15)
[2023-09-27] MEDS: Normal Saline - Diluent 50 ML VIAL IJ (20:15)
--- NOTE | 2023-09-27 20:37 | DI.CT_ITS ---
Exam(s) CT HEAD WO/W EXAM: CT HEAD WO/W CLINICAL HISTORY: headache, . TECHNIQUE: Imaging Protocol: Axial computed tomography images of the with coronal and sagittal refo rmatted images were created and reviewed. CONTRAST MATERIAL: Intravenous: Omnipaque 350 Contrast volume:100 ml Contrast route:IV - COMPARISON: None FINDINGS: Noncontrast images are extremely limited due to technique. Images very grainy Ventricles and Extra axial spaces: Normal in size and morphology for the patient's age. Hemorrhage: None. Cerebral parenchyma: Normal. Enhancement: No suspicious enhancement. Venous sinuses appear patent. Ukrjmf-gn-[id number] vasculature a ppears normal. Midline shift: None. Brainstem/Cerebellum: Normal. Calvarium: Normal. Visualized Paranasal sinuses/Mastoids: Patchy ethmoid sinus opacification. Soft tissues: Unremarkable. IMPRESSION: Pre contrast images extremely limited. Postcontrast images appear normal. No evidence of venous sinus thrombosis or large aneurysm. RADIATION DOSE DELIVERED: Total DLP Total DLP DATA REPOSITORY: All CT scans at this facility are submitted to the National Radiology Data Registry (NRDR) Dose Index Registry (DIR) with the [employer] (ACR). RADIATION OPTIMIZATION: All CT scans at this facility use at least one of these dose optimization te chniques: automated exposure control; mA and/or kV adjustment per patient size (includes targeted exa ms where dose is matched to clinical indication); or iterative reconstruction.
[2023-09-27 20:43] LABS: Abs Immature Grans 0.05 10^3/uL (0.0-0.06); Absolute Basophil Count 0.08 10^3/uL (0.0-0.2); Absolute Eosinophil Count 0.66 10^3/uL (0.0-0.7); Absolute Lymphocyte Count 2.83 10^3/uL (1.2-3.4); Absolute Monocyte Count 0.46 10^3/uL (0.1-0.8); Absolute Neutrophil Count 6.22 10^3/uL (1.2-6.7); Basophils % 0.8 %; Eosinophils % 6.4 %; HCT 35.4 % (36.0-46.0); Immature Grans % 0.5 %; Lymphocytes % 27.5 %; MCH 25.1 pg (27.0-33.0); MCHC 31.1 % (32.0-36.0); MCV 81 fL (80-95); MPV 10.1 fL (8.0-11.0); Monocytes % 4.5 %; Neutrophils % 60.3 %; Platelet Count 444 10^3/uL (130-400); RBC 4.38 10^6/uL (3.93-5.22); RDW 15.9 % (11.7-14.6)
[2023-09-27 20:57] LABS: ALT 27 U/L (14-59); AST 15 U/L (15-37); Albumin 3.4 g/dL (3.4-5.0); Alkaline Phosphatase 103 U/L (46-116); Anion Gap 8.6 mmol/L (3-11); BUN 10 mg/dL (7-18); Bilirubin, Total 0.29 mg/dL (0.2-1.0); CO2 25.4 mmol/L (21.0-32.0); CREATININE 0.6 mg/dL (0.55-1.02); Calcium 8.8 mg/dL (8.5-10.1); Chloride 107 mmol/L (98-107); Estimated GFR 119.97 (mL/min/1.73m2); Glucose 96 mg/dL (74-106); Magnesium 1.6 mg/dL (1.8-2.4); Potassium 3.8 mmol/L (3.5-5.1); Sodium 141 mmol/L (136-145); Total Protein 7.6 g/dL (6.4-8.2)
--- NOTE | 2023-09-27 21:28 | W.ED.GENAD ---
Discharge Plan Disposition Patient Disposition: Home Condition: Stable Discharge Details Clinical Impression: Headache Primary Care Provider: JAMAR SANCHEZ ED Provider: Aide Elizabeth Home Meds and New Rx's Prescriptions: New prochlorperazine maleate [Compazine] 10 mg tablet 10 mg PO Q6H PRNQty: 10 0RF Continued acetaminophen 325 mg Tablet 650 mg PO Q4H PRN PRNQty: 0 0RF docusate sodium [Colace] 100 mg Capsule 100 mg PO BID PRN PRNQty: 60 0RF ibuprofen 600 mg Tablet 600 mg PO Q6H PRN PRNQty: 60 0RF Discharge Instructions Instructions: Headache, Adult ED Additional Instructions: Regular food and fluids May take Tylenol and ibuprofen as needed for pain You may take Compazine for headache and nausea Please return should you develop worsening headache, fever, chills, or should any new concerns arise Referrals: JAMAR SANCHEZ, DETAIL ASSEMBLER [Primary Care Provider] - HPI General Date/Time Provider Initiated Documentation: 09/27/23 18:29. HPI Narrative: This 33-year-old female with history of bipolar, anxiety, heartburn presents with report of headache which started 4 days ago and has been constant. Came on gradually per patient. No prior history of headaches and 3 weeks. Not currently breast-feeding. Denies any stiff neck or fever. Denies any head trauma. Denies vision change. Denies risk of carbon monoxide exposure. Nauseous, photophobic without vomiting per patient. Denies any illicit drug use or alcohol consumption. Related Data Home Medications ?Medication ?Instructions ?Recorded ?Confirmed acetaminophen 325 mg tablet 650 mg (2 x 325 mg) PO Q4H PRN PRN 09/05/23 09/27/23 #0 tabs docusate sodium 100 mg capsule 100 mg PO BID PRN PRN #60 caps 09/05/23 09/27/23 (Colace) ibuprofen 600 mg tablet 600 mg PO Q6H PRN PRN #60 tabs 09/05/23 09/27/23 prochlorperazine maleate 10 mg 10 mg PO Q6H PRN #10 tabs 09/27/23 tablet (Compazine) Previous Rx's ?Medication ?Instructions ?Recorded acetaminophen 325 mg tablet 650 mg (2 x 325 mg) PO Q4H PRN PRN 09/05/23 #0 tabs docusate sodium 100 mg capsule 100 mg PO BID PRN PRN #60 caps 09/05/23 (Colace) ibuprofen 600 mg tablet 600 mg PO Q6H PRN PRN #60 tabs 09/05/23 prochlorperazine maleate 10 mg 10 mg PO Q6H PRN #10 tabs 09/27/23 tablet (Compazine) Allergies Allergy/AdvReac Type Severity Reaction Status Date / Time coconut Allergy Severe Anaphylaxis Verified 09/10/23 14:28 latex Allergy Intermediate Skin Rash Verified 09/10/23 14:28 vitamin E (From Enviro Allergy Mild Itching Verified 09/10/23 14:28 Stress) coconut oil Allergy Anaphylaxsi Verified 09/10/23 14:28 s General Stated Complaint: Headache DRISS: 4 Exam Narrative Exam Narrative: Alert and oriented 33-year-old female, pupils equal round reactive to light and accommodation, no visible signs of head trauma, lungs clear to auscultation, cardiac rate rhythm regular, no pallor, GCS 15, strength and sensation intact distally, distal ambulatory steady gait no rashes or lesions no meningismus Course Vital Signs Vital signs: Vital Signs Temperature 36.1 C L 09/27/23 17:28 Pulse 83 09/27/23 17:28 Respiratory Rate 16 09/27/23 17:28 Blood Pressure 108/71 09/27/23 17:28 Temperature 36.9 C 09/27/23 19:08 Temperature Source Temporal Artery Scan 09/27/23 19:08 Pulse 68 09/27/23 19:08 Respiratory Rate 16 09/27/23 19:08 Respiratory Effort Normal 09/27/23 19:08 Blood Pressure 125/68 09/27/23 19:08 Pulse Oximetry 98 09/27/23 19:08 Pain Level 6 09/27/23 19:08 Lab/Test Results Lab/Test Results: Laboratory Tests Range/Units 09/27/23 19:40 WBC (4.4-10.8) 10^3/uL 10.30 RBC (3.93-5.22) 10^6/uL 4.38 Hgb (11.2-15.7) g/dL 11.0 L Hct (36.0-46.0) % 35.4 L MCV (80-95) fL 81 MCH (27.0-33.0) pg 25.1 L MCHC (32.0-36.0) % 31.1 L RDW (11.7-14.6) % 15.9 H Plt Count (130-400) 10^3/uL 444 H MPV (8.0-11.0) fL 10.1 Immature Gran % % 0.5 Neutrophils % % 60.3 Lymphocytes % % 27.5 Monocytes % % 4.5 Eosinophils % % 6.4 Basophils % % 0.8 Nucleated RBC % (0.0-0.3) % 0.0 Absolute Neutrophils (1.2-6.7) 10^3/uL 6.22 Absolute Lymphocytes (1.2-3.4) 10^3/uL 2.83 Absolute Monocytes (0.1-0.8) 10^3/uL 0.46 Absolute Eosinophils (0.0-0.7) 10^3/uL 0.66 Absolute Basophils (0.0-0.2) 10^3/uL 0.08 Sodium (136-145) mmol/L 141 Potassium (3.5-5.1) mmol/L 3.8 Chloride (98-107) mmol/L 107 Carbon Dioxide (21.0-32.0) mmol/L 25.4 Anion Gap (3-11) mmol/L 8.6 BUN (7-18) mg/dL 10 Creatinine (0.55-1.02) mg/dL 0.6 Est GFR (CKD-EPI 2020) (mL/min/1.73m2) 119.97 Glucose (74-106) mg/dL 96 Calcium (8.5-10.1) mg/dL 8.8 Magnesium (1.8-2.4) mg/dL 1.6 L Total Bilirubin (0.2-1.0) mg/dL 0.29 AST (15-37) U/L 15 ALT (14-59) U/L 27 Alkaline Phosphatase (46-116) U/L 103 Total Protein (6.4-8.2) g/dL 7.6 Albumin (3.4-5.0) g/dL 3.4 Medical Decision Making 33-year-old female in no acute distress, however secondary to her period and atypical headache I did order a CTV to exclude venous sinus thrombosis. Diagnostic labs are within normal limits including blood pressure, no clinical signs or symptoms consistent with preeclampsia blood pressure 108/71. Patient was given Compazine, fluids, Tylenol. Diagnostic labs are reassuring and do not show evidence of acute abnormality. Neurological exam is benign. Quality:[facility] Health Related Social Needs: No Data to Display PFSH All Active Problems (Updated 09/27/23 @ 22:27 by JOSE Edwards) Headache (Acute) GERD (gastroesophageal reflux disease) (Chronic) Anxiety (Chronic) Bipolar disorder (Chronic) Adult BMI 39.0-39.9 kg/sq m (Acute) Anemia (Chronic) Family history of transposition of great arteries (Acute) Maternal cousin's child Hidradenitis suppurativa (Chronic) Moderate episode of recurrent major depressive disorder (Acute 04/03/17) Medical History (Updated 09/27/23 @ 22:27 by JOSE Edwards) Sterilization Bilateral salpingectomy at time of section performed 09/03/2023. History of obstructive sleep apnea History of trichomonal vaginitis Surgical History (Updated 09/06/23 @ 00:01 by MEENU JAIN) Status post repeat low transverse section Repeat low-transverse section 09/03/2023. Female .Nayana Intraoperative bilateral salpingectomy wisdome teeth extraction Incision & Drainage, Abscess or Hematoma 07/14/16-ED [facility] Biopsy, Soft Tissue (01/15/17) left and right axillae Social History (Updated 09/10/23 @ 14:48 by Merissa Nowak MD) Smoking/Tobacco Use Status: Former Tobacco Use Smoking risk assessment performed?: Yes Alcohol Intake: former Drug use: Never Substance use type: does not use Household members: children and other Details: Nayana Joseph Housing: apartment Number of Children: 2 Seatbelt use: always Do you feel safe at home: Yes Do you feel safe in your relationship?: Yes Female Reproductive History Menstrual control method: progesterone injection History History 2 Para 2 Hx # Term Pregnancies 2 Multiple births 0 Hx # Pregnancies 0 Ectopic pregnancies 0 AB induced 0 Hx Number of Living Children 2 AB spontaneous 0 Past Pregnancies Del. Date GA/Weeks # Preg Succ Route Wgt Sex Labor Lgth Anesthesia Location Prov Complic 05/17/21 39 No Yes 3316.894 g Female [facility] 09/03/23 39 No Yes 3316.894 g Female Maddison Joseph. aoc. Bilateral tubal sterilization. Delivery Date: 05/17/21 Last Updated by: Marie Siddiqui CNM Arrived with bleeding at 5 cms. AROM and meconium noted. Epidural placed and heart rate decelerations occurred after epidural. Had an emergency C/S at 7 cms under general anesthesia. Philippe Delivery Date: 09/03/23 Last Updated by: MD Nayana Caba
[2023-09-27 21:39] VITALS: BP 116/85; PULSE 70; RESP 16
--- NOTE | 2023-09-27 22:05 | DI.VRAD_ITS ---
PROCEDURE INFORMATION: Exam: CT Head Without And With Contrast Exam date and time: 09/27/2023 8:16 PM Age: 33 years old Clinical indication: Pain; Headache; Additional info: 1month TECHNIQUE: Imaging protocol: Computed tomography of the head without and with contrast. 3D rendering (Not supervised by radiologist): MIP and/or 3D reconstructed images were created by the technologist. Contrast material: OMNIPAQUE 350; Contrast volume: 100 ml; Contrast route: INTRAVENOUS (IV); COMPARISON: No relevant prior studies available. FINDINGS: Brain: No intracranial hemorrhage. No cerebral edema. No mass or mass effect. Postcontrast images without pathologic cerebral, brainstem, or cerebellar enhancement. Arterial structures are grossly normal. No occlusion. No vascular malformation or anomaly evident. No venous sinus thrombosis evident. Sagittal sinus, transverse sinuses, and sigmoid sinuses opacify normally. Cerebral ventricles: No ventriculomegaly. Incidental note of a partially empty sella turcica variant. Paranasal sinuses: Paranasal sinuses are clear. No air-fluid levels. Mastoid air cells: Visualized mastoid air cells are well aerated. Bones: Mastoid bones are well aerated. Soft tissues: Unremarkable. IMPRESSION: 1. No acute intracranial findings. 2. No intracranial hemorrhage, mass, edema, or hydrocephaly. 3. Postcontrast images show unremarkable arterial and venous structures. Dictated and Authenticated by: Will Dobbins MD. Ordering:ROSA MARIA Noble MD
[2023-09-27] MEDS: Acetaminophen 500 MG TAB 1000 MG PO (22:08)
== END | disposition home or self-care (01) ==
LOC: ER 22:29 → RED 22:40
PROVIDERS: Emergency Provider Physician Assistant; PCP Nurse Practitioner Family
DX: R51.9 Headache, unspecified (principal)
CPT/HCPCS: 36415; 80053; 96361; 96374; 96375; 99285; 70470; 83735; 85025; 99283; J0780; J3490

== ENCOUNTER 2023-11-12 19:08 | Emergency (ER) | payer MEDICAID, SELFPAY ==
[2023-11-12 19:11] VITALS: BP 107/58; PULSE 81; RESP 16; TEMP 37.2; O2SAT 98
--- NOTE | 2023-11-12 19:37 | ED.GENADUL_ITS ---
Discharge Plan Disposition Patient Disposition: Home Condition: Stable Discharge Details Clinical Impression: Acute paronychia of left thumb Primary Care Provider: JAMAR SANCHEZ ED Provider: Gissel Bhatti Home Meds and New Rx's Prescriptions: New cephalexin 500 mg capsule 500 mg PO BID 5 Days Qty: 10 0RF Rx Instructions: Take one tablet twice daily x 5 days No Action acetaminophen 325 mg Tablet 650 mg PO Q4H PRN PRNQty: 0 0RF ibuprofen 600 mg Tablet 600 mg PO Q6H PRN PRNQty: 60 0RF Discharge Instructions Instructions: Paronychia ED Additional Instructions: Soak in warm soapy water 3 times a day. Allow to air dry. Place bacitracin onto the area daily. Take the medication with yogurt or probiotic as directed. Please take Tylenol or Ibuprofen with food every 4-6 hours as needed for pain and swelling. Follow up with primary care provider in 3-5 days. Return to ED sooner if any worsening or concerns. Referrals: JAMAR SANCHEZ, CLEANING LABORER [Primary Care Provider] - 3 days Discharge Data Discharge Date/Time-TO BE ENTERED AT DEPARTURE: 11/12/23 20:07 HPI General Mode of arrival: ambulatory . Date/Time Provider Initiated Documentation: 11/12/23 19:16 . Limitations to Documentation: no limitations . Information obtained by: patient, RN notes reviewed and old records reviewed . HPI Narrative: 33-year-old female presents to the ER with a chief complaint of left thumb nail infection which began 2 days ago. Denies any fever chills, myalgias or any other associated symptoms. Related Data Home Medications ?Medication ?Instructions ?Recorded ?Confirmed acetaminophen 325 mg tablet 650 mg (2 x 325 mg) PO Q4H PRN PRN 09/05/23 09/28/23 #0 tabs ibuprofen 600 mg tablet 600 mg PO Q6H PRN PRN #60 tabs 09/05/23 09/28/23 cephalexin 500 mg capsule 500 mg PO BID Paronychia 5 days 11/12/23 #10 caps Previous Rx's ?Medication ?Instructions ?Recorded acetaminophen 325 mg tablet 650 mg (2 x 325 mg) PO Q4H PRN PRN 09/05/23 #0 tabs ibuprofen 600 mg tablet 600 mg PO Q6H PRN PRN #60 tabs 06/21/24 cephalexin 500 mg capsule 500 mg PO BID Paronychia 5 days 11/12/23 #10 caps Allergies Allergy/AdvReac Type Severity Reaction Status Date / Time coconut Allergy Severe Anaphylaxis Verified 10/15/23 12:44 latex Allergy Intermediate Skin Rash Verified 10/15/23 12:44 vitamin E (From Enviro Allergy Mild Itching Verified 10/15/23 12:44 Stress) coconut oil Allergy Anaphylaxsi Verified 10/15/23 12:44 s General Stated Complaint: Orthopedic DRISS: 5 Review of Systems All systems reviewed & are unremarkable except as noted in HPI and below Integumentary/Breasts Skin/Breast: Reports as per HPI, Reports erythema, Reports skin pain and Reports skin swelling Exam Extrem Left upper extremity: hand Details: swelling Location: of the thumb Location: at the nailbed Hand/finger images: 2 1. Area of purulence and surrounding induration and erythema. Course Vital Signs Vital signs: Vital Signs Temperature 37.2 C 11/12/23 19:11 Pulse 81 11/12/23 19:11 Respiratory Rate 16 11/12/23 19:11 Blood Pressure 107/58 L 11/12/23 19:11 Pulse Oximetry 98 11/12/23 19:11 Temperature 37.2 C 11/12/23 19:11 Temperature Source Temporal Artery Scan 11/12/23 19:11 Pulse 81 11/12/23 19:11 Respiratory Rate 16 11/12/23 19:11 Respiratory Effort Normal 11/12/23 19:16 Blood Pressure 107/58 L 11/12/23 19:11 Blood Pressure Position Sitting 11/12/23 19:11 Pulse Oximetry 98 11/12/23 19:11 Oxygen Delivery Method Room Air 11/12/23 19:11 Oxygen Flow Rate 0 11/12/23 19:11 Pain Level 8 11/12/23 19:11 Medical Decision Making 33-year-old female presents to the ER with a chief complaint of left thumb nail infection which began 2 days ago. She does have little purulent area to the corner of her nail bed. She has some surrounding erythema. She does have intact range of motion but reports that it hurts when she moves it. No other concerns or at this time. She is breast-feeding. Area I&D'd with 18 ga needle, small amount of purulent discharge expressed. Patient tolerated well. Discussed home care. Applied Bacitracin and instructed on soaks. Given discharge instructions follow-up care and strict return instructions. Placed on cephalexin. This text was generated using [employer] system, please disregard any oddities of phrase or misspellings. Quality:SD[facility] Health Related Social Needs: 2 No Data to Display PFSH All Active Problems (Updated 11/14/23 @ 16:40 by Gissel Bhatti NP) Acute paronychia of left thumb (Acute) GERD (gastroesophageal reflux disease) (Chronic) Anxiety (Chronic) Bipolar disorder (Chronic) Adult BMI 39.0-39.9 kg/sq m (Acute) Anemia (Chronic) Family history of transposition of great arteries (Acute) Maternal cousin's child Hidradenitis suppurativa (Chronic) Moderate episode of recurrent major depressive disorder (Acute 04/03/17) Medical History Sterilization Bilateral salpingectomy at time of section performed 09/03/2023. History of obstructive sleep apnea History of trichomonal vaginitis Surgical History Status post repeat low transverse section Repeat low-transverse section 09/03/2023. Female .Nayana Intraoperative bilateral salpingectomy wisdome teeth extraction Incision & Drainage, Abscess or Hematoma 07/14/16-ED [facility] Biopsy, Soft Tissue (01/15/17) left and right axillae Social History Smoking/Tobacco Use Status: Former Tobacco Use Tobacco: How many years used: 15 Smoking risk assessment performed?: Yes Alcohol Intake: former Drug use: Never Substance use type: does not use Household members: children and other Details: Nayana Joseph Housing: apartment Number of Children: 2 Seatbelt use: always Do you feel safe at home: Yes Do you feel safe in your relationship?: Yes Female Reproductive History Menstrual control method: progesterone injection History History 2 2 Para 2 Hx # Term Pregnancies 2 Multiple births 0 Hx # Pregnancies 0 Ectopic pregnancies 0 AB induced 0 Hx Number of Living Children 2 AB spontaneous 0 Past Pregnancies Del. Date GA/Weeks # Preg Succ Route Wgt Sex Labor Lgth Anesth esia Location Prov Complic 05/17/21 39 No Yes 3316.894 g Female [facility] 09/03/23 39 No Yes 3316.894 g Female K jocelin Joseph. aoc. Bilateral tubal sterilization. Delivery Date: 05/17/21 Last Updated by: Marie Siddiqui CNM Arrived with bleeding at 5 cms. AROM and meconium noted. Epidural placed and heart rate decelerations occurred after epidural. Had an emergency C/S at 7 cms under general anesthesia. Philippe Delivery Date: 09/03/23 Last Updated by: MD Nayana Caba
[2023-11-12] MEDS: Cephalexin 500 MG CAP PO (20:03)
[2023-11-12] MEDS: Bacitracin 1 PACKET TP (20:03)
[2023-11-12 20:04] VITALS: BP 107/58; PULSE 81; RESP 16; TEMP 37.2; O2SAT 98
== END 2023-11-12 20:07 | disposition home or self-care (01) ==
PROVIDERS: Emergency Provider Registered Nurse Emergency; PCP Nurse Practitioner Family
DX: L03.012 Cellulitis of left finger (principal)
CPT/HCPCS: 10060

== ENCOUNTER 2024-08-07 11:46 | Emergency (ER) | payer MEDICAID, SELFPAY ==
[2024-08-07 11:49] VITALS: BP 131/74; PULSE 89; RESP 16; TEMP 36.4; O2SAT 98
[2024-08-07 11:58] VITALS: BP 131/74; PULSE 89; RESP 16; TEMP 36.4; O2SAT 98
--- NOTE | 2024-08-07 12:11 | W.ED.GENAD ---
Discharge Plan Disposition Patient Disposition: Home Condition: Stable Discharge Details Clinical Impression: Dental infection Primary Care Provider: JAMAR SANCHEZ ED Provider: Tata Baltazar Home Meds and New Rx's Prescriptions: New penicillin V potassium 500 mg tablet 500 mg PO Q6H 7 Days Qty: 28 0RF Discharge Instructions Instructions: Tooth Abscess (DC) Additional Instructions: Symptoms seem consistent with an infection Around your tooth though there is no drainable abscess today. Please take antibiotics as directed. Motrin and Tylenol as needed for pain and like to stop follow up with your dentist. HPI General Date/Time Provider Initiated Documentation: 08/07/24 12:01. Limitations to Documentation: no limitations. Information obtained by: patient. HPI Narrative: 33-year-old female with past medical history of bipolar disorder, hidradenitis COPD presents for evaluation of tooth pain and facial swelling. She reports that yesterday she started having pain in her upper left teeth. This morning she woke up and her face was swollen. She states that she does have pain in her teeth, no drainage. Denies fever. Reports that she is being followed by dentist for multiple dental infections. Related Data Home Medications ?Medication ?Instructions ?Recorded ?Confirmed penicillin V potassium 500 mg 500 mg PO Q6H 7 days #28 tabs 08/07/24 tablet Previous Rx's ?Medication ?Instructions ?Recorded penicillin V potassium 500 mg 500 mg PO Q6H 7 days #28 tabs 08/07/24 tablet Allergies Allergy/AdvReac Type Severity Reaction Status Date / Time coconut Allergy Severe Anaphylaxis Verified 08/07/24 11:53 latex Allergy Intermediate Skin Rash Verified 08/07/24 11:53 vitamin E (From Enviro Allergy Mild Itching Verified 08/07/24 11:53 Stress) coconut oil Allergy Anaphylaxsi Verified 08/07/24 11:53 s General Stated Complaint: DentalOral DRISS: 5 Exam Narrative Exam Narrative: Review of Systems: All systems reviewed & are unremarkable except as noted in HPI and below Well-developed, no acute distress NCAT mild swelling of the left Zygoma area, slightly tender to palpation, multiple dental caries noted with tenderness along the upper left lateral mandibular teeth. No fluctuance or apparent abscess noted Course Vital Signs Vital signs: Vital Signs Temperature 36.4 C L 08/07/24 11:49 Pulse 89 08/07/24 11:49 Respiratory Rate 16 08/07/24 11:49 Blood Pressure 131/74 08/07/24 11:49 Pulse Oximetry 98 08/07/24 11:49 Temperature 36.4 C L 08/07/24 11:58 Pulse 89 08/07/24 11:58 Respiratory Rate 16 08/07/24 11:58 Blood Pressure 131/74 08/07/24 11:58 Pulse Oximetry 98 08/07/24 11:58 Pain Level 6 08/07/24 11:58 Medical Decision Making Emergent patient of dental pain and facial swelling. Initial differential includes odontogenic abscess, dental caries, no evidence or signs or symptoms concerning for trauma. Examination is localized to the upper mandibular teeth. Floor mouth is soft and there is no signs of deep space infection or airway compromise. Will be treated with antibiotics and recommend close follow-up with dentist. Patient understand ER return precautions. Quality:SDOH Health Related Social Needs: No Data to Display PFSH All Active Problems (Updated 08/07/24 @ 12:01 by Tata Baltazar MD) Dental infection (Acute) GERD (gastroesophageal reflux disease) (Chronic) Anxiety (Chronic) Bipolar disorder (Chronic) Adult BMI 39.0-39.9 kg/sq m (Acute) Anemia (Chronic) Family history of transposition of great arteries (Acute) Maternal cousin's child Hidradenitis suppurativa (Chronic) Moderate episode of recurrent major depressive disorder (Acute 04/03/17) Medical History Sterilization Bilateral salpingectomy at time of section performed 09/03/2023. History of obstructive sleep apnea History of trichomonal vaginitis Surgical History Status post repeat low transverse section Repeat low-transverse section 09/03/2023. Female infant.Nayana Intraoperative bilateral salpingectomy wisdome teeth extraction Incision & Drainage, Abscess or Hematoma 07/14/16-ED [facility] Biopsy, Soft Tissue (01/15/17) left and right axillae Social History Smoking/Tobacco Use Status: Former Tobacco Use Tobacco: How many years used: 15 Smoking risk assessment performed?: Yes Alcohol Intake: former Drug use: Never Substance use type: does not use Counseling given: No Household members: children and other Details: Nayana Joseph Housing: apartment Number of Children: 2 Seatbelt use: always Do you feel safe at home: Yes Do you feel safe in your relationship?: Yes Female Reproductive History Menstrual control method: progesterone injection History History 2 Para 2 Hx # Term Pregnancies 2 Multiple births 0 Hx # Pregnancies 0 Ectopic pregnancies 0 AB induced 0 Hx Number of Living Children 2 AB spontaneous 0 Past Pregnancies Del. Date GA/Weeks # Preg Succ Route Wgt Sex Labor Lgth Anesthesia Location Prov Compl 05/17/21 39 No Yes 3316.894 g Female [facility] 09/03/23 39 No Yes 3316.894 g Female Maddison Joseph. aoc. Bilateral tubal sterilization. Delivery Date: 05/17/21 Last Updated by: Marie Siddiqui CNM Arrived with bleeding at 5 cms. AROM and meconium noted. Epidural placed and heart rate decelerations occurred after epidural. Had an emergency C/S at 7 cms under general anesthesia. Philippe Delivery Date: 09/03/23 Last Updated by: MD Nayana Caba
== END 2024-08-07 12:14 | disposition home or self-care (01) ==
LOC: ER 12:08
PROVIDERS: Emergency Provider Emergency Medicine; PCP Nurse Practitioner Family
DX: R68.84 Jaw pain (principal); K04.7 Periapical abscess without sinus
CPT/HCPCS: 99283 ×2

== ENCOUNTER 2024-08-24 17:07 | Emergency (ER) | payer MEDICAID, SELFPAY ==
[2024-08-24 17:09] VITALS: BP 109/72; PULSE 96; RESP 18; TEMP 37.3; O2SAT 95
[2024-08-24 17:13] VITALS: BP 109/72; PULSE 96; RESP 18; TEMP 37.3; O2SAT 95
--- NOTE | 2024-08-24 17:15 | DI.CT_ITS ---
Exam(s) CT ABDOMEN PELVIS W EXAM: CT ABDOMEN PELVIS W CLINICAL HISTORY: RLQ pain radiating to L TECHNIQUE: Imaging Protocol: Axial computed tomography images with coronal and sagittal reformatted images were created and reviewed. CONTRAST MATERIAL: Intravenous: Omnipaque 350 Contrast volume:100 mL Oral: No COMPARISON: CT CT ABDOMEN PELVIS W from 04/30/2020 FINDINGS: ABDOMEN: Lung Bases: No acute abnormality. Liver: Normal density. No measurable mass. The liver is enlarged. It measures 22 cm long. Portal, Superior Mesenteric, and Splenic Veins: Unremarkable. Gallbladder and Biliary Tract: No radiodense calculus or dilation. Pancreas: Normal density, no abnormal calcifications or inflammatory process. Spleen: Normal. Adrenals: No masses seen. Kidneys: Normal size, contour and axis. No radiodense stones or obstructive uropathy. No masses seen. Abdominal Aorta: Abdominal portion non-dilated. Bowel: There is mild bowel wall thickening seen in the distal duodenum and proximal jejunum with mild inflammatory stranding noted. The findings are suspicious for an enteritis. There is mild wall thi ckening seen in the distal esophagus. This may be due to poor distension. Inflammatory infectious e sophagitis cannot be excluded. Follow-up as clinically appropriate. There is no evidence of bowel o bstruction. No evidence of appendicitis is seen. Peritoneal Cavity: There is a small amount of pelvic ascites. No free air. Lymph Nodes: Within normal limits. Bones: Within normal limits for the patient's age. Soft Tissues: There is a tiny fat containing umbilical hernia. PELVIS: Bladder: The urinary bladder is incompletely distended limiting evaluation. No gross abnormalities i dentified. Reproductive Organs: Unremarkable as visualized. Lymph Nodes: Within normal limits. Bones: Within normal limits for the patient's age. IMPRESSION: 1. There is mild wall thickening seen in the distal duodenum and proximal jejunum suspicious for an e nteritis. There are mild inflammatory changes around the bowel in this region. 2. Small amount of fluid in the pelvis. This may be physiologic. 3. Mild wall thickening of the distal esophagus. Follow-up as clinically appropriate. This may incl ude a barium swallow or endoscopy. 4. The preliminary [facility] report was reviewed. RADIATION DOSE DELIVERED: 1,483.02mGy.cm Total DLP DATA REPOSITORY: All CT scans at this facility are submitted to the National Radiology Data Registry (NRDR) Dose Index Registry (DIR) with the [employer] (A[employer]). RADIATION OPTIMIZATION: All CT scans at this facility use at least one of these dose optimization te chniques: automated exposure control; mA and/or kV adjustment per patient size (includes targeted exa ms where dose is matched to clinical indication); or iterative reconstruction.
[2024-08-24 17:33] LABS: Abs Immature Grans 0.05 10^3/uL (0.0-0.06); Absolute Basophil Count 0.04 10^3/uL (0.0-0.2); Absolute Eosinophil Count 1.09 10^3/uL (0.0-0.7); Absolute Lymphocyte Count 2.78 10^3/uL (1.2-3.4); Absolute Neutrophil Count 6.31 10^3/uL (1.2-6.7); Basophils % 0.4 %; Eosinophils % 10.1 %; HCT 34.6 % (36.0-46.0); HGB 10.9 g/dL (11.2-15.7); Immature Grans % 0.5 %; Lymphocytes % 25.8 %; MCH 24.1 pg (27.0-33.0); MCHC 31.5 % (32.0-36.0); MCV 76 fL (80-95); MPV 9.6 fL (8.0-11.0); Monocytes % 4.6 %; Neutrophils % 58.6 %; Platelet Count 388 10^3/uL (130-400); RBC 4.53 10^6/uL (3.93-5.22); RDW 14.6 % (11.7-14.6); RDW-SD 39.9 fL; WBC 10.77 10^3/uL (4.4-10.8)
[2024-08-24] MEDS: Acetaminophen 500 MG TAB 1000 MG PO (17:34)
--- NOTE | 2024-08-24 17:37 | ED.GENADUL_ITS ---
Discharge Plan Disposition Patient Disposition: Home Condition: Stable Discharge Details Clinical Impression: Duodenitis Primary Care Provider: JAMAR SANCHEZ ED Provider: Lucina Cisneros Home Meds and New Rx's Prescriptions: New omeprazole 20 mg capsule,delayed release(DR/EC) 20 mg PO DAILY Qty: 30 0RF Discharge Instructions Instructions: Gastritis Additional Instructions: You were seen in the emergency department today for evaluation of abdominal pain. In our department a full physical examination performed, had reassuring laboratory studies and had a CT scan that was most notable for some inflammation in the first part of your small intestine, condition known as duodenitis. The remainder of your CT scan is stable, but we do recommend that you start a medication to reduce acid in your stomach, called Prilosec. Please take this medication daily, and contact your primary care provider so that you can be reevaluated. Please maintain good hydration and nutrition, use Tylenol as needed for management of ongoing pain, and thank you for allowing us to be part of your care. HPI General Mode of arrival: ambulatory . Date/Time Provider Initiated Documentation: 08/24/24 17:15 . Limitations to Documentation: no limitations . Information obtained by: patient and old records reviewed . HPI Narrative: This is a 33-year-old female patient with past medical history significant for GERD, bipolar, presenting for evaluation of abdominal pain. She reports that she woke up this morning in her normal state of health, had a gradual development of right lower quadrant abdominal pain that radiates across her abdomen to the left side. She reports that this pain has worsened throughout the day. She initially thought it was due to her menses, which are ongoing, but the pain became worse and is less typical of her normal cramps. She has not had associated nausea, vomiting, or diarrhea. She has been able to tolerate oral intake today. No dysuria or hematuria. No additional abdominal surgeries other than , she is not actively having sex that can get her . She has not tried any medications for management of her symptoms in the outpatient environment. Related Data Home Medications ?Medication ?Instructions ?Recorded ?Confirmed omeprazole 20 mg capsule,delayed 20 mg PO DAILY #30 caps 08/24/24 release Previous Rx's ?Medication ?Instructions ?Recorded omeprazole 20 mg capsule,delayed 20 mg PO DAILY #30 caps 08/24/24 release Allergies Allergy/AdvReac Type Severity Reaction Status Date / Time coconut Allergy Severe Anaphylaxis Verified 08/24/24 17:12 latex Allergy Intermediate Skin Rash Verified 08/24/24 17:12 vitamin E (From [employer]viro Allergy Mild Itching Verified 08/24/24 17:12 Stress) coconut oil Allergy Anaphylaxsi Verified 08/24/24 17:12 s General Stated Complaint: Abd Prob DRISS: 3 Exam Narrative Exam Narrative: Gen: Awake and alert, in no apparent distress HEENT: Non-icteric sclera Neck: Supple Lungs: No apparent respiratory distress, normal respiratory effort. CV: Appears well perfused, heart with regular rate and rhythm, strong distal pulses Abdomen: Non-distended, soft, tender to palpation in the right and left lower quadrants without rigidity, rebound, or guarding MSK: Moves 4 extremities without apparent limitation in ROM Skin: Visualized skin without rashes, cyanosis. Neuro: Normal Gait, no obvious focal deficits or facial asymmetry. Speaks in full, clear sentences. Psych: Appropriate for situation. Course Vital Signs Vital signs: Vital Signs Temperature 37.3 C 08/24/24 17:09 Pulse 96 H 08/24/24 17:09 Respiratory Rate 18 08/24/24 17:09 Blood Pressure 109/72 08/24/24 17:09 Pulse Oximetry 95 08/24/24 17:09 Temperature 37.3 C 08/24/24 17:13 Temperature Source Oral 08/24/24 17:13 Pulse 96 H 08/24/24 17:13 Respiratory Rate 18 08/24/24 17:13 Blood Pressure 109/72 08/24/24 17:13 Pulse Oximetry 95 08/24/24 17:13 Oxygen Delivery Method Room Air 08/24/24 17:13 Oxygen Flow Rate 0 08/24/24 17:13 Pain Level 9 08/24/24 17:34 Lab/Test Results Lab/Test Results: Laboratory Tests Range/Units 08/24/24 17:27 WBC (4.4-10.8) 10^3/uL 10.77 RBC (3.93-5.22) 10^6/uL 4.53 Hgb (11.2-15.7) g/dL 10.9 L Hct (36.0-46.0) % 34.6 L MCV (80-95) fL 76 L MCH (27.0-33.0) pg 24.1 L MCHC (32.0-36.0) % 31.5 L RDW (11.7-14.6) % 14.6 Plt Count (130-400) 10^3/uL 388 MPV (8.0-11.0) fL 9.6 Immature Gran % % 0.5 Neutrophils % % 58.6 Lymphocytes % % 25.8 Monocytes % % 4.6 Eosinophils % % 10.1 Basophils % % 0.4 Nucleated RBC % (0.0-0.3) % 0.0 Absolute Neutrophils (1.2-6.7) 10^3/uL 6.31 Absolute Lymphocytes (1.2-3.4) 10^3/uL 2.78 Absolute Monocytes (0.1-0.8) 10^3/uL 0.50 Absolute Eosinophils (0.0-0.7) 10^3/uL 1.09 H Absolute Basophils (0.0-0.2) 10^3/uL 0.04 Medical Decision Making This is a 33-year-old female patient presenting for evaluation of abdominal pain. My differential includes but is not limited to gastritis, gastroenteritis, pancreatitis, hepatitis, cholecystitis, appendicitis, diverticulitis. No obstructive symptoms to suggest bowel obstruction or volvulus. Considered urinary tract infection, nephrolithiasis. Considered ectopic , though the patient endorses a history of surgical sterilization. Considered ovarian cyst, no vaginal symptoms to suggest pelvic inflammatory disease/TOA. Considered metabolic electrolyte derangement, anemia, kidney injury. We will obtain laboratory studies to include CBC, CMP, magnesium, lipase, and urinalysis. I had a shared decision-making conversation with the patient regarding her workup, and she is desiring to move forward with CT imaging of her abdomen, which will be ordered. I will provide her with Tylenol for initial management of her pain. - I reviewed the patient's laboratory studies, which show no leukocytosis, stable anemia and no thrombocytopenia. Chemistry panel reveals no electrolyte derangements, kidney injury, or liver disease, other than a borderline low magnesium at 1.7. Lipase is low, urinalysis with blood, consistent with her reported menses, and contaminated with many epithelial cells, making urinary tract infection unlikely. Reviewed the CT scan, which shows evidence of duodenitis. Other chronic appearing findings including a fat-containing hernia, unchanged splenomegaly. She has no evidence of diverticulitis or appendicitis. Trace free fluid in the pelvis potentially due to her corpus luteum cyst/menses. On repeat examination the patient has a benign abdominal examination and reports significant improvement in her pain. She tolerated oral intake. I recommended initiation of Prilosec for her duodenitis, and close follow-up with her outpatient providers for reassessment. At this time, the patient has had a full medical evaluation and is safe for discharge to home. They are hemodynamically stable, ambulatory, and tolerating PO. They are understanding of the follow-up plan and return precautions. They left our facility without incident. Lucina Cisneros MD Quality:SDAR Health Related Social Needs: No Data to Display [facility] All Active Problems (Updated 08/24/24 @ 20:13 by Lucina Cisneros MD) Duodenitis (Acute) Dental infection (Acute) GERD (gastroesophageal reflux disease) (Chronic) Anxiety (Chronic) Bipolar disorder (Chronic) Adult BMI 39.0-39.9 kg/sq m (Acute) Anemia (Chronic) Family history of transposition of great arteries (Acute) Maternal cousin's child Hidradenitis suppurativa (Chronic) Moderate episode of recurrent major depressive disorder (Acute 04/03/17) Medical History Sterilization Bilateral salpingectomy at time of section performed 09/03/2023. History of obstructive sleep apnea History of trichomonal vaginitis Surgical History Status post repeat low transverse section Repeat low-transverse section 09/03/2023. Female infant.Nayana Intraoperative bilateral salpingectomy wisdome teeth extraction Incision & Drainage, Abscess or Hematoma 07/14/16-ED [facility] Biopsy, Soft Tissue (01/15/17) left and right axillae Social History Smoking/Tobacco Use Status: Former Tobacco Use Tobacco: How many years used: 15 Smoking risk assessment performed?: Yes Alcohol Intake: former Drug use: Never Substance use type: does not use Counseling given: No Household members: children and other Details: Nayana Joseph Housing: apartment Number of Children: 2 Seatbelt use: always Do you feel safe at home: Yes Do you feel safe in your relationship?: Yes Female Reproductive History Menstrual control method: progesterone injection History History 2 Para 2 Hx # Term Pregnancies 2 Multiple births 0 Hx # Pregnancies 0 Ectopic pregnancies 0 AB induced 0 Hx Number of Living Children 2 AB spontaneous 0 Past Pregnancies Del. Date GA/Weeks # Preg Succ Route Wgt Sex Labor Lgth Anesth esia Location Prov Complic 05/17/21 39 No Yes 3316.894 g Female N 09/03/23 39 No Yes 3316.894 g Female K jocelin Joseph. aoc. Bilateral tubal sterilization. Delivery Date: 05/17/21 Last Updated by: Marie Siddiqui CNM Arrived with bleeding at 5 cms. AROM and meconium noted. Epidural placed and heart rate decelerations occurred after epidural. Had an emergency C/S at 7 cms under general anesthesia. Philippe Delivery Date: 09/03/23 Last Updated by: MD Nayana Caba
[2024-08-24 17:48] LABS: ALT 20 U/L (14-59); AST 13 U/L (15-37); Albumin 3.5 g/dL (3.4-5.0); Alkaline Phosphatase 94 U/L (46-116); BUN 9 mg/dL (7-18); Bilirubin, Total 0.3 mg/dL (0.2-1.0); CREATININE 0.5 mg/dL (0.55-1.02); Calcium 8.9 mg/dL (8.5-10.1); Chloride 104 mmol/L (98-107); Estimated GFR 125.36 (mL/min/1.73m2); Glucose 96 mg/dL (74-106); Lipase 31 U/L (<78); Magnesium 1.7 mg/dL (1.8-2.4); Sodium 140 mmol/L (136-145); Total Protein 7.5 g/dL (6.4-8.2)
[2024-08-24 18:35] LABS: Bilirubin Negative (Negative); Blood Moderate (Negative); Clarity Clear (Clear); Glucose Negative (Negative); Ketones Negative (Negative); Leukocyte Esterase Negative (Negative); Nitrite Negative (Negative); Urobilinogen 0.2 mg/dL (Up to 0.2)
[2024-08-24 18:41] LABS: Bacteria Negative HPF (Negative); C & S Indicated? No; Crystals Negative HPF (Negative); Epithelial Cells Many HPF (Negative); Mucus Heavy (Negative); WBC 0-2 HPF (0-5)
[2024-08-24] MEDS: Normal Saline - Diluent 50 ML VIAL IJ (18:56)
[2024-08-24] MEDS: Omnipaque 350 MG/ML 100 ML BTL IJ (18:57)
--- NOTE | 2024-08-24 20:05 | DI.[facility]_ITS ---
PROCEDURE INFORMATION: Exam: CT Abdomen And Pelvis With Contrast Exam date and time: 08/24/2024 6:28 PM Age: 33 years old Clinical indication: Other: Rlq pain radiating to L TECHNIQUE: Imaging protocol: Computed tomography of the abdomen and pelvis with contrast. Contrast material: 350; Contrast volume: 100 ml; Contrast route: INTRAVENOUS (IV); COMPARISON: CT ABDOMEN PELVIS W 04/30/2020 11:46 PM FINDINGS: Esophagus: Findings suggest mild circumferential wall thickening of the lower esophagus, improved from study. Liver: Normal. No mass. Gallbladder and biliary ducts: Normal. No calcified stones. No ductal dilation. Pancreas: Normal. No ductal dilation. Spleen: The spleen has a length of 13.7 cm, consistent with mild splenomegaly, without change from prior study. Adrenal glands: Normal. No mass. Kidneys and ureters: Normal. No hydronephrosis. Stomach and bowel: Findings suggest new mild edematous wall thickening of the 3rd and 4th portions of the duodenum. There appears to be new mild adjacent fat stranding as well, and findings are suggestive of mild duodenitis. There is no evidence of jejunal, ileal or large bowel inflammation. There is no evidence for bowel obstruction. Appendix: The appendix is well-visualized and appears normal. Intraperitoneal space: There is a small amount of free fluid in the pelvis, some of which resides within the cul-de-sac with some residing anterior to the uterus, increased from prior study. There is no free intraperitoneal air. Vasculature: Unremarkable. No abdominal aortic aneurysm. Lymph nodes: Unremarkable. No enlarged lymph nodes. Urinary bladder: The bladder is contracted and is not well evaluated. Cannot exclude diffuse bladder wall thickening, which can be seen the setting of cystitis. Reproductive: Findings suggest a 7 mm rim enhancing cystic right adnexal lesion on image 82, series 9, likely a small corpus luteal cyst. Bones/joints: There appears to be a transitional vertebra at the lumbosacral junction. There are no acute fractures. Soft tissues: There is a 1.2 x 2.2 cm fat containing hernia, mildly increased in size since prior study. IMPRESSION: 1. Findings suggest mild duodenitis involving the 3rd and 4th portions of the duodenum, as described above. Recommend clinical correlation. 2. Tiny corpus luteal cyst within the right adnexa. Increased small amount of free fluid within the pelvis, as described above, which could be physiologic or could reflect recently ruptured ovarian cyst. Recommend clinical correlation. 3. The bladder is collapsed and is not well evaluated. Cannot exclude mild diffuse bladder wall thickening, which can be seen in the setting of cystitis. Recommend clinical correlation. 4. Mild splenomegaly, as on prior study. 5. Mild circumferential wall thickening of the lower esophagus, improved since prior study, could reflect chronic reflux esophagitis. Recommend clinical correlation. 6. Normal appendix. 7. Small fat containing umbilical hernia. Dictated and Authenticated by: Eligio Dupree MD. Orderin [facility]. Jef Verdugo MD
[2024-08-24 20:25] VITALS: BP 130/81; PULSE 79; RESP 16; TEMP 36.7; O2SAT 95
[2024-08-24] MEDS: Omeprazole 20 MG CAPCR PO (20:25)
== END 2024-08-24 20:31 | disposition home or self-care (01) ==
PROVIDERS: Emergency Provider Emergency Medicine; PCP Nurse Practitioner Family
DX: K29.80 Duodenitis without bleeding (principal); Z87.891 Personal history of nicotine dependence
CPT/HCPCS: 80053; 83690; 99285; 74177; 81003; 81015; 83735; 85025; 99284; J3490

== ENCOUNTER 2024-08-31 14:30 | Emergency (ER) | payer MEDICAID, SELFPAY ==
[2024-08-31 14:33] VITALS: BP 112/75; PULSE 113; RESP 24; TEMP 36.5; O2SAT 95
--- NOTE | 2024-08-31 14:46 | W.ED.GENAD ---
Discharge Plan Disposition Patient Disposition: Home Condition: Stable Discharge Details Clinical Impression: Acute respiratory infection Primary Care Provider: JAMAR SANCHEZ ED Provider: Gurwinder Mcintosh Home Meds and New Rx's Prescriptions: New prednisone 20 mg tablet 60 mg PO DAILY 4 Days Qty: 12 0RF amoxicillin-pot clavulanate 875-125 mg tablet 1 tab PO BID Qty: 19 0RF Continued omeprazole 20 mg capsule,delayed release(DR/EC) 20 mg PO DAILY Qty: 30 0RF Discharge Instructions Additional Instructions: Take the prednisone and antibiotic as prescribed. You can use 2 puffs of the inhaler every 4 hours as needed. If not improving within a week follow-up with your primary care provider. If you feel significantly more ill or short of breath return to the emergency department for reevaluation. HPI General Mode of arrival: ambulatory. Date/Time Provider Initiated Documentation: 08/31/24 14:32. Limitations to Documentation: no limitations. Information obtained by: patient. History of Present Illness 34 year old F presents to the emergency department with the chief complaint of cough, described as moderate, Patient started experiencing this week(s) (1) and it has been constant. No relieving factors improve symptom(s), No exacerbating factors reported . Patient notes shortness of breath; denies chest pain and fever/chills. Patient did receive the following treatments prior to arrival, none Related Data Home Medications ?Medication ?Instructions ?Recorded ?Confirmed omeprazole 20 mg capsule,delayed 20 mg PO DAILY #30 caps 08/24/24 release amoxicillin 875 mg-potassium 1 tab PO BID #19 tabs 08/31/24 clavulanate 125 mg tablet prednisone 20 mg tablet 60 mg (3 x 20 mg) PO DAILY 4 days 08/31/24 #12 tabs Previous Rx's ?Medication ?Instructions ?Recorded omeprazole 20 mg capsule,delayed 20 mg PO DAILY #30 caps 08/24/24 release amoxicillin 875 mg-potassium 1 tab PO BID #19 tabs 08/31/24 clavulanate 125 mg tablet prednisone 20 mg tablet 60 mg (3 x 20 mg) PO DAILY 4 days 08/31/24 #12 tabs Allergies Allergy/AdvReac Type Severity Reaction Status Date / Time coconut Allergy Severe Anaphylaxis Verified 08/31/24 14:35 latex Allergy Intermediate Skin Rash Verified 08/31/24 14:35 vitamin E (From [employer]vi[employer] Allergy Mild Itching Verified 08/31/24 14:35 Stress) coconut oil Allergy Anaphylaxsi Verified 08/31/24 14:35 s General Stated Complaint: SOB DRISS: 3 Review of Systems All systems reviewed & are unremarkable except as noted in HPI and below Constitutional Constitutional: Denies chills, Denies fever(s) and Denies weakness Cardiovascular Cardiovascular: Denies chest pain and Reports dyspnea Respiratory Respiratory: Reports cough and Reports dyspnea Gastrointestinal Gastrointestinal: Denies abdominal pain, Denies nausea and Denies vomiting Neurologic Neurologic: Denies weakness Psychiatric Psychiatric: Denies depression Exam Const General: no acute distress Orientation: alert HENMT Head: normal to inspection Ears: external ears normal General nose exam: external nose normal Mouth: moist mucous membranes Eyes General: appearance normal, both eyes and all related structures Neck Neck: normal visual inspection Resp Effort & Inspection: normal respiratory effort and able to speak in complete sentences Auscultation: rhonchi and wheezes Cardio Rate: regular rate Skin General skin exam: no rashes or lesions noted Neuro General: patient alert and patient oriented x3 Extrem General: normal to inspection Psych Mental Status: mental status grossly normal Course Vital Signs Vital signs: Vital Signs Temperature 36.5 C 08/31/24 14:33 Pulse 113 H 08/31/24 14:33 Respiratory Rate 24 08/31/24 14:33 Blood Pressure 112/75 08/31/24 14:33 Pulse Oximetry 95 08/31/24 14:33 Temperature 36.5 C 08/31/24 14:33 Temperature Source Oral 08/31/24 14:33 Pulse 113 H 08/31/24 14:33 Respiratory Rate 24 08/31/24 14:33 Blood Pressure 112/75 08/31/24 14:33 Blood Pressure Position Sitting 08/31/24 14:33 Pulse Oximetry 95 08/31/24 14:33 Oxygen Delivery Method Room Air 08/31/24 14:33 Oxygen Flow Rate 0 08/31/24 14:33 Medical Decision Making 34-year-old female former smoker, history of bipolar who comes in with 1 week of a harsh cough. She says that when she is coughing she will go into fits which makes it hard for her to breathe. When she is not coughing she has no dyspnea. She has no chest pain or fevers, no recent travel. She is well-appearing speaking in full sentences. She has apical wheezing bilaterally with rhonchi at the bases bilaterally. No calf tenderness. Her symptoms seem consistent with a respiratory infection, will treat with a DuoNeb and prednisone and obtain a chest x-ray to evaluate for pneumonia. Given well appearance and no fevers I doubt sepsis and do not feel blood work is indicated. Given lack of chest pain and her lung exam findings consistent with likely respiratory infection I do not feel workup for ACS, dissection or PE is indicated. X-ray on my read is negative. Patient feels better and her lung sounds are now clear after a DuoNeb. Given she had a week of the cough with some sinus symptoms I am going to initiate antibiotics with Augmentin. She will follow-up with her PCP if not improving and return precautions given Differential Diagnosis Differential Diagnosis: Pneumonia, bronchitis, URI PFSH All Active Problems (Updated 08/31/24 @ 15:51 by Gurwinder Mcintosh MD) Acute respiratory infection (Acute) Duodenitis (Acute) Dental infection (Acute) GERD (gastroesophageal reflux disease) (Chronic) Anxiety (Chronic) Bipolar disorder (Chronic) Adult BMI 39.0-39.9 kg/sq m (Acute) Anemia (Chronic) Family history of transposition of great arteries (Acute) Maternal cousin's child Hidradenitis suppurativa (Chronic) Moderate episode of recurrent major depressive disorder (Acute 04/03/17) Medical History Sterilization Bilateral salpingectomy at time of section performed 09/03/2023. History of obstructive sleep apnea History of trichomonal vaginitis Surgical History Status post repeat low transverse section Repeat low-transverse section 09/03/2023. Female .Nayana Intraoperative bilateral salpingectomy wisdome teeth extraction Incision & Drainage, Abscess or Hematoma 07/14/16-ED [facility] Biopsy, Soft Tissue (01/15/17) left and right axillae Social History Smoking/Tobacco Use Status: Former Tobacco Use Tobacco: How many years used: 15 Smoking risk assessment performed?: Yes Alcohol Intake: former Drug use: Never Substance use type: does not use Counseling given: No Household members: children and other Details: D-Jozie, Nayana Housing: apartment Number of Children: 2 Seatbelt use: always Do you feel safe at home: Yes Do you feel safe in your relationship?: Yes Female Reproductive History Menstrual control method: progesterone injection History History 2 Para 2 Hx # Term Pregnancies 2 Multiple births 0 Hx # Pregnancies 0 Ectopic pregnancies 0 AB induced 0 Hx Number of Living Children 2 AB spontaneous 0 Past Pregnancies Del. Date GA/Weeks # Preg Succ Route Wgt Sex Labor Lgth Anesthesia Location Prov Complic 05/17/21 39 No Yes 3316.894 g Female [facility] 09/03/23 39 No Yes 3316.894 g Female [facility]. aoc. Bilateral tubal sterilization. Delivery Date: 05/17/21 Last Updated by: Marie Siddiqui CNM Arrived with bleeding at 5 cms. AROM and meconium noted. Epidural placed and heart rate decelerations occurred after epidural. Had an emergency C/S at 7 cms under general anesthesia. Philippe Delivery Date: 09/03/23 Last Updated by: MD Nayana Caba
[2024-08-31] MEDS: predniSONE 20 MG TAB 60 MG PO (15:01)
[2024-08-31] MEDS: Albuterol/Ipratropium 3 ML UPD VIAL UPD (15:01)
--- NOTE | 2024-08-31 15:41 | DI.RAD_ITS ---
Exam(s) XR CHEST 2V PA LATERAL EXAM: XR CHEST 2V PA LATERAL CLINICAL HISTORY: cough TECHNIQUE: 2D digital imaging was performed. Two views. COMPARISON: CT CT ABDOMEN PELVIS W from 08/24/2024 FINDINGS: Monitoring leads overlie the chest. HEART: Normal size. Aorta: Not dilated. PULMONARY VASCULATURE: Normal. MEDIASTINUM: Unremarkable. LUNGS: Clear. No visible focal infiltrate. PLEURAL SPACE: No pleural effusion or pneumothorax. BONE:Unremarkable for age. SOFT TISSUES: Unremarkable. IMPRESSION: No acute abnormality. DATA REPOSITORY: RADIATION DOSE DELIVERED:
[2024-08-31 15:58] VITALS: BP 135/72; PULSE 99; RESP 18; O2SAT 97
[2024-08-31] MEDS: Amoxicillin 875/Clav. 125 TAB PO (16:04)
[2024-08-31] MEDS: Albuterol HFA 8 GM 60 PUFF INH IH (16:04)
== END 2024-08-31 16:09 | disposition home or self-care (01) ==
PROVIDERS: Emergency Provider Emergency Medicine; PCP Nurse Practitioner Family
DX: J22 Unspecified acute lower respiratory infection (principal)
CPT/HCPCS: 99283 ×2; 94640; 71046; J7512; J7620

== ENCOUNTER 2024-09-11 09:24 | Emergency (ER) | payer MEDICAID, SELFPAY ==
[2024-09-11 09:29] VITALS: BP 128/89; PULSE 96; RESP 16; TEMP 36.5; O2SAT 97
[2024-09-11 09:34] VITALS: BP 128/89; PULSE 96; RESP 16; TEMP 36.5; O2SAT 97
--- NOTE | 2024-09-11 09:48 | W.ED.GENAD ---
Discharge Plan Disposition Patient Disposition: Home Condition: Good Discharge Details Clinical Impression: Urinary tract infection Primary Care Provider: JAMAR SANCHEZ ED Provider: Wu Roberts Home Meds and New Rx's Prescriptions: New cephalexin 500 mg capsule 500 mg PO QID 7 Days Qty: 28 0RF No Action omeprazole 20 mg capsule,delayed release(DR/EC) 20 mg PO DAILY Qty: 30 0RF Patient Comments: vomited up this AM Discharge Instructions Instructions: Urinary Tract Infection, Adult ED Additional Instructions: At this time you have evidence of urinary tract infection. Please take the antibiotics as directed. If you notice any worsening of your symptoms, or any new symptoms such as vomiting, diarrhea, fever, chills, shortness of breath, chest pain, numbness, weakness, or fainting , please return immediately to the emergency department for reevaluation. Please follow up with your primary care provider as soon as possible for reassessment and reevaluation. As always, it was a pleasure participating in your medical care today. Referrals: JAMAR SANCHEZ, [employer] INSPECTOR [Primary Care Provider, Medicine] Discharge Data Discharge Date/Time-TO BE ENTERED AT DEPARTURE: 09/11/24 13:16 HPI General Date/Time Provider Initiated Documentation: 09/11/24 09:28. HPI Narrative: This is a pleasant 34-year-old female with past medical history of bipolar, hidradenitis suppurativa, depression, anxiety, GERD, previous C-sections x 2, salpingectomy, history of trichomonal vaginitis in the past, somewhat chronic abdominal pain, who presents today for evaluation of nausea vomiting and abdominal cramping. Patient states that for the last month or so she has had mild recurrent abdominal pain, it is achy and sharp in nature and located in the lower pelvis. Pain has been relatively consistent and variable. She was seen and evaluated on 08/24/2024, and at that time Dr. Ham Fuchs noted a benign abdominal exam, CT scan was ordered, and the CT scan showed no evidence of acute life-threatening etiology. There was evidence of some mild bowel wall thickening consistent with mild enteritis, trace free fluid in the pelvis, but no other acute component. Patient was discharged and has been doing very well for the past 20 days. She did recently come here on the 08/31/2024 and was diagnosed with an upper respiratory infection and started on an amoxicillin based antibiotic. She had continued to do well except the mild persistent abdominal pain continued to linger, until Friday which was 3 days ago, which she began feeling sweaty every day, and notably fatigued. She has had decreased energy, and has also noticed for the last 48 hours that she has felt worsening sharp lower abdominal pain and has had associated vomiting. She would vomit once or twice in the morning today. She has been nauseous, and has otherwise had a diminished appetite. She denies any vaginal discharge, urinary discomfort or bleeding, vaginal bleeding, hematemesis, chest pain or shortness of breath. She states that the pain is very mild at this time. She denies any other complaints at this time. No other modifying factors. Related Data Home Medications ?Medication ?Instructions ?Recorded ?Confirmed omeprazole 20 mg capsule,delayed 20 mg PO DAILY #30 caps 08/24/24 09/11/24 release cephalexin 500 mg capsule 500 mg PO QID 7 days #28 caps 09/11/24 Previous Rx's ?Medication ?Instructions ?Recorded omeprazole 20 mg capsule,delayed 20 mg PO DAILY #30 caps 08/24/24 release cephalexin 500 mg capsule 500 mg PO QID 7 days #28 caps 09/11/24 Allergies Allergy/AdvReac Type Severity Reaction Status Date / Time coconut Allergy Severe Anaphylaxis Verified 09/11/24 09:27 latex Allergy Intermediate Skin Rash Verified 09/11/24 09:27 vitamin E (From [employer]vi[employer] Allergy Mild Itching Verified 09/11/24 09:27 Stress) coconut oil Allergy Anaphylaxsi Verified 09/11/24 09:27 s General Stated Complaint: Abd Prob DRISS: 3 Exam Narrative Exam Narrative: 1.Const: Well-nourished, Well-developed, appearing stated age 2.Eyes: PERRL, no conjunctival injection, and symmetrical lids. 3.ENT: Atraumatic external nose and ears. Moist MM. Neck: Symmetric, trachea midline, No thyromegaly. 4.CVS: +S1/S2, Peripheral pulses 2+ and equal in all extremities. Brisk capillary refill in all extremities. 5.RESP: Unlabored respiratory effort. Clear to auscultation bilaterally. No wheezes rales or rhonchi 6.GI: Soft, Nondistended, No hepatosplenomegaly. No guarding or rebound.mild tenderness in the mid pelvis and lower abdominal regions. No right lower quadrant tenderness. No left-sided abdominal tenderness. No guarding or rebound. 7.MSK: Normocephalic/Atraumatic, Extremities w/o deformity or ttp No cyanosis or clubbing, Normal movement of all extremities 8.Skin: Warm, Dry. No rashes or lesions. 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 Sensation grossly intact, no focal neurologic deficits. 10.Psych: (AAO) x3. Appropriate mood and affect Course Vital Signs Vital signs: Vital Signs Temperature 36.5 C 09/11/24 09:29 Pulse 96 H 09/11/24 09:29 Respiratory Rate 16 09/11/24 09:29 Blood Pressure 128/89 09/11/24 09:29 Pulse Oximetry 97 09/11/24 09:29 Temperature 36.5 C 09/11/24 09:34 Temperature Source Temporal Artery Scan 09/11/24 09:34 Pulse 96 H 09/11/24 09:34 Respiratory Rate 16 09/11/24 09:34 Blood Pressure 128/89 09/11/24 09:34 Blood Pressure Position Sitting 09/11/24 09:34 Pulse Oximetry 97 09/11/24 09:34 Oxygen Delivery Method Room Air 09/11/24 09:34 Oxygen Flow Rate 0 09/11/24 09:34 Pain Level 9 09/11/24 09:34 Medical Decision Making Js is a pleasant 34-year-old female with past medical history of bipolar, hidradenitis suppurativa, depression, anxiety, GERD, previous C-sections x 2, salpingectomy, history of trichomonal vaginitis in the past, somewhat chronic abdominal pain, who presents today for evaluation of nausea vomiting and abdominal cramping. Patient states that for the last month or so she has had mild recurrent abdominal pain, it is achy and sharp in nature and located in the lower pelvis. Pain has been relatively consistent and variable. She was seen and evaluated on 08/24/2024, and at that time Dr. Ham Fuchs noted a benign abdominal exam, CT scan was ordered, and the CT scan showed no evidence of acute life-threatening etiology. There was evidence of some mild bowel wall thickening consistent with mild enteritis, trace free fluid in the pelvis, but no other acute component. Patient was discharged and has been doing very well for the past 20 days. She did recently come here on the 08/31/2024 and was diagnosed with an upper respiratory infection and started on an amoxicillin based antibiotic. She had continued to do well except the mild persistent abdominal pain continued to linger, until Friday which was 3 days ago, which she began feeling sweaty every day, and notably fatigued. She has had decreased energy, and has also noticed for the last 48 hours that she has felt worsening sharp lower abdominal pain and has had associated vomiting. She would vomit once or twice in the morning today. She has been nauseous, and has otherwise had a diminished appetite. She denies any vaginal discharge, urinary discomfort or bleeding, vaginal bleeding, hematemesis, chest pain or shortness of breath. She states that the pain is very mild at this time. She denies any other complaints at this time. No other modifying factors. physical exam demonstrates evidence of mild lower abdominal tenderness. No vaginal discharge though. Differential includes mild chronic lower abdominal pain from trichomonal vaginitis leading to subsequent adhesions, potential ovarian cyst, less likely torsion as her symptoms appear clinically inconsistent for this at this time. Appendicitis and diverticulitis less likely due to the location. Urinary component on the differential but unlikely. We will give Zofran, IV fluids, monitor closely and reassess. With the patient's recent CT scan and no signs of an acute surgical abdomen at this time, I do not see indication for emergent radiographic evaluation. On reassessment patient feels much better after fluids, she is able to tolerate p.o. well. Patient does have evidence of UTI, will treat with Keflex. No evidence of pyelonephritis. No evidence of acute surgical abdomen. Patient stable for discharge. On review of the patient's previous CT imaging there was evidence of mild inflammation amongst the colon. In the small intestines. Recommend close follow-up with her PCP for further discussion of this and potential further diagnostic evaluation with colonoscopy and EGD. Discussed red flags which return. I have extensively reviewed the treatment plan and discharge instructions with the patient. I have addressed all patient concerns at this time. The patient was made aware of what symptoms to monitor for that would warrant a return to the emergency department. Discussed the plan with the patient, they demonstrate verbal understanding and agreement with our assessment and plan at this time. The documentation in this chart was dictated using [employer] dictation software. Please excuse any dictation errors. PFSH All Active Problems (Updated 09/11/24 @ 12:52 by Wu Roberts DO) Urinary tract infection (Acute) Acute respiratory infection (Acute) Duodenitis (Acute) GERD (gastroesophageal reflux disease) (Chronic) Anxiety (Chronic) Bipolar disorder (Chronic) Adult BMI 39.0-39.9 kg/sq m (Acute) Anemia (Chronic) Family history of transposition of great arteries (Acute) Maternal cousin's child Hidradenitis suppurativa (Chronic) Moderate episode of recurrent major depressive disorder (Acute 04/03/17) Medical History Sterilization Bilateral salpingectomy at time of section performed 09/03/2023. History of obstructive sleep apnea History of trichomonal vaginitis Surgical History Status post repeat low transverse section Repeat low-transverse section 09/03/2023. Female .Nayana Intraoperative bilateral salpingectomy wisdome teeth extraction Incision & Drainage, Abscess or Hematoma 07/14/16-ED [facility] Biopsy, Soft Tissue (01/15/17) left and right axillae Social History Smoking/Tobacco Use Status: Former Tobacco Use Tobacco: How many years used: 15 Smoking risk assessment performed?: Yes Alcohol Intake: former Drug use: Never Substance use type: does not use Counseling given: No Household members: children and other Details: Nayana Joseph Housing: apartment Number of Children: 2 Seatbelt use: always Do you feel safe at home: Yes Do you feel safe in your relationship?: Yes Female Reproductive History Menstrual control method: progesterone injection History History 2 Para 2 Hx # Term Pregnancies 2 Multiple births 0 Hx # Pregnancies 0 Ectopic pregnancies 0 AB induced 0 Hx Number of Living Children 2 AB spontaneous 0 Past Pregnancies Del. Date GA/Weeks # Preg Succ Route Wgt Sex Labor Lgth Anesthesia Location [facility] 05/17/21 39 No Yes 3316.894 g Female [facility] 09/03/23 39 No Yes 3316.894 g Female [facility]. aoc. Bilateral tubal sterilization. Delivery Date: 05/17/21 Last Updated by: Marie Siddiqui CNM Arrived with bleeding at 5 cms. AROM and meconium noted. Epidural placed and heart rate decelerations occurred after epidural. Had an emergency C/S at 7 cms under general anesthesia. Philippe Delivery Date: 09/03/23 Last Updated by: MD Nayana Caba
[2024-09-11] MEDS: Ondansetron 4 MG/2 ML VIAL IVP (09:55)
[2024-09-11] MEDS: Lactated Ringers 1,000 ML 1000 ML IV (09:55)
[2024-09-11 10:02] LABS: Abs Immature Grans 0.08 10^3/uL (0.0-0.06); Absolute Basophil Count 0.05 10^3/uL (0.0-0.2); Absolute Eosinophil Count 2.14 10^3/uL (0.0-0.7); Absolute Lymphocyte Count 2.45 10^3/uL (1.2-3.4); Absolute Monocyte Count 0.67 10^3/uL (0.1-0.8); Basophils % 0.4 %; Eosinophils % 17.9 %; HCT 37.6 % (36.0-46.0); HGB 11.9 g/dL (11.2-15.7); Immature Grans % 0.7 %; Lymphocytes % 20.5 %; MCH 24.1 pg (27.0-33.0); MCHC 31.6 % (32.0-36.0); MCV 76 fL (80-95); MPV 9.7 fL (8.0-11.0); Monocytes % 5.6 %; Neutrophils % 54.9 %; Platelet Count 377 10^3/uL (130-400); RBC 4.94 10^6/uL (3.93-5.22); RDW 15.2 % (11.7-14.6); RDW-SD 41.2 fL; WBC 11.94 10^3/uL (4.4-10.8)
[2024-09-11 10:04] LABS: Absolute Neutrophil Count 6.56 10^3/uL (1.2-6.7)
[2024-09-11 10:18] LABS: ALT 17 U/L (14-59); AST 9 U/L (15-37); Albumin 3.5 g/dL (3.4-5.0); Alkaline Phosphatase 82 U/L (46-116); Anion Gap 9.9 mmol/L (3-11); BUN 10 mg/dL (7-18); Bilirubin, Total 0.7 mg/dL (0.2-1.0); CO2 27.1 mmol/L (21.0-32.0); CREATININE 0.5 mg/dL (0.55-1.02); Calcium 8.6 mg/dL (8.5-10.1); Chloride 103 mmol/L (98-107); Estimated GFR 124.58 (mL/min/1.73m2); Glucose 106 mg/dL (74-106); Lipase 28 U/L (<78); Potassium 3.8 mmol/L (3.5-5.1); Sodium 140 mmol/L (136-145); Total Protein 7.4 g/dL (6.4-8.2)
[2024-09-11 10:26] LABS: Diff Comment Agrees w/ Instrument
[2024-09-11 12:14] VITALS: BP 120/77; PULSE 75; RESP 16; O2SAT 97
[2024-09-11 12:17] LABS: Bilirubin Negative (Negative); Blood Negative (Negative); Clarity Clear (Clear); Glucose Negative (Negative); Ketones 15 mg/dL (Negative); Leukocyte Esterase Small (Negative); Nitrite Negative (Negative)
[2024-09-11 12:26] LABS: Bacteria Few HPF (Negative); C & S Indicated? Yes; Casts Negative LPF (Negative); Crystals Negative HPF (Negative); Epithelial Cells Few HPF (Negative); Mucus Negative (Negative); RBC 0-2 HPF (0-2)
[2024-09-11] MEDS: Cephalexin 500 MG CAP, 4 CAPS/BTL PO (13:12)
[2024-09-11] MEDS: Ondansetron O.D.T. 4 MG TABEF, 3 TABS/BTL PO (13:12)
[2024-09-11 13:15] VITALS: BP 120/77; PULSE 75; RESP 16; O2SAT 97
== END 2024-09-11 13:16 | disposition home or self-care (01) ==
PROVIDERS: Emergency Provider Student in an Organized Health Care Education/Training Program; PCP Nurse Practitioner Family
DX: N39.0 Urinary tract infection, site not specified (principal); Z87.891 Personal history of nicotine dependence
CPT/HCPCS: 36415; 80053; 81025; 83690; 96361; 96374; 99284; 81003; 81015; 85025; 87086; J2405

== ENCOUNTER 2024-09-13 09:36 | Inpatient (IN) | payer MEDICAID, SELFPAY ==
[2024-09-13 09:50] VITALS: BP 126/66; PULSE 89; RESP 12; TEMP 36.6; O2SAT 96
--- NOTE | 2024-09-13 10:00 | DI.US_ITS ---
Exam(s) US ABDOMEN RENAL EXAM: US ABDOMEN RENAL CLINICAL HISTORY: RUQ tenderness, L flank pain, dysuria TECHNIQUE: Ultrasound abdomen performed using standard protocol. COMPARISON: CT CT ABDOMEN PELVIS W from 08/24/2024 FINDINGS: LIVER: Normal mildly enlarged at 19.5 cm in length. Slightly increased echogenicity consistent with mild hepatic steatosis. No focal liver lesions are seen. GALLBLADDER: No evidence of cholelithiasis. No evidence of wall thickening. No pericholecystic fluid identified. POOL'S SIGN: Negative. BILIARY SYSTEM: No intrahepatic or extrahepatic biliary ductal dilation. KIDNEYS: Kidneys are symmetric in size. Right kidney measures 12.6 cm in length. Left kidney measures 10.6 cm in length. No evidence of renal calculi. No evidence of hydronephrosis. No renal mass or cyst identified. PANCREAS: Normal where visualized. SPLEEN: Not enlarged. ABDOMINAL AORTA AND IVC: Visualized portions normal caliber. ASCITES: There is a small amount of fluid seen in the midline of the low abdomen. Some fluid was noted on prior CT. Bladder: Not well distended with prevoid volume of 51 cc. No postvoid residual. Both ureteral jets were not visualized. IMPRESSION: Small amount of fluid in the midline of the lower abdomen appears greater than physiologic amount. The kidneys and bladder are unremarkable. Findings discussed with ER provider. DATA REPOSITORY:
--- NOTE | 2024-09-13 10:02 | W.ED.GENAD ---
Discharge Plan Disposition Patient Disposition: Admit to [facility] Condition: Stable Discharge Details Clinical Impression: Colitis, Ascites, Pancreatitis Primary Care Provider: JAMAR SANCHEZ ED Provider: Wu Banks Home Meds and New Rx's Prescriptions: No Action cephalexin 500 mg capsule 500 mg PO QID 7 Days Qty: 28 0RF omeprazole 20 mg capsule,delayed release(DR/EC) 20 mg PO DAILY Qty: 30 0RF Patient Comments: vomited up this AM HPI General Date/Time Provider Initiated Documentation: 09/13/24 09:53. HPI Narrative: 34 year-old female presents to ED today by POV/ambulating with a chief complaint of ongoing nausea/vomiting/diarrhea, L sided abdominal cramping- recent visits for URI in Early August and placed on Keflex at recent visit with onset of NVD since prior to her antibiotics. Quality described as generalized L sided and LUQ abdominal tenderness, no radiation to fever, hematemesis, melena/hematochezia, shortness of breath, chest pain. Severity is described as moderate. Palliating factors include nothing specific. Provoking factors include nothing specific. Patient not anticoagulated. Related Data Home Medications ?Medication ?Instructions ?Recorded ?Confirmed omeprazole 20 mg capsule,delayed 20 mg PO DAILY #30 caps 08/24/24 09/13/24 release cephalexin 500 mg capsule 500 mg PO QID 7 days #28 caps 09/11/24 09/13/24 Previous Rx's ?Medication ?Instructions ?Recorded omeprazole 20 mg capsule,delayed 20 mg PO DAILY #30 caps 08/24/24 release cephalexin 500 mg capsule 500 mg PO QID 7 days #28 caps 09/11/24 Allergies Allergy/AdvReac Type Severity Reaction Status Date / Time coconut Allergy Severe Anaphylaxis Verified 09/13/24 09:53 latex Allergy Intermediate Skin Rash Verified 09/13/24 09:53 vitamin E (From [employer]vi[employer] Allergy Mild Itching Verified 09/13/24 09:53 Stress) coconut oil Allergy Anaphylaxsi Verified 09/13/24 09:53 s General Stated Complaint: Abd Prob DRISS: 3 Review of Systems All systems reviewed & are unremarkable except as noted in HPI and below Exam Narrative Exam Narrative: GENERAL APPEARANCE: Well-nourished, non-toxic, awake and alert, atraumatic, no acute distress. SKIN: Warm, pink, dry, intact, without rashes/lesions/ulcerations. HEAD: Normocephalic, atraumatic, normal hair distribution for gender/age. EYES: Normal conjunctiva, no exudates on lids/lashes. ENT: Nares patent, no circumoral cyanosis, no facial swelling NECK: Supple, trachea midline, painless cervical ROM. LUNGS/CHEST: Lungs CTA bilaterally- no rhonchi/rales/wheezes diffusely, non-labored respirations, normal A/P diameter, symmetrical expansion, no chest wall deformity HEART (CV/PV): Regular rate and rhythm without murmur, no peripheral edema, no JVD. ABDOMEN: Soft, non-distended, no guarding, LUQ tenderness without rebound tenderness, no CVA tenderness to percussion bilaterally. MSK: Normal ROM, no swelling/deformity to bilateral UEs or LEs, moving all extremities without weakness, no cyanosis, spine midline without tenderness, normal curvature. NEURO: Mental Status AAOx4 - alert to person, place, time, events No facial droop, no forehead involvement. Motor: No focal weakness - strength 5/5 in bilateral UEs and LEs, proximal and distal, symmetric. Sensory: sensation intact to light touch globally. Gait normal: patient ambulated without ataxia into ED room. PSYCH: euthymic, cooperative, pleasant, appropriate speech Course Vital Signs Vital signs: Vital Signs Temperature 36.6 C 09/13/24 09:50 Pulse 89 09/13/24 09:50 Respiratory Rate 12 09/13/24 09:50 Blood Pressure 126/66 09/13/24 09:50 Pulse Oximetry 96 09/13/24 09:50 Temperature 36.6 C 09/13/24 09:50 Temperature Source Oral 09/13/24 09:50 Pulse 89 09/13/24 09:50 Respiratory Rate 12 09/13/24 09:50 Blood Pressure 126/66 09/13/24 09:50 Blood Pressure Position Sitting 09/13/24 09:50 Pulse Oximetry 96 09/13/24 09:50 Oxygen Delivery Method Room Air 09/13/24 09:50 Oxygen Flow Rate 0 09/13/24 09:50 Medical Decision Making This dictation utilizes [id number] dictation software and may contain unedited grammatical errors. 34 year-old female presents to ED today by POV/ambulating with a chief complaint of ongoing nausea/vomiting/diarrhea, L sided abdominal cramping- recent visits for URI in Early August and placed on Keflex at recent visit with onset of NVD since prior to her antibiotics. Quality described as generalized L sided and LUQ abdominal tenderness, no radiation to fever, hematemesis, melena/hematochezia, shortness of breath, chest pain. Severity is described as moderate. Palliating factors include nothing specific. Provoking factors include nothing specific. Patients' medical history: Hidradenitis suppurativa, duodenitis, GERD. Family and social history: Lives at home, has kids, eats normal diet, no substance use issues. Pertinent exam findings / vital signs include left upper quadrant tenderness, no CVA tenderness, benign cardiopulmonary exam, neuro intact. Differential / pathologies of concern include gastritis, colitis, Crohn's or ulcerative colitis, C. difficile, pancreatitis, biliary colic. Diagnostic studies of: - CBC, CMP, CRP/ESR, lactate, lipase, magnesium, UA, ultrasound ABD LTD right upper quadrant and renal study, CT abdomen pelvis with contrast. - CBC shows a mild leukocytosis at 12.65 without left shift - CRP is only mildly elevated at 0.87, ESR normal, do not suspect inflammatory bowel disease -Lactate negative - Lipase mildly elevated at 102 - Magnesium within normal limits - CMP without actionable abnormality - UA is benign with some evidence of mild dehydration - Ultrasound shows increased amount of fluid in the pelvis, plan to repeat CT - CT shows profoundly thickened bowel grace in the ascending colon as well as distal ileum, similar duodenal findings as well as some changes to the pancreatic head with some ascites around the liver and spleen, consulting general surgery - C. difficile pending at time of admission Interventions of: -1 L IVF NS, 4 mg IVP Zofran. ED Course/Assessment/Plan: 34-year-old female recently started on Keflex for UTI presents with profoundly thickened colon wall on CT as well as some new free fluid in the abdomen around the liver and spleen, some changes to the pancreatic head, weeks onset of nausea vomiting and diarrhea even prior to antibiotic initiation, I consulted with general surgery who thinks that the patient should be admitted and monitored with colonoscopy in the short-term, Dr. Bowser excepted for admission at 1315, the patient was onboard with this plan. Disposition of Colitis, Ascites, Pancreatitis. Patient verbalized understanding of the plan and return to ED criteria and engaged in shared decision making. Medical Records Medical records reviewed: Yes I reviewed the patient's medical records. Imaging Data Radiologic Study: Attestation: I personally reviewed and interpreted this imaging study as follows: Imaging: Ultrasound Radiologist's impression: EXAM: US ABDOMEN RENAL CLINICAL HISTORY: RUQ tenderness, L flank pain, dysuria TECHNIQUE: Ultrasound abdomen performed using standard protocol. COMPARISON: CT CT ABDOMEN PELVIS W from 08/24/2024 FINDINGS: LIVER: Normal mildly enlarged at 19.5 cm in length. Slightly increased echogenicity consistent with mild hepatic steatosis. No focal liver lesions are seen. GALLBLADDER: No evidence of cholelithiasis. No evidence of wall thickening. No pericholecystic fluid identified. POOL'S SIGN: Negative. BILIARY SYSTEM: No intrahepatic or extrahepatic biliary ductal dilation. KIDNEYS: Kidneys are symmetric in size. Right kidney measures 12.6 cm in length. Left kidney measures 10.6 cm in length. No evidence of renal calculi. No evidence of hydronephrosis. No renal mass or cyst identified. PANCREAS: Normal where visualized. SPLEEN: Not enlarged. ABDOMINAL AORTA AND IVC: Visualized portions normal caliber. ASCITES: There is a small amount of fluid seen in the midline of the low abdomen. Some fluid was noted on prior CT. Bladder: Not well distended with prevoid volume of 51 cc. No postvoid residual. Both ureteral jets were not visualized. IMPRESSION: Small amount of fluid in the midline of the lower abdomen appears greater than physiologic amount. The kidneys and bladder are unremarkable. Radiologic Study #2: Attestation: I personally reviewed and interpreted this imaging study as follows: Radiologist's impression: EXAM: CT ABDOMEN PELVIS W CLINICAL HISTORY: increasing free fluid, lipase elev. TECHNIQUE: Imaging Protocol: Axial computed tomography images with coronal and sagittal reformatted images were created and reviewed CONTRAST MATERIAL: Intravenous: Omnipaque 350 Contrast volume:100 ml Oral: no COMPARISON: CT CT ABDOMEN PELVIS W from 08/24/2024 FINDINGS: ABDOMEN and PELVIS: The exam is limited by motion. Lung Bases: No acute findings. Liver: Normal density. No suspicious mass. Gallbladder and biliary tract: No radiodense calculus. No wall thickening or pericholecystic fluid. No biliary dilation. Pancreas: The head appears mildly prominent compared with the previous exam which could indicate inflammation. No abnormal calcifications. No evidence of mass. Spleen: Normal. Kidneys: Normal size, contour and axis. No radiodense stones. No obstructive uropathy. No suspicious masses seen. Adrenal glands: No masses seen. Vasculature: Abdominal aorta non-dilated. Soft tissues: Unremarkable. Bladder: No gross wall thickening. No calculi.No focal mass. Bowel: No obstruction. Marked wall thickening of the ascending colon as well as distal loops of ileum. Findings are new since the previous exam. Thickening and edema is again noted around the duodenum, which appears worse when compared to the previous exam. Peritoneal cavity: Small amount of ascites now present around the liver and spleen. Small amount of fluid within the mesentery and moderate quantity of fluid seen in the pelvis. No focal collection. No mesenteric inflammatory response. No free air. Bones: Unremarkable for age. Reproductive organs: Unremarkable. Lymph nodes: No pathologically enlarged lymph nodes. IMPRESSION:: Marked wall thickening nation of the duodenum, distal ileum and ascending colon. Small amount of fluid around the liver and spleen and within the central mesentery. Moderate of quantity of pelvic ascites. Mild inflammation of the head of the pancreas. Lab Data Lab results reviewed: Yes I reviewed the patient's lab results. Labs: Laboratory Tests Range/Units 09/13/24 09/13/24 09/13/24 10:17 10:24 15:09 WBC (4.4-10.8) 10^3/uL 12.65 H RBC (3.93-5.22) 10^6/uL 4.98 Hgb (11.2-15.7) g/dL 11.9 Hct (36.0-46.0) % 38.4 MCV (80-95) fL 77 L MCH (27.0-33.0) pg 23.9 L MCHC (32.0-36.0) % 31.0 L RDW (11.7-14.6) % 15.4 H Plt Count (130-400) 10^3/uL 383 MPV (8.0-11.0) fL 9.7 Immature Gran % % 0.5 Neutrophils % % 56.9 Lymphocytes % % 19.6 Monocytes % % 4.7 Eosinophils % % 17.9 Basophils % % 0.4 Nucleated RBC % (0.0-0.3) % 0.0 Absolute Neutrophils (1.2-6.7) 10^3/uL 7.20 H Absolute Lymphocytes (1.2-3.4) 10^3/uL 2.48 Absolute Monocytes (0.1-0.8) 10^3/uL 0.59 Absolute Eosinophils (0.0-0.7) 10^3/uL 2.26 H Absolute Basophils (0.0-0.2) 10^3/uL 0.05 RBC Morphology Normal ESR (0-20) mm/hr 3 VBG Lactate (<or=2.0) mmol/L 0.9 Sodium (136-145) mmol/L 141 Potassium (3.5-5.1) mmol/L 3.7 Chloride (98-107) mmol/L 105 Carbon Dioxide (21.0-32.0) mmol/L 27.6 Anion Gap (3-11) mmol/L 8.4 BUN (7-18) mg/dL 6 L Creatinine (0.55-1.02) mg/dL 0.5 L Est GFR (CKD-EPI 2020) (mL/min/1.73m2) 124.58 Glucose (74-106) mg/dL 107 H Calcium (8.5-10.1) mg/dL 8.7 Magnesium (1.8-2.4) mg/dL 1.9 Total Bilirubin (0.2-1.0) mg/dL 0.5 AST (15-37) U/L 14 L ALT (14-59) U/L 22 Alkaline Phosphatase (46-116) U/L 73 C-Reactive Protein (<or=0.5) mg/dL 0.87 H Total Protein (6.4-8.2) g/dL 7.2 Albumin (3.4-5.0) g/dL 3.5 Lipase (<78) U/L 102 H Urine Color (Yellow) Yellow Urine Clarity (Clear) Cloudy Urine pH (5-8) 5.5 Ur Specific [place] (1.005-1.025) >= 1.030 H Urine Protein (Neg-Trace) mg/dL 30 H Urine Ketones (Negative) mg/dL Negative Urine Blood (Negative) Negative Urine Nitrite (Negative) Negative Urine Bilirubin (Negative) Negative Urine Urobilinogen (Up to 0.2) mg/dL 0.2 Ur Leukocyte Esterase (Negative) Negative Urine RBC (0-2) HPF Negative Urine WBC (0-5) HPF Negative Ur Epithelial Cells (Negative) HPF Few Urine Crystals (Negative) HPF Many Amorphous Urine Bacteria (Negative) HPF Rare Urine Casts (Negative) LPF Negative Urine Mucus (Negative) Negative Ur Culture Indicated? No Urine Glucose (Negative) mg/dL Negative PFSH All Active Problems (Updated 09/13/24 @ 15:28 by JOSE Ruano) Pancreatitis (Chronic) Ascites (Acute) Colitis (Acute) Urinary tract infection (Acute) Acute respiratory infection (Acute) Duodenitis (Acute) GERD (gastroesophageal reflux disease) (Chronic) Anxiety (Chronic) Bipolar disorder (Chronic) Adult BMI 39.0-39.9 kg/sq m (Acute) Anemia (Chronic) Family history of transposition of great arteries (Acute) Maternal cousin's child Hidradenitis suppurativa (Chronic) Moderate episode of recurrent major depressive disorder (Acute 04/03/17) Medical History Sterilization Bilateral salpingectomy at time of section performed 09/03/2023. History of obstructive sleep apnea History of trichomonal vaginitis Surgical History Status post repeat low transverse section Repeat low-transverse section 09/03/2023. Female .Nayana Intraoperative bilateral salpingectomy wisdome teeth extraction Incision & Drainage, Abscess or Hematoma 07/14/16-ED [facility] Biopsy, Soft Tissue (01/15/17) left and right axillae Social History Smoking/Tobacco Use Status: Former Tobacco Use Tobacco: How many years used: 15 Smoking risk assessment performed?: Yes Alcohol Intake: former Drug use: Never Substance use type: does not use Counseling given: No Household members: children and other Details: Nayana Joseph Housing: apartment Number of Children: 2 Seatbelt use: always Do you feel safe at home: Yes Do you feel safe in your relationship?: Yes Female Reproductive History Menstrual control method: progesterone injection History History 2 Para 2 Hx # Term Pregnancies 2 Multiple births 0 Hx # Pregnancies 0 Ectopic pregnancies 0 AB induced 0 Hx Number of Living Children 2 AB spontaneous 0 Past Pregnancies Del. Date GA/Weeks # Preg Succ Route Wgt Sex Labor Lgth Anesthesia Location Prov Complic 05/17/21 39 No Yes 3316.894 g Female [facility] 09/03/23 39 No Yes 3316.894 g Female Maddison Joseph. aoc. Bilateral tubal sterilization. Delivery Date: 05/17/21 Last Updated by: Marie Siddiqui CNM Arrived with bleeding at 5 cms. AROM and meconium noted. Epidural placed and heart rate decelerations occurred after epidural. Had an emergency C/S at 7 cms under general anesthesia. Philippe Delivery Date: 09/03/23 Last Updated by: MD Nayana Caba
[2024-09-13 10:30] LABS: Abs Immature Grans 0.06 10^3/uL (0.0-0.06); HCT 38.4 % (36.0-46.0); HGB 11.9 g/dL (11.2-15.7); Immature Grans % 0.5 %; MCH 23.9 pg (27.0-33.0); MCHC 31.0 % (32.0-36.0); MCV 77 fL (80-95); MPV 9.7 fL (8.0-11.0); Platelet Count 383 10^3/uL (130-400); RBC 4.98 10^6/uL (3.93-5.22); RDW 15.4 % (11.7-14.6); RDW-SD 42.7 fL; WBC 12.65 10^3/uL (4.4-10.8)
[2024-09-13 10:40] LABS: Glucose Negative (Negative)
[2024-09-13] MEDS: Ondansetron 4 MG/2 ML VIAL IVP ×2 (10:40→20:01)
[2024-09-13 10:44] LABS: RBC Morphology Normal
[2024-09-13 11:00] LABS: RBC Negative HPF (0-2); WBC Negative HPF (0-5)
[2024-09-13 11:01] LABS: C & S Indicated? No
[2024-09-13] MEDS: Normal Saline 1,000 ML 1000 ML IV (11:03)
[2024-09-13 11:23] LABS: Magnesium 1.9 mg/dL (1.8-2.4)
[2024-09-13 11:27] LABS: ALT 22 U/L (14-59); AST 14 U/L (15-37); Albumin 3.5 g/dL (3.4-5.0); Alkaline Phosphatase 73 U/L (46-116); Anion Gap 8.4 mmol/L (3-11); BUN 6 mg/dL (7-18); Bilirubin, Total 0.5 mg/dL (0.2-1.0); CO2 27.6 mmol/L (21.0-32.0); Calcium 8.7 mg/dL (8.5-10.1); Chloride 105 mmol/L (98-107); Estimated GFR 124.58 (mL/min/1.73m2); Glucose 107 mg/dL (74-106); Lipase 102 U/L (<78); Potassium 3.7 mmol/L (3.5-5.1); Sodium 141 mmol/L (136-145); Total Protein 7.2 g/dL (6.4-8.2)
[2024-09-13] MEDS: Omnipaque 350 MG/ML 100 ML BTL IJ (14:06)
[2024-09-13] MEDS: Normal Saline - Diluent 50 ML VIAL IJ (14:07)
--- NOTE | 2024-09-13 14:15 | DI.CT_ITS ---
Exam(s) CT ABDOMEN PELVIS W EXAM: CT ABDOMEN PELVIS W CLINICAL HISTORY: increasing free fluid, lipase elev. TECHNIQUE: Imaging Protocol: Axial computed tomography images with coronal and sagittal reformatted images were created and reviewed CONTRAST MATERIAL: Intravenous: Omnipaque 350 Contrast volume:100 ml Oral: no COMPARISON: CT CT ABDOMEN PELVIS W from 08/24/2024 FINDINGS: ABDOMEN and PELVIS: The exam is limited by motion. Lung Bases: No acute findings. Liver: Normal density. No suspicious mass. Gallbladder and biliary tract: No radiodense calculus. No wall thickening or pericholecystic fluid. No biliary dilation. Pancreas: The head appears mildly prominent compared with the previous exam which could indicate inflammation. No abnormal calcifications. No evidence of mass. Spleen: Normal. Kidneys: Normal size, contour and axis. No radiodense stones. No obstructive uropathy. No suspicious masses seen. Adrenal glands: No masses seen. Vasculature: Abdominal aorta non-dilated. Soft tissues: Unremarkable. Bladder: No gross wall thickening. No calculi.No focal mass. Bowel: No obstruction. Marked wall thickening of the ascending colon as well as distal loops of ileum. Findings are new since the previous exam. Thickening and edema is again noted around the duodenum, which appears worse when compared to the previous exam. Peritoneal cavity: Small amount of ascites now present around the liver and spleen. Small amount of fluid within the mesentery and moderate quantity of fluid seen in the pelvis. No focal collection. No mesenteric inflammatory response. No free air. Bones: Unremarkable for age. Reproductive organs: Unremarkable. Lymph nodes: No pathologically enlarged lymph nodes. IMPRESSION:: Marked wall thickening [place] of the duodenum, distal ileum and ascending colon. Small amount of fluid around the liver and spleen and within the central mesentery. Moderate of quantity of pelvic ascites. Mild inflammation of the head of the pancreas. Findings called to TIMOTEO Hartley provider RADIATION DOSE DELIVERED: 1,579.85mGy.cm Total DLP DATA REPOSITORY: All CT scans at this facility are submitted to the National Radiology Data Registry (NRDR) Dose Index Registry (DIR) with the [employer] (A[employer]). RADIATION OPTIMIZATION: All CT scans at this facility use at least one of these dose optimization techniques: automated exposure control; mA and/or kV adjustment per patient size (includes targeted exams where dose is matched to clinical indication); or iterative reconstruction.
[2024-09-13 14:43] LABS: ESR 3 mm/hr (0-20)
[2024-09-13 14:56] LABS: C-Reactive Protein 0.87 mg/dL (<or=0.5)
--- NOTE | 2024-09-13 16:00 | W.PM.HP.N ---
Date of service: 09/13/24 Time of Service: 16:06 Assessment and Plan Assessment and plan (1) Colitis: Status: Acute Assessment and plan: - Given patient presenting symptoms of nausea vomiting and diarrhea, abdominal pain, as well as imaging findings with wall thickening of the duodenum distal ileum, ascending colon as well as intra-abdominal fluid fluid, patient appears to have some form of colitis - However, patient is without fevers, leukocytosis, and does not have any increase in inflammatory markers - Differential is broad at this time but includes viral gastroenteritis, inflammatory bowel disease - Case was discussed with general surgery while patient was in the emergency department, plan for colonoscopy tomorrow 09/14/2024 - Patient will be n.p.o. at this time (2) Urinary tract infection: Status: Acute Assessment and plan: - Continue cephalexin for UTI History of Present Illness History of Present Illness Chief Complaint: nausea, vomiting, diarrhea Narrative: 34-year-old female with no past medical history who was recently in the emergency department seen for UTI based on Keflex who presents to the emergency department complaints of ongoing nausea vomiting and diarrhea. Patient states that she has had left-sided abdominal cramping with left upper quadrant abdominal tenderness but without radiation, fever. She describes her vomiting as bilious, nonbloody, denies any shortness of breath, chest pain, lightheadedness or dizziness. In the emergency department the patient was noted to have a normal physical exam, normal CBC and CMP. Urine was again checked and as compared to when she was diagnosed with a UTI was negative for nitrates, leuk esterase or bacteria. Patient had abdominal ultrasound which showed small amount of fluid in the midline of the lower abdomen. Greater than physiologic amount, she also had CT abdomen pelvis which showed marked wall thickening noted of the duodenum, distal ileum and ascending colon, with small amount of fluid around the liver and spleen within the central mesentery as well as mild inflammation of the head of the pancreas. Given these findings, emergency room provider discussed case with general surgeon who suggested patient be admitted to have colonoscopy. At which time emergency room provider paged hospitalist for admission for patient with nonspecific intestinal inflammation and intra-abdominal fluid requiring further evaluation. Review of Systems All systems reviewed & are unremarkable except as noted in HPI and below PFSH All Active Problems (Updated 09/13/24 @ 15:28 by JOSE Ruano) Pancreatitis (Chronic) Ascites (Acute) Colitis (Acute) Urinary tract infection (Acute) Acute respiratory infection (Acute) Duodenitis (Acute) GERD (gastroesophageal reflux disease) (Chronic) Anxiety (Chronic) Bipolar disorder (Chronic) Adult BMI 39.0-39.9 kg/sq m (Acute) Anemia (Chronic) Family history of transposition of great arteries (Acute) Maternal cousin's child Hidradenitis suppurativa (Chronic) Moderate episode of recurrent major depressive disorder (Acute 04/03/17) Medical History Sterilization Bilateral salpingectomy at time of section performed 09/03/2023. History of obstructive sleep apnea History of trichomonal vaginitis Surgical History Status post repeat low transverse section Repeat low-transverse section 09/03/2023. Female infant.Nayana Intraoperative bilateral salpingectomy wisdome teeth extraction Incision & Drainage, Abscess or Hematoma 07/14/16-ED [facility] Biopsy, Soft Tissue (01/15/17) left and right axillae Social History Smoking/Tobacco Use Status: Former Tobacco Use Tobacco: How many years used: 15 Smoking risk assessment performed?: Yes Alcohol Intake: former Drug use: Never Substance use type: does not use Counseling given: No Household members: children and other Details: Nayana Joseph Housing: apartment Number of Children: 2 Seatbelt use: always Do you feel safe at home: Yes Do you feel safe in your relationship?: Yes Female Reproductive History Menstrual control method: progesterone injection History History 2 Para 2 Hx # Term Pregnancies 2 Multiple births 0 Hx # Pregnancies 0 Ectopic pregnancies 0 AB induced 0 Hx Number of Living Children 2 AB spontaneous 0 Past Pregnancies Del. Date GA/Weeks # Preg Succ Route Wgt Sex Labor Lgth Anesthesia Location Prov Complic 05/17/21 39 No Yes 7 lb 5 oz Female [facility] 09/03/23 39 No Yes 7 lb 5 oz Female Maddison Joseph. aoc. Bilateral tubal sterilization. Delivery Date: 05/17/21 Last Updated by: Marie Siddiqui CNM Arrived with bleeding at 5 cms. AROM and meconium noted. Epidural placed and heart rate decelerations occurred after epidural. Had an emergency C/S at 7 cms under general anesthesia. Philippe Delivery Date: 09/03/23 Last Updated by: MD Nayana Caba [facility] Allergies and Home Medications Allergies Allergy/AdvReac Type Severity Reaction Status Date / Time coconut Allergy Severe Anaphylaxis Verified 09/13/24 09:53 latex Allergy Intermediate Skin Rash Verified 09/13/24 09:53 vitamin E (From Enviro Allergy Mild Itching Verified 09/13/24 09:53 Stress) coconut oil Allergy Anaphylaxsi Verified 09/13/24 09:53 s Home Medications ?Medication ?Instructions ?Recorded ?Confirmed ?Type omeprazole 20 mg capsule,delayed 20 mg PO DAILY #30 caps 08/24/24 09/13/24 Rx release cephalexin 500 mg capsule 500 mg PO QID 7 days #28 caps 09/11/24 09/13/24 Rx Exam Narrative Exam Narrative: Well-appearing young female sitting up in the edge of the bed no acute distress, ANO x 4, heart regular rhythm, lungs, auscultation bilaterally, abdomen with diffuse tenderness without guarding or rebound Results Labs 09/13/24 10:17 09/13/24 10:17 Labs: Laboratory Results - last 24 hr 09/13/24 09/13/24 09/13/24 10:17 10:24 15:09 WBC 12.65 H RBC 4.98 Hgb 11.9 Hct 38.4 MCV 77 L MCH 23.9 L MCHC 31.0 L RDW 15.4 H Plt Count 383 MPV 9.7 Immature Gran % 0.5 Neutrophils % 56.9 Lymphocytes % 19.6 Monocytes % 4.7 Eosinophils % 17.9 Basophils % 0.4 Nucleated RBC % 0.0 Absolute Neutrophils 7.20 H Absolute Lymphocytes 2.48 Absolute Monocytes 0.59 Absolute Eosinophils 2.26 H Absolute Basophils 0.05 RBC Morphology Normal ESR 3 VBG Lactate 0.9 Sodium 141 Potassium 3.7 Chloride 105 Carbon Dioxide 27.6 Anion Gap 8.4 BUN 6 L Creatinine 0.5 L Est GFR (CKD-EPI 2020) 124.58 Glucose 107 H Calcium 8.7 Magnesium 1.9 Total Bilirubin 0.5 AST 14 L ALT 22 Alkaline Phosphatase 73 C-Reactive Protein 0.87 H Total Protein 7.2 Albumin 3.5 Lipase 102 H Urine Color Yellow Urine Clarity Cloudy Urine pH 5.5 Ur Specific [place] >= 1.030 H Urine Protein 30 H Urine Ketones Negative Urine Blood Negative Urine Nitrite Negative Urine Bilirubin Negative Urine Urobilinogen 0.2 Ur Leukocyte Esterase Negative Urine RBC Negative Urine WBC Negative Ur Epithelial Cells Few Urine Crystals Many Amorphous Urine Bacteria Rare Urine Casts Negative Urine Mucus Negative Ur Culture Indicated? No Urine Glucose Negative Last Vital Signs Temp 97.8 F 09/13/24 09:50 Pulse 89 09/13/24 09:50 Resp 12 09/13/24 09:50 BP 126/66 09/13/24 09:50 Pulse Ox 96 09/13/24 09:50 Time Spent Time spent with Patient: >75 minutes Time was spent: preparing to see the patient(eg.review tests), obtaining and/or reviewing separately otained hiistory, ordering medications,tests, procedures, referring, communicating with other health assistant child care teacher, indepentently interpreting results, counseling the patient and care coordination
--- NOTE | 2024-09-13 16:26 | W.SURGCON ---
Date of service: 09/13/24 Time of Service: 16:26 Assessment and Plan Assessment and plan (1) Colitis: Status: Acute Assessment and plan: Based on the CT scan, which does demonstrate terminal ileitis and colitis, inflammatory bowel disease is certainly within the differential here. The duodenitis and pancreatitis can also be seen with inflammatory bowel disease. I suppose Crohn's is the more likely of the 2. Infectious diarrhea should also be considered here, as she has had pretty significant antibiotics Bin over the past few weeks. It is also interesting that she has had Campylobacter in the past. There are some cases of that described with Crohn's and ulcerative colitis. At this point, I think EGD and colonoscopy are indicated for direct visualization and biopsies. Obviously, this carries with it slight increased risk compared to the general population, but at this point, I think the benefits of appropriate diagnosis and treatment outweigh the slight increase in procedural risk. I will write for a split bowel prep starting tonight, continue tomorrow. And will plan for EGD and colonoscopy sometime later in the day tomorrow History of Present Illness History of Present Illness Chief Complaint: Abdominal pain with nausea and vomiting Narrative: Karin is 34 years old. She comes to the emergency department today with worsening abdominal pain and nausea and vomiting. She says it started sometime around August 23 or . She remembers waking up, and having fairly quick onset of sharp stabbing abdominal pain around her bellybutton. She came to the emergency department where she had a mild leukocytosis. She underwent his CAT scan that suggested duodenitis, she was discharged with proton pump inhibitor therapy. She tells me this is not helped at all. The pain increased over the next few days, and then became fairly constant. She also developed cough, and came back to the emergency department on the . She was diagnosed with a pneumonia at that time, and started on prednisone as well as Augmentin. She came back to the emergency department again on the , because the abdominal pain had not improved, it may be even gotten a little bit worse. White blood cell count was still a little bit elevated. At that time, and she underwent a urinalysis that suggested the possibility of a urinary tract infection. She was started on cefazolin and discharged. She is back again today because of new nausea and vomiting associated with the abdominal pain. White count is up to about 12-1/2 today. She underwent another CT scan that shows duodenitis, pancreatitis, and inflammation of the terminal ileum and ascending colon. She cannot recall this ever happening before, although she was here in 2020, with a strikingly similar CT scan. Interestingly, she also had stool cultures at that time that were positive for Campylobacter. She does not really recall much of the details surrounding this, but it does not sound like any other unifying diagnosis was offered at that time. It does look like she was recommended to follow-up with her primary care physician, with concerns for inflammatory bowel disease. Unfortunately, no colonoscopy has ever been performed after that. Review of Systems Constitutional Constitutional: Reports fatigue, Denies fever(s) and Reports poor appetite Eyes Eyes: Reports system reviewed and no additional complaints, except as documented ENT Ears, Nose, Mouth, and Throat: Reports system reviewed and no additional complaints, except as documented Cardiovascular Cardiovascular: Denies chest pain and Denies dyspnea Respiratory Respiratory: Denies chest congestion, Denies cough and Denies dyspnea Gastrointestinal Gastrointestinal: Reports abdominal pain, Reports change in bowel habits, Reports diarrhea, Reports nausea and Reports vomiting Genitourinary Genitourinary: Reports system reviewed and no additional complaints, except as documented Endocrine Endocrine: Reports fatigue Hematologic/Lymphatic Hematologic/Lymphatic: Denies easy bleeding and Denies easy bruising PFSH All Active Problems (Updated 09/13/24 @ 15:28 by JOSE Ruano) Pancreatitis (Chronic) Ascites (Acute) Colitis (Acute) Urinary tract infection (Acute) Acute respiratory infection (Acute) Duodenitis (Acute) GERD (gastroesophageal reflux disease) (Chronic) Anxiety (Chronic) Bipolar disorder (Chronic) Adult BMI 39.0-39.9 kg/sq m (Acute) Anemia (Chronic) Family history of transposition of great arteries (Acute) Maternal cousin's child Hidradenitis suppurativa (Chronic) Moderate episode of recurrent major depressive disorder (Acute 04/03/17) Medical History Sterilization Bilateral salpingectomy at time of section performed 09/03/2023. History of obstructive sleep apnea History of trichomonal vaginitis Surgical History Status post repeat low transverse section Repeat low-transverse section 09/03/2023. Female infant.Nayana Intraoperative bilateral salpingectomy wisdome teeth extraction Incision & Drainage, Abscess or Hematoma 07/14/16-ED [facility] Biopsy, Soft Tissue (01/15/17) left and right axillae Social History Smoking/Tobacco Use Status: Former Tobacco Use Tobacco: How many years used: 15 Smoking risk assessment performed?: Yes Alcohol Intake: former Drug use: Never Substance use type: does not use Counseling given: No Household members: children and other Details: Nayana Joseph Housing: apartment Number of Children: 2 Seatbelt use: always Do you feel safe at home: Yes Do you feel safe in your relationship?: Yes Female Reproductive History Menstrual control method: progesterone injection History History 2 Para 2 Hx # Term Pregnancies 2 Multiple births 0 Hx # Pregnancies 0 Ectopic pregnancies 0 AB induced 0 Hx Number of Living Children 2 AB spontaneous 0 Past Pregnancies Del. Date GA/Weeks # Preg Succ Route Wgt Sex Labor Lgth Anesthesia Location Prov Compl 05/17/21 39 No Yes 7 lb 5 oz Female ON LICENSE OF [facility] 09/03/23 39 No Yes 7 lb 5 oz Female Maddison Joseph. aoc. Bilateral tubal sterilization. Delivery Date: 05/17/21 Last Updated by: Marie Siddiqui CNM Arrived with bleeding at 5 cms. AROM and meconium noted. Epidural placed and heart rate decelerations occurred after epidural. Had an emergency C/S at 7 cms under general anesthesia. Philippe Delivery Date: 09/03/23 Last Updated by: MD Nayana Caba Exam Const General: cooperative and comfortable Nutritional Appearance: obese Orientation: alert, awake and oriented x3 GI Inspection: normal to inspection and non-distended Palpation: soft, no guarding and tender Percussion: normal to percussion Auscultation: normal bowel sounds Results Last Vital Signs Temp 97.8 F 09/13/24 09:50 Pulse 89 09/13/24 09:50 Resp 12 09/13/24 09:50 BP 126/66 09/13/24 09:50 Pulse Ox 96 09/13/24 09:50 Labs 09/13/24 10:17 09/13/24 10:17 Labs: Laboratory Results - last 24 hr 09/13/24 09/13/24 09/13/24 10:17 10:24 15:09 WBC 12.65 H RBC 4.98 Hgb 11.9 Hct 38.4 MCV 77 L MCH 23.9 L MCHC 31.0 L RDW 15.4 H Plt Count 383 MPV 9.7 Immature Gran % 0.5 Neutrophils % 56.9 Lymphocytes % 19.6 Monocytes % 4.7 Eosinophils % 17.9 Basophils % 0.4 Nucleated RBC % 0.0 Absolute Neutrophils 7.20 H Absolute Lymphocytes 2.48 Absolute Monocytes 0.59 Absolute Eosinophils 2.26 H Absolute Basophils 0.05 RBC Morphology Normal ESR 3 VBG Lactate 0.9 Sodium 141 Potassium 3.7 Chloride 105 Carbon Dioxide 27.6 Anion Gap 8.4 BUN 6 L Creatinine 0.5 L Est GFR (CKD-EPI 2020) 124.58 Glucose 107 H Calcium 8.7 Magnesium 1.9 Total Bilirubin 0.5 AST 14 L ALT 22 Alkaline Phosphatase 73 C-Reactive Protein 0.87 H Total Protein 7.2 Albumin 3.5 Lipase 102 H Urine Color Yellow Urine Clarity Cloudy Urine pH 5.5 Ur Specific [place] >= 1.030 H Urine Protein 30 H Urine Ketones Negative Urine Blood Negative Urine Nitrite Negative Urine Bilirubin Negative Urine Urobilinogen 0.2 Ur Leukocyte Esterase Negative Urine RBC Negative Urine WBC Negative Ur Epithelial Cells Few Urine Crystals Many Amorphous Urine Bacteria Rare Urine Casts Negative Urine Mucus Negative Ur Culture Indicated? No Urine Glucose Negative Imaging Abdomen CT scan report/results: report reviewed and image reviewed CT scan - pelvis: report reviewed and image reviewed
[2024-09-13 16:33] VITALS: BP 119/72; PULSE 77; RESP 16
--- NOTE | 2024-09-13 16:40 | W.PC.ACHO ---
Registration Status: REG ER Primary Language: Preferred Language: Wolof ED Information & Data Chief Complaint Abd Prob 09/13/24 10:02 Triage Note Patient here with c/o abd 09/13/24 09:50 pain and diarrhea since friday. Here friday for the same. on abx for uti. having chills, no fever. Medical / Surgical History (Last Reviewed 12/16/23 @ 15:42 by Maddison Joseph DO) Sterilization History of obstructive sleep apnea History of trichomonal vaginitis (Last Reviewed 12/16/23 @ 15:42 by Maddison Joseph DO) Status post repeat low transverse section wisdome teeth extraction Incision & Drainage, Abscess or Hematoma Biopsy, Soft Tissue (01/15/17) Most Recent Vital Signs Temperature 36.6 C 09/13/24 09:50 Temperature Source Oral 09/13/24 09:50 Pulse 77 09/13/24 16:33 Respiratory Rate 16 09/13/24 16:33 Blood Pressure 119/72 09/13/24 16:33 Blood Pressure Mean 87 09/13/24 16:33 Blood Pressure Position Sitting 09/13/24 09:50 Pulse Oximetry 96 09/13/24 09:50 Oxygen Delivery Method Room Air 09/13/24 09:50 Oxygen Flow Rate 0 09/13/24 09:50 Allergies coconut Allergy (Severe, Verified 09/13/24 09:53) Anaphylaxis latex Allergy (Intermediate, Verified 09/13/24 09:53) Skin Rash vitamin E (From Enviro Stress) Allergy (Mild, Verified 09/13/24 09:53) Itching coconut oil Allergy (Verified 09/13/24 09:53) Anaphylaxsis Precautions Isolation Standard precaution 09/13/24 09:52 Active Medications Generic Name Dose Route Start Last Admin Trade Name Freq PRN Reason Stop Dose Admin Iohexol 100 ml 09/13/24 14:15 09/13/24 14:06 Omnipaque 350 Mg/Ml 100 Ml Btl IJ 10/13/24 23:59 100 ml DIRECTED RUBA Administration Sodium Chloride 50 ml 09/13/24 14:15 09/13/24 14:07 Normal Saline - Diluent 50 Ml Vial IJ 50 ml .FOR DI USE RUBA Administration IV IV Catheter Type [Left Saline Lock Antecubital] IV Catheter Gauge [Left 18 Antecubital] Diagnostics 09/13/24 09/13/2409/13/25 Range/Units 15:09 10:24 10:17 WBC 12.65 H (4.4-10.8) 10^3/uL RBC 4.98 (3.93-5.22) 10^6/uL Hgb 11.9 (11.2-15.7) g/dL Hct 38.4 (36.0-46.0) % MCV 77 L (80-95) fL MCH 23.9 L (27.0-33.0) pg MCHC 31.0 L (32.0-36.0) % RDW 15.4 H (11.7-14.6) % Plt Count 383 (130-400) 10^3/uL MPV 9.7 (8.0-11.0) fL Immature Gran % 0.5 % Neutrophils % 56.9 % Lymphocytes % 19.6 % Monocytes % 4.7 % Eosinophils % 17.9 % Basophils % 0.4 % Nucleated RBC % 0.0 (0.0-0.3) % Absolute Neutrophils 7.20 H (1.2-6.7) 10^3/uL Absolute Lymphocytes 2.48 (1.2-3.4) 10^3/uL Absolute Monocytes 0.59 (0.1-0.8) 10^3/uL Absolute Eosinophils 2.26 H (0.0-0.7) 10^3/uL Absolute Basophils 0.05 (0.0-0.2) 10^3/uL RBC Morphology Normal ESR 3 (0-20) mm/hr VBG Lactate 0.9 (<or=2.0) mmol/L Sodium 141 (136-145) mmol/L Potassium 3.7 (3.5-5.1) mmol/L Chloride 105 (98-107) mmol/L Carbon Dioxide 27.6 (21.0-32.0) mmol/L Anion Gap 8.4 (3-11) mmol/L BUN 6 L (7-18) mg/dL Creatinine 0.5 L (0.55-1.02) mg/dL Est GFR (CKD-EPI 2020) 124.58 (mL/min/1.73m2) Glucose 107 H (74-106) mg/dL Calcium 8.7 (8.5-10.1) mg/dL Magnesium 1.9 (1.8-2.4) mg/dL Total Bilirubin 0.5 (0.2-1.0) mg/dL AST 14 L (15-37) U/L ALT 22 (14-59) U/L Alkaline Phosphatase 73 (46-116) U/L C-Reactive Protein 0.87 H (<or=0.5) mg/dL Total Protein 7.2 (6.4-8.2) g/dL Albumin 3.5 (3.4-5.0) g/dL Lipase 102 H (<78) U/L Urine Color Yellow (Yellow) Urine Clarity Cloudy (Clear) Urine pH 5.5 (5-8) Ur Specific [place] >= 1.030 H (1.005-1.025) Urine Protein 30 H (Neg-Trace) mg/dL Urine Ketones Negative (Negative) mg/dL Urine Blood Negative (Negative) Urine Nitrite Negative (Negative) Urine Bilirubin Negative (Negative) Urine Urobilinogen 0.2 (Up to 0.2) mg/dL Ur Leukocyte Esterase Negative (Negative) Urine RBC Negative (0-2) HPF Urine WBC Negative (0-5) HPF Ur Epithelial Cells Few (Negative) HPF Urine Crystals Many Amorphous (Negative) HPF Urine Bacteria Rare (Negative) HPF Urine Casts Negative (Negative) LPF Urine Mucus Negative (Negative) Ur Culture Indicated? No Urine Glucose Negative (Negative) mg/dL [id number] Documentation POC Urine Test Start: 09/13/24 10:28 Freq: Status: Active Protocol: Activity Type Activity Date Activity User E-sign Co-sign Detail Recorded Client Recorded Date Recorded By Document 09/13/24 10:29 CF [id number] 09/13/24 10:29 CF Intake and Output - 24 Hour Total 09/13/24 09:36 thru 09/13/24 16:30 Intake Total 1000 Balance 1000 Weight 117.48 kg Intake: IV 1000 Falls Risk Assessment History of Falls No History 09/13/24 09:52 Contributing Factors No Factors 09/13/24 09:52 Ambulatory Aids Independent 09/13/24 09:52 Tubes/Lines None 09/13/24 09:52 Gait Evaluation No gait disturbance 09/13/24 09:52 Cognition No cognitive impairment 09/13/24 09:52 Fall Total Score 0 09/13/24 09:52 Level of Risk Standard/Low Risk 09/13/24 09:52 Problems (Last Reviewed 12/16/23 @ 15:42 by Maddison Joseph DO) Colitis (Acute) Urinary tract infection (Acute) v v v v v v v v v Sending and/or Receiving Nurses: Please use comment section below to note any information pertinent to the patient hand-off not included above. Information / Comments: Report received from: Jesi SO (Emergency Department @ [id number])
[2024-09-13 16:45] VITALS: BP 119/72; PULSE 77; RESP 16; O2SAT 98
[2024-09-13 17:00] VITALS: BP 134/83; PULSE 85; RESP 16; TEMP 36.6; O2SAT 98
[2024-09-13] MEDS: Acetaminophen 325 MG TAB PO ×2 (17:20→20:44)
--- NOTE | 2024-09-13 18:59 | W.PC.ACHO ---
Registration Status: ADM IN Primary Language: Preferred Language: Maori ED Information & Data Chief Complaint Abd Prob 09/13/24 10:02 Triage Note Patient here with c/o abd 09/13/24 09:50 pain and diarrhea since friday. Here friday for the same. on abx for uti. having chills, no fever. Medical / Surgical History (Last Reviewed 12/16/23 @ 15:42 by Maddison Joseph DO) Sterilization History of obstructive sleep apnea History of trichomonal vaginitis (Last Reviewed 12/16/23 @ 15:42 by Maddison Joseph DO) Status post repeat low transverse section wisdome teeth extraction Incision & Drainage, Abscess or Hematoma Biopsy, Soft Tissue (01/15/17) Most Recent Vital Signs Temperature 36.6 C 09/13/24 17:00 Temperature Source Oral 09/13/24 09:50 Pulse 85 09/13/24 17:00 Pulse Rhythm Regular 09/13/24 17:00 Respiratory Rate 16 09/13/24 17:00 Respiratory Effort Normal 09/13/24 17:00 Respiratory Depth Normal 09/13/24 17:00 Respiratory Pattern Normal 09/13/24 17:00 Blood Pressure 134/83 09/13/24 17:00 Blood Pressure Mean 87 09/13/24 16:33 Blood Pressure Position Sitting 09/13/24 09:50 Pulse Oximetry 98 09/13/24 17:00 Oxygen Delivery Method Room Air 09/13/24 17:00 Oxygen Flow Rate 0 09/13/24 17:00 Pain Level 9 09/13/24 17:20 Allergies coconut Allergy (Severe, Verified 09/13/24 09:53) Anaphylaxis latex Allergy (Intermediate, Verified 09/13/24 09:53) Skin Rash vitamin E (From Enviro Stress) Allergy (Mild, Verified 09/13/24 09:53) Itching coconut oil Allergy (Verified 09/13/24 09:53) Anaphylaxsis Precautions Isolation Standard precaution 09/13/24 09:52 Active Medications Generic Name Dose Route Start Last Admin Trade Name Freq PRN Reason Stop Dose Admin Acetaminophen 0 mg 09/13/24 16:41 09/13/24 17:20 Acetaminophen 325 Mg Tab PO 650 mg Q4H PRN PRN Administration Iohexol 100 ml 09/13/24 14:15 09/13/24 14:06 Omnipaque 350 Mg/Ml 100 Ml Btl IJ 10/13/24 23:59 100 ml DIRECTED RUBA Administration Sodium Chloride 50 ml 09/13/24 14:15 09/13/24 14:07 Normal Saline - Diluent 50 Ml Vial IJ 50 ml .FOR DI USE RUBA Administration IV IV Catheter Type [Left Peripheral IV Antecubital] IV Catheter Gauge [Left 18 Antecubital] Diet Orders Category Date Time Status Nothing Per Oral [DIET] Nutrition 09/13/24 16:41 Active Diagnostics 09/13/24 09/13/24 09/13/24 Range/Units 15:09 10:24 10:17 WBC 12.65 H (4.4-10.8) 10^3/uL RBC 4.98 (3.93-5.22) 10^6/uL Hgb 11.9 (11.2-15.7) g/dL Hct 38.4 (36.0-46.0) % MCV 77 L (80-95) fL MCH 23.9 L (27.0-33.0) pg MCHC 31.0 L (32.0-36.0) % RDW 15.4 H (11.7-14.6) % Plt Count 383 (130-400) 10^3/uL MPV 9.7 (8.0-11.0) fL Immature Gran % 0.5 % Neutrophils % 56.9 % Lymphocytes % 19.6 % Monocytes % 4.7 % Eosinophils % 17.9 % Basophils % 0.4 % Nucleated RBC % 0.0 (0.0-0.3) % Absolute Neutrophils 7.20 H (1.2-6.7) 10^3/uL Absolute Lymphocytes 2.48 (1.2-3.4) 10^3/uL Absolute Monocytes 0.59 (0.1-0.8) 10^3/uL Absolute Eosinophils 2.26 H (0.0-0.7) 10^3/uL Absolute Basophils 0.05 (0.0-0.2) 10^3/uL RBC Morphology Normal ESR 3 (0-20) mm/hr VBG Lactate 0.9 (<or=2.0) mmol/L Sodium 141 (136-145) mmol/L Potassium 3.7 (3.5-5.1) mmol/L Chloride 105 (98-107) mmol/L Carbon Dioxide 27.6 (21.0-32.0) mmol/L Anion Gap 8.4 (3-11) mmol/L BUN 6 L (7-18) mg/dL Creatinine 0.5 L (0.55-1.02) mg/dL Est GFR (CKD-EPI 2020) 124.58 (mL/min/1.73m2) Glucose 107 H (74-106) mg/dL Calcium 8.7 (8.5-10.1) mg/dL Magnesium 1.9 (1.8-2.4) mg/dL Total Bilirubin 0.5 (0.2-1.0) mg/dL AST 14 L (15-37) U/L ALT 22 (14-59) U/L Alkaline Phosphatase 73 (46-116) U/L C-Reactive Protein 0.87 H (<or=0.5) mg/dL Total Protein 7.2 (6.4-8.2) g/dL Albumin 3.5 (3.4-5.0) g/dL Lipase 102 H (<78) U/L Urine Color Yellow (Yellow) Urine Clarity Cloudy (Clear) Urine pH 5.5 (5-8) Ur Specific [place] >= 1.030 H (1.005-1.025) Urine Protein 30 H (Neg-Trace) mg/dL Urine Ketones Negative (Negative) mg/dL Urine Blood Negative (Negative) Urine Nitrite Negative (Negative) Urine Bilirubin Negative (Negative) Urine Urobilinogen 0.2 (Up to 0.2) mg/dL Ur Leukocyte Esterase Negative (Negative) Urine RBC Negative (0-2) HPF Urine WBC Negative (0-5) HPF Ur Epithelial Cells Few (Negative) HPF Urine Crystals Many Amorphous (Negative) HPF Urine Bacteria Rare (Negative) HPF Urine Casts Negative (Negative) LPF Urine Mucus Negative (Negative) Ur Culture Indicated? No Urine Glucose Negative (Negative) mg/dL [id number] Documentation POC Urine Test Start: 09/13/24 10:28 Freq: Status: Active Protocol: Activity Type Activity Date Activity User E-sign Co-sign Detail Recorded Client Recorded Date Recorded By Document 09/13/24 10:29 CF [id number] 09/13/24 10:29 CF Intake and Output - 24 Hour Total 09/13/24 09:36 thru 09/13/24 17:48 Intake Total 1000 Output Total 200 Balance 800 Weight 117.48 kg Intake: IV 1000 Output: Urine 200 Other: Urine Color Pale Urine Appearance Clear Urine Odor None Falls Risk Assessment History of Falls No History 09/13/24 17:00 Contributing Factors No Factors 09/13/24 17:00 Ambulatory Aids Independent 09/13/24 17:00 Tubes/Lines None 09/13/24 17:00 Gait Evaluation No gait disturbance 09/13/24 17:00 Cognition No cognitive impairment 09/13/24 17:00 Fall Total Score 0 09/13/24 17:00 Level of Risk Standard/Low Risk 09/13/24 17:00 Problems (Last Reviewed 12/16/23 @ 15:42 by Maddison Joseph DO) Colitis (Acute) Urinary tract infection (Acute) v v v v v v v v v Sending and/or Receiving Nurses: Please use comment section below to note any information pertinent to the patient hand-off not included above. Information / Comments: Report received from: [facility]
[2024-09-13 19:42] VITALS: BP 115/61; PULSE 79; RESP 18; TEMP 36.4; O2SAT 97
[2024-09-13] MEDS: Cephalexin 500 MG CAP PO (20:00)
[2024-09-13] MEDS: Normal Saline Flush 10 ML SYR IVP (20:00)
[2024-09-13 23:03] VITALS: BP 120/72; PULSE 86; RESP 15; TEMP 36.2; O2SAT 96
[2024-09-14] VITALS (7 sets, daily range): BP systolic 115–141; BP diastolic 77–87; PULSE 75–94; RESP 16–18; TEMP 36.2–37; O2SAT 95–98; BMI 43.1
[2024-09-14] MEDS: HYDROmorphone 2 MG/ML SYR 0.5 MG IVP ×4 (05:37→22:12)
[2024-09-14] MEDS: Normal Saline Flush 10 ML SYR IVP ×4 (05:37→22:12)
[2024-09-14 06:31] LABS: HCT 35.3 % (36.0-46.0); HGB 11.2 g/dL (11.2-15.7); MCH 24.3 pg (27.0-33.0); MCHC 31.7 % (32.0-36.0); MCV 77 fL (80-95); MPV 9.7 fL (8.0-11.0); Platelet Count 346 10^3/uL (130-400); RBC 4.61 10^6/uL (3.93-5.22); RDW 15.4 % (11.7-14.6); RDW-SD 42.3 fL; WBC 11.06 10^3/uL (4.4-10.8)
[2024-09-14 06:59] LABS: ALT 19 U/L (14-59); AST 12 U/L (15-37); Albumin 3.1 g/dL (3.4-5.0); Alkaline Phosphatase 66 U/L (46-116); Anion Gap 9.6 mmol/L (3-11); BUN 4 mg/dL (7-18); Bilirubin, Total 0.6 mg/dL (0.2-1.0); CO2 25.4 mmol/L (21.0-32.0); Calcium 8.2 mg/dL (8.5-10.1); Chloride 107 mmol/L (98-107); Estimated GFR 131.46 (mL/min/1.73m2); Glucose 86 mg/dL (74-106); Magnesium 1.9 mg/dL (1.8-2.4); Potassium 3.4 mmol/L (3.5-5.1); Sodium 142 mmol/L (136-145); Total Protein 6.4 g/dL (6.4-8.2)
[2024-09-14] MEDS: Omeprazole 20 MG CAPCR PO (09:02)
[2024-09-14] MEDS: Cephalexin 500 MG CAP PO ×4 (09:03→20:49)
[2024-09-14] MEDS: Acetaminophen 325 MG TAB PO (09:03)
--- NOTE | 2024-09-14 10:44 | INITIAL_ITS ---
Date of service: 09/14/24 Time of Service: 10:44 Care Management Initial Assmt Initial Assessment Reason for Hospitalization: colitis, abdominal pain Functional Status/Living Situation Patient Presentation: Karin presented to the ED yesterday morning with c/o nausea, vomiting, diarrhea and abdominal pain. Imaging showed some form of colitis, and it was recommended that Karin have a colonoscopy for definitive diagnosis. CM has tried to meet with Karin several times today. She has been on the phone, sleeping, and at her colonoscopy during those attempts. Town of Residence: [facility] Significant Other/Family: Local (sister, Elodia and cousin, Kaur) Natural Supports: friends and family Instrumental Activities of Daily Living (ADLs): Independent Advance Directives Advance Directives: Do you have an Advance Directive: N , 17:05 AD On File at [facility]: N 07/06/12, 21:12 Date Asked 09/13/24 09/13/24, 09:38 AD Date Reviewed COLST On File at [facility] COLST Date Scanned Code Status Resuscitation Status Full Code Insurance Coverage/Financial Issues Insurance: Medicaid of [place]? Care Team Visit Care Team Role Provider Type JAMAR SANCHEZ NP Primary Care Provider NON-[facility] STAFF PHYSICIAN JOSE Ruano Emergency Provider PHYSICIANS CALL OUT CLERK Mehul Bowser MD Admit Provider [facility] STAFF PHYSICIAN Attending Provider Discharge Potential Discharge Needs: PCP F/U Appt Anticipated Barriers to Discharge: None Identified Patient/Family Education Needs: Review discharge instructions, discuss Ask Me Three Transportation: Private vehicle Plan: Anticipate that Karin will be discharged home with no new services. She will f/u with her PCP, and possibly with GI, and continue per her plan of care. She will transport home in a private vehicle. CM will continue to follow. Social Determinants of Health Screening Social Determinants of health last assessed in clinic: 09/14/24 Will the Patient Participate in the Screening?: Yes Do you worry about having a steady place to live?: no Problems where you live: no known problems In the past 12 months, have you had to go without electric, gas, oil or water in your home?: no 1. Within the past 12 months, we worried whether our food would run out before we got money to buy more.: Don't know/refused 2. Within the past 12 months, the food we bought just didn't last and we didn't have money to get more.: Don't know/refused Has lack of transportation kept you from medical appointments or from doing things needed for daily living?: no Has anyone in your life made you feel unsafe or unsupported?: no How hard is it for you to pay for the very basics like food, housing, medical care, and heating? Would you say it is:: Not hard at all Do you want help finding or keeping work or a job?: I do not need or want help If for any reason you need help with day-to-day activities such as bathing, preparing meals, shopping, managing finances, etc., do you get the help you need?: I don?t need any help How often do you feel lonely or isolated from those around you?: Never Do you speak a language other than Brazilian at home?: No Does the patient want assistance with any of the above?: No PFSH All Active Problems (Updated 09/13/24 @ 15:28 by JOSE Ruano) Pancreatitis (Chronic) Ascites (Acute) Colitis (Acute) Urinary tract infection (Acute) Acute respiratory infection (Acute) Duodenitis (Acute) GERD (gastroesophageal reflux disease) (Chronic) Anxiety (Chronic) Bipolar disorder (Chronic) Adult BMI 39.0-39.9 kg/sq m (Acute) Anemia (Chronic) Family history of transposition of great arteries (Acute) Maternal cousin's child Hidradenitis suppurativa (Chronic) Moderate episode of recurrent major depressive disorder (Acute 04/03/17) Medical History Sterilization Bilateral salpingectomy at time of section performed 09/03/2023. History of obstructive sleep apnea History of trichomonal vaginitis Surgical History Status post repeat low transverse section Repeat low-transverse section 09/03/2023. Female infant.Nayana Intraoperative bilateral salpingectomy wisdome teeth extraction Incision & Drainage, Abscess or Hematoma 07/14/16-ED [facility] Biopsy, Soft Tissue (01/15/17) left and right axillae Social History Smoking/Tobacco Use Status: Former Tobacco Use Tobacco: How many years used: 15 Smoking risk assessment performed?: Yes Alcohol Intake: former Drug use: Never Substance use type: does not use Counseling given: No Household members: children and other Details: Nayana Joseph Housing: house Number of Children: 2 Seatbelt use: always Do you feel safe at home: Yes Do you feel safe in your relationship?: Yes Female Reproductive History Menstrual control method: progesterone injection History History 2 Para 2 Hx # Term Pregnancies 2 Multiple births 0 Hx # Pregnancies 0 Ectopic pregnancies 0 AB induced 0 Hx Number of Living Children 2 AB spontaneous 0 Past Pregnancies Del. Date GA/Weeks # Preg Succ Route Wgt Sex Labor Lgth Anesth esia Location Prov Complic 05/17/21 39 No Yes 3316.894 g Female N CH 09/03/23 39 No Yes 3316.894 g Female K jocelin Joseph. aoc. Bilateral tubal sterilization. Delivery Date: 05/17/21 Last Updated by: Marie Siddiqui CNM Arrived with bleeding at 5 cms. AROM and meconium noted. Epidural placed and heart rate decelerations occurred after epidural. Had an emergency C/S at 7 cms under general anesthesia. Philippe Delivery Date: 09/03/23 Last Updated by: MD Nayana Caba
[2024-09-14 12:07] LABS: Cannabinoids THC Negative (Negative); METHADONE URINE SCREEN Negative (Negative)
--- NOTE | 2024-09-14 12:13 | PHA.REVIEW2 ---
Pharmacy Admission Review Admission Clinical Review Admission Pharmacy Review: Colitis (Acute) Urinary tract infection (Acute) coconut Allergy (Severe, Verified 09/13/24 09:53) Anaphylaxis latex Allergy (Intermediate, Verified 09/13/24 09:53) Skin Rash vitamin E (From Enviro Stress) Allergy (Mild, Verified 09/13/24 09:53) Itching coconut oil Allergy (Verified 09/13/24 09:53) Anaphylaxsis Resuscitation Status Full Code Height 5 ft 5 in Weight 117.48 kg Pharmacy Admission Review Renal Dosing Renal Dosing: BUN 4 mg/dL (7-18) L 09/14/24 06:18 Creatinine 0.4 mg/dL (0.55-1.02) L 09/14/24 06:18 Medications needing adjustments: Reviewed (No dose adjustment necessary. Crcl > 100ml/min) Anticoagulation Anticoagulation: Hgb 11.2 g/dL (11.2-15.7) 09/14/24 06:18 Hct 35.3 % (36.0-46.0) L 09/14/24 06:18 Plt Count 346 10^3/uL (130-400) 09/14/24 06:18 Creatinine 0.4 mg/dL (0.55-1.02) L 09/14/24 06:18 DVT Prophylaxis: N/A (Hemoglobin and hematocrit needs monitoring) Opiate Usage Evaluate Pain Scale/Pains Meds: Reviewed (Patient was at a pain level of 10 as of 09/13. Received 0.5mg hydromorphone. Pain has subsided) Scheduled Bowel Reg ordered if on Opiates?: Yes (Docusate sodium) Relevant Labs Relevant Labs: ESR 3 mm/hr (0-20) 09/13/24 10:17 Sodium 142 mmol/L (136-145) 09/14/24 06:18 Potassium 3.4 mmol/L (3.5-5.1) L 09/14/24 06:18 Chloride 107 mmol/L (98-107) 09/14/24 06:18 Magnesium 1.9 mg/dL (1.8-2.4) 09/14/24 06:18 C-Reactive Protein 0.87 mg/dL (<or=0.5) H 09/13/24 10:17 Potassium low at 3.4mmol/L. Needs monitoring Cardiac Review Cardiac Review: Blood Pressure 125/79 Blood Pressure 125/79 Blood Pressure 115/77 BP, HR, EF%: Reviewed (Blood pressure is stable and so is the HR) Home Meds Home Med List reviewed: Reviewed (Patient's only home med omeprazole ordered but currently on NPO pending colonoscopy scheduled today) Current Meds Current Medication Order Review: Reviewed Pharmacy Antibiotic Review Relevant Labs: Relevant Labs 09/13/24 10:17 C-Reactive Protein 0.87 H
--- NOTE | 2024-09-14 14:09 | CHAPLAIN ---
Shannan said she's not feeling much better. She was pleasant and easily engaged in conversation. I explained my role and offered support.
[2024-09-14] MEDS: Ondansetron 4 MG/2 ML VIAL IVP (14:16)
--- NOTE | 2024-09-14 14:44 | ANES.PREOP_ITS ---
General Info Date of Service Date Performed: 09/14/24 Height: 5 ft 5 in Weight: 117.48 kg Body Mass Index (BMI): 43.1 Surgical Procedure: Operation Date: 09/14/24 15:35 Proposed Procedure Side Surgeon p Colonoscopy/Gastroscopy Ceferino Owen MD Meds Allergies and Home Medications Allergies Allergy/AdvReac Type Severity Reaction Status Date / Time coconut Allergy Severe Anaphylaxis Verified 09/13/24 09:53 latex Allergy Intermediate Skin Rash Verified 09/13/24 09:53 vitamin E (From Enviro Allergy Mild Itching Verified 09/13/24 09:53 Stress) coconut oil Allergy Anaphylaxsi Verified 09/13/24 09:53 s Home Medication ?Medication ?Instructions ?Recorded omeprazole 20 mg capsule,delayed 20 mg PO DAILY #30 ca ps 08/24/24 release cephalexin 500 mg capsule 500 mg PO QID 7 days #28 cap s 09/11/24 Current Visit Medications: Current Medications Generic Name Dose Route Start Last Admin Trade Name Freq PRN Reason Stop Dose Admin Acetaminophen 0 mg 09/13/24 16:41 09/14/24 09:03 Acetaminophen 325 Mg Tab PO 650 mg Q4H PRN PRN Administration Cephalexin 500 mg 09/13/24 20:00 09/14/24 12:13 Cephalexin 500 Mg Cap PO 500 mg QID RUBA Administration Docusate Sodium 100 mg 09/13/24 16:41 Docusate Sodium 100 Mg Cap PO TID PRN PRN Hydromorphone HCl 0.5 mg 09/13/24 23:45 09/14/24 09:28 Hydromorphone 2 Mg/Ml Syr IVP 0.5 mg Q4H PRN PRN Administration IV Miscellaneous Supplies 1 each 09/13/24 16:41 Iv Access IV DIRECTED RUBA Omeprazole 20 mg 09/14/24 08:30 09/14/24 09:02 Omeprazole 20 Mg Capcr PO 20 mg DAILY RUBA Administration Ondansetron HCl 4 mg 09/14/24 11:54 09/14/24 14:16 Ondansetron 4 Mg/2 Ml Vial IVP 4 mg Q6H PRN PRN Administration Nausea / Vomiting Polyethylene Glycol 17 gm 09/13/24 16:41 Polyethylene Glycol 3350 17 Gm Packet PO DAILY PRN PRN Constipation Polyethylene Glycol 17 gm 09/13/24 16:41 Polyethylene Glycol 3350 17 Gm Packet PO DAILY PRN PRN Constipation Sodium Chloride 50 ml 09/13/24 14:15 09/13/24 14:07 Normal Saline - Diluent 50 Ml Vial IJ 50 ml .FOR DI USE RUBA Administration Sodium Chloride 0 ml 09/13/24 16:41 09/14/24 05:37 Normal Saline Flush 10 Ml Syr IVP 20 ml PRN PRN Administration Sodium Chloride 0 ml 09/13/24 20:00 09/14/24 09:00 Normal Saline Flush 10 Ml Syr IVP 10 ml BID RUBA Administration Sodium Chloride 0 ml 09/13/24 16:41 Normal Saline 10 Ml Vial IJ DIRECTED PRN Sodium Cl/Sod Bicarb/Potass Cl/PEG 4,000 ml 09/13/24 17:00 Gavilyte-G 4000 Ml Btl PO DIRECTED RUBA PFSH Active Problems Active Problems: Problem Status Onset Code Pancreatitis Chronic K85.90 Ascites Acute R18.8 Colitis Acute K52.9 Urinary tract infection Acute N39.0 Acute respiratory infection Acute J22 Duodenitis Acute K29.80 GERD (gastroesophageal reflux disease) Chronic K21.9 Anxiety Chronic F41.9 Bipolar disorder Chronic Adult BMI 39.0-39.9 kg/sq m Acute Z68.39 Anemia Chronic D64.9 Family history of transposition of great arteries Acute Z82.79 Hidradenitis suppurativa Chronic L73.2 Moderate episode of recurrent major depressive disorder Acute 04/03/17 F33.1 Medical History Medical History Sterilization Bilateral salpingectomy at time of section performed 09/03/2023. History of obstructive sleep apnea History of trichomonal vaginitis Surgical History Surgical History Status post repeat low transverse section Repeat low-transverse section 09/03/2023. Female .Nayana Intraoperative bilateral salpingectomy wisdome teeth extraction Incision & Drainage, Abscess or Hematoma 07/14/16-ED [facility] Biopsy, Soft Tissue (01/15/17) left and right axillae Tobacco Smoking/Tobacco Use Status: Former Tobacco Use Passive smoking exposure: No Alcohol Alcohol Intake: former Substance Use Substance use: Never Substance use type: does not use Prental History History 2 2 Para 2 Hx # Term Pregnancies 2 Multiple births 0 Hx # Pregnancies 0 Ectopic pregnancies 0 AB induced 0 Hx Number of Living Children 2 AB spontaneous 0 Past Pregnancies Del. Date GA/Weeks # Preg Succ Route Wgt Sex Labor Lgth Anesth esia Location Prov Complic 05/17/21 39 No Yes 3316.894 g Female N CH 09/03/23 39 No Yes 3316.894 g Female K jocelin Joseph. aoc. Bilateral tubal sterilization. Delivery Date: 05/17/21 Last Updated by: Marie Siddiqui CNM Arrived with bleeding at 5 cms. AROM and meconium noted. Epidural placed and heart rate decelerations occurred after epidural. Had an emergency C/S at 7 cms under general anesthesia. Philippe Delivery Date: 09/03/23 Last Updated by: MD Nayana Caba Vital Signs and Lab Results Vital Signs Most Recent Vital Signs in EMR: Most Recent Vital Signs Temp Pulse Resp BP Pulse Ox 36.7 C 78 16 125/79 98 09/14/24 11:16 09/14/24 11:16 09/14/24 11:16 09/14/24 11:16 09/14/24 11:16 Point of Care Results Point of Care Results: POC- Test(urine) Negative 09/13/24 10:29 Lab Results 09/14/24 06:18 09/14/24 06:18 Complete Blood Count: 2 WBC, (4.4-10.8) 11.06 10^3/uL H Today, 06:18 RBC, (3.93-5.22) 4.61 10^6/uL Today, 06:18 Hgb, (11.2-15.7) 11.2 g/dL Today, 06:18 Hct, (36.0-46.0) 35.3 % L Today, 06:18 Plt Count, (130-400) 346 10^3/uL Today, 06:18 VBG Lactate, (<or=2.0) 0.9 mmol/L 09/13/24, 15:09 Complete Metabolic Panel: 2 Sodium, (136-145) 142 mmol/L Today, 06:18 Potassium, (3.5-5.1) 3.4 mmol/L L Today, 06:18 Chloride, (98-107) 107 mmol/L Today, 06:18 Carbon Dioxide, (21.0-32.0) 25.4 mmol/L Today, 06:18 BUN, (7-18) 4 mg/dL L Today, 06:18 Creatinine, (0.55-1.02) 0.4 mg/dL L Today, 06:18 Est GFR (CKD-EPI 2020), (mL/min/1.73m2) 131.46 Today, 06:18 Magnesium, (1.8-2.4) 1.9 mg/dL Today, 06:18 Calcium, (8.5-10.1) 8.2 mg/dL L Today, 06:18 Albumin, (3.4-5.0) 3.1 g/dL L Today, 06:18 Glucose, (74-106) 86 mg/dL Today, 06:18 C-Reactive Protein, (<or=0.5) 0.87 mg/dL H 09/13/24, 10:17 Liver Function Panel: 2 ALT, (14-59) 19 U/L Today, 06:18 AST, (15-37) 12 U/L L Today, 06:18 Pancreas Panel: 2 Lipase, (<78) 102 U/L H 09/13/24, 10:17 Toxicology Panel: 2 Ur Amphetamines Screen, (Negative) Negative Today , 11:30 U Benzodiazepines Scrn, (Negative) Negative Today , 11:30 Ur Barbiturates Screen, (Negative) Negative Today , 11:30 Urine Cocaine Screen, (Negative) Negative Today, 11:30 Urine Methadone Screen, (Negative) Negative Today , 11:30 Urine Opiates Screen, (Negative) Positive A Today, 11:30 Ur Tricyclics Screen, (Negative) Negative Today, 11:30 Ur THC Screen, (Negative) Negative Today, 11:30 Anesthesia Assessment and Plan Anesthesia History Personal History: No History of Anesthesia Complications Family History: No Family History of Anesthesia Complications Exercise Tolerance Exercise Tolerance: Metabolic Equivalents>4 Pertinent Negatives Pertinent Negatives: No Symptoms of GERD Cardiac & Pulmonary Exam Cardiac Exam: Normal S1/S2 Heart Sounds Pulmonary Exam: Clear Bilateral Breath Sounds Implantable Cardiac Device Does patient have a Pacemaker or an ICD?: No Airway Exam Known Difficult Airway: No Mallampati Class: 1 Mouth Opening: Normal (> 3cm) Thyromental Distance: Greater than 3 cm Neck Range of Motion: Full ROM Neck Circumference: Normal Teeth Condition: Normal Dentition ASA Classification ASA Score: ASA 3 Emergency Case?: No NPO Status NPO Status: NPO Clears >2 hours, Solids >8 hours Status Status: Negative HCG Anesthesia Plan Resuscitation Status: Full Code Anesthesia Technique: General Anesthesia Airway Planned: Natural Airway Monitors Used: Standard Monitors
[2024-09-14] MEDS: Lactated Ringers 1,000 ML 50 ML IV (15:30)
--- NOTE | 2024-09-14 15:39 | BOWEL_PTH ---
PATIENT: Shannan Castillo LOC: U#:[id number] AGE/SX: 34/F ROOM: 217 RE09/13/[address]: Mehul Bowser MD : [id number] BED: A DIS: 09/15/2024 SPEC #: [id number] RECD: 09/14/24 17:48 STATUS: TERENCE REQ #: [id number] MYNOR: 09/14/24 15:[address]: Mehul Bowser DEPT: Surgical Specimen RECD BY: Aide Ellison ENTERED: 09/14/24 17:49 SP TYPE: Bowel OTHR DR: JAMAR SANCHEZ, MANUELA Tissues: 1 - BIOPSY BOWEL 2 - BIOPSY BOWEL Procedures: GROSS AND MICRO LEVEL 4 IMMUNOPEROXIDASE STAIN Comments: [id number]
--- NOTE | 2024-09-14 16:03 | COLE_ITS ---
Date of service: 09/14/24 Time of Service: 16:03 Colonoscopy Report Date of procedure: 09/14/24 Pre-op diagnosis general: Duodenitis and colitis Post-op diagnosis procedure note: same Procedure: EGD with biopsies and colonoscopy with biopsies Surgeon: Ceferino Owen Anesthesia Type: General:No Airway Estimated blood loss (mL): 10 Pathology: other (Biopsies of duodenum, biopsies of ascending colon) Complications: None Disposition: PACU Indications: Karin is a 34-year-old woman who comes to the hospital with abdominal pain nausea and vomiting. CT scan demonstrated duodenitis with ascending colitis and terminal ileitis. Prep: Miralax/Dulcolax Procedure Start Time: 15:36 Procedure End Time: 15:57 Retraction Time: 4 Findings: Duodenitis with edematous, but otherwise noninflamed duodenal mucosa; normal GE junction at 36 cm past the incisors; ascending colitis with edematous but otherwise noninflamed colon mucosa Procedure Description: After the initiation of anesthesia, and with the assistance of a bite block, I advanced a standard gastroscope through the mouth past the hypopharynx and into the esophagus.? Under the direct vision of the scope, I advanced down the esophagus towards the stomach. The upper, mid, and lower esophagus were all normal in course and caliber. Mucosa was normal and healthy appearing. The Z- line was regular, and the GE junction measured 36 cm past the incisors. I advanced down into the stomach with ease. There was quite a bit of bile within the stomach. This was irrigated clear. The stomach was then insufflated until the rugae were obliterated. Retroflexion was performed. There was no hiatal hernia. I saw no evidence of any gastritis. There is no evidence of any peptic ulcer disease. I advanced down across the pylorus into the duodenum. The duodenal bulb was normal. The first portion of the duodenum was extremely edematous, and the lumen was quite compromised. I could gently and slowly advance down to the third portion of the duodenum. There was bile here. There was no evidence of any bleeding. Again, the mucosa was extremely edematous, but not friable. There was no evidence of any active mucosal inflammation. I performed some nondirected cold forceps biopsies of the duodenum in an effort to help reveal the diagnosis. These were done with no significant bleeding. I then brought the camera back up into the stomach. The stomach was emptied, and the camera was then removed out along the length of the esophagus 1 last time. No other abnormalities were appreciated. Next we rolled Karin into the left lateral decubitus position. I began by performing an external anorectal exam.? Perineum and skin were normal, as was the anal verge.? There was no evidence of external hemorrhoids.? Next, I performed a digital rectal exam.? I did not appreciate any abnormal findings.? Next, I advanced a colonoscope into the rectal vault.? I performed retroflexion.? This appeared normal. The rectal mucosa was all normal and healthy.? I saw no evidence of any ulcerative colitis. Using irrigation, I then advanced the colonoscope beyond the rectal folds and into the sigmoid colon before advancing towards the cecum.? The quality of the prep was outstanding.? As the scope came around the hepatic flexure, and retrograde through the ascending colon, there was fairly discrete transition of the colonic mucosa. This was very similar to the duodenal mucosa. It was edematous, but not at all friable. I advanced down into the cecum. Despite several efforts at cannulating the terminal ileum, I was unable to achieve this. This was secondary to some anatomic factors, as well as significant edema compromising the lumen. Given the other findings, I did not think there was much benefit to ongoing efforts to examine the terminal ileum. As the imaging of the CT scan, seem largely congruent with what was observed within the lumen. In that regards, the cecum and ascending colon I thought would be termite control service representative of the terminal ileum. Therefore, I performed some nondirected cold forceps biopsies of the cecum and ascending colon similar to the duodenum. These were performed with cold forceps with no significant bleeding. I then slowly brought the cam era back out along the length of the esophagus. The transverse, descending, and sigmoid colon's were all normal. I saw no evidence of any pathology. The camera was then removed, the patient was awoken from the anesthetic, transferred to the recovery unit.
--- NOTE | 2024-09-14 16:37 | W.ANESPOSTOP ---
Postoperative Evaluation Date, Time and Location Date Performed: 09/14/24 Time Performed: 16:30 Patient Location: PACU Vital Signs Most Recent Imported Vital Signs: Most Recent Vital Signs Temp Pulse Resp BP Pulse Ox 36.5 C 78 16 125/79 98 09/14/24 16:18 09/14/24 11:16 09/14/24 11:16 09/14/24 11:16 09/14/24 11:16 Pain Score Most Recent Pain Score: Most Recent Pain Score Pain Level 0 09/14/24 11:16 Assessment Mental Status: Awake (Alert & Oriented to Patient Baseline) Airway and Respiratory Function: Patent airway with normal (patient baseline) respiratory exam Cardiovascular Function: Hemodynamically Stable Hydration Status: Adequately Hydrated Nausea & Vomiting: No Nausea or Vomiting Pain: Pt. Denies Any Pain Peripheral Nerve Block: Patient did not receive a nerve block
[2024-09-14 22:35] LABS: EPI 027-NAP1-B1 PRESUMPTIVE NEGATIVE
--- NOTE | 2024-09-14 23:17 | W.PM.PROGNOT ---
Date of Service Date of service: 09/14/24 Time of Service: 09:05 Assessment and Plan Assessment and plan (1) Colitis: Status: Acute Assessment and plan: - Given patient presenting symptoms of nausea vomiting and diarrhea, abdominal pain, as well as imaging findings with wall thickening of the duodenum distal ileum, ascending colon as well as intra-abdominal fluid fluid, patient appears to have some form of colitis - However, patient is without fevers, leukocytosis, and does not have any increase in inflammatory markers - Differential is broad at this time but includes viral gastroenteritis, inflammatory bowel disease - Case was discussed with general surgery while patient was in the emergency department, plan for colonoscopy later today, 09/14/2024 - Patient will be n.p.o. at this time (2) Urinary tract infection: Status: Deleted Assessment and plan: - Continue cephalexin for UTI Subjective Subjective Interval history since last seen: Patient seen prior to colonoscopy, and is looking forward to having potential diagnosis for her abdominal discomfort. Exam Narrative Exam Narrative: Well-appearing young female sitting up in the edge of the bed no acute distress, ANO x 4, heart regular rhythm, lungs, auscultation bilaterally, abdomen with diffuse tenderness without guarding or rebound Objective Last Vital Signs Temp 97.2 F L 09/14/24 17:17 Pulse 87 09/14/24 17:17 Resp 16 09/14/24 17:17 BP 141/87 H 09/14/24 17:17 Pulse Ox 96 09/14/24 17:17 Laboratory Results - last 24 hr 09/14/24 09/14/24 09/14/24 06:18 11:30 21:45 WBC 11.06 H RBC 4.61 Hgb 11.2 Hct 35.3 L MCV 77 L MCH 24.3 L MCHC 31.7 L RDW 15.4 H Plt Count 346 MPV 9.7 Sodium 142 Potassium 3.4 L Chloride 107 Carbon Dioxide 25.4 Anion Gap 9.6 BUN 4 L Creatinine 0.4 L Est GFR (CKD-EPI 2020) 131.46 Glucose 86 Calcium 8.2 L Magnesium 1.9 Total Bilirubin 0.6 AST 12 L ALT 19 Alkaline Phosphatase 66 Total Protein 6.4 Albumin 3.1 L Stl C.difficile Tox PCR Negative Urine Opiates Screen Positive A Urine Methadone Screen Negative Ur Barbiturates Screen Negative Ur Tricyclics Screen Negative Ur Amphetamines Screen Negative U Benzodiazepines Scrn Negative Urine Cocaine Screen Negative Ur THC Screen Negative C.difficile 027-NAP1-B1 09/14/24 21:45 WBC RBC Hgb Hct MCV MCH MCHC RDW Plt Count MPV Sodium Potassium Chloride Carbon Dioxide Anion Gap BUN Creatinine Est GFR (CKD-EPI 2020) Glucose Calcium Magnesium Total Bilirubin AST ALT Alkaline Phosphatase Total Protein Albumin Stl C.difficile Tox PCR Cancelled Urine Opiates Screen Urine Methadone Screen Ur Barbiturates Screen Ur Tricyclics Screen Ur Amphetamines Screen U Benzodiazepines Scrn Urine Cocaine Screen Ur THC Screen C.difficile 027-NAP1-B1 Cancelled Time Spent with Patient Time Spent with Patient: >50 minutes Time was spent: preparing to see the patient(eg.review tests), obtaining and/or reviewing separately otained hiistory, ordering medications,tests, procedures, referring, communicating with other health insurance healthcare representative, indepentently interpreting results, counseling the patient and care coordination
[2024-09-15] MEDS: Acetaminophen 325 MG TAB PO (06:22)
[2024-09-15 07:38] VITALS: BP 115/81; PULSE 89; RESP 17; TEMP 36.3; O2SAT 95
[2024-09-15] MEDS: Normal Saline Flush 10 ML SYR IVP (07:57)
[2024-09-15] MEDS: Cephalexin 500 MG CAP PO ×2 (07:58→11:30)
[2024-09-15] MEDS: Omeprazole 20 MG CAPCR PO (07:58)
[2024-09-15 11:12] VITALS: BP 124/71; PULSE 87; RESP 17; TEMP 36.5; O2SAT 98
--- NOTE | 2024-09-15 11:20 | W.PM.DS.N ---
Date of service: 09/15/24 Time of Service: 11:21 DS: Diagnosis Discharge Diagnosis (1) Colitis: Status: Acute (2) Urinary tract infection: Status: Acute Discharge Plan Disposition Patient Disposition: Home Condition: Improving Discharge Details Reason For Visit: Colitis Admit Date/Time: 09/13/24 16:05 Admit Provider: Mehul Bowser Attending Provider: Mehul Bowser Primary Care Provider: JAMAR SANCHEZ Hospital Course Hospital Course: 34-year-old female with minimal past medical history who was recently in the emergency department seen for UTI treated with cephalexin who returned to the emergency department complaints of ongoing abdominal pain, nause/vomiting and diarrhea. CT A/P showed wall thickening of the duodenum, distal ileum, ascending colon as well as intra-abdominal fluid fluid. She had a mild elevation of her WBC at 12.65 and her lipase at 102. Abdominal u/s showed hepatic steatosis and a small amount of fluids, but otherwise was unremarkable. She was admitted for enteritis/colitis. There was a concern for acute Crohns but EGD and colonoscopy was not c/w Crohns. Biospies were taken. The urine culture from 09/11 resulted as mixed omi, and the cephalexin was stopped at discharge. Her potassium were mildly low. She had a mild microcytic anemia that was stable. She started to feel better 09/14 after her endoscopy, and by 09/15 her pain had resolved and she was tolerating a regular diet. Her enteritis/colitis was likely infectious. Biopsy results were pending at the time of discharge Follow up 1-2 weeks with PCP, review biopsies. Recommendations for Follow Up Recommended tests to be ordered by follow up provider: CBC, iron/tibc, BMP 1 week. Home Meds and New Rx's Prescriptions: Continued omeprazole 20 mg capsule,delayed release(DR/EC) 20 mg PO DAILY Qty: 30 0RF Patient Comments: vomited up this AM Discontinued cephalexin 500 mg capsule 500 mg PO QID 7 Days Qty: 28 0RF Discharge Instructions Instructions: Colitis (DC) Stand Alone Forms: Nursing Discharge Form Referrals: Delano Ewing [ [facility] STAFF PHYSICIAN, Medicine] - 09/20/24 9:10 am Activity:: Activity as Tolerated Equipment/Supplies:: No Equipment Needed Diet:: As Tolerated Discharge Orders Discharge Orders: Discharge Order (Routine); Ordered 09/15/24 Ordered By: Eligio Leon Discharge Data Discharge Date/Time-TO BE ENTERED AT DEPARTURE: 09/15/24 11:30 DS: Summary Time Spent with Patient providing and/or coordinating discharge services: Greater than 30 minutes Status at Discharge Functional status at discharge: independent ambulation Overall status at discharge: patient is back to baseline Mental Status: mental status grossly normal Speech and Movement: speech and movement normal Mood: congruent mood Affect: normal affect Exam Narrative Exam Narrative: Well-appearing young female sitting up in bed no acute distress, ANO x 4, heart regular rhythm, lungs, auscultation bilaterally. +BS, abdomen without tenderness, no guarding or rebound Psych Mental Status: mental status grossly normal Speech and Movement: speech and movement normal Mood: congruent mood Affect: normal affect DS: Data Vitals/I&O Vitals and I&O: Vital Signs Temperature 36.5 C 09/15/24 11:12 Temperature Source Temporal Artery Scan 09/15/24 11:12 Pulse 87 09/15/24 11:12 Pulse Rhythm Regular 09/13/24 17:00 Respiratory Rate 17 09/15/24 11:12 Respiratory Effort Normal 09/13/24 17:00 Respiratory Depth Normal 09/13/24 17:00 Respiratory Pattern Normal 09/13/24 17:00 Blood Pressure 124/71 09/15/24 11:12 Blood Pressure Mean 88 09/15/24 11:12 Blood Pressure Position Sitting 09/13/24 09:50 Pulse Oximetry 98 09/15/24 11:12 Oxygen Delivery Method Room Air 09/15/24 11:12 Oxygen Flow Rate 0 09/15/24 11:12 Pain Level 0 09/15/24 11:12 Intake & Output 09/14/24 09/14/24 09/15/24 11:59 23:59 11:59 Intake Total 430 / 430 240 / 240 Output Total 200 / 200 Balance -200 / 230 430 / 230 240 / 240 Weight 117.48 kg Intake: IV 210 / 210 Oral 220 / 220 240 / 240 Output: Stool 200 / 200 Other: Urine Color Yellow Urine Appearance Clear Urine Odor None Comment per patient voided per patient voided Stool Size Moderate Stool Characteristics Liquid Emesis Description None Data Completed and Pending Labs on day of discharge: Labs from last 24 hours 09/15/24 09/14/24 09/14/24 06:39 21:45 21:45 Stool Calprotectin Pending Stool Campylobacter PCR Pending Stl C.difficile Tox PCR Cancelled Negative Stool Salmonella PCR Pending Stool Shigella PCR Pending Urine Opiates Screen Urine Methadone Screen Ur Barbiturates Screen Ur Tricyclics Screen Ur Amphetamines Screen U Benzodiazepines Scrn Urine Cocaine Screen Ur THC Screen C.difficile 027-NAP1-B1 Cancelled Shiga Toxin (PCR) Pending 09/14/24 11:30 Stool Calprotectin Stool Campylobacter PCR Stl C.difficile Tox PCR Stool Salmonella PCR Stool Shigella PCR Urine Opiates Screen Positive A Urine Methadone Screen Negative Ur Barbiturates Screen Negative Ur Tricyclics Screen Negative Ur Amphetamines Screen Negative U Benzodiazepines Scrn Negative Urine Cocaine Screen Negative Ur THC Screen Negative C.difficile 027-NAP1-B1 Shiga Toxin (PCR) PFSH All Active Problems (Updated 09/13/24 @ 15:28 by JOSE Ruano) Pancreatitis (Chronic) Ascites (Acute) Colitis (Acute) Urinary tract infection (Acute) Acute respiratory infection (Acute) Duodenitis (Acute) GERD (gastroesophageal reflux disease) (Chronic) Anxiety (Chronic) Adult BMI 39.0-39.9 kg/sq m (Acute) Anemia (Chronic) Family history of transposition of great arteries (Acute) Maternal cousin's child Hidradenitis suppurativa (Chronic) Moderate episode of recurrent major depressive disorder (Acute 04/03/17) Bipolar disorder (Chronic) Medical History Sterilization Bilateral salpingectomy at time of section performed 09/03/2023. History of obstructive sleep apnea History of trichomonal vaginitis Surgical History Status post repeat low transverse section Repeat low-transverse section 09/03/2023. Female infant.Nayana Intraoperative bilateral salpingectomy wisdome teeth extraction Incision & Drainage, Abscess or Hematoma 07/14/16-ED [facility] Biopsy, Soft Tissue (01/15/17) left and right axillae Social History Smoking/Tobacco Use Status: Former Tobacco Use Tobacco: How many years used: 15 Smoking risk assessment performed?: Yes Alcohol Intake: former Drug use: Never Substance use type: does not use Counseling given: No Household members: children and other Details: Nayana Joseph Housing: house Number of Children: 2 Seatbelt use: always Do you feel safe at home: Yes Do you feel safe in your relationship?: Yes Female Reproductive History Menstrual control method: progesterone injection History History 2 Para 2 Hx # Term Pregnancies 2 Multiple births 0 Hx # Pregnancies 0 Ectopic pregnancies 0 AB induced 0 Hx Number of Living Children 2 AB spontaneous 0 Past Pregnancies Del. Date GA/Weeks # Preg Succ Route Wgt Sex Labor Lgth Anesthesia Location Prov Complic 05/17/21 39 No Yes 3316.894 g Female [facility] 09/03/23 39 No Yes 3316.894 g Female Maddison Joseph. aoc. Bilateral tubal sterilization. Delivery Date: 05/17/21 Last Updated by: Marie Siddiqui CNM Arrived with bleeding at 5 cms. AROM and meconium noted. Epidural placed and heart rate decelerations occurred after epidural. Had an emergency C/S at 7 cms under general anesthesia. Philippe Delivery Date: 09/03/23 Last Updated by: MD Nayana Caba Time Spent with Patient Time Spent with Patient: <45 minutes Time was spent: preparing to see the patient(eg.review tests), obtaining and/or reviewing separately otained hiistory, ordering medications,tests, procedures, referring, communicating with other health childcare center director, indepentently interpreting results, counseling the patient and care coordination
--- NOTE | 2024-09-15 17:20 | PDOC.CMDIS ---
Date of service: 09/15/24 Time of Service: 11:00 LACE Index Scoring Tool Questions: Length of Stay (in days): 2 Was the patient admitted via the E.D.?: Yes E.D. Visits: 5 Answers: Total Score: 9 Risk of Readmission: Low Risk Care Management Discharge Plan Reason for Hospitalization: colitits s/p colonoscopy with biopsies on 09/14/24 Discharge Plan: Karin was discharged home earlier today with no new services. She will f/u with her PCP on 09/20/24 and continue per her plan of care. Karin was transported home in a private vehicle. Patient/Family Education Needs: Review of discharge instructions, activity, limitations, and discuss Ask me 3.
[2024-09-15 23:13] LABS: Campylobacter PCR Negative (Negative); Shiga Toxin PCR Negative (Negative); Shigella/Enteroinvasive Ecoli Negative (Negative)
== END 2024-09-15 11:30 | disposition home or self-care (01) | DRG 392 ==
LOC: ER 15:28 → MS 16:53
PROVIDERS: Family Medicine; Surgery; Admitting Provider Family Medicine; Emergency Provider Physician Assistant; PCP Nurse Practitioner Family; Responsible Provider Family Medicine; Visit Provider Family Medicine
PROC: 0DBK8ZX Excision of Ascending Colon, Via Natural or Artificial Opening Endoscopic, Diagnostic (ICD-10-PCS; CPT 45380; principal; 2024-09-14 15:30)
DX: K29.80 Duodenitis without bleeding (principal); F32.1 Major depressive disorder, single episode, moderate; K86.1 Other chronic pancreatitis; R18.8 Other ascites; N39.0 Urinary tract infection, site not specified; K52.89 Other specified noninfective gastroenteritis and colitis; K21.9 Gastro-esophageal reflux disease without esophagitis; F41.9 Anxiety disorder, unspecified; L73.2 Hidradenitis suppurativa; Z82.79 Family history of other congenital malformations, deformations and chromosomal abnormalities; D72.829 Elevated white blood cell count, unspecified; D50.9 Iron deficiency anemia, unspecified; K76.0 Fatty (change of) liver, not elsewhere classified
CPT/HCPCS: 45380; 43239; 00123; 36415; 76770; 80053; 80307; 81025; 83690; 85027; 85652; 87505; 88305; 96361; 96374; 99285; 74177; 76700; 81003; 81015; 83605; 83735; 83993; 85025; 86140; 88361; 99223; 99233; 99239; J1171; J2003; J2405; J2704; J3490

== ENCOUNTER 2024-09-17 09:35 | Emergency (ER) | payer MEDICAID, SELFPAY ==
[2024-09-17 09:38] VITALS: BP 134/96; PULSE 92; RESP 18; TEMP 36.6; O2SAT 95
[2024-09-17 10:07] LABS: Abs Immature Grans 0.07 10^3/uL (0.0-0.06); HCT 39.3 % (36.0-46.0); HGB 12.5 g/dL (11.2-15.7); Immature Grans % 0.5 %; MCH 24.2 pg (27.0-33.0); MCHC 31.8 % (32.0-36.0); MCV 76 fL (80-95); MPV 9.5 fL (8.0-11.0); Platelet Count 419 10^3/uL (130-400); RBC 5.16 10^6/uL (3.93-5.22); RDW 15.6 % (11.7-14.6); RDW-SD 42.7 fL; WBC 13.64 10^3/uL (4.4-10.8)
[2024-09-17 10:18] LABS: Amylase 35 U/L (25-115)
[2024-09-17] MEDS: Prochlorperazine 10 MG/2 ML VIAL 5 MG IVP (10:20)
[2024-09-17] MEDS: Famotidine 20 MG/2 ML VIAL IVP (10:21)
[2024-09-17] MEDS: Lactated Ringers 1,000 ML 1000 ML IV (10:21)
[2024-09-17] MEDS: Ketorolac 15 MG/ML VIAL IVP (10:21)
[2024-09-17] MEDS: ACETAMINOPHEN 500 MG/50 ML BAG 200 MG IVPB (10:22)
[2024-09-17 10:23] LABS: ALT 34 U/L (14-59); AST 27 U/L (15-37); Albumin 3.6 g/dL (3.4-5.0); Alkaline Phosphatase 74 U/L (46-116); Anion Gap 10.3 mmol/L (3-11); BUN 6 mg/dL (7-18); Bilirubin, Total 0.5 mg/dL (0.2-1.0); CO2 26.7 mmol/L (21.0-32.0); Calcium 9.0 mg/dL (8.5-10.1); Chloride 105 mmol/L (98-107); Estimated GFR 124.58 (mL/min/1.73m2); Glucose 109 mg/dL (74-106); Lipase 22 U/L (<78); Potassium 3.3 mmol/L (3.5-5.1); Sodium 142 mmol/L (136-145); Total Protein 7.3 g/dL (6.4-8.2)
[2024-09-17 10:27] LABS: RBC Morphology Normal
[2024-09-17 11:15] LABS: Glucose Negative (Negative)
[2024-09-17 11:27] VITALS: BP 121/79; PULSE 71; RESP 18; O2SAT 98
[2024-09-17 11:31] LABS: RBC >50 HPF (0-2); WBC 0-2 HPF (0-5)
[2024-09-17 11:32] LABS: C & S Indicated? No
[2024-09-17 12:28] VITALS: BP 117/68; PULSE 86; RESP 14; O2SAT 96
--- NOTE | 2024-09-17 12:52 | W.ED.GENAD ---
Discharge Plan Disposition Patient Disposition: Home Discharge Details Clinical Impression: Abdominal pain, Nausea & vomiting Primary Care Provider: JAMAR SANCHEZ ED Provider: Aide Elizabeth Home Meds and New Rx's Prescriptions: New prochlorperazine maleate [Compazine] 10 mg tablet 10 mg PO Q8H PRNQty: 10 0RF Continued omeprazole 20 mg capsule,delayed release(DR/EC) 20 mg PO DAILY Qty: 30 0RF Patient Comments: vomited up this AM Discharge Instructions Instructions: Gallbladder Diet Additional Instructions: try to follow-up gallbladder diet increased fluids take compazine and zofran as needed for nausea and vomiting tylenol and motrin as needed for pain return with worsening pain, fever, chills, or should any new concerns arise follow-up with pcp at appt friday referral to surgery placed for RUQ pain with normal abdominal US Referrals: JAMAR SANCHEZ, RARE/ENDANGERED SPECIES SPECIALIST [Primary Care Provider, Medicine] Olivia Edgar MD [ [facility] STAFF PHYSICIAN, Surgery] HPI General Date/Time Provider Initiated Documentation: 09/17/24 09:36. HPI Narrative: 34-year-old female presents for third visit for abdominal pain, nausea, and vomiting. Diarrhea resolved. Admitted for acute colitis, underwent endoscopy and colonoscopy, symptomatically improved, discharged. Today, presents with right upper quadrant pain and persistent intermittent vomiting. Unable to tolerate Zofran at home but tolerates some foods and fluids. No sexual activity for over 2 years, no STD risk. No blood in vomitus, fever, chills, chest pain, or shortness of breath. Related Data Home Medications ?Medication ?Instructions ?Recorded ?Confirmed omeprazole 20 mg capsule,delayed 20 mg PO DAILY #30 caps 08/24/24 09/17/24 release prochlorperazine maleate 10 mg 10 mg PO Q8H PRN #10 tabs 09/17/24 tablet (Compazine) Previous Rx's ?Medication ?Instructions ?Recorded omeprazole 20 mg capsule,delayed 20 mg PO DAILY #30 caps 08/24/24 release prochlorperazine maleate 10 mg 10 mg PO Q8H PRN #10 tabs 09/17/24 tablet (Compazine) Allergies Allergy/AdvReac Type Severity Reaction Status Date / Time coconut Allergy Severe Anaphylaxis Verified 09/17/24 10:15 latex Allergy Intermediate Skin Rash Verified 09/17/24 10:15 vitamin E (From Enviro Allergy Mild Itching Verified 09/17/24 10:15 Stress) coconut oil Allergy Anaphylaxsi Verified 09/17/24 10:15 s General Stated Complaint: GenMedical DRISS: 3 Exam Narrative Exam Narrative: General Appearance: Fully alert and oriented. Vital signs: Within normal limits. HEENT: Within normal limits. Respiratory: Within normal limits. Gastrointestinal: Tenderness in right upper quadrant. No rebound, guarding, or lower abdominal tenderness. Skin: Warm and dry, no rash. Neurological: Normal. Course Vital Signs Vital signs: Vital Signs Temperature 36.6 C 09/17/24 09:38 Pulse 92 H 09/17/24 09:38 Respiratory Rate 18 09/17/24 09:38 Blood Pressure 134/96 H 09/17/24 09:38 Pulse Oximetry 95 09/17/24 09:38 Temperature 36.6 C 09/17/24 09:38 Temperature Source Oral 09/17/24 09:38 Pulse 86 09/17/24 12:28 Pulse Rhythm Regular 09/17/24 11:27 Respiratory Rate 14 09/17/24 12:28 Respiratory Effort Normal, Non-Labored 09/17/24 11:27 Respiratory Depth Normal 09/17/24 11:27 Respiratory Pattern Normal 09/17/24 11:27 Blood Pressure 117/68 09/17/24 12:28 Blood Pressure Mean 93 09/17/24 11:27 Blood Pressure Position Sitting 09/17/24 11:27 Pulse Oximetry 96 09/17/24 12:28 Oxygen Delivery Method Room Air 09/17/24 11:27 Oxygen Flow Rate 0 09/17/24 11:27 Pain Level 9 09/17/24 09:38 Lab/Test Results Lab/Test Results: Laboratory Tests Range/Units 09/17/24 09/17/24 09:48 10:56 WBC (4.4-10.8) 10^3/uL 13.64 H RBC (3.93-5.22) 10^6/uL 5.16 Hgb (11.2-15.7) g/dL 12.5 Hct (36.0-46.0) % 39.3 MCV (80-95) fL 76 L MCH (27.0-33.0) pg 24.2 L MCHC (32.0-36.0) % 31.8 L RDW (11.7-14.6) % 15.6 H Plt Count (130-400) 10^3/uL 419 H MPV (8.0-11.0) fL 9.5 Immature Gran % % 0.5 Neutrophils % % 55.1 Lymphocytes % % 17.4 Monocytes % % 3.1 Eosinophils % % 23.5 Basophils % % 0.4 Nucleated RBC % (0.0-0.3) % 0.0 Absolute Neutrophils (1.2-6.7) 10^3/uL 7.52 H Absolute Lymphocytes (1.2-3.4) 10^3/uL 2.37 Absolute Monocytes (0.1-0.8) 10^3/uL 0.42 Absolute Eosinophils (0.0-0.7) 10^3/uL 3.21 H Absolute Basophils (0.0-0.2) 10^3/uL 0.05 RBC Morphology Normal Sodium (136-145) mmol/L 142 Potassium (3.5-5.1) mmol/L 3.3 L Chloride (98-107) mmol/L 105 Carbon Dioxide (21.0-32.0) mmol/L 26.7 Anion Gap (3-11) mmol/L 10.3 BUN (7-18) mg/dL 6 L Creatinine (0.55-1.02) mg/dL 0.5 L Est GFR (CKD-EPI 2020) (mL/min/1.73m2) 124.58 Glucose (74-106) mg/dL 109 H Calcium (8.5-10.1) mg/dL 9.0 Total Bilirubin (0.2-1.0) mg/dL 0.5 AST (15-37) U/L 27 ALT (14-59) U/L 34 Alkaline Phosphatase (46-116) U/L 74 Total Protein (6.4-8.2) g/dL 7.3 Albumin (3.4-5.0) g/dL 3.6 Amylase (25-115) U/L 35 Lipase (<78) U/L 22 Urine Color (Yellow) Yellow Urine Clarity (Clear) Cloudy Urine pH (5-8) 6.0 Ur Specific Welling (1.005-1.025) >= 1.030 H Urine Protein (Neg-Trace) mg/dL 100 H Urine Ketones (Negative) mg/dL Negative Urine Blood (Negative) Large H Urine Nitrite (Negative) Negative Urine Bilirubin (Negative) Small H Urine Urobilinogen (Up to 0.2) mg/dL 0.2 Ur Leukocyte Esterase (Negative) Negative Urine RBC (0-2) HPF >50 H Urine WBC (0-5) HPF 0-2 Ur Epithelial Cells (Negative) HPF Few Urine Crystals (Negative) HPF Negative Urine Bacteria (Negative) HPF Many Urine Casts (Negative) LPF Negative Urine Mucus (Negative) Trace Ur Culture Indicated? No Urine Glucose (Negative) mg/dL Negative POC- Test(urine) Negative Medical Decision Making CBC shows leukocytosis at 13,000, increased from 12,000 at discharge on 09/15/2024. Lipase and amylase improved. Negative test. Initial Assessment: 34-year-old female presents with right upper quadrant pain, persistent intermittent vomiting, and inability to tolerate Zofran at home. She has tenderness in the right upper quadrant without rebound or guarding. Differential Diagnosis: - Right upper quadrant pain: Persistent pain with tenderness on exam. Recommend surgery referral for possible HIDA scan. - Nausea and vomiting: Persistent intermittent vomiting and nausea. Unable to tolerate Zofran but tolerates some foods and fluids. Recommend surgery referral for possible HIDA scan. - Leukocytosis: CBC shows leukocytosis at 13,000, increased from 12,000 at discharge. Possible ongoing inflammatory or infectious process. Further evaluation and monitoring needed. ED Course: - CBC shows leukocytosis at 13,000. - Lipase and amylase have improved. - Urinalysis pending. - Negative test. - Tick panel pending. - Feeling symptomatically improved after fluids and antiemetics tolerating p.o. Final Assessment: Patient presents with right upper quadrant pain and persistent intermittent vomiting. CBC shows leukocytosis. Recommend surgery referral for further evaluation of right upper quadrant pain with normal abdominal ultrasound Clinical Impression: - Right upper quadrant pain - Nausea and vomiting - Leukocytosis Disposition: - Discharge - Follow-Up: Surgery referral for possible HIDA scan. MDM Components Evaluation: - Number of Differential Diagnoses or Management Options: Right upper quadrant pain, nausea and vomiting, leukocytosis. - Amount and Complexity of Data Reviewed: CBC, lipase, amylase, urinalysis, test, tick panel. - Risk of Complication and Morbidity or Mortality: Possible ongoing inflammatory or infectious process. PFSH All Active Problems (Updated 09/17/24 @ 12:17 by JOSE Edwards) Nausea & vomiting (Acute) Abdominal pain (Acute) Pancreatitis (Chronic) Ascites (Acute) Colitis (Acute) Acute respiratory infection (Acute) Duodenitis (Acute) GERD (gastroesophageal reflux disease) (Chronic) Anxiety (Chronic) Bipolar disorder (Chronic) Adult BMI 39.0-39.9 kg/sq m (Acute) Anemia (Chronic) Family history of transposition of great arteries (Acute) Maternal cousin's child Hidradenitis suppurativa (Chronic) Moderate episode of recurrent major depressive disorder (Acute 04/03/17) Medical History Sterilization Bilateral salpingectomy at time of section performed 09/03/2023. History of obstructive sleep apnea History of trichomonal vaginitis Surgical History Status post repeat low transverse section Repeat low-transverse section 09/03/2023. Female infant.Nayana Intraoperative bilateral salpingectomy wisdome teeth extraction Incision & Drainage, Abscess or Hematoma 07/14/16-ED [facility] Biopsy, Soft Tissue (01/15/17) left and right axillae Social History Smoking/Tobacco Use Status: Former Tobacco Use Tobacco: How many years used: 15 Smoking risk assessment performed?: Yes Alcohol Intake: former Drug use: Never Substance use type: does not use Counseling given: No Household members: children and other Details: Nayana Joseph Housing: house Number of Children: 2 Seatbelt use: always Do you feel safe at home: Yes Do you feel safe in your relationship?: Yes Female Reproductive History Menstrual control method: progesterone injection History History 2 Para 2 Hx # Term Pregnancies 2 Multiple births 0 Hx # Pregnancies 0 Ectopic pregnancies 0 AB induced 0 Hx Number of Living Children 2 AB spontaneous 0 Past Pregnancies Del. Date GA/Weeks # Preg Succ Route Wgt Sex Labor Lgth Anesthesia Location Prov Complic 05/17/21 39 No Yes 3316.894 g [facility] 09/[facility]23 39 No Yes 3316.894 g Female [facility] Joseph. aoc. Bilateral tubal sterilization. Delivery Date: 05/17/21 Last Updated by: Marie Siddiqui CNM Arrived with bleeding at 5 cms. AROM and meconium noted. Epidural placed and heart rate decelerations occurred after epidural. Had an emergency C/S at 7 cms under general anesthesia. Philippe Delivery Date: 09/03/23 Last Updated by: MD Nayana Caba
[2024-09-20 09:04] LABS: Lyme Ab w Rflx to Lyme Confirm Negative (Negative)
[2024-09-22 11:23] LABS: B. miyamotoi PCR Negative (Negative); Babesia divergens/MO-1 Negative (Negative); Ehrlichia muris eauclairensis Negative (Negative)
== END 2024-09-17 12:29 | disposition home or self-care (01) ==
PROVIDERS: Emergency Provider Physician Assistant; PCP Nurse Practitioner Family
DX: R10.11 Right upper quadrant pain; R11.2 Nausea with vomiting, unspecified
CPT/HCPCS: 36415; 80053; 81025; 83690; 87798; 96361; 96365; 96375; 99284; 81003; 81015; 82150; 85025; 86618; J0131; J0780; J1885

== ENCOUNTER 2024-09-26 15:17 | Emergency (ER) | payer MEDICAID, SELFPAY ==
[2024-09-26 15:21] VITALS: BP 110/78; PULSE 105; RESP 16; TEMP 36.6; O2SAT 95
--- NOTE | 2024-09-26 15:51 | W.ED.GENAD ---
Discharge Plan Disposition Patient Disposition: Home Discharge Details Clinical Impression: Abdominal pain Primary Care Provider: JAMAR SANCHEZ ED Provider: Anne Moreno Home Meds and New Rx's Prescriptions: No Action prochlorperazine maleate [Compazine] 10 mg tablet 10 mg PO Q8H PRNQty: 10 0RF omeprazole 20 mg capsule,delayed release(DR/EC) 20 mg PO DAILY Qty: 30 0RF Patient Comments: vomited up this AM Discharge Instructions Additional Instructions: Please call [facility] general surgery first thing in the morning to schedule follow-up appointment for HIDA scan Workup today was very reassuring. There was signs of esophagitis/gastritis that may be aggravating your symptoms. You did have good relief with Mylanta and Tylenol. I recommend that you take these [id number] according to package instructions. You may use Tylenol 650 mg every 6 hours for pain control. Heating pads/hot water bottles may also be helpful. Return to emergency if develop new control of vomiting, fevers associate with belly pain, severely worsening abdominal pain, blood in your stool or vomit, or if you are very worried you need to be rechecked again immediately Referrals: [facility] [Provider Group] JAMAR SANCHEZ, SILHOUETTE ARTIST [Primary Care Provider, Medicine] [facility] General Date/Time Provider Initiated Documentation: 09/26/24 15:19. HPI Narrative: Leanna is a 34-year-old female presents to the emergency department today for evaluation of worsening epigastric/right upper quad abdominal pain, accompanied by diarrhea, and bloating. Describes pain as internal organs being pushed into her chest, starting this morning. Has been dealing with stomach pain (generalized/migratory) for weeks, intensified today. Denies associated fevers or chills, vomiting, change in bowel or bladder function (has had watery, nonbloody diarrhea for a week), dysuria. Has had decreased p.o. intake recently due to symptoms. Recovered from upper respiratory infection week of 08/31/2024. Last vomited Friday, taking Compazine as needed, last taken Friday night. ER visit on 09/17/2024, follow-up with Delano Ewing on Friday (6 days ago). Awaiting blood test results and feedback from general surgery for specialized scan. Gallbladder and appendix intact. Takes medication for acid reflux every morning before meals. Tylenol and heat pack ineffective for stomach pain. Previous endoscopy and colonoscopy with Dr. Owen. Diet includes fried and spicy foods, recently avoided these, eating less. PAST MEDICAL HISTORY: Acid reflux, pancreatitis, anemia, depression. Denies history of heart disease, lung disease, diabetes, regular alcohol consumption PAST SURGICAL HISTORY: Two C-sections Related Data Home Medications ?Medication ?Instructions ?Recorded ?Confirmed omeprazole 20 mg capsule,delayed 20 mg PO DAILY #30 caps 08/24/24 09/26/24 release prochlorperazine maleate 10 mg 10 mg PO Q8H PRN #10 tabs 09/17/24 09/26/24 tablet (Compazine) Previous Rx's ?Medication ?Instructions ?Recorded omeprazole 20 mg capsule,delayed 20 mg PO DAILY #30 caps 08/24/24 release prochlorperazine maleate 10 mg 10 mg PO Q8H PRN #10 tabs 09/17/24 tablet (Compazine) Allergies Allergy/AdvReac Type Severity Reaction Status Date / Time coconut Allergy Severe Anaphylaxis Verified 09/26/24 15:24 latex Allergy Intermediate Skin Rash Verified 09/26/24 15:24 vitamin E (From Enviro Allergy Mild Itching Verified 09/26/24 15:24 Stress) coconut oil Allergy Anaphylaxsi Verified 09/26/24 15:24 s General Stated Complaint: Abd Prob DRISS: 3 Exam Narrative Exam Narrative: General Appearance: Normal. Patient is alert and oriented, no acute distress. Vital signs: Tachycardia noted, heart rate 105. Afebrile. HEENT: Moist mucous membranes. Clear voice. Respiratory: Easy work of breathing, lung sounds clear bilaterally. Cardiac: Normal heart sounds. Sinus tachycardia noted. Gastrointestinal: Diffuse abdominal tenderness. Soft, nondistended, with normoactive bowel sounds. No CVA tenderness. Extremities: Lower extremities equally Skin: Warm and dry, no rash. Psychiatric: Normal. Course Vital Signs Vital signs: Vital Signs Temperature 36.6 C 09/26/24 15:21 Pulse 105 H 09/26/24 15:21 Respiratory Rate 16 09/26/24 15:21 Blood Pressure 110/78 09/26/24 15:21 Pulse Oximetry 95 09/26/24 15:21 Temperature 36.6 C 09/26/24 15:21 Temperature Source Oral 09/26/24 15:21 Pulse 105 H 09/26/24 15:21 Respiratory Rate 16 09/26/24 15:21 Blood Pressure 110/78 09/26/24 15:21 Blood Pressure Position Sitting 09/26/24 15:21 Pulse Oximetry 95 09/26/24 15:21 Oxygen Delivery Method Room Air 09/26/24 15:21 Oxygen Flow Rate 0 09/26/24 15:21 Pain Level 10 09/26/24 15:21 Medical Decision Making Initial Assessment: 34-year-old female with worsening abdominal pain, diarrhea, and bloating. Pain started this morning, described as insides being pushed up into the chest. Pain present for weeks, shifting locations. No fever or chills. History of acid reflux, takes daily medication. Tylenol and heat pack ineffective for pain relief. Watery diarrhea, dietary changes made. Differential Diagnosis includes but is not limited to: Cholecystitis/choledocholithiasis, gastritis/GERD, esophagitis, gastroenteritis, pancreatitis, electrolyte imbalance. ED Course: - Blood work ordered. -CT abdomen/pelvis performed - IV Toradol administered for pain relief with little improvement of symptoms. Additional dosing with famotidine, APAP, and Mylanta yielded good improvement of symptoms. - Magnesium supplement administered I independently interpreted the following tests: CBC notable for leukocytosis, white cell count 14.38. This is slightly elevated above previous of 13.64 on 09/17/2024. CMP, lipase, UA all unremarkable. Mild hypomagnesemia, magnesium 1.[address] abdomen/pelvis performed, notable for mild to moderate distal esophageal wall thickening and mild wall thickening at the stomach consistent with nonspecific esophagitis/gastroenteritis Patient was p.o. challenged with gingerale without difficulty. Final Assessment: Blood work ordered, pain relief provided with antacids and Tylenol.. Referral to general surgery team for further evaluation of gallbladder disease. Consideration of acid reflux and gastroenteritis based on symptoms and history. Overall workup today reassuring. History and presentation most consistent with gastritis, though gallbladder disease may also be considered. Recommend close follow-up with general surgery for HIDA scan. Disposition: - Discharge: Home, advised to contact general surgery team tomorrow morning. Discharge instruction with patient, including symptomatic management, importance of follow-up with general surgery for further evaluation/management, and red flags indicate need for return to emergency care. - Follow-Up: Referral to general surgery team. Call tomorrow morning. Patient consented to the use of [facility] Imaging Data Radiologic Study: Radiologist's impression: PROCEDURE INFORMATION: Exam: CT Abdomen And Pelvis With Contrast Exam date and time: 09/26/2024 6:01 PM Age: 34 years old Clinical indication: Other: Epigastric ruq pain TECHNIQUE: Imaging protocol: Computed tomography of the abdomen and pelvis with contrast. Radiation optimization: All CT scans at this facility use at least one of these dose optimization techniques: automated exposure control; mA and/or kV adjustment per patient size (includes targeted exams where dose is matched to clinical indication); or iterative reconstruction. Contrast material: OMNI 350; Contrast volume: 100 ml; Contrast route: INTRAVENOUS (IV); COMPARISON: CT ABDOMEN PELVIS W 09/13/2024 2:03 PM FINDINGS: Esophagus: [id number] distal esophageal wall thickening. Mild wall thickening at the stomach and proximal to mid small bowel consistent with a nonspecific esophagitis and gastroenteritis similar. Liver: Normal. No mass. Gallbladder and biliary ducts: Contracted gallbladder. No calcified gallstones. Pancreas: Normal. No ductal dilation. Spleen: Normal. No splenomegaly. Adrenal glands: Normal. No mass. Kidneys and ureters: Normal. No hydronephrosis. Stomach and bowel: Wall thickening and edematous change distal small bowel, cecum and right colon improved. Appendix: No evidence of appendicitis. Intraperitoneal space: Mild ascites. Vasculature: Unremarkable. No abdominal aortic aneurysm. Lymph nodes: Unremarkable. No enlarged lymph nodes. Urinary bladder: Unremarkable as visualized. Reproductive: Unremarkable as visualized. Bones/joints: Unremarkable. No acute fracture. Soft tissues: Unremarkable. IMPRESSION: 1. Eylr-zj-hwyuniky distal esophageal wall thickening. Mild wall thickening at the stomach and proximal to mid small bowel consistent with a nonspecific esophagitis and gastroenteritis similar. 2. Mild ascites. 3. Wall thickening and edematous change distal small bowel, cecum and right colon improved. PFSH All Active Problems (Updated 09/26/24 @ 21:11 by Anne Loving) Nausea & vomiting (Acute) Abdominal pain (Acute) Pancreatitis (Chronic) Ascites (Acute) Colitis (Acute) Acute respiratory infection (Acute) Duodenitis (Acute) GERD (gastroesophageal reflux disease) (Chronic) Anxiety (Chronic) Bipolar disorder (Chronic) Adult BMI 39.0-39.9 kg/sq m (Acute) Anemia (Chronic) Family history of transposition of great arteries (Acute) Maternal cousin's child Hidradenitis suppurativa (Chronic) Moderate episode of recurrent major depressive disorder (Acute 04/03/17) Medical History Sterilization Bilateral salpingectomy at time of section performed 09/03/2023. History of obstructive sleep apnea History of trichomonal vaginitis Surgical History Status post repeat low transverse section Repeat low-transverse section 09/03/2023. Female .Nayana Intraoperative bilateral salpingectomy wisdome teeth extraction Incision & Drainage, Abscess or Hematoma 07/14/16-ED [facility] Biopsy, Soft Tissue (01/15/17) left and right axillae Social History Smoking/Tobacco Use Status: Former Tobacco Use Tobacco: How many years used: 15 Smoking risk assessment performed?: Yes Alcohol Intake: former Drug use: Never Substance use type: does not use Counseling given: No Household members: children and other Details: Nayana Joseph Housing: house Number of Children: 2 Seatbelt use: always Do you feel safe at home: Yes Do you feel safe in your relationship?: Yes Female Reproductive History Menstrual control method: progesterone injection History History 2 Para 2 Hx # Term Pregnancies 2 Multiple births 0 Hx # Pregnancies 0 Ectopic pregnancies 0 AB induced 0 Hx Number of Living Children 2 AB spontaneous 0 Past Pregnancies Del. Date GA/Weeks # Preg Succ Route Wgt Sex Labor Lgth Anesthesia Location Prov [facility] 05/17/21 39 No Yes 3316.894 g Female [facility] 09/03/23 39 No Yes 3316.894 g Female [facility]. aoc. Bilateral tubal sterilization. Delivery Date: 05/17/21 Last Updated by: Marie Siddiqui CNM Arrived with bleeding at 5 cms. AROM and meconium noted. Epidural placed and heart rate decelerations occurred after epidural. Had an emergency C/S at 7 cms under general anesthesia. Philippe Delivery Date: 09/03/23 Last Updated by: MD Nayana Caba
[2024-09-26 15:53] VITALS: BP 110/78; PULSE 105; RESP 16; TEMP 36.6; O2SAT 95
[2024-09-26 16:24] LABS: Abs Immature Grans 0.05 10^3/uL (0.0-0.06); HCT 37.8 % (36.0-46.0); HGB 11.9 g/dL (11.2-15.7); Immature Grans % 0.3 %; MCH 24.2 pg (27.0-33.0); MCHC 31.5 % (32.0-36.0); MCV 77 fL (80-95); MPV 9.8 fL (8.0-11.0); Platelet Count 437 10^3/uL (130-400); RBC 4.92 10^6/uL (3.93-5.22); RDW 15.4 % (11.7-14.6); RDW-SD 42.4 fL; WBC 14.38 10^3/uL (4.4-10.8)
[2024-09-26 16:34] LABS: RBC Morphology Normal
[2024-09-26 16:38] LABS: ALT 24 U/L (14-59); AST 30 U/L (15-37); Albumin 3.5 g/dL (3.4-5.0); Alkaline Phosphatase 71 U/L (46-116); Anion Gap 8.3 mmol/L (3-11); BUN 8 mg/dL (7-18); Bilirubin, Total 0.4 mg/dL (0.2-1.0); CO2 28.7 mmol/L (21.0-32.0); Calcium 8.7 mg/dL (8.5-10.1); Chloride 104 mmol/L (98-107); Estimated GFR 124.58 (mL/min/1.73m2); Glucose 91 mg/dL (74-106); Lipase 36 U/L (<78); Magnesium 1.5 mg/dL (1.8-2.4); Potassium 3.7 mmol/L (3.5-5.1); Sodium 141 mmol/L (136-145); Total Protein 7.0 g/dL (6.4-8.2)
[2024-09-26 17:18] LABS: Glucose Negative (Negative)
[2024-09-26 17:24] LABS: C & S Indicated? No; RBC 0-2 HPF (0-2); WBC 0-2 HPF (0-5)
--- NOTE | 2024-09-26 17:30 | DI.CT_ITS ---
Exam(s) CT ABDOMEN PELVIS W EXAM: CT ABDOMEN PELVIS W CLINICAL HISTORY: epigastric/RUQ pain TECHNIQUE: Imaging Protocol: Axial computed tomography images with coronal and sagittal reformatted images were created and reviewed. CONTRAST MATERIAL: Intravenous: Omnipaque 350 Contrast volume:100 mL Oral: No COMPARISON: CT CT ABDOMEN PELVIS W from 08/24/[address] ABDOMEN PELVIS W from 09/13/2024 FINDINGS: ABDOMEN: Lung Bases: There is mild thickening of the wall of the distal esophagus. Liver: Normal density. No measurable mass. Portal, Superior Mesenteric, and Splenic Veins: Unremarkable. Gallbladder and Biliary Tract: No radiodense calculus or dilation. The gallbladder is contracted. Pancreas: Normal density, no abnormal calcifications or inflammatory process. Spleen: Normal. Adrenals: No masses seen. Kidneys: Normal size, contour and axis. No radiodense stones or obstructive uropathy. No masses seen. Abdominal Aorta: Abdominal portion non-dilated. Bowel: There is bowel wall thickening seen in the small bowel, cecum and proximal ascending colon. Overall the degree of involvement of the bowel has decreased with less colonic involvement compared to 09/13/2024. There is no evidence of bowel obstruction. No evidence of an acute appendicitis. There is no evidence of pneumatosis. The the stomach is incompletely distended. Peritoneal Cavity: There is abdominal pelvic ascites which has shown slight increase since the prior examination from 09/13/2024. No free air. Lymph Nodes: Within normal limits. Bones: Within normal limits for the patient's age. Soft Tissues: Unremarkable. PELVIS: Bladder: Symmetric distention, no gross wall thickening. Reproductive Organs: Unremarkable as visualized. Lymph Nodes: Within normal limits. Bones: Within normal limits for the patient's age. IMPRESSION: 1. There is bowel wall thickening present most marked in the small bowel and proximal colon. Overall, the degree involvement of the bowel has decreased with less colonic involvement compared to 09/13/2024. There is mild wall thickening of the distal esophagus noted. 2. Slight increase in the abdominal pelvic ascites since 09/13/2024. 3. The preliminary [facility] report was reviewed. RADIATION DOSE DELIVERED: 1,228.63mGy.cm Total DLP DATA REPOSITORY: All CT scans at this facility are submitted to the National Radiology Data Registry (NRDR) Dose Index Registry (DIR) with the [employer] ([employer]). RADIATION OPTIMIZATION: All CT scans at this facility use at least one of these dose optimization techniques: automated exposure control; mA and/or kV adjustment per patient size (includes targeted exams where dose is matched to clinical indication); or iterative reconstruction.
[2024-09-26] MEDS: Magnesium Oxide 400 MG TAB PO (18:04)
[2024-09-26] MEDS: Ketorolac 15 MG/ML VIAL IVP (18:04)
[2024-09-26] MEDS: Normal Saline - Diluent 50 ML VIAL IJ (18:09)
[2024-09-26] MEDS: Omnipaque 350 MG/ML 100 ML BTL IJ (18:11)
--- NOTE | 2024-09-26 20:03 | DI.VRAD_ITS ---
PROCEDURE INFORMATION: Exam: CT Abdomen And Pelvis With Contrast Exam date and time: 09/26/2024 6:01 PM Age: 34 years old Clinical indication: Other: Epigastric ruq pain TECHNIQUE: Imaging protocol: Computed tomography of the abdomen and pelvis with contrast. Radiation optimization: All CT scans at this facility use at least one of these dose optimization techniques: automated exposure control; mA and/or kV adjustment per patient size (includes targeted exams where dose is matched to clinical indication); or iterative reconstruction. Contrast material: OMNI 350; Contrast volume: 100 ml; Contrast route: INTRAVENOUS (IV); COMPARISON: CT ABDOMEN PELVIS W 09/13/2024 2:03 PM FINDINGS: Esophagus: [id number] distal esophageal wall thickening. Mild wall thickening at the stomach and proximal to mid small bowel consistent with a nonspecific esophagitis and gastroenteritis similar. Liver: Normal. No mass. Gallbladder and biliary ducts: Contracted gallbladder. No calcified gallstones. Pancreas: Normal. No ductal dilation. Spleen: Normal. No splenomegaly. Adrenal glands: Normal. No mass. Kidneys and ureters: Normal. No hydronephrosis. Stomach and bowel: Wall thickening and edematous change distal small bowel, cecum and right colon improved. Appendix: No evidence of appendicitis. Intraperitoneal space: Mild ascites. Vasculature: Unremarkable. No abdominal aortic aneurysm. Lymph nodes: Unremarkable. No enlarged lymph nodes. Urinary bladder: Unremarkable as visualized. Reproductive: Unremarkable as visualized. Bones/joints: Unremarkable. No acute fracture. Soft tissues: Unremarkable. IMPRESSION: 1. [id number] distal esophageal wall thickening. Mild wall thickening at the stomach and proximal to mid small bowel consistent with a nonspecific esophagitis and gastroenteritis similar. 2. Mild ascites. 3. Wall thickening and edematous change distal small bowel, cecum and right colon improved. Dictated and Authenticated by: Hu Quinones MD. Orderin Maria Teresa Rodríguez MD
[2024-09-26] MEDS: Famotidine 20 MG/2 ML VIAL IVP (20:36)
[2024-09-26] MEDS: Mylanta Suspension 30 ML CUP PO (20:36)
[2024-09-26] MEDS: Acetaminophen 325 MG TAB 650 MG PO (20:36)
[2024-09-26 20:54] VITALS: BP 104/57; PULSE 84; RESP 16; TEMP 36.5; O2SAT 98
== END 2024-09-27 15:51 | disposition home or self-care (01) ==
PROVIDERS: Emergency Provider Nurse Practitioner Family; PCP Nurse Practitioner Family
DX: R10.13 Epigastric pain (principal); R19.7 Diarrhea, unspecified; R14.0 Abdominal distension (gaseous); Z87.891 Personal history of nicotine dependence
CPT/HCPCS: 36415; 80053; 81025; 83690; 96374; 96375; 99285; 74177; 81003; 81015; 83735; 85025; J1885; J3490

== ENCOUNTER 2024-09-30 12:23 | Emergency (ER) | payer MEDICAID, SELFPAY ==
[2024-09-30 12:24] VITALS: BP 108/76; PULSE 117; RESP 16; TEMP 37.1; O2SAT 96
[2024-09-30 13:30] VITALS: BP 127/83; PULSE 93; RESP 15; O2SAT 96
--- NOTE | 2024-09-30 13:35 | ED.GENADUL_ITS ---
Discharge Plan Disposition Patient Disposition: Home Condition: Stable Discharge Details Clinical Impression: Abdominal pain, Colitis, Duodenitis Primary Care Provider: JAMAR SANCHEZ ED Provider: Bartolome Vaughn Home Meds and New Rx's Prescriptions: New famotidine [Pepcid] 20 mg tablet 20 mg PO BID Qty: 60 0RF Continued prochlorperazine maleate [Compazine] 10 mg tablet 10 mg PO Q8H PRNQty: 10 0RF omeprazole 20 mg capsule,delayed release(DR/EC) 20 mg PO DAILY Qty: 30 0RF Discharge Instructions Instructions: Colitis, Abdominal Pain, Adult ED Additional Instructions: Allow for bowel rest over the next 3 days. Maintain a clear liquid diet today and tomorrow morning. Advance your diet to soft bland foods like rice tomorrow afternoon. The following day you may advance to additional starches like breads and potatoes. Advance slowly thereafter. Maintain adequate hydration by drinking the same volume of fluids that you lose in your diarrhea. Please follow-up with general surgery as scheduled. Please follow-up with your primary care physician. Return to the emergency department immediately for any worsening or new concerning symptoms. Discharge Data Discharge Date/Time-TO BE ENTERED AT DEPARTURE: 09/30/24 13:51 HPI General Mode of arrival: ambulatory . Date/Time Provider Initiated Documentation: 09/30/24 12:23 . Limitations to Documentation: no limitations . Information obtained by: patient . HPI Narrative: HISTORY OF PRESENT ILLNESS 34-year-old female with abdominal pain, diarrhea, vomiting, and nausea for 2 months. Symptoms include upper right abdominal discomfort, loose stools, vomiting, and nausea. No recent camping, travel, or household illness. Follow-up with surgery on Friday. Advised to undergo HIDA scan by previous providers. [place] extremely nauseous and lightheaded at work, leading to ER visit. Tolerated macaroni and cheese pizza for dinner last night. Continues to experience dizziness, loose stools, nausea, weakness, and significant abdominal pain. Underwent colonoscopy and endoscopy on 09/14/2024, biopsies taken, awaiting results. No history of chronic medical conditions. Surgical history: two C-sections and armpit surgery. Regular menstrual cycles, recently had a period. Tried Tums and Tylenol for relief. Related Data Home Medications ?Medication ?Instructions ?Recorded ?Confirmed famotidine 20 mg tablet (Pepcid) 20 mg PO BID #60 tabs 09/30/24 omeprazole 20 mg capsule,delayed 20 mg PO DAILY #30 ca ps 09/30/24 release prochlorperazine maleate 10 mg 10 mg PO Q8H PRN #10 ta bs 09/30/24 tablet (Compazine) Previous Rx's ?Medication ?Instructions ?Recorded famotidine 20 mg tablet (Pepcid) 20 mg PO BID #60 tabs 09/30/24 omeprazole 20 mg capsule,delayed 20 mg PO DAILY #30 ca ps 09/30/24 release prochlorperazine maleate 10 mg 10 mg PO Q8H PRN #10 ta bs 09/30/24 tablet (Compazine) Allergies Allergy/AdvReac Type Severity Reaction Status Date / Time coconut Allergy Severe Anaphylaxis Verified 09/30/24 12:27 latex Allergy Intermediate Skin Rash Verified 09/30/24 12:27 vitamin E (From Enviro Allergy Mild Itching Verified 09/30/24 12:27 Stress) coconut oil Allergy Anaphylaxsi Verified 09/30/24 12:27 s General Stated Complaint: Recheck DRISS: 4 Review of Systems All systems reviewed & are unremarkable except as noted in HPI and below Constitutional Constitutional: Denies fever(s) Gastrointestinal Gastrointestinal: Reports as per HPI Exam Const General: cooperative and no acute distress HENMT Mouth: moist mucous membranes Eyes Conjunctivae: normal conjunctivae Sclera: normal sclerae Resp Auscultation: clear to auscultation bilaterally, no rales, no rhonchi and no wheezes Cardio Rate: regular rate and not tachycardic Rhythm: regular rhythm GI Palpation: soft, not firm, no guarding, no masses, not rigid and tender (mild epigastric) with no rebound tenderness Skin General skin exam: no rashes or lesions noted Neuro General: patient alert, patient awake and tone normal Extrem General: no edema Course Vital Signs Vital signs: Vital Signs Temperature 37.1 C 09/30/24 12:24 Pulse 117 H 09/30/24 12:24 Respiratory Rate 16 09/30/24 12:24 Blood Pressure 108/76 09/30/24 12:24 Pulse Oximetry 96 09/30/24 12:24 Temperature 37.1 C 09/30/24 12:24 Pulse 93 H 09/30/24 13:30 Respiratory Rate 15 09/30/24 13:30 Blood Pressure 127/83 09/30/24 13:30 Blood Pressure Mean 97 09/30/24 13:30 Pulse Oximetry 96 09/30/24 13:30 Oxygen Delivery Method Room Air 09/30/24 13:30 Oxygen Flow Rate 0 09/30/24 13:30 Pain Level 5 09/30/24 12:24 Medical Decision Making ASSESSMENT AND PLAN Initial Assessment: 34-year-old female with abdominal pain, diarrhea, vomiting, and nausea for 2 months. Pain primarily in upper right abdomen, sharp and crampy, sometimes moving to the middle. Tried Tums and Tylenol without significant relief. Upcoming surgery appointment on Friday. Patient has had significant workup for this complaint and is scheduled to follow-up with general surgery on Friday. Differential Diagnosis: - Colitis - Gastroenteritis: Symptoms of diarrhea, vomiting, and abdominal pain. Stool testing performed, results pending. Hydration advised. - Cholelithiasis: Suggested HIDA scan by previous providers. Awaiting surgical consultation. - Irritable Bowel Syndrome (IBS): Chronic abdominal pain, diarrhea. No specific triggers identified. Symptom management advised. ED Course: - Screening exam performed. - Reviewed recent tests and treatments. - Patient was seen in the ER on 09/26/24 -she had a comprehensive diagnostic workup that was reassuring. - CT of the abdomen pelvis 09/26/2024 as interpreted by radiology: 1. There is bowel wall thickening present most marked in the small bowel and proximal colon. Overall, the degree involvement of the bowel has decreased with less colonic involvement compared to 09/13/2024. There is mild wall thickening of the distal esophagus noted. 2. Slight increase in the abdominal pelvic ascites since 09/13/2024. 3. The preliminary [facility] report was reviewed - No emergent medical condition. Plan for discharge with outpatient follow-up. I strongly encouraged the patient to perform bowel rest over the next few days. Plan to initiate treatment with Pepcid and restart PPI. Usual and customary discharge instructions were reviewed. Final Assessment: Abdominal pain, diarrhea, vomiting, and nausea for 2 months. Pain primarily in upper right abdomen, sharp and crampy, sometimes moving to the middle. Tried Tums and Tylenol without significant relief. Upcoming surgery appointment on Friday. Stool testing performed, results pending. Clinical Impression: - Abdominal pain, colitis Disposition: - Follow-Up: Surgery appointment on Friday. MDM Components Evaluation: - Number of Differential Diagnoses or Management Options: Gastroenteritis, Cholecystitis, Irritable Bowel Syndrome (IBS) - Amount and Complexity of Data Reviewed: Stool testing, recent tests and treatments reviewed - Risk of Complication and Morbidity or Mortality: Moderate risk due to ongoing symptoms and potential underlying conditions requiring surgical consultation. This document was written with the assistance of TEDDY Cancino. The patient consented to its use. PFSH All Active Problems (Updated 09/30/24 @ 13:37 by Bartolome Vaugnh MD) Nausea & vomiting (Acute) Abdominal pain (Acute) Pancreatitis (Chronic) Ascites (Acute) Colitis (Acute) Acute respiratory infection (Acute) Duodenitis (Acute) GERD (gastroesophageal reflux disease) (Chronic) Anxiety (Chronic) Bipolar disorder (Chronic) Adult BMI 39.0-39.9 kg/sq m (Acute) Anemia (Chronic) Family history of transposition of great arteries (Acute) Maternal cousin's child Hidradenitis suppurativa (Chronic) Moderate episode of recurrent major depressive disorder (Acute 04/03/17) Medical History Sterilization Bilateral salpingectomy at time of section performed 09/03/2023. History of obstructive sleep apnea History of trichomonal vaginitis Surgical History Status post repeat low transverse section Repeat low-transverse section 09/03/2023. Female infant.Nayana Intraoperative bilateral salpingectomy wisdome teeth extraction Incision & Drainage, Abscess or Hematoma 07/14/16-ED [facility] Biopsy, Soft Tissue (01/15/17) left and right axillae Social History Smoking/Tobacco Use Status: Former Tobacco Use Tobacco: How many years used: 15 Smoking risk assessment performed?: Yes Alcohol Intake: former Drug use: Never Substance use type: does not use Counseling given: No Household members: children and other Details: Nayana Joseph Housing: house Number of Children: 2 Seatbelt use: always Do you feel safe at home: Yes Do you feel safe in your relationship?: Yes Female Reproductive History Menstrual control method: progesterone injection History History 2 Para 2 Hx # Term Pregnancies 2 Multiple births 0 Hx # Pregnancies 0 Ectopic pregnancies 0 AB induced 0 Hx Number of Living Children 2 AB spontaneous 0 Past Pregnancies Del. Date GA/Weeks # Preg Succ Route Wgt Sex Labor Lgth Anesth esia Location Prov Complic 05/17/21 39 No Yes 3316.894 g Female [facility] 09/03/23 39 No Yes 3316.894 g Female K jocelin Joseph. aoc. Bilateral tubal sterilization. Delivery Date: 05/17/21 Last Updated by: Marie Siddiqui CNM Arrived with bleeding at 5 cms. AROM and meconium noted. Epidural placed and heart rate decelerations occurred after epidural. Had an emergency C/S at 7 cms under general anesthesia. Philippe Delivery Date: 09/03/23 Last Updated by: MD Nayana Caba
[2024-09-30] MEDS: Famotidine 20 MG TAB PO (13:47)
== END 2024-09-30 13:51 | disposition home or self-care (01) ==
PROVIDERS: Emergency Provider Student in an Organized Health Care Education/Training Program; PCP Nurse Practitioner Family
DX: K29.80 Duodenitis without bleeding (principal); K52.9 Noninfective gastroenteritis and colitis, unspecified; Z87.891 Personal history of nicotine dependence
CPT/HCPCS: 99283

== ENCOUNTER 2024-10-02 12:15 | Inpatient (IN) | payer MEDICAID, SELFPAY ==
[2024-10-02 12:17] VITALS: BP 112/83; PULSE 107; RESP 16; TEMP 36.3; O2SAT 95
[2024-10-02 12:21] VITALS: BP 112/83; PULSE 107; RESP 16; TEMP 36.3; O2SAT 95
[2024-10-02 13:39] LABS: HCT 37.2 % (36.0-46.0); HGB 11.7 g/dL (11.2-15.7); MCH 24.4 pg (27.0-33.0); MCHC 31.5 % (32.0-36.0); MCV 78 fL (80-95); MPV 9.9 fL (8.0-11.0); Platelet Count 398 10^3/uL (130-400); RBC 4.79 10^6/uL (3.93-5.22); RDW 16.2 % (11.7-14.6); RDW-SD 45.5 fL; WBC 16.80 10^3/uL (4.4-10.8)
[2024-10-02 13:53] LABS: RBC Morphology Normal
[2024-10-02 13:56] LABS: ALT 32 U/L (14-59); AST 24 U/L (15-37); Albumin 3.4 g/dL (3.4-5.0); Alkaline Phosphatase 65 U/L (46-116); Anion Gap 9.2 mmol/L (3-11); BUN 6 mg/dL (7-18); Bilirubin, Total 0.5 mg/dL (0.2-1.0); CO2 27.8 mmol/L (21.0-32.0); Calcium 8.9 mg/dL (8.5-10.1); Chloride 107 mmol/L (98-107); Estimated GFR 124.58 (mL/min/1.73m2); Glucose 88 mg/dL (74-106); Lipase 27 U/L (<78); Magnesium 1.8 mg/dL (1.8-2.4); Potassium 3.6 mmol/L (3.5-5.1); Sodium 144 mmol/L (136-145); Total Protein 6.7 g/dL (6.4-8.2)
[2024-10-02] MEDS: Prochlorperazine 10 MG/2 ML VIAL IVP (14:07)
[2024-10-02] MEDS: FAMOTIDINE 20 MG in Normal Saline 100 ML 400 MG IVPB (14:08)
[2024-10-02] MEDS: Lactated Ringers 1,000 ML 1000 ML IV (14:09)
[2024-10-02 14:11] LABS: HCG Qual (Serum) Negative
[2024-10-02] MEDS: Normal Saline 50 ML (14:17)
[2024-10-02 15:35] VITALS: BP 100/65; PULSE 86; RESP 15; O2SAT 97
--- NOTE | 2024-10-02 16:09 | W.ED.GENAD ---
Discharge Plan Discharge Details Chief Complaint: Abd Prob Primary Care Provider: JAMAR SANCHEZ ED Provider: Aide Elizabeth Home Meds and New Rx's Prescriptions: No Action famotidine [Pepcid] 20 mg tablet 20 mg PO BID Qty: 60 0RF prochlorperazine maleate [Compazine] 10 mg tablet 10 mg PO Q8H PRNQty: 10 0RF omeprazole 20 mg capsule,delayed release(DR/EC) 20 mg PO DAILY Qty: 30 0RF HPI General Date/Time Provider Initiated Documentation: 10/02/24 12:18. HPI Narrative: The patient is a 34-year-old female with recurrent nausea, vomiting, diarrhea, and abdominal pain. 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 Mildly worsening ascites, increased WBC count, and 41% eosinophils on CBC today. No new CT scan performed due to recent scans, including one 5 days ago showing worsening ascites, persistent duodenitis, and colitis. Consulted Dr. Messer at [facility]; recommended transfer to tertiary care. Ordered ova and parasites testing. Patient received fluids and antiemetics, feeling somewhat improved. Related Data Home Medications ?Medication ?Instructions ?Recorded ?Confirmed famotidine 20 mg tablet (Pepcid) 20 mg PO BID #60 tabs 09/30/24 10/02/24 omeprazole 20 mg capsule,delayed 20 mg PO DAILY #30 caps 09/30/24 10/02/24 release prochlorperazine maleate 10 mg 10 mg PO Q8H PRN #10 tabs 09/30/24 10/02/24 tablet (Compazine) Previous Rx's ?Medication ?Instructions ?Recorded famotidine 20 mg tablet (Pepcid) 20 mg PO BID #60 tabs 09/30/24 omeprazole 20 mg capsule,delayed 20 mg PO DAILY #30 caps 09/30/24 release prochlorperazine maleate 10 mg 10 mg PO Q8H PRN #10 tabs 09/30/24 tablet (Compazine) Allergies Allergy/AdvReac Type Severity Reaction Status Date / Time coconut Allergy Severe Anaphylaxis Verified 10/02/24 12:22 latex Allergy Intermediate Skin Rash Verified 10/02/24 12:22 vitamin E (From Enviro Allergy Mild Itching Verified 10/02/24 12:22 Stress) coconut oil Allergy Anaphylaxsi Verified 10/02/24 12:22 s General Stated Complaint: Abd Prob DRISS: 3 Exam Narrative Exam Narrative: Patient is alert and oriented she is in no acute distress she feels tired and pale, she has tenderness in the right upper quadrant without rebound or guarding she has no CVA tenderness moist mucous membranes no rashes or lesions oropharynx patent uvula midline Course Vital Signs Vital signs: Vital Signs Temperature 36.3 C L 10/02/24 12:17 Pulse 107 H 10/02/24 12:17 Respiratory Rate 16 10/02/24 12:17 Blood Pressure 112/83 10/02/24 12:17 Pulse Oximetry 95 10/02/24 12:17 Temperature 36.3 C L 10/02/24 12:21 Temperature Source Oral 10/02/24 12:21 Pulse 86 10/02/24 15:35 Respiratory Rate 15 10/02/24 15:35 Blood Pressure 100/65 10/02/24 15:35 Blood Pressure Mean 76 10/02/24 15:35 Blood Pressure Position Supine 10/02/24 15:35 Pulse Oximetry 97 10/02/24 15:35 Oxygen Delivery Method Room Air 10/02/24 12:21 Oxygen Flow Rate 0 10/02/24 12:21 Pain Level 5 10/02/24 15:35 Lab/Test Results Lab/Test Results: Laboratory Tests Range/Units 10/02/24 13:31 WBC (4.4-10.8) 10^3/uL 16.80 H RBC (3.93-5.22) 10^6/uL 4.79 Hgb (11.2-15.7) g/dL 11.7 Hct (36.0-46.0) % 37.2 MCV (80-95) fL 78 L MCH (27.0-33.0) pg 24.4 L MCHC (32.0-36.0) % 31.5 L RDW (11.7-14.6) % 16.2 H Plt Count (130-400) 10^3/uL 398 MPV (8.0-11.0) fL 9.9 Immature Gran % See Differential Neutrophils % % 35.0 Band Neutrophils % % 0 Lymphocytes % % 21.0 Monocytes % % 2.0 Eosinophils % % 41.0 Basophils % % 1.0 Nucleated RBC % (0.0-0.3) % 0.0 Absolute Neutrophils (1.2-6.7) 10^3/uL 5.88 Absolute Lymphocytes (1.2-3.4) 10^3/uL 3.53 H Absolute Monocytes (0.1-0.8) 10^3/uL 0.34 Absolute Eosinophils (0.0-0.7) 10^3/uL 6.89 H Absolute Basophils (0.0-0.2) 10^3/uL 0.17 RBC Morphology Normal Sodium (136-145) mmol/L 144 Potassium (3.5-5.1) mmol/L 3.6 Chloride (98-107) mmol/L 107 Carbon Dioxide (21.0-32.0) mmol/L 27.8 Anion Gap (3-11) mmol/L 9.2 BUN (7-18) mg/dL 6 L Creatinine (0.55-1.02) mg/dL 0.5 L Est GFR (CKD-EPI 2020) (mL/min/1.73m2) 124.58 Glucose (74-106) mg/dL 88 Calcium (8.5-10.1) mg/dL 8.9 Magnesium (1.8-2.4) mg/dL 1.8 Total Bilirubin (0.2-1.0) mg/dL 0.5 AST (15-37) U/L 24 ALT (14-59) U/L 32 Alkaline Phosphatase (46-116) U/L 65 Total Protein (6.4-8.2) g/dL 6.7 Albumin (3.4-5.0) g/dL 3.4 Lipase (<78) U/L 27 Serum HCG, Qual Negative Medical Decision Making Laboratory: Increased WBC count with 41% eosinophils. Imaging: CT scan showed worsening ascites, persistent duodenitis, and colitis. 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 - Prior C. difficile and fecal bacterial pathogens all negative Initial Assessment: Miss otherwise healthy, 34-year-old female presents with recurrent nausea, vomiting, diarrhea, and abdominal pain. Previous evaluations suggest eosinophilic gastroenteritis. Differential Diagnosis: - Eosinophilic gastroenteritis: Considered due to recurrent symptoms and previous evaluations. Plan includes transfer to tertiary care facility and additional testing. ED Course: - CBC shows increased WBC count and 41% eosinophils. - CT scan 5 days ago showed worsening ascites, persistent duodenitis, and colitis. - Called Dr. Messer from gastroenterology for recommendation, commence transfer to tertiary care for multidisciplinary approach, discussing regarding whether or not they have capacity to take this patient otherwise she will be admitted to our facility and listed for nausea vomiting diarrhea which has been persistent in nature. Recommends [facility] serum IgE ova and parasite screening - Ordered ova and parasites testing. - Received fluids and antiemetics with some relief. Final Assessment: Patient with recurrent gastrointestinal symptoms and previous diagnosis of eosinophilic gastroenteritis. Worsening ascites and increased eosinophils noted. Treatment included fluids and antiemetics with some improvement. Recommended transfer to tertiary care for further management. Clinical Impression: - Eosinophilic gastroenteritis Disposition: - Transfer: Recommended transfer to tertiary care facility. MDM Components Evaluation: - Number of Differential Diagnoses or Management Options: Eosinophilic gastroenteritis - Amount and Complexity of Data Reviewed: CBC, CT scan, consultation with Dr. Messer, ova and parasites testing - Risk of Complication and Morbidity or Mortality: High due to worsening ascites and persistent symptoms. PFSH All Active Problems (Updated 09/30/24 @ 13:37 by Bartolome Vaughn MD) Nausea & vomiting (Acute) Abdominal pain (Acute) Pancreatitis (Chronic) Ascites (Acute) Colitis (Acute) Acute respiratory infection (Acute) Duodenitis (Acute) GERD (gastroesophageal reflux disease) (Chronic) Anxiety (Chronic) Bipolar disorder (Chronic) Adult BMI 39.0-39.9 kg/sq m (Acute) Anemia (Chronic) Family history of transposition of great arteries (Acute) Maternal cousin's child Hidradenitis suppurativa (Chronic) Moderate episode of recurrent major depressive disorder (Acute 04/03/17) Medical History Sterilization Bilateral salpingectomy at time of section performed 09/03/2023. History of obstructive sleep apnea History of trichomonal vaginitis Surgical History Status post repeat low transverse section Repeat low-transverse section 09/03/2023. Female infant.Nayana Intraoperative bilateral salpingectomy wisdome teeth extraction Incision & Drainage, Abscess or Hematoma 07/14/16-ED [facility] Biopsy, Soft Tissue (01/15/17) left and right axillae Social History Smoking/Tobacco Use Status: Former Tobacco Use Tobacco: How many years used: 15 Smoking risk assessment performed?: Yes Alcohol Intake: former Drug use: Never Substance use type: does not use Counseling given: No Household members: children and other Details: Nayana Joseph Housing: house Number of Children: 2 Seatbelt use: always Do you feel safe at home: Yes Do you feel safe in your relationship?: Yes Female Reproductive History Menstrual control method: progesterone injection History History 2 Para 2 Hx # Term Pregnancies 2 Multiple births 0 Hx # Pregnancies 0 Ectopic pregnancies 0 AB induced 0 Hx Number of Living Children 2 AB spontaneous 0 Past Pregnancies Del. Date GA/Weeks # Preg Succ Route Wgt Sex Labor Lgth Anesthesia Location Prov Complic 05/17/21 39 No Yes 3316.894 g Female [facility] 09/03/23 39 No Yes 3316.894 g Female Maddison Jake. aoc. Bilateral tubal sterilization. Delivery Date: 05/17/21 Last Updated by: Marie Siddiqui CNM Arrived with bleeding at 5 cms. AROM and meconium noted. Epidural placed and heart rate decelerations occurred after epidural. Had an emergency C/S at 7 cms under general anesthesia. Philippe Delivery Date: 09/03/23 Last Updated by: MD Nayana Caba
--- NOTE | 2024-10-02 17:24 | W.PM.HP.N ---
Date of service: 10/02/24 Time of Service: 17:24 Assessment and Plan Assessment and plan (1) Eosinophilic colitis: Status: Acute Assessment and plan: pt will be transferred to [facility] [place] [place] tomorrow. Boarding brittny. Will add anti-emetics and ivf History of Present Illness History of Present Illness Chief Complaint: abd pain Narrative: This is a 34-year-old female who is enjoyed good health until approximately August of this year where she started having abdominal pain. Patient has been admitted twice for this issue with the first 1 being on September 13. At that time the diagnosis was with colitis and consult to general surgery was also placed. This can be reviewed on [employer] was done by Dr. Owen on the and the plan was to colonoscopy. Colonoscopy performed on the September 14 had biopsies taken. 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 Patient returned to the ED on the but was discharged home. Patient returns with worsening abdominal pain today and our ER staff reached out to [facility] who accepted her in transfer for evaluation by gastroenterology specialist. [facility]. Per my discussion with JOSE Banks no other recommendations were made besides keeping her in the hospital. Per my discussion with the patient she denies any alcohol use or drug use drug allergies. Patient was accepted by Dr. Messer at [facility]. Review of Systems All systems reviewed & are unremarkable except as noted in HPI and below PFSH All Active Problems (Updated 10/02/24 @ 16:47 by JOSE Ruano) Eosinophilic colitis (Acute) Nausea & vomiting (Acute) Abdominal pain (Acute) Pancreatitis (Chronic) Ascites (Acute) Colitis (Acute) Acute respiratory infection (Acute) Duodenitis (Acute) GERD (gastroesophageal reflux disease) (Chronic) Anxiety (Chronic) Bipolar disorder (Chronic) Adult BMI 39.0-39.9 kg/sq m (Acute) Anemia (Chronic) Family history of transposition of great arteries (Acute) Maternal cousin's child Hidradenitis suppurativa (Chronic) Moderate episode of recurrent major depressive disorder (Acute 04/03/17) Medical History Sterilization Bilateral salpingectomy at time of section performed 09/03/2023. History of obstructive sleep apnea History of trichomonal vaginitis Surgical History Status post repeat low transverse section Repeat low-transverse section 09/03/2023. Female .Nayana Intraoperative bilateral salpingectomy wisdome teeth extraction Incision & Drainage, Abscess or Hematoma 07/14/16-ED [facility] Biopsy, Soft Tissue (01/15/17) left and right axillae Social History Smoking/Tobacco Use Status: Former Tobacco Use Tobacco: How many years used: 15 Smoking risk assessment performed?: Yes Alcohol Intake: former Drug use: Never Substance use type: does not use Counseling given: No Household members: children and other Details: Nayana Joseph Housing: house Number of Children: 2 Seatbelt use: always Do you feel safe at home: Yes Do you feel safe in your relationship?: Yes Female Reproductive History Menstrual control method: progesterone injection History History 2 Para 2 Hx # Term Pregnancies 2 Multiple births 0 Hx # Pregnancies 0 Ectopic pregnancies 0 AB induced 0 Hx Number of Living Children 2 AB spontaneous 0 Past Pregnancies Del. Date GA/Weeks # Preg Succ Route Wgt Sex Labor Lgth Anesthesia Location Prov Complic 05/17/21 39 No Yes 3316.894 g Female [facility] 09/03/23 39 No Yes 3316.894 g Female Maddison Joseph. aoc. Bilateral tubal sterilization. Delivery Date: 05/17/21 Last Updated by: Marie Siddiqui CNM Arrived with bleeding at 5 cms. AROM and meconium noted. Epidural placed and heart rate decelerations occurred after epidural. Had an emergency C/S at 7 cms under general anesthesia. Philippe Delivery Date: 09/03/23 Last Updated by: MD Nayana Caba Meds Allergies and Home Medications Allergies Allergy/AdvReac Type Severity Reaction Status Date / Time coconut Allergy Severe Anaphylaxis Verified 10/02/24 12:22 latex Allergy Intermediate Skin Rash Verified 10/02/24 12:22 vitamin E (From [employer]vi[employer] Allergy Mild Itching Verified 10/02/24 12:22 Stress) coconut oil Allergy Anaphylaxsi Verified 10/02/24 12:22 s Home Medications ?Medication ?Instructions ?Recorded ?Confirmed ?Type famotidine 20 mg tablet (Pepcid) 20 mg PO BID #60 tabs 09/30/24 10/02/24 Rx omeprazole 20 mg capsule,delayed 20 mg PO DAILY #30 caps 09/30/24 10/02/24 Rx release prochlorperazine maleate 10 mg 10 mg PO Q8H PRN #10 tabs 09/30/24 10/02/24 Rx tablet (Compazine) Exam Narrative Exam Narrative: HEENT-NCAT MMM EOMI PERRLA NECK-NO LAD NO JVD CV-RRR NO MRG LUNG-MILD EXP WHEEZE CELESTINE NO AMU ABD-SNTNDBSA EXT-NO CCEB PSYCH-AAOX3 NAD Results Labs 10/02/24 13:31 10/02/24 13:31 Labs: Laboratory Results - last 24 hr 10/02/24 13:31 WBC 16.80 H RBC 4.79 Hgb 11.7 Hct 37.2 MCV 78 L MCH 24.4 L MCHC 31.5 L RDW 16.2 H Plt Count 398 MPV 9.9 Immature Gran % See Differential Neutrophils % 35.0 Band Neutrophils % 0 Lymphocytes % 21.0 Monocytes % 2.0 Eosinophils % 41.0 Basophils % 1.0 Nucleated RBC % 0.0 Absolute Neutrophils 5.88 Absolute Lymphocytes 3.53 H Absolute Monocytes 0.34 Absolute Eosinophils 6.89 H Absolute Basophils 0.17 RBC Morphology Normal Sodium 144 Potassium 3.6 Chloride 107 Carbon Dioxide 27.8 Anion Gap 9.2 BUN 6 L Creatinine 0.5 L Est GFR (CKD-EPI 2020) 124.58 Glucose 88 Calcium 8.9 Magnesium 1.8 Total Bilirubin 0.5 AST 24 ALT 32 Alkaline Phosphatase 65 Total Protein 6.7 Albumin 3.4 Lipase 27 Serum HCG, Qual Negative Last Vital Signs Temp 36.3 C L 10/02/24 12:21 Pulse 86 10/02/24 15:35 Resp 15 10/02/24 15:35 BP 100/65 10/02/24 15:35 Pulse Ox 97 10/02/24 15:35 Time Spent Time spent with Patient: <40 minutes Time was spent: preparing to see the patient(eg.review tests), obtaining and/or reviewing separately otained hiistory, ordering medications,tests, procedures, referring, communicating with other health child adolescent care, indepentently interpreting results, counseling the patient and care coordination
[2024-10-02 18:01] VITALS: BP 127/74; PULSE 86; RESP 15; O2SAT 98
--- NOTE | 2024-10-02 18:46 | W.PC.ACHO ---
Registration Status: ADM IN Primary Language: Preferred Language: Faroese ED Information & Data Chief Complaint Abd Prob 10/02/24 16:11 Triage Note abd pain x 2 months, nausea 10/02/24 12:17 and feeling light headed since took Compazine this am Medical / Surgical History (Last Reviewed 12/16/23 @ 15:42 by Maddison Joseph DO) Sterilization History of obstructive sleep apnea History of trichomonal vaginitis (Last Reviewed 12/16/23 @ 15:42 by Maddison Joseph DO) Status post repeat low transverse section wisdome teeth extraction Incision & Drainage, Abscess or Hematoma Biopsy, Soft Tissue (01/15/17) Most Recent Vital Signs Temperature 97.3 F L 10/02/24 12:21 Temperature Source Oral 10/02/24 12:21 Pulse 86 10/02/24 18:01 Respiratory Rate 15 10/02/24 18:01 Blood Pressure 127/74 10/02/24 18:01 Blood Pressure Mean 91 10/02/24 18:01 Blood Pressure Position Sitting 10/02/24 18:01 Pulse Oximetry 98 10/02/24 18:01 Oxygen Delivery Method Room Air 10/02/24 12:21 Oxygen Flow Rate 0 10/02/24 12:21 Pain Level 0 10/02/24 18:01 Allergies coconut Allergy (Severe, Verified 10/02/24 12:22) Anaphylaxis latex Allergy (Intermediate, Verified 10/02/24 12:22) Skin Rash vitamin E (From Enviro Stress) Allergy (Mild, Verified 10/02/24 12:22) Itching coconut oil Allergy (Verified 10/02/24 12:22) Anaphylaxsis IV IV Catheter Type [Right Saline Lock Antecubital] IV Catheter Gauge [Right 18 Antecubital] Diet Orders Category Date Time Status Regular/Normal [DIET] Nutrition 10/02/24 Dinner Active Diagnostics 10/02/24 Range/Units 13:31 WBC 16.80 H (4.4-10.8) 10^3/uL RBC 4.79 (3.93-5.22) 10^6/uL Hgb 11.7 (11.2-15.7) g/dL Hct 37.2 (36.0-46.0) % MCV 78 L (80-95) fL MCH 24.4 L (27.0-33.0) pg MCHC 31.5 L (32.0-36.0) % RDW 16.2 H (11.7-14.6) % Plt Count 398 (130-400) 10^3/uL MPV 9.9 (8.0-11.0) fL Immature Gran % See Differential Neutrophils % 35.0 % Band Neutrophils % 0 % Lymphocytes % 21.0 % Monocytes % 2.0 % Eosinophils % 41.0 % Basophils % 1.0 % Nucleated RBC % 0.0 (0.0-0.3) % Absolute Neutrophils 5.88 (1.2-6.7) 10^3/uL Absolute Lymphocytes 3.53 H (1.2-3.4) 10^3/uL Absolute Monocytes 0.34 (0.1-0.8) 10^3/uL Absolute Eosinophils 6.89 H (0.0-0.7) 10^3/uL Absolute Basophils 0.17 (0.0-0.2) 10^3/uL RBC Morphology Normal Sodium 144 (136-145) mmol/L Potassium 3.6 (3.5-5.1) mmol/L Chloride 107 (98-107) mmol/L Carbon Dioxide 27.8 (21.0-32.0) mmol/L Anion Gap 9.2 (3-11) mmol/L BUN 6 L (7-18) mg/dL Creatinine 0.5 L (0.55-1.02) mg/dL Est GFR (CKD-EPI 2020) 124.58 (mL/min/1.73m2) Glucose 88 (74-106) mg/dL Calcium 8.9 (8.5-10.1) mg/dL Magnesium 1.8 (1.8-2.4) mg/dL Total Bilirubin 0.5 (0.2-1.0) mg/dL AST 24 (15-37) U/L ALT 32 (14-59) U/L Alkaline Phosphatase 65 (46-116) U/L Total Protein 6.7 (6.4-8.2) g/dL Albumin 3.4 (3.4-5.0) g/dL Lipase 27 (<78) U/L Serum HCG, Qual Negative Intake and Output - 24 Hour Total 10/02/24 12:15 thru 10/02/24 15:38 Intake Total 1102 Balance 1102 Weight 258 lb Intake: IV 1102 Falls Risk Assessment History of Falls No History 10/02/24 12:21 Contributing Factors No Factors 10/02/24 12:21 Ambulatory Aids Independent 10/02/24 12:21 Tubes/Lines None 10/02/24 12:21 Gait Evaluation No gait disturbance 10/02/24 12:21 Cognition No cognitive impairment 10/02/24 12:21 Fall Total Score 0 10/02/24 12:21 Level of Risk Standard/Low Risk 10/02/24 12:21 Problems (Last Reviewed 12/16/23 @ 15:42 by Maddison Joseph DO) Eosinophilic colitis (Acute) v v v v v v v v v Sending and/or Receiving Nurses: Please use comment section below to note any information pertinent to the patient hand-off not included above. Information / Comments: Report received from: Shannan SO
[2024-10-02 18:47] VITALS: BP 136/90; PULSE 90; RESP 16; TEMP 36.6; O2SAT 97
[2024-10-02] MEDS: Ondansetron 4 MG/2 ML VIAL IVP (20:09)
[2024-10-03] MEDS: Normal Saline 1,000 ML 125 ML IV ×3 (01:35→17:03)
[2024-10-03 07:09] LABS: Abs Immature Grans 0.04 10^3/uL (0.0-0.06); HCT 33.0 % (36.0-46.0); HGB 10.4 g/dL (11.2-15.7); Immature Grans % 0.3 %; MCH 24.7 pg (27.0-33.0); MCHC 31.5 % (32.0-36.0); MCV 78 fL (80-95); MPV 10.1 fL (8.0-11.0); Platelet Count 373 10^3/uL (130-400); RBC 4.21 10^6/uL (3.93-5.22); RDW 16.3 % (11.7-14.6); RDW-SD 46.1 fL; WBC 14.40 10^3/uL (4.4-10.8)
[2024-10-03 07:27] LABS: ALT 29 U/L (14-59); AST 21 U/L (15-37); Albumin 3.2 g/dL (3.4-5.0); Alkaline Phosphatase 63 U/L (46-116); Anion Gap 9.6 mmol/L (3-11); BUN 4 mg/dL (7-18); Bilirubin, Total 0.4 mg/dL (0.2-1.0); CO2 26.4 mmol/L (21.0-32.0); Calcium 8.2 mg/dL (8.5-10.1); Chloride 109 mmol/L (98-107); Estimated GFR 131.46 (mL/min/1.73m2); Glucose 84 mg/dL (74-106); Potassium 3.4 mmol/L (3.5-5.1); Sodium 145 mmol/L (136-145); Total Protein 6.3 g/dL (6.4-8.2)
[2024-10-03 07:30] VITALS: BP 123/73; PULSE 88; RESP 18; TEMP 36.6; O2SAT 94
[2024-10-03] MEDS: Acetaminophen 325 MG TAB 650 MG PO ×4 (07:36→20:33)
[2024-10-03 07:41] LABS: RBC Morphology Normal
--- NOTE | 2024-10-03 15:06 | INITIAL_ITS ---
Date of service: 10/03/24 Time of Service: 15:51 Care Management Initial Assmt Initial Assessment Reason for Hospitalization: adb pain Functional Status/Living Situation Patient Presentation: Karin was sitting at the edge of her bed when CM met with her. Karin was admitted to [facility] 09/13/24 and discharged 09/15/24. She presented to the ED twice more and was admitted 10/02/24 after presenting for recurrent nausea, vomiting, diarrhea, and abdominal pain (see ED note 10/02/24). Per report, Karin has been accepted to a tertiary care facility ([facility]), and is awaiting a bed. Anticipate she will be transferred to [facility] tomorrow, though she has a surgical consult for 10/04/24. Karin is pleasant and willing to engage in conversation. She is living in [place] [facility] with her 2 children. She is independent at baseline, including driving. Karin states she is feeling okay overall, but is bored. CM offer her a coloring book which she happily accepted. CM will contine to follow. Town of Residence: [place] [facility] Significant Other/Family: Local (sister, Elodia and cousin, Kaur. 2 children, ages 1 and 3 ) Natural Supports: Friends, family Instrumental Activities of Daily Living (ADLs): Independent Medications Medication Management: No Issues/Barriers identified Advance Directives Advance Directives: Do you have an Advance Directive: N , 17:05 AD On File at [facility]: N 07/06/12, 21:12 Date Asked 10/02/24 10/02/24, 12:20 AD Date Reviewed 10/02/24 10/02/24, 17:27 COLST On File at [facility] COLST Date Scanned Code Status Resuscitation Status Full Code Portal Pt does not currently have a portal and education provided: Yes Insurance Coverage/Financial Issues Insurance: Medicaid of [place] - [id number] Care Team Visit Care Team Role Provider Type JAMAR SANCHEZ NP Primary Care Provider NON-[facility] STAFF PHYSICIAN JOSE Ruano Emergency Provider 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 She will transport down by EMS. CM will continue to follow. Social Determinants of Health Screening Will the Patient Participate in the Screening?: Unable to obtain PFSH All Active Problems (Updated 10/02/24 @ 16:47 by JOSE Ruano) Eosinophilic colitis (Acute) Nausea & vomiting (Acute) Abdominal pain (Acute) Pancreatitis (Chronic) Ascites (Acute) Colitis (Acute) Acute respiratory infection (Acute) Duodenitis (Acute) GERD (gastroesophageal reflux disease) (Chronic) Anxiety (Chronic) Bipolar disorder (Chronic) Adult BMI 39.0-39.9 kg/sq m (Acute) Anemia (Chronic) Family history of transposition of great arteries (Acute) Maternal cousin's child Hidradenitis suppurativa (Chronic) Moderate episode of recurrent major depressive disorder (Acute 04/03/17) Medical History Sterilization Bilateral salpingectomy at time of section performed 09/03/2023. History of obstructive sleep apnea History of trichomonal vaginitis Surgical History Status post repeat low transverse section Repeat low-transverse section 09/03/2023. Female .Nayana Intraoperative bilateral salpingectomy wisdome teeth extraction Incision & Drainage, Abscess or Hematoma 07/14/16-ED [facility] Biopsy, Soft Tissue (01/15/17) left and right axillae Social History Smoking/Tobacco Use Status: Former Tobacco Use Tobacco: How many years used: 15 Smoking risk assessment performed?: Yes Alcohol Intake: former Drug use: Never Substance use type: does not use Counseling given: No Household members: children and other Details: Nayana Joseph Housing: house Number of Children: 2 Seatbelt use: always Do you feel safe at home: Yes Do you feel safe in your relationship?: Yes Female Reproductive History Menstrual control method: progesterone injection History History 2 Para 2 Hx # Term Pregnancies 2 Multiple births 0 Hx # Pregnancies 0 Ectopic pregnancies 0 AB induced 0 Hx Number of Living Children 2 AB spontaneous 0 Past Pregnancies Del. Date GA/Weeks # Preg Succ Route Wgt Sex Labor Lgth Anesth esia Location Prov Complic 05/17/21 39 No Yes 3316.894 g Female N 09/03/23 39 No Yes 3316.894 g Female K jocelin Joseph. aoc. Bilateral tubal sterilization. Delivery Date: 05/17/21 Last Updated by: Marie Siddiqui CNM Arrived with bleeding at 5 cms. AROM and meconium noted. Epidural placed and heart rate decelerations occurred after epidural. Had an emergency C/S at 7 cms under general anesthesia. Philippe Delivery Date: 09/03/23 Last Updated by: MD Nayana Caba Readmission Within the Past 30 Days Yes or No: Yes Date of First Admission Date of 1st Admission: 09/13/24 Date of this Admission Date of Admission: 10/02/24 This admission was: Through ED Office Visit Since 1st Admission Have you seen your PCP in the office since discharge?: Yes Date of PCP Appointment: 09/20/24 Had an appointment Been Scheduled?: Yes Date of Scheduled Appointment: 09/20/24 Speicalist Appointments Have you seen any other specialist since your 1st Admission?: No I. Interview patient and/or Family Difficulty reaching your doctor or getting an office appt?: No Have you had trouble purchasing/ or taking medication?: No Have you had trouble with getting meals at home?: No Did you feel ready for discharge when you left the last time: Yes Did you call your physician beore you came to the ED?: No Did your physician tell you to come in?: No How do you think you became sick enough to come back?: my symptoms just kept getting worse and worse ED visits How many ED visits in the past 12 months: 11 Assessment for Readmission Summary of readmission circumstances, based upon interviews: Patients symptom source may not have been diagnosed, reoccurring symptoms, now transferring to [facility].
--- NOTE | 2024-10-03 17:40 | PGE_ITS ---
Date of Service Date of service: 10/03/24 Time of Service: 17:41 Assessment and Plan Assessment and plan (1) Eosinophilic colitis: Status: Acute Assessment and plan: pt will be transferred to [facility] [place] tomorrow. Boarding tonight. Will add anti- emetics and ivf 10/03/24 Waited until 1742 to see pt. No idea when pt with be transferred. Order labs in am Subjective Subjective Interval history since last seen: complains of mild abdominal pain. Still awaiting xfer to [facility] [place] Exam Narrative Exam Narrative: HEENT-NCAT MMM EOMI PERRLA NECK-NO LAD NO JVD CV-RRR NO MRG LUNG-MILD EXP WHEEZE CELESTINE NO AMU ABD-SNTNDBSA EXT-NO CCEB PSYCH-AAOX3 NAD Objective Last Vital Signs Temp 36.6 C 10/03/24 07:30 Pulse 88 10/03/24 07:30 Resp 18 10/03/24 07:30 BP 123/73 10/03/24 07:30 Pulse Ox 94 10/03/24 07:30 Laboratory Results - last 24 hr 10/03/24 06:38 WBC 14.40 H RBC 4.21 Hgb 10.4 L Hct 33.0 L MCV 78 L MCH 24.7 L MCHC 31.5 L RDW 16.3 H Plt Count 373 MPV 10.1 Immature Gran % 0.3 Neutrophils % 25.5 Lymphocytes % 17.9 Monocytes % 3.3 Eosinophils % 52.5 Basophils % 0.5 Nucleated RBC % 0.0 Absolute Neutrophils 3.67 Absolute Lymphocytes 2.58 Absolute Monocytes 0.48 Absolute Eosinophils 7.56 H Absolute Basophils 0.07 RBC Morphology Normal Sodium 145 Potassium 3.4 L Chloride 109 H Carbon Dioxide 26.4 Anion Gap 9.6 BUN 4 L Creatinine 0.4 L Est GFR (CKD-EPI 2020) 131.46 Glucose 84 Calcium 8.2 L Total Bilirubin 0.4 AST 21 ALT 29 Alkaline Phosphatase 63 Total Protein 6.3 L Albumin 3.2 L Time Spent with Patient Time Spent with Patient: <25 minutes Time was spent: preparing to see the patient(eg.review tests), obtaining and/or reviewing separately otained hiistory, ordering medications,tests, procedures, referring, communicating with other health day care supervisor, indepentently interpreting results, counseling the patient and care coordination
[2024-10-03 20:21] VITALS: BP 125/87; PULSE 84; RESP 16; TEMP 36.5; O2SAT 96
--- NOTE | 2024-10-03 20:22 | W.PM.DS.N ---
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 Patient has been admitted twice for this issue with the first 1 being on September 13. At that time the diagnosis was with colitis and consult to general surgery was also placed. This can be reviewed on [employer] was done by Dr. Owen on the and the plan was to colonoscopy. Colonoscopy performed on the September 14 had biopsies taken. 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 Patient returned to the ED on the but was discharged home. Patient returns with worsening abdominal pain today and our ER staff reached out to [facility] who accepted her in transfer for evaluation by gastroenterology specialist. She will [facility] boarding [facility]. Per my discussion with JOSE Banks no other recommendations were made besides keeping her in the hospital. Per my discussion with the patient she denies any alcohol use or drug use drug allergies. Patient was accepted by Dr. Messer at [facility]. As noted above, this pt was admitted yesterday and was accepted for transfer to [facility] pending bed availability. Within 2 hours of when I arrived for the night shift manager this evening, I was informed that she now has a bed and transport is imminent. I have completed the DC process in the EMR, but I did not have time to evaluate the pt, any other information is per prior documentation. The medication list below reflects her usual home medications. Discharge Plan Disposition Specific Acute Inpt Facility: [facility] Condition: Stable Discharge Details Reason For Visit: Abd Pain Admit Date/Time: 10/02/24 17:17 Admit Provider: Chemo Castillo Attending Provider: Chemo Castillo Primary Care Provider: JAMAR SANCHEZ Home Meds and New Rx's Prescriptions: No Action famotidine [Pepcid] 20 mg tablet 20 mg PO BID Qty: 60 0RF prochlorperazine maleate [Compazine] 10 mg tablet 10 mg PO Q8H PRNQty: 10 0RF omeprazole 20 mg capsule,delayed release(DR/EC) 20 mg PO DAILY Qty: 30 0RF DS: Summary Time Spent with Patient providing and/or coordinating discharge services: Less than 30 minutes Status at Discharge Functional status at discharge: independent ambulation Overall status at discharge: patient is back to baseline Mental Status: mental status grossly normal Speech and Movement: speech and movement normal Mood: congruent mood Affect: normal affect Exam Narrative Exam Narrative: No exam performed at the time of DC Psych Mental Status: mental status grossly normal Speech and Movement: speech and movement normal Mood: congruent mood Affect: normal affect DS: Data Vitals/I&O Vitals and I&O: Vital Signs Temperature 36.6 C 10/03/24 07:30 Temperature Source Temporal Artery Scan 10/03/24 07:30 Pulse 88 10/03/24 07:30 Respiratory Rate 18 10/03/24 07:30 Blood Pressure 123/73 10/03/24 07:30 Blood Pressure Mean 89 10/03/24 07:30 Blood Pressure Position Sitting 10/02/24 18:01 Pulse Oximetry 94 10/03/24 07:30 Oxygen Delivery Method Room Air 10/03/24 07:30 Oxygen Flow Rate 0 10/03/24 07:30 Pain Level 9 10/03/24 17:03 Comment rn notified 10/03/24 07:30 Intake & Output 10/02/24 10/03/24 10/03/24 23:59 11:59 23:59 Intake Total 1102 / 1102 1000 / 1877.083 877.083 / 1877.083 Balance 1102 / 1102 1000 / 1877.083 877.083 / 1877.083 Weight 117.027 kg 116.7 kg Intake: IV 1102 / 1102 1000 / 1877.083 877.083 / 1877.083 Other: Urine Color Yellow Urine Appearance Clear Urine Odor Normal Stool Size Small Stool Characteristics Liquid Data Completed and Pending Labs on day of discharge: Labs from last 24 hours 10/03/24 10/03/24 07:53 06:38 WBC 14.40 H RBC 4.21 Hgb 10.4 L Hct 33.0 L MCV 78 L MCH 24.7 L MCHC 31.5 L RDW 16.3 H Plt Count 373 MPV 10.1 Immature Gran % 0.3 Neutrophils % 25.5 Lymphocytes % 17.9 Monocytes % 3.3 Eosinophils % 52.5 Basophils % 0.5 Nucleated RBC % 0.0 Absolute Neutrophils 3.67 Absolute Lymphocytes 2.58 Absolute Monocytes 0.48 Absolute Eosinophils 7.56 H Absolute Basophils 0.07 RBC Morphology Normal Sodium 145 Potassium 3.4 L Chloride 109 H Carbon Dioxide 26.4 Anion Gap 9.6 BUN 4 L Creatinine 0.4 L Est GFR (CKD-EPI 2020) 131.46 Glucose 84 Calcium 8.2 L Total Bilirubin 0.4 AST 21 ALT 29 Alkaline Phosphatase 63 Total Protein 6.3 L Albumin 3.2 L Cryptosporidium/Giardia Pending [facility] All Active Problems (Updated 10/02/24 @ 16:47 by JOSE Ruano) Eosinophilic colitis (Acute) Nausea & vomiting (Acute) Abdominal pain (Acute) Pancreatitis (Chronic) Ascites (Acute) Colitis (Acute) Acute respiratory infection (Acute) Duodenitis (Acute) GERD (gastroesophageal reflux disease) (Chronic) Anxiety (Chronic) Bipolar disorder (Chronic) Adult BMI 39.0-39.9 kg/sq m (Acute) Anemia (Chronic) Family history of transposition of great arteries (Acute) Maternal cousin's child Hidradenitis suppurativa (Chronic) Moderate episode of recurrent major depressive disorder (Acute 04/03/17) Medical History Sterilization Bilateral salpingectomy at time of section performed 09/03/2023. History of obstructive sleep apnea History of trichomonal vaginitis Surgical History Status post repeat low transverse section Repeat low-transverse section 09/03/2023. Female .Nayana Intraoperative bilateral salpingectomy wisdome teeth extraction Incision & Drainage, Abscess or Hematoma 07/14/16-ED [facility] Biopsy, Soft Tissue (01/15/17) left and right axillae Social History Smoking/Tobacco Use Status: Former Tobacco Use Tobacco: How many years used: 15 Smoking risk assessment performed?: Yes Alcohol Intake: former Drug use: Never Substance use type: does not use Counseling given: No Household members: children and other Details: Nayana Joseph Housing: house Number of Children: 2 Seatbelt use: always Do you feel safe at home: Yes Do you feel safe in your relationship?: Yes Female Reproductive History Menstrual control method: progesterone injection History History 2 Para 2 Hx # Term Pregnancies 2 Multiple births 0 Hx # Pregnancies 0 Ectopic pregnancies 0 AB induced 0 Hx Number of Living Children 2 AB spontaneous 0 Past Pregnancies Del. Date GA/Weeks # Preg Succ Route Wgt Sex Labor Lgth Anesthesia Location Prov Complic 05/17/21 39 No Yes 3316.894 g Female [facility] 09/03/23 39 No Yes 3316.894 g Female Maddison Jake. aoc. Bilateral tubal sterilization. Delivery Date: 05/17/21 Last Updated by: Marie Siddiqui CNM Arrived with bleeding at 5 cms. AROM and meconium noted. Epidural placed and heart rate decelerations occurred after epidural. Had an emergency C/S at 7 cms under general anesthesia. Philippe Delivery Date: 09/03/23 Last Updated by: MD Nayana Caba Time Spent with Patient Time Spent with Patient: <45 minutes Time was spent: care coordination (I spent not time with this patient, I only performed the EMR tasks that are required for her to be transferred.)
== END 2024-10-03 20:46 | disposition short-term general hospital (02) | DRG 392 ==
LOC: ER 17:27 → MS 18:43
PROVIDERS: Physician Assistant; Admitting Provider Hospitalist; Emergency Provider Physician Assistant; PCP Nurse Practitioner Family; Responsible Provider Hospitalist; Visit Provider Hospitalist
DX: K52.82 Eosinophilic colitis (principal); R18.8 Other ascites; F33.1 Major depressive disorder, recurrent, moderate; R11.2 Nausea with vomiting, unspecified; K21.9 Gastro-esophageal reflux disease without esophagitis; F41.9 Anxiety disorder, unspecified; D64.9 Anemia, unspecified; L73.2 Hidradenitis suppurativa; K52.81 Eosinophilic gastritis or gastroenteritis; Z79.899 Other long term (current) drug therapy; R10.9 Unspecified abdominal pain; R19.7 Diarrhea, unspecified
CPT/HCPCS: 00123; 36415; 80053; 83690; 87015; 87269; 87272; 96365; 96375; 99285; 83735; 84703; 85025; 99222; 99231; J0780; J2405